=== PATIENT | female | born 1970 | race Caucasian/White ===

== ENCOUNTER 2017-04-23 11:00 | Outpatient (RCR) | payer MEDICARE, OTHER, SELFPAY ==
--- NOTE | 2017-01-06 16:19 | HP.PTEVAL_ITS ---
Patient's Visit Information BETO BERMUDEZ is a 46 year old F referred to Physical Therapy by Out of Town Doctor JOYA MEADE with a diagnosis of S/P L ankle fx. Date of Evaluation: 01/06/17 Physical Therapist: Girish Tao PT, - Visit Plan Frequency: 2x /Week Duration: 6 Weeks Plan: L ankle strengthening (NWBing), stretching, and HEP - Subjective Subjective: DOS: 10/18/16. Pt reports she tripped on a boot that was on the floor which resulted in a bimaleolar fx of the L ankle. Pt had an intermedulary ryann placed in her L tibia. Pt was NWB'ing for 12 weeks after the surgery until last week. Pt reports she still uses crutches to ambulate with, but is able to WB approximately 75% of her body wt. Pt did injure her R ankle when she was [age] which resulted in a hairline Fx. Pt reports her R foot is still numb, but notes she has peripheral neuropathy secondary to having kidney disease. Lives in a split level, has to negotiate steps one at a time. No sleep diff secondary to pain. 0/10 at rest, 3/10 at worst (prolonged ambulation) - Pain L ankle Pain Intensity (Out of 10): 0 Pain Intensity Range: 3 - Objective Palpation: Incisions all healed well at this time. Obvious swelling present at this time. No edema present in L LE. ROM: L ankle DF= -15, PF= 25; R ankle DF= 0, PF= 60. MMT: R ankle 5/5 throughout. L ankle 2/5 - Goals Goal 1:: Increase L ankle DF ROM x 10 degrees to aid with restoring a more normal gait pattern Goal Time Frame: 4-6 Weeks Goal 2:: Increase L ankle strength x 1 grade to aid with stair negotiation Goal Time Frame: 4-6 Weeks Goal 3:: Decrease L ankle pain x 50% to aid with IADL's Goal Time Frame: 4-6 Weeks Goal 4:: I with HEP Goal Time Frame: 4-6 Weeks - Rehabilitation Potential Rehabilitation Potential: Good - Anticipated Interventions Patient/Client Instruction: Educate patient on: Condition, Plan of Care For the Purpose of:: To improve self management Therapeutic Exercise to Include: Strength training, Flexibilty training, Gait and locomotor training, Passive ROM, Active ROM For the Purpose of:: To decrease pain, To increase ROM, To improve muscle performance and motor function Cryotherapy (ice pack, ice massage): Yes For the Purpose of:: To decrease pain, To increase ROM, To improve muscle performance and motor function Thank you for the opportunity to evaluate your patient. For Medicare and Medicare HMO plans, please review the plan of care and approve it. It will need to be FAXED BACK to us at [phone] for Medicare purposes. Please let me know if there are questions or concerns regarding this plan of care. Physician Signature: Date:
--- NOTE | 2017-02-02 16:09 | HP.PTREVAL_ITS ---
Out of Town DoctorHALINA ERICKA It has been my pleasure to treat BETO BERMUDEZ over the last 9 visits for S/ P L ankle fx. Please see the progress note below for an update on the physical therapy plan of care! Subjective: No pain this date. Objective/Function: L ankle ROM: DF= -13, PF= 30, INV= 12, Ever= 0. MMT: DF and PF= 4/5 in available range. Pain 0/10 Pt is I with HEP. Progressing well towards Rx goals Plan Plan: cont as vy Goals Goal 1:: Increase L ankle DF ROM x 10 degrees to aid with restoring a more normal gait pattern Goal Time Frame: 4-6 Weeks Goal Progress: Progressing Goal 2:: Increase L ankle strength x 1 grade to aid with stair negotiation Goal Time Frame: 4-6 Weeks Goal Progress: Progressing Goal 3:: Decrease L ankle pain x 50% to aid with IADL's Goal Time Frame: 4-6 Weeks Goal Progress: Goal Met Goal 4:: I with HEP Goal Time Frame: 4-6 Weeks Goal Progress: Goal Met Anticipated Interventions Patient/Client Instruction: Educate patient on: Condition, Plan of Care For the Purpose of:: To improve self management Therapeutic Exercise to Include: Strength training, Flexibilty training, Gait and locomotor training, Passive ROM, Active ROM For the Purpose of:: To decrease pain, To increase ROM, To improve muscle performance and motor function Cryotherapy (ice pack, ice massage): Yes For the Purpose of:: To decrease pain, To increase ROM, To improve muscle performance and motor function Please do not hesitate to contact me at [phone] by phone or Fax: if you have questions or concerns regarding this new plan of care! Sincerely, Girish Tao, PT,
--- NOTE | 2017-06-18 15:23 | HP.PT.NRP ---
HP - Discharge Summary (1) - Patient Information BETO BERMUDEZ was seen in my office for initial evaluation on 01/06/17. The following Plan of Care was established for this patient: Initial Frequency: 2x /Week Initial Duration: 6 Weeks - Anticipated Interventions Patient/Client Instruction: Educate patient on: Condition, Plan of Care For the Purpose of:: To improve self management Therapeutic Exercise to Include: Strength training, Flexibilty training, Gait and locomotor training, Passive ROM, Active ROM For the Purpose of:: To decrease pain, To increase ROM, To improve muscle performance and motor function Cryotherapy (ice pack, ice massage): Yes For the Purpose of:: To decrease pain, To increase ROM, To improve muscle performance and motor function This patient was last seen in our office . Pertinent comments regarding their Physical therapy will appear below: Pt phoned the clinic on 05/08/17 to report she wanted to cancel all remaining appt's as she had to have surgery again. At this point I will be discontinuing this patient from physical therapy. I would be happy to see this patient again in the future if found appropriate by the physician. Thank you! Girish Tao, PT,
== END 2017-04-23 19:00 | disposition home or self-care (01) ==
LOC: PT 11:00
PROVIDERS: Family Provider Nurse Practitioner; PCP Nurse Practitioner
DX: S82.392D Other fracture of lower end of left tibia, subsequent encounter for closed fracture with routine healing (principal); S82.842D Displaced bimalleolar fracture of left lower leg, subsequent encounter for closed fracture with routine healing; W17.89XD Other fall from one level to another, subsequent encounter; M25.572 Pain in left ankle and joints of left foot
CPT/HCPCS: 97110; 97162; 97530; G8978; G8979

== ENCOUNTER → 2017-10-12 12:13 | Outpatient (CLI) | payer MEDICARE, OTHER, SELFPAY ==
--- NOTE | 2017-10-12 12:18 | RAD_ITS ---
STUDY: X-RAY - LUMBAR SPINE REASON FOR EXAM: Female, 46 years old. Pain TECHNIQUE: Five view(s) of the lumbar spine were obtained. COMPARISON: None FINDINGS: Normal lumbar lordosis. There is no significant scoliosis. There is normal alignment of the vertebrae. There are small osteophytes scattered in the lumbar spine. Vertebral body heights are maintained. There is mild disc space narrowing at L5-S1. Cholecystectomy clips are present. There are surgical clips in the right pelvis. RAD/L/S Spine Min 4 Views IMPRESSION: There are mild degenerative disc changes at L5-S1. Electronically Signed: Shabnam Ospina MD at 2:05 EDT Tel Direct: [phone], Service support ,
--- NOTE | 2017-10-12 12:18 | RAD_ITS ---
STUDY: X-RAY - THORACIC SPINE REASON FOR EXAM: Female, 46 years old. Pain TECHNIQUE: Three view(s) of the thoracic spine were obtained. COMPARISON: None. FINDINGS: Normal kyphosis of the thoracic spine. There is no significant scoliosis. Vertebral body heights are maintained. Osteophytes are scattered in the thoracic spine. There is minimal disc space narrowing. Cholecystectomy clips are present. There are small surgical sutures in the left upper abdomen. RAD/Thoracic Spine 3 Views IMPRESSION: No acute abnormalities are seen in the thoracic spine. There are mild degenerative changes scattered in the thoracic spine. Electronically Signed: Shabnam Ospina MD at 2:03 EDT Tel Direct: [phone], Service support ,
== END ==
PROVIDERS: Family Provider Nurse Practitioner; PCP Nurse Practitioner; Visit Provider Nurse Practitioner Gerontology
DX: M54.9 Dorsalgia, unspecified (principal)
CPT/HCPCS: 72072; 72110

== ENCOUNTER 2017-11-18 10:00 | Outpatient (RCR) | payer MEDICARE, MEDICAID, SELFPAY ==
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
--- NOTE | 2017-10-23 11:50 | HP.PTREVAL_ITS ---
Mis Ventura, It has been my pleasure to treat BETO BERMUDEZ over the last 9 visits for SCIATICA. Please see the progress note below for an update on the physical therapy plan of care! Subjective: PATIENT REPORTS THE PAIN IN THE HIPS IS GETTING BETTER AND SHE CAN AT LEAST GO TO SLEEP AT NIGHT AND THAT IS DEFINATELY A PLUS. PATIENT REPORTS SHE CAN BE UP ON HER LEGS LONGER TOO. SHE REPORTS SHE FEELS REALLY GOOD IN THE POOL AND SHE WANTS TO CONTINUE WATER THERAPY. PATIENT ALSO REPORTS HER CALVES ARE NOT PAINFUL THEY WERE. PATIENT REPORTS SHE IS ALLOWED TO WALK AT HOME WITHOUT HER BOOT TOLERATED. SHE REPORTS THE EX'S IN THE POOL ALL FEEL GOOD AND ARE EVEN HELPING HER LEFT ANKLE. PATIENT REPORTS SHE HAS NOTICED THAT IT IS EASIRE TO GO UP THE STEPS INTO HER HOUSE NOW. Objective/Function: PATIENT IS MAKING PROGRESS TOWARD ALL GOALS. SHE IS REPORTING LESS PAIN, DEMO'S INCREASED PUMA LE STRENGTH AND IS TOLERATING PRE IN THE POOL ALONG WITH LEARNING A HEP. ABLE TO DEMONSTRATE AND COMMUNICATE A GOOD UNDERSTANDING OF ALL INSTRUCTIONS AFTER GIVEN TODAY. UPON EXAM: Motor deficit: RIGHT LE GROSSLY 5/5 WITH MMT'IING EXCEPT HIP GRADED 4/5. LEFT HIP 4-/5, KNEE EXT 4/5, KNEE FLEX 4/5 - ANKLE NT. Sensory deficit: NO CHANGE. ROM deficit: PUMA LE'S WFL - LEFT ANKLE NT. Dural Signs: NEGATIVE PUMA LE DURAL SIGNS. OTHER: UNABLE TO TRANSFER FROM SIT TO STAND WITHOUT UE ASSIST. Lumbar mvmt loss: flex - MOD - THIS IS MORE RESTRICTED THAN INITIAL EVAL BUT PATIENT DENIES FEELING TIGHTER IN LOW BACK SINCE STARTING POOL THERAPY. ext - MIN. R SG - MIN. L SG - MIN. LEFT SG TESTING PROVOKES LOW BACK PAIN TODAY. PATIENT REPORTED FEELING A LITTLE LOW BACK PAIN WITH LUMBAR EXTENSION TESTING TOO. Core strength: POOR. Palpation: THERE IS STILL NO ACUTE LUMBAR OR PELVIC OR HIP TENDERNESS WITH PALPATION. OTHER: TRANSFERRING SIT TO [place]PINE IS SLOW AND GUARDED AND IT TAKES HER A FEW MINUTES TO GET COMFORTABLE ON HER BACK TO CHECK HER HOME EX'S. LUMBAR OSWESTRY HAS IMPROVED FROM 28 TO 24. Plan Plan: CONT AQUATIC THERAPY 2-3 TIMES A WEEK X 10 MORE VISITS FOR PAIN RELIEF, POSTURE CORRECTION/STRENGTHENING, INSTRUCTION IN APPROPRIATE BODY MECHANICS AND ACTIVITY MODIFICATIONS. DLS STARTING WITH A NEUTRAL SPINE PROGRESSING ROM TOLERATED. PUMA LE ROM, STRETCHING AND STRENGTHENING. HEP INSTRUCTION. Goals Goal 1:: DECREASE C/O BACK AND LE SX'S Goal Time Frame: 4-6 Weeks Goal 2:: IMPROVE PERSONAL CARE, LIFTING, WALKING, SITTING, STANDING, SLEEP, SOCIAL LIFE, TRAVEL AND HOMEMAKING FUNCTION Goal Time Frame: 4-6 Weeks Goal 3:: INSTRUCT IN PROPHYLAXIS Goal Time Frame: 4-6 Weeks Anticipated Interventions Patient/Client Instruction: Educate patient on: Condition, Plan of Care, Risk Factors, Benefits of Fitness Program For the Purpose of:: To improve self management Therapeutic Exercise to Include: Strength training, Body mechanics, Postural training, Dynamic Lumbar Stabilization For the Purpose of:: To decrease pain, To improve ability of physical actions for home/community/work/leisure Please do not hesitate to contact me at [phone] by phone or Fax: if you have questions or concerns regarding this new plan of care! Sincerely, Lorenza Hernandez
--- NOTE | 2017-11-18 10:52 | HP.PTDCSUM_ITS ---
HP - PT D/C Summary It has been my pleasure to treat BETO BERMUDEZ under orders from Mis Ventura, for the diagnosis of SCIATICA for a total of 19 visit(s). Discharge Date: 11/18/17 Please see the following information for a summary of their discharge status. - Subjective Subjective: PATIENT REPORTS SHE THINKS SHE IS STARTING TO GET BETTER AGAIN. PATIENT REPORTS SHE IS GOING ON VACATION STARTING THURSDAY FOR ABOUT 10 DAYS. SHE PLANS TO START WATER EX AT THE WHEN SHE GETS BACK IN TOWN. ANOTHER SURGICAL CONSULT FOR LEFT ANKLE SURGERY November. SHE REPORTS HER RIGHT LE HAS CONTINUED TO IMPROVE SINCE LAST RE-CHECK WHICH HAS ALLOWED HER TO WALK AROUND MORE COMFORTABLY AND SLEEP BETTER. SHE ALSO REPORTS THE PAIN IN HER LEFT LOWER LEG IS BETTER AND IT WAS ALMOST GONE OUT OF HER LOWER LEG UNTIL ABOUT A WEEK AND A HALF AGO AFTER CHIRO MANIP. 10/12/17 LUMBAR X-RAY SHOWS There are mild degenerative disc changes at L5-S1. DR. JULIO HAS REFERRED HER TO PAIN MGMT AND BARRETT PENDING WITH DR. TORO END November. - Pain Lumbar Spine Pain Intensity (Out of 10): 2 RLE Pain Intensity (Out of 10): 2 LLE Pain Intensity (Out of 10): 4 - Overall Improvement % Improvement: 65 - Objective Objective/Function: UPON EXAM: Motor deficit: RIGHT LE GROSSLY 5/5 WITH MMT' IING EXCEPT left ANKLE NT. THIS HAS DEFINATELY IMPROVED. GAIT: INDEP GAIT INTO PT STILL WEARING BOOT ON LLE. Sensory deficit: NO CHANGE. ROM deficit: PUMA LE'S WFL - LEFT ANKLE NT. Dural Signs: NEGATIVE PUMA LE DURAL SIGNS. OTHER : ABLE TO TRANSFER FROM SIT TO STAND WITHOUT UE ASSIST NOW. Lumbar mvmt loss: flex - MIN. ext - MIN. R SG - MIN. L SG - MIN. PATIENT DENIES INCREASED PAIN WITH LUMBAR ROM TESTING TODAY. Core strength: POOR. Palpation: THERE IS STILL NO ACUTE LUMBAR OR PELVIC OR HIP TENDERNESS WITH PALPATION BUT PATIENT REPORTS PAIN IN LOWEST PART OF BACK IF SHE PUSHES HARD AND HER SIT BONES HURT. OTHER: LAST RE-CHECK, TRANSFERRING SIT TO SUPINE WAS SLOW AND GUARDED AND IT TOOK HER A FEW MINUTES TO GET COMFORTABLE ON HER BACK TO CHECK HER HOME EX'S BUT TODAY SHE TRANSFERS WITH MUCH LESS GUARDING AND IS ABLE TO GET COMFORTABLE ON HER BACK QUICKLY. LUMBAR OSWESTRY HAS IMPROVED FROM 24 TO 19. ALL GOALS MET BUT PATIENT STILL HAS SIGNIFICANT C/O'S OF PAIN. SHE IS INDEP WITH A POOL PROGRAM AND MY HOPE IS THAT SHE WILL CONTINUE TO IMPROVE WITH TIME AND EX. - Goals Goal 1:: DECREASE C/O BACK AND LE SX'S Goal 2:: IMPROVE PERSONAL CARE, LIFTING, WALKING, SITTING, STANDING, SLEEP, SOCIAL LIFE, TRAVEL AND HOMEMAKING FUNCTION Goal 3:: INSTRUCT IN PROPHYLAXIS - Plan Plan: D/C TO INDEP EX. PATIENT AGREEABLE. - D/C Information If there are questions or concerns regarding this patient's physical therapy, please feel free to call me at [phone]. Thank you for the referral of this patient. Sincerely, Lorenza Hernandez
== END 2017-11-18 18:29 | disposition home or self-care (01) ==
LOC: PT 10:00
PROVIDERS: Family Provider Nurse Practitioner; PCP Nurse Practitioner; Visit Provider Internal Medicine
DX: M54.32 Sciatica, left side (principal); M54.31 Sciatica, right side
CPT/HCPCS: 97113; 97163; 97164; 97530

== ENCOUNTER → 2017-12-30 15:31 | Outpatient (CLI) | payer MEDICARE, OTHER, MEDICAID, SELFPAY ==
--- NOTE | 2017-12-30 16:00 | MRI_ITS ---
STUDY: MRI LUMBAR SPINE WITHOUT CONTRAST REASON FOR EXAM: Female, 47 years old. Low back pain, kidney transplant TECHNIQUE: Standardized fat and water weighted pulse sequences were obtained in the sagittal and axial planes. COMPARISON: X-ray 10/12/2017 FINDINGS: T12-L1: There is mild endplate spondylosis (image 7/15 sagittal T2). Normal lumbar lordosis. There is no substantial scoliosis. Normal conus medullaris that terminates at the T12-L1 level. L1-2: Normal endplates. Normal disc height, hydration and morphology. Normal bilateral facet joints. Normal central canal and bilateral lateral recesses. Normal bilateral intervertebral neural foramina. L2-3: There is minimal endplate spondylosis, disc desiccation and disc bulge (image 7/15 sagittal T2). L3-4: There is mild endplate spondylosis, disc desiccation and mild disc bulge (image 7/15 sagittal T2). L4-5: Normal endplates. Normal disc height, hydration and morphology. Normal bilateral facet joints. Normal central canal and bilateral lateral recesses. Normal bilateral intervertebral neural foramina. L5-S1: There is disc desiccation and mild disc bulge (image 7/15 sagittal T2). Normal visualized sacral ala. There is polycystic kidney disease (image 16/25 axial T2). MRI/Spine Lumbar (Routine) IMPRESSION: No disc herniation or spinal stenosis Electronically Signed: Alvaro Sloan MD at 21:35 EDT Tel , Service support ,
== END ==
PROVIDERS: Family Provider Nurse Practitioner; PCP Nurse Practitioner; Visit Provider Nurse Practitioner Family
DX: M47.817 Spondylosis without myelopathy or radiculopathy, lumbosacral region (principal); M51.37 Other intervertebral disc degeneration, lumbosacral region; M48.07 Spinal stenosis, lumbosacral region; M54.17 Radiculopathy, lumbosacral region
CPT/HCPCS: 72148

== ENCOUNTER 2018-03-30 19:59 | Emergency (ER) | payer MEDICARE, OTHER, MEDICAID, SELFPAY ==
[2018-03-30 20:00] VITALS: BP 146/71; PULSE 68; RESP 16; TEMP 37.1; O2SAT 99; BMI 31.9
--- NOTE | 2018-03-30 21:16 | RAD_ITS ---
STUDY: X-RAY - LEFT KNEE REASON FOR EXAM: Female, 47 years old. Status post fall. TECHNIQUE: 4 view(s) of the knee. COMPARISON: None. FINDINGS: There is no acute fracture. There is an old healed fracture of the proximal fibular shaft. Joint spaces are well-maintained. There is no joint effusion. Soft tissues and bony structures are unremarkable. RAD/Knee 4 or More Views IMPRESSION: No acute abnormality. Healed fracture of the proximal fibular shaft. Electronically Signed: Lizeth Polo MD at 21:48 EST Tel , Service support ,
--- NOTE | 2018-03-30 21:18 | ED.VISSUMM ---
- ER Visit Summary Date of Service: 03/30/18 Chief Complaint: Fall History of Present Illness: The patient is a 47 F who sustained a mechanical fall earlier tonight. She is complaining of right ankle pain after twist and left knee pain after direct impact. She also hit her left forearm but has minimal pain. No head injury no loss consciousness no nausea vomiting no other injury. Physical Examination: Not appear in acute distress. Moist mucous membranes, no obvious facial deformity No C-spine tenderness supple neck. Regular rate and rhythm without any obvious murmurs Clear lungs bilaterally speaking in full sentences without any obvious respiratory distress Abdomen soft and nontender She has tenderness over the left knee but full range of motion without any laxity to anterior posterior medial lateral stressors. She has a normal extensor mechanism. She has ankle pain without any significant edema. She has no foot pain no proximal fifth metatarsal pain. Left upper extremity has a contusion over the forearm she also has a fistula with a palpable thrill. She has no bony tenderness. Skin does not show any obvious rashes or lesions, no trauma. Alert oriented ?3 with no gross focal deficit Emergency Department Course and Treatment: X- rays are negative. Patient appears comfortable does not need analgesia should be discharged with reassurance. Disposition: Discharge stable condition Impression: Left knee contusion Right foot strain This note was generated with [employer] dictation software. It may contain incorrect words, spelling, and punctuation that were not noted in review of the chart prior to signing ED Disposition - Plan for ED Patient: Disposition: Home or Assisted Living Chief Complaint: Lower Extremity Injury Instructions: ED Contusion Lower Ext Referrals: Hali Adamson, [facility] [Primary Care Provider] - 3-5 Days
--- NOTE | 2018-03-30 21:28 | RAD_ITS ---
STUDY: X-RAY - RIGHT FOOT CLINICAL: Female, 47 years old. Status post fall. TECHNIQUE: 3 view(s) of the foot. COMPARISON: None. FINDINGS: Normal talus, calcaneus, and tarsal bones. Normal visualized subtalar, talonavicular, calcaneocuboid, tarsal and tarsometatarsal articulations. Normal metatarsi. Normal metatarsophalangeal joint of the great toe. Normal tibial and fibular sesamoid bones. Normal interphalangeal joint of the great toe. Normal phalanges of the great toe. Normal second through fifth metatarsophalangeal joints. Normal interphalangeal joints and phalanges of the lesser toes. The soft tissue structures are unremarkable. RAD/Foot min 3 Views IMPRESSION: Normal x-ray examination of the foot. Electronically Signed: Lizeth Polo MD at 21:49 EST Tel , Service support ,
--- NOTE | 2018-03-30 21:32 | RAD_ITS ---
STUDY: X-RAY - RIGHT ANKLE REASON FOR EXAM: Female, 47 years old. Status post fall. TECHNIQUE: 3 view(s) of the ankle. COMPARISON: None. FINDINGS: Normal visualized distal tibia and fibula. Normal medial and lateral malleoli. Normal tibiotalar articulation and ankle mortise. Normal visualized talus and calcaneus. The visualized subtalar, talonavicular, calcaneocuboid and tarsal articulations are normal. The soft tissue structures are unremarkable. RAD/Ankle min 3 Views IMPRESSION: Normal x-ray examination of the ankle. Electronically Signed: Lizeth Polo MD at 21:48 EST Tel , Service support ,
[2018-03-30 22:29] VITALS: BP 125/98; PULSE 59; O2SAT 99
== END 2018-03-30 22:30 | disposition home or self-care (01) ==
PROVIDERS: Emergency Provider Emergency Medicine; Family Provider Nurse Practitioner; PCP Nurse Practitioner
DX: S96.911A Strain of unspecified muscle and tendon at ankle and foot level, right foot, initial encounter (principal); S80.02XA Contusion of left knee, initial encounter; S50.12XA Contusion of left forearm, initial encounter; W19.XXXA Unspecified fall, initial encounter; Y93.9 Activity, unspecified; Y92.9 Unspecified place or not applicable; Y99.9 Unspecified external cause status; Z72.0 Tobacco use; Z94.0 Kidney transplant status; Z79.82 Long term (current) use of aspirin; Z79.899 Other long term (current) drug therapy
CPT/HCPCS: 73564; 73610; 73630; 99282

== ENCOUNTER 2018-06-22 09:30 | Outpatient (RCR) | payer MEDICARE, OTHER, MEDICAID, SELFPAY ==
[2018-04-27 11:33] VITALS: BMI 31.9
--- NOTE | 2018-05-05 16:00 | HP.PTEVAL_ITS ---
Patient's Visit Information BETO BERMUDEZ is a 47 year old F referred to Physical Therapy by Hali Adamson NP with a diagnosis of PHYSICAL DISIBLITY. Date of Evaluation: 05/05/18 Physical Therapist: John Gipson, PT, - Visit Plan Frequency: 2x /Week Duration: 4 Weeks Plan: PATIENT HAS MULTIPLE COMORBITIES WITH LEFT ANKLE HEEL FX WHICH FAILED AND PATIENT HAD FAILED ANKLE ORIF WHICH FAILED KURT BROKE,PLANS TO HAVE REVISION IN MAY 2018ALSO FEB 2018 HAD KIDNEY TRANSPLANT. AQUATIC PT FOR GRADE DLS -CORE STRENGTHENING ,UE/LE STRENGTHENING ,CONDITIONING WITH NO WEIGHT BEARING PER ORDER - Subjective Findings: This 47 y/o female presents to physical therapy with physical disablity.Patient has multiple complexity issues. Patient fracture mutliple part heel and ankle September 2016 s/p kurt placememt. Patient had complication with kurt broke thus patient keept in cam boot. Patient plan to revise ankle surgery replace kurt Jun 23 2018. Also,had both kidney transplant due to polycystic kidney disease,transplant surgery Mar 03 2018. Patient was on dialysis for 4 1/2 years prior. Patient fell one time after kidney tranplant landed on left knee. Patient goals to get stronger and in arms /legs ,improve condition. Patient has neuropathy in feet with parathesia. Patient sleeping okay using sleep pap. Seen TRAFFIC REPORTER wanted core strength with NWB ex's. Patient has been taking vitamins to heel bone,seen ankle surgeon Dr [facility]. SOCAIL: . VOCATION: DISABITY - Pain Left Ankle Pain Intensity (Out of 10): 4 Pain Intensity Range: 10 - Objective POSTURE: mild foward poture. GAIT: ambulates with cam boot antalgic gait. ABDOMINAL INSCION: well approximate. BALANCE: good. MMT: quads/hams 4/5,hip flexion /abduction 4-/5,ankle left NT ,right 4/5. BUE grossly 4/5 ,shoulders 4- /5. FLEXABLITY: hams min tight - Goals Goal 1:: Patient to be Independant with Aquatic program Goal Time Frame: 4-6 Weeks Goal 2:: Patient to function endurance to good. Goal 3:: Patient to improve BUE/LE strength to good to improve function Goal Time Frame: 4-6 Weeks Goal 4:: Patient to improve LFES score by 5-10 points to improve function. Goal Time Frame: 4-6 Weeks - Rehabilitation Potential Physical Therapy Diagnosis: This patient has multiple comorbities with h/o of left ankle and heel fx with kurt placement that failed with kurt broke September 2016,ankle Feb 2018 patient had transplant kidneys surgery. Patient plans to undergo revision of left ankle surgery at [facility] in end of May Rehabilitation Potential: Good - Anticipated Interventions Patient/Client Instruction: Educate patient on: Condition, Plan of Care For the Purpose of:: To decrease pain, To decrease swelling/inflammation, To improve muscle performance and motor function, To improve ability to perform ADL's, To increase tolerance to activity/condition/position, To improve performance and independence with ADL's, To improve ability of physical actions for home/community/work/leisure, To improve endurance, To improve health and function, To improve ability to perform tasks related to life management Therapeutic Exercise to Include: Strength training, Endurance training, Balance training, In an aquatic setting, Active ROM, Scapular Strength/Stabilization Comment: BUE/LE EXCEPT LEFT ANKLE For the Purpose of:: To decrease pain, To improve muscle performance and motor function, To improve ability to perform ADL's, To increase tolerance to activity/condition/position, To improve performance and independence with ADL's, To improve ability of physical actions for home/community/work/leisure, To improve gait and locomotor functions, To improve ability to perform tasks related to life management Thank you for the opportunity to evaluate your patient. For Medicare and Medicare HMO plans, please review the plan of care and approve it. It will need to be FAXED BACK to us at [phone] for Medicare purposes. For Medicare only, by signing this I certify the plan of care. Please let me know if there are questions or concerns regarding this plan of care. Physician Signature:____ Date:
--- NOTE | 2018-06-01 10:00 | HP.PTREVAL ---
Hali Adamson NP, It has been my pleasure to treat BETO BERMUDEZ over the last 9 visits for PHYSICAL DISIBLITY. Please see the progress note below for an update on the physical therapy plan of care! Subjective: Plan to have surgery Jun 23. Cont on boot . PT helpng to improve strength Objective/Function: POSTURE: mild fowad posture. GAIT: with cam boot. NEURO: intact. MMT: quads/hams 4/5,hip 4-/5. LUMBAR ROM: flexion mod loss ,extension mod loss Plan Plan: MUST REMAIN NWBING FOR EXERCISE IN POOL - surgery 06/23/18* Can enter/exit from locker room WBing without AD and CAM boot. CONT WITH POC 2XWEEK 4WEEKS Goals Goal 1:: Patient to be Independant with Aquatic program Goal Time Frame: 4-6 Weeks Goal Progress: Goal Met Goal 2:: Patient to function endurance to good. Goal Progress: Progressing Goal 3:: Patient to improve BUE/LE strength to good to improve function Goal Time Frame: 4-6 Weeks Goal Progress: Progressing Goal 4:: Patient to improve LFES score by 5-10 points to improve function. Goal Time Frame: 4-6 Weeks Goal Progress: Progressing Anticipated Interventions Patient/Client Instruction: Educate patient on: Condition, Plan of Care For the Purpose of:: To decrease pain, To decrease swelling/inflammation, To improve muscle performance and motor function, To improve ability to perform ADL's, To increase tolerance to activity/condition/position, To improve performance and independence with ADL's, To improve ability of physical actions for home/community/work/leisure, To improve endurance, To improve health and function, To improve ability to perform tasks related to life management Therapeutic Exercise to Include: Strength training, Endurance training, Balance training, In an aquatic setting, Active ROM, Scapular Strength/Stabilization Comment: BUE/LE EXCEPT LEFT ANKLE For the Purpose of:: To decrease pain, To improve muscle performance and motor function, To improve ability to perform ADL's, To increase tolerance to activity/condition/position, To improve performance and independence with ADL's, To improve ability of physical actions for home/community/work/leisure, To improve gait and locomotor functions, To improve ability to perform tasks related to life management Please do not hesitate to contact me at [phone] by phone or if you have questions or concerns regarding this new plan of care! Sincerely, John Gipson, PT, Cert MDT, OCS
--- NOTE | 2018-06-22 09:56 | HP.PTDCSUM ---
HP - PT D/C Summary It has been my pleasure to treat BETO BERMUDEZ under orders from Hali Adamson NP, for the diagnosis of PHYSICAL DISIBLITY for a total of 16 visit(s). Discharge Date: 06/22/18 Please see the following information for a summary of their discharge status. - Subjective Subjective: Plan for surgery cindi nieves ,, following with NWB 6-8 weeks. - Pain Left Ankle Pain Intensity (Out of 10): 3 Lumbar Spine Pain Intensity (Out of 10): 4 BLEs Pain Intensity (Out of 10): 4 - Overall Improvement % Improvement: 50 - Objective Objective/Function: POSTURE: mild foward posture. GAIT: mild antalgic gait with boot cam. MMT: quads/hams 4/5,hip flexion 4-/5, left ankle NT - Goals Goal 1:: Patient to be Independant with Aquatic program Goal Progress: Goal Met Goal 2:: Patient to function endurance to good. Goal Progress: Goal Met Goal 3:: Patient to improve BUE/LE strength to good to improve function Goal Progress: Progressing Goal 4:: Patient to improve LFES score by 5-10 points to improve function. Goal Progress: Progressing - Plan Plan: D/C.. Surgery scheduled for 06/23/18. - D/C Information Discharge Comments: D/C TO HEP If there are questions or concerns regarding this patient's physical therapy, please feel free to call me at [phone]. Thank you for the referral of this patient. Sincerely, John Gipson, PT, Cert MDT, OCS
== END 2018-06-22 19:00 | disposition home or self-care (01) ==
LOC: PT 09:30
PROVIDERS: Family Provider Nurse Practitioner; PCP Nurse Practitioner; Referring Provider Nurse Practitioner; Visit Provider Nurse Practitioner
DX: R53.81 Other malaise (principal)
CPT/HCPCS: 97113; 97162; 97530

== ENCOUNTER → 2019-02-11 16:01 | Outpatient (CLI) | payer MEDICARE, OTHER, SELFPAY ==
[2018-04-27 11:33] VITALS: BMI 31.9
--- NOTE | 2019-02-11 16:12 | RAD_ITS ---
STUDY: X-RAY - PELVIS AND BILATERAL HIPS REASON FOR EXAM: Female, 48 years old. Pain TECHNIQUE: AP view of the pelvis.? 2 views of the right hip, and 2 views of the left hip were obtained. COMPARISON: None. FINDINGS: There is a non-specific bowel gas pattern. Normal visualized soft tissue structures. Normal bilateral iliac wings, sacroiliac joints and visualized sacrum. Normal bilateral superior and inferior pubic rami. Normal pubic symphysis. Normal bilateral ischial tuberosities. Normal visualized right femoral head. Normal right acetabulum. Normal right hip joint. Normal visualized left femoral head. Normal left acetabulum. Normal left hip joint. RAD/Hips B/L min 2 views w/ Pelvis IMPRESSION: Normal x-ray examination of the pelvis and bilateral hips. Electronically Signed: Bib Davey, at 22:17 EDT Tel , Service support ,
== END ==
PROVIDERS: Family Provider Nurse Practitioner; PCP Nurse Practitioner; Referring Provider Nurse Practitioner; Visit Provider Nurse Practitioner
DX: M25.551 Pain in right hip (principal); M25.552 Pain in left hip
CPT/HCPCS: 73521

== ENCOUNTER → 2019-04-07 10:50 | Outpatient (CLI) | payer MEDICARE, SELFPAY ==
[2018-04-27 11:33] VITALS: BMI 31.9
--- NOTE | 2019-04-07 10:57 | RAD_ITS ---
STUDY: X-RAY - CERVICAL SPINE REASON FOR EXAM: Female, 48 years old. Left arm pain. TECHNIQUE: 5 view(s) of the cervical spine were obtained. COMPARISON: None FINDINGS: There are degenerative changes of the anterior atlantoaxial articulation. Normal odontoid process. There is straightening of the normal cervical lordosis. There is multi-level endplate spondylosis. There is mild, multi-level degenerative disc disease with multilevel disc space narrowing. No significant neuroforaminal encroachment seen. The soft tissue structures are unremarkable. There is no demonstrated fracture of the cervical spine. RAD/Cerv Spine 4 or 5 Views IMPRESSION: Mild spondylosis/degenerative disease with no acute fracture or subluxation. Straightening of the physiological lordosis which may be due to muscular spasm or arthritis. Electronically Signed: Zee Camacho MD at 2:45 EST , Service support ,
== END ==
PROVIDERS: Family Provider Nurse Practitioner; PCP Nurse Practitioner; Referring Provider Anesthesiology Pain Medicine; Visit Provider Anesthesiology Pain Medicine
DX: M79.602 Pain in left arm (principal); M54.2 Cervicalgia
CPT/HCPCS: 72050

== ENCOUNTER 2019-08-30 10:00 | Outpatient (RCR) | payer MEDICARE, MEDICAID, SELFPAY ==
[2018-04-27 11:33] VITALS: BMI 31.9
--- NOTE | 2019-05-09 14:29 | HP.PTEVAL ---
Patient's Visit Information BETO BERMUDEZ is a 48 year old F referred to Physical Therapy by Bib Giron MD with a diagnosis of DEGENERATIVE CERVICAL DISC,CERVICAL /LUMBAR SPONYLOSIS. Date of Evaluation: 05/09/19 Physical Therapist: John Gipson, PT, Cert MDT, OCS - Visit Plan Frequency: 2x /Week Duration: 4 Weeks Plan: INTIALLY AQAUTIC PT FOR CERVICAL/LUMBAR ROM,DLS,POSTURAL EX'S,BUE/LE STRENGTHENING - Subjective Findings: This 48 y/o female presents to physical therapy with cervical and back pain. Patient has lumbar pain 2 years and cervical pain 6 months. Patient has comorbities kidney transplant, bariatric surgery ,ankle fusion left Jun 23 ,, knee surgery on left,left x1. Patient seen DR Keen did epidural injections L-S, and hip SI last in Jan.Patient had x-rays at [facility] .Loctaion of cervical UT/scapular. Aggravating factors lifting,sleeping,extesnion,flexion when reading, Alleviating factors pain MEDS. Denies nausea/tinnitus,occassioonally LAMBERT. Aggravting factors lumbar lifting, bending,walking/standing. MEDS help.Bowel/bladder -. Coughing/sneezing -. C/O parathesia right thigh and left arm. Pain affects sleeping. Patient pain affects ,housework tasks and ADL's. Patient pain affects QOL. SOCIAL: . VOCATION: disablity - Pain Bilateral Neck Pain Intensity (Out of 10): 4 Pain Intensity Range: 10 Bilateral Back Pain Intensity (Out of 10): 4 Pain Intensity Range: 10 Bilateral Hip Pain Intensity (Out of 10): 4 Pain Intensity Range: 10 - Objective POSTURE: mild foward posture. GAIT: mild foward posture hips knees flexed. PALAPTION: tenderness UT/levator. NEURO: c/o parathesia/tingling ,reflexes C5-6-7 2/3,L4-5,L4-L5,L5-S1 1/3. AROM: shoulder flexion/abduction 140 pain. MMT: grossly 4-/5,except shoulder 3+/5 pain. CERVICAL ROM: flexion min loss,extension mod loss pain ,rotation/lateral flexion mod loss pain. MMT: quads/hams 4-/5,hip flexion 3+/5,ankld 4-/5. LUMBAR ROM: flexion mod loss,extension mod loss,side glides min loss. FLEXABILITY: hams min/mod tight - Special Tests C/S Radiculapathy - Left Upper limb tension test: Negative C/S Radiculapathy - Right Upper limb tension test: Negative C/S Radiculapathy - Left Spurlings: Negative C/S Radiculapathy - Right Spurlings: Negative C/S Radiculapathy - Left Cervical distraction: Negative C/S Radiculapathy - Right Cervical distraction: Negative Sharp Em: Negative Vertebral Artery Test: Negative Alar Ligament Test: Negative L/S Slump test left side: Negative L/S Slump test right side: Negative L/S Left Straight Leg Raise: Negative L/S Right Straight Leg Raise: Negative - Goals Goal 1:: Patient be Independant with Aquatic Therapy Goal Time Frame: 4-6 Weeks Goal 2:: Patient to decrease neck/lumbar pain by 50% or> to improve function Goal Time Frame: 4-6 Weeks Goal 3:: Patient to improve lumbar/cervical ROM for function of recovery Goal Time Frame: 4-6 Weeks Goal 4:: Patient to improve strength of BUE/LE 4/5 function excepts hips /shoulder. Goal Time Frame: 4-6 Weeks Goal 5:: Patient to improve neck owestry score by 5 points or> to improve QOL. Goal Time Frame: 4-6 Weeks - Rehabilitation Potential Physical Therapy Diagnosis: This patient presents with cervical and lumbar pain with decrease ROM,strength ,pain ,decreease gait impairs ADL's and housework tasks thus benifit from skilled PT Rehabilitation Potential: Good - Anticipated Interventions Patient/Client Instruction: Educate patient on: Condition, Plan of Care For the Purpose of:: To decrease pain, To increase ROM, To improve muscle performance and motor function, To improve ability to perform ADL's, To increase tolerance to activity/condition/position, To improve performance and independence with ADL's, To improve ability of physical actions for home/community/work/leisure, To improve gait and locomotor functions, To improve health of tissue, To decrease soft tissue restriction, To increase flexibility/ROM, To reduce risk of recurrence Therapeutic Exercise to Include: Strength training, Body mechanics, Postural training, Flexibilty training, In an aquatic setting, Active ROM, Dynamic Lumbar Stabilization For the Purpose of:: To decrease pain, To improve nutrient delivery to tissue, To increase oxygenation perfusion, To improve muscle performance and motor function, To increase tolerance to activity/condition/position, To improve ability of physical actions for home/community/work/leisure, To improve health of tissue, To decrease soft tissue restriction, To increase flexibility/ROM, To reduce risk of recurrence, To improve ability to perform tasks related to life management Thank you for the opportunity to evaluate your patient. For Medicare and Medicare HMO plans, please review the plan of care and approve it. It will need to be FAXED BACK to us at [phone] for Medicare purposes. For Medicare only, by signing this I certify the plan of care. Please let me know if there are questions or concerns regarding this plan of care. Physician Signature: Date:
--- NOTE | 2019-06-09 09:46 | HP.PTREVAL ---
Bib Giron MD, It has been my pleasure to treat BETO BERMUDEZ over the last 10 visits for DEGENERATIVE CERVICAL DISC,CERVICAL /LUMBAR SPONYLOSIS. Please see the progress note below for an update on the physical therapy plan of care! Subjective: Patient has been in Aquatics would like to change to land ex's. Seen pain management be active and pain MEDS. Cont to have pain of hips. Worse with standing and walkng and laying on either side Objective/Function: POSTURE: mild foward posture. GAIT: reciprocal pattern antalgic gait waddle. PALPATION: tronchanter greater. MMT: hip flexion 3+/5,hams 4-/5,hip abd 3/5,dedrick 4/5. PROM: IR R 20 DEGREES PAIN,IR L 35 DEGREES PAIN. CERVICAL ROM: flexion ,extension ,lateral flexion ,rotaion min loss. MMT: BUE 4/5 Plan Plan: progress to DLS ,BLE HIP STRENGTHENING ,POSTURAL EX'S,MODALTIES LE FLEXABLITY FOR 5 MORE VISITS Goals Goal 1:: Patient be Independant with HEP Goal Time Frame: 4-6 Weeks Goal Progress: Progressing Goal 2:: Patient to decrease neck/lumbar pain by 50% or> to improve function Goal Time Frame: 4-6 Weeks Goal Progress: Progressing Goal 3:: Patient to improve lumbar/cervical ROM for function of recovery Goal Time Frame: 4-6 Weeks Goal Progress: Progressing Goal 4:: Patient to improve strength of BUE/LE 4/5 function excepts hips /shoulder. Goal Time Frame: 4-6 Weeks Goal Progress: Progressing Goal 5:: Patient to improve neck owestry score by 5 points or> to improve QOL. Goal Time Frame: 4-6 Weeks Goal Progress: Progressing Anticipated Interventions Patient/Client Instruction: Educate patient on: Condition, Plan of Care For the Purpose of:: To decrease pain, To increase ROM, To improve muscle performance and motor function, To improve ability to perform ADL's, To increase tolerance to activity/condition/position, To improve performance and independence with ADL's, To improve ability of physical actions for home/community/work/leisure, To improve gait and locomotor functions, To improve health of tissue, To decrease soft tissue restriction, To increase flexibility/ROM, To reduce risk of recurrence Therapeutic Exercise to Include: Strength training, Body mechanics, Postural training, Flexibilty training, In an aquatic setting, Active ROM, Dynamic Lumbar Stabilization For the Purpose of:: To decrease pain, To improve nutrient delivery to tissue, To increase oxygenation perfusion, To improve muscle performance and motor function, To increase tolerance to activity/condition/position, To improve ability of physical actions for home/community/work/leisure, To improve health of tissue, To decrease soft tissue restriction, To increase flexibility/ROM, To reduce risk of recurrence, To improve ability to perform tasks related to life management Please do not hesitate to contact me at [phone] by phone or if you have questions or concerns regarding this new plan of care! Sincerely, John Gipson, PT, Cert MDT, OCS
--- NOTE | 2019-06-27 13:00 | HP.PTREVAL_ITS ---
Bib Giron MD, It has been my pleasure to treat BETO BERMUDEZ over the last 15 visits for DEGENERATIVE CERVICAL DISC,CERVICAL /LUMBAR SPONYLOSIS. Please see the progress note below for an update on the physical therapy plan of care! Subjective: Doing better overall. Able to walk further distances and go up/down stairs. Objective/Function: POSTURE: rounde shoulder head foward. PALPATION: tender L- S. GAIT: reciprocal waddle gait pattern antalgicv. MMT: quads/hams 4/5 ,hip flexion R 3+/5,left 4-/5. abd 3+/5. LUMBAR ROM: flexion min loss,extesnison min/mod loss. BUE MMT: 4/5 EXCEPT SHOULDER 4-/5. CERVICAL ROM: MIN/MOD LOSS ALL PLANES,EXCEPT FLEXION IN LOSS Plan Plan: REQUESTING 8 MORE VISITS DUE TO BENIFIT FROM SKILLED PT DUR TO CONT WEAKNESS IN LEGS,AND BACK AND NECK PAIN. DLS ,BLE HIP STRENGTHENING ,POSTURAL EX'S,MODALTIES LE FLEXABLITY Goals Goal 1:: Patient be Independant with HEP Goal Time Frame: 4-6 Weeks Goal Progress: Progressing Goal 2:: Patient to decrease neck/lumbar pain by 50% or> to improve function Goal Time Frame: 4-6 Weeks Goal Progress: Progressing Goal 3:: Patient to improve lumbar/cervical ROM for function of recovery Goal Time Frame: 4-6 Weeks Goal Progress: Progressing Goal 4:: Patient to improve strength of BUE/LE 4/5 function excepts hips /shoulder. Goal Time Frame: 4-6 Weeks Goal Progress: Progressing Goal 5:: Patient to improve neck owestry score by 5 points or> to improve QOL. Goal Time Frame: 4-6 Weeks Goal Progress: Progressing Anticipated Interventions Patient/Client Instruction: Educate patient on: Condition, Plan of Care For the Purpose of:: To decrease pain, To increase ROM, To improve muscle performance and motor function, To improve ability to perform ADL's, To increase tolerance to activity/condition/position, To improve performance and independe nce with ADL's, To improve ability of physical actions for home/community/work/leisure, To improve gait and locomotor functions, To improve health of tissue, To decrease soft tissue restriction, To increase flexibility/ROM, To reduce risk of recurrence Therapeutic Exercise to Include: Strength training, Body mechanics, Postural training, Flexibilty training, In an aquatic setting, Active ROM, Dynamic Lumbar Stabilization For the Purpose of:: To decrease pain, To improve nutrient delivery to tissue, To increase oxygenation perfusion, To improve muscle performance and motor function, To increase tolerance to activity/condition/position, To improve ability of physical actions for home/community/work/leisure, To improve health of tissue, To decrease soft tissue restriction, To increase flexibility/ROM, To reduce risk of recurrence, To improve ability to perform tasks related to life management Please do not hesitate to contact me at [phone] by phone or if you have questions or concerns regarding this new plan of care! Sincerely, John Gipson, PT, Cert MDT, OCS
--- NOTE | 2019-08-30 11:41 | HP.PTDCSUM ---
It has been my pleasure to treat BETO BERMUDEZ referred by Bib Giron, with the diagnosis of DEGENERATIVE CERVICAL DISC,CERVICAL /LUMBAR SPONYLOSIS for a total of 28 visit(s). Discharge Date: 08/30/19 Please see the following information for a summary of their discharge status. Subjective: Doing okay pain is better able to do ADL'S and housework task with less pain. Walking on uneven surfaces causes hip pain Bilateral Neck Pain Intensity (Out of 10): 2 Bilateral Back Pain Intensity (Out of 10): 2 Bilateral Hip Pain Intensity (Out of 10): 2 LUE Pain Intensity (Out of 10): 2 % Improvement: 75 Objective/Function: POSTURE: mild foward posture. GAIT: reciprocal pattern. MMT: quads/hams 4/5,hip flexion 4-/5. LUMBAR ROM : flexion min loss,extesion min loss,side glides min loss. CERVICAL ROM: flexion min loss ,rotation/lateral flexion ,mod loss. MMT:BUE grossly 4/5 ,except shoulder 4-/5. -SLR. FLEXABLITRY: hams min loss,piriformis mod tight Goal 1:: Patient be Independant with HEP Goal Progress: Goal Met Goal 2:: Patient to decrease neck/lumbar pain by 50% or> to improve function Goal Progress: Goal Met Goal 3:: Patient to improve lumbar/cervical ROM for function of recovery Goal Progress: Goal Met Goal 4:: Patient to improve strength of BUE/LE 4/5 function excepts hips /shoulder. Goal Progress: Goal Met Goal 5:: Patient to improve neck owestry score by 5 points or> to improve QOL. Goal Progress: Goal Met Plan: D/C TO HEP Discharge Comments: HEP If there are questions or concerns regarding this patient's physical therapy, please feel free to call me at [phone]. Thank you for the referral of this patient. Sincerely, John Gipson, PT, Cert MDT, OCS
== END 2019-08-30 19:00 | disposition home or self-care (01) ==
LOC: PT 10:00
PROVIDERS: Family Provider Nurse Practitioner; PCP Nurse Practitioner; Referring Provider Anesthesiology Pain Medicine
DX: M50.30 Other cervical disc degeneration, unspecified cervical region (principal); M47.817 Spondylosis without myelopathy or radiculopathy, lumbosacral region; M47.812 Spondylosis without myelopathy or radiculopathy, cervical region; M51.37 Other intervertebral disc degeneration, lumbosacral region
CPT/HCPCS: 97110; 97113; 97162; 97164

== ENCOUNTER 2020-04-16 09:30 | Outpatient (RCR) | payer MEDICARE, MEDICAID, SELFPAY ==
[2018-04-27 11:33] VITALS: BMI 31.9
--- NOTE | 2020-02-23 11:17 | HP.PTEVAL ---
Patient's Visit Information BETO BERMUDEZ is a 49 year old F referred to Physical Therapy by Dr. Sivan Thibodeaux DC with a diagnosis of Left Shoulder Pain. Date of Evaluation: 02/23/20 Physical Therapist: Barbara Askew DPT - Visit Plan Frequency: 3x /Week Duration: 4 Weeks Plan: Focus on ROM and scapular s/s- postural education- Ultrasound modality of choice - Subjective Patient reports that she has left shoulder issues- beginning of August she slept on it funny and it continued to get worse due to COVID- did have an injection in the cervical spine by Dr. Menjivar in November- which helped a lot now she has pain in the bottom of the shoulder blade. Saw Dr. Thibodeaux who sent her to PT for her shoulder and then come back to see her. No symptoms on the left- right hand dominate. Pain is located in the scapula and will radiate to the deltoid and into the cervical spine. No pain past the elbow. Worst: 5/10 Agg: lifting, moving her arm, reaching above her shoulder Eases: heat Best: 2/10. Describes the pain as constant and worse with activities. No N/T in the fingers- no problems with knotter hand strength or finger dexterity. X-ray of the shoulder and spine about a year ago- no MRI. No LAMBERT, blurred vision or dizziness. Sleep: disturbed- hard to get comfortable- sleeps in a bed- can't sleep on her belly or her left side. Work: does not work. She reports that she is more sedentary and does not exercise. PMXh/Meds: no changes since she saw Dr. Thibodeaux (in chart). No injections in the shoulder- but will do trigger point injections if PT does not work. Ultrasound did help in that area. - Objective Posture: FH, RS, incresed kyphosis- does not maintain even given verbal and tactile cues. Palpation: tender along medial border of the scapula, upper trap to the top of the acromion and down the deltoid muscle. ROM: Cervical: WNL, Elbow/Wrist/Hand: WNL Shoulder: AROM: Abduction with bent elbow: 85 degrees Flexion: 80 degrees IR: equal to other side ER: 50 degrees, Most painful with abduction, flexion, ER. Prom: full ROM in all planes. Strength: Field Evidence Technician: equal, Elbow: 4-/5, Shoulder: isometric at 90/90: 3+/5 Cervical Isometrics: 4+/5. Sensation:WNL. Special test: Impingment positive, Empty can: positive, Spurlings: negative, Distraction: negative - Goals Goal 1:: Patient will be I with HEP and progression Goal Time Frame: 4-6 Weeks Goal 2:: Patient will maintain proper posture t/o tx session to demo increased scap s/s. Goal Time Frame: 4-6 Weeks Goal 3:: Patient will demo full ROM of the left shoulder Goal Time Frame: 4-6 Weeks Goal 4:: Patient will report no pain in the left shoulder Goal Time Frame: 4-6 Weeks - Rehabilitation Potential Physical Therapy Diagnosis: Patient presents with hypomobility- she has decreased rom, strength and muscular endurance leading to poor posture and increased pain and ability to perform ADL's. Rehabilitation Potential: Good - Anticipated Interventions Patient/Client Instruction: Educate patient on: Benefits of Fitness Program Therapeutic Exercise to Include: Strength training, Endurance training, Coordination, Agility training, Body mechanics, Postural training, Flexibilty training, Passive ROM, Active ROM, Dynamic Lumbar Stabilization, Scapular Strength/Stabilization For the Purpose of:: To improve muscle performance and motor function TENS: Yes Cryotherapy (ice pack, ice massage): Yes Thermo therapy (hot pack): Yes Ultrasound (thermal/non thermal): Yes For the Purpose of:: To decrease pain Thank you for the opportunity to evaluate your patient. For Medicare and Medicare HMO plans, please review the plan of care and approve it. It will need to be FAXED BACK to us at [phone] for Medicare purposes. For Medicare only, by signing this I certify the plan of care. Please let me know if there are questions or concerns regarding this plan of care. Physician Signature: Date:
--- NOTE | 2020-03-28 09:24 | HP.PTREVAL_ITS ---
Dr. Sivan Thibodeaux, SREE, It has been my pleasure to treat BETO BERMUDEZ over the last 9 visits for Left Shoulder Pain. Please see the progress note below for an update on the physical therapy plan of care! Subjective: Patient reports that she is sore from lifting the weights and it bothers her 1-2/10 depending on what she is doing. Not constant pain from bef ore. She feels that she is 70% better but is missing the extra 30% with inability to lift overhead (dishes). Objective/Function: Posture: FH,RS, incresed kyphosis- can maintain even given verbal and tactile cues. Palpation: tender along medial border of the scapula, upper trap to the top of the acromion and down the deltoid muscle. ROM: Cervical: WNL, Elbow/Wrist/Hand: WNL Shoulder: AROM: WNL in all planes Strength: Recruitment Intern: Left: 30 Right: 60, Elbow: 4+/5, Shoulder: isometric at 90/90: 4+/5 Cervical Isometrics: 4+/5. Sensation:WNL. Special test: Impingment positive, Empty can: positive, Spurlings: negative, Distraction: negative Plan Plan: Continue 1x a week for 3 weeks to progress HEP Goals Goal 1:: Patient will be I with HEP and progression Goal Time Frame: 4-6 Weeks Goal 2:: Patient will maintain proper posture t/o tx session to demo increased scap s/s. Goal Time Frame: 4-6 Weeks Goal 3:: Patient will demo full ROM of the left shoulder Goal Time Frame: 4-6 Weeks Goal 4:: Patient will report no pain in the left shoulder Goal Time Frame: 4-6 Weeks Anticipated Interventions Patient/Client Instruction: Educate patient on: Benefits of Fitness Program Therapeutic Exercise to Include: Strength training, Endurance training, Coordination, Agility training, Body mechanics, Postural training, Flexibilty training, Passive ROM, Active ROM, Dynamic Lumbar Stabilization, Scapular Strength/Stabilization For the Purpose of:: To improve muscle performance and motor function TENS: Yes Cryotherapy (ice pack, ice massage): Yes Thermo therapy (hot pack): Yes Ultrasound (thermal/non thermal): Yes For the Purpose of:: To decrease pain Please do not hesitate to contact me at [phone] by phone or if you have questions or concerns regarding this new plan of care! Sincerely, BELGICA MartinT
--- NOTE | 2020-04-16 09:55 | HP.PTDCSUM ---
It has been my pleasure to treat BETO BERMUDEZ referred by Dr. Sivan Thibodeaux, SREE, with the diagnosis of Left Shoulder Pain for a total of 12 visit(s). Discharge Date: Please see the following information for a summary of their discharge status. Subjective: She slept on that side over the weekend and now its tight again. She tries to avoid it but fell asleep petting the dog. The pain is along the upper trap- no radiating pains. The change in nursing resident strength comes and goes. Goes back to the MD after she is done with PT. Had trigger point injections but has not had a cortisone injection. Frustrated with the pain coming and going. Will go back to Dr. Thibodeaux- after PT. Left Shoulder Pain Intensity (Out of 10): 1 % Improvement: 50 Objective/Function: Posture: FH,RS, incresed kyphosis- can maintain even given verbal and tactile cues. Palpation: tender along medial border of the scapula, upper trap to the top of the acromion and down the deltoid muscle. ROM: Cervical: WNL, Elbow/Wrist/Hand: WNL Shoulder: AROM: WNL in all planes Strength: Elbow: 4+/5, Shoulder: isometric at 90/90: 4+/5, In mid range of motion: 4/5 Cervical Isometrics: 4+/5. Sensation:WNL. Special test: Impingment positive, Empty can: positive, Spurlings: negative, Distraction: negative Goal 1:: Patient will be I with HEP and progression Goal Progress: Goal Met Goal 2:: Patient will maintain proper posture t/o tx session to demo increased scap s/s. Goal Progress: Progressing Goal 3:: Patient will demo full ROM of the left shoulder Goal Progress: Goal Met Goal 4:: Patient will report no pain in the left shoulder Goal Progress: Progressing Plan: Discharge- return to MD for further evaluation If there are questions or concerns regarding this patient's physical therapy, please feel free to call me at [phone]. Thank you for the referral of this patient. Sincerely, Barbara Askew DPT
== END 2020-04-16 10:25 | disposition home or self-care (01) ==
LOC: PT 09:30
PROVIDERS: PCP Nurse Practitioner; Referring Provider Chiropractor; Visit Provider Chiropractor
DX: M75.42 Impingement syndrome of left shoulder (principal)
CPT/HCPCS: 97035; 97110; 97161; 97164

== ENCOUNTER → 2020-04-26 09:16 | Outpatient (CLI) | payer MEDICARE, MEDICAID, OTHER, SELFPAY ==
[2018-04-27 11:33] VITALS: BMI 31.9
[2020-04-25 08:10] VITALS: BMI 38.2
--- NOTE | 2020-04-26 09:28 | RAD_ITS ---
EXAMINATION: UPPER GI SERIES INDICATION: Female, 49 years dysphagia. FLUOROSCOPY TIME (if supplied): (0:36) minutes/seconds TECHNIQUE: Radiographic and fluoroscopic images of the distal esophagus, stomach, and proximal small intestine were obtained following the oral ingestion of barium. COMPARISON: None. FINDINGS: There is no evidence for organomegaly, abnormal calcifications, or abnormal bowel gas pattern. The psoas margins and flank stripes are normal. The visualized osseous structures are normal. The mucosa of the esophagus, stomach and duodenum is normal in appearance without evidence for stricture, ulceration, mass or diverticulum. There is evidence of gastroesophageal reflux. Small sliding hiatal hernia. RAD/Upper GI Dual Contrast IMPRESSION: 1. Gastroesophageal reflux. Small sliding hiatal hernia. Electronically Signed: Amarjit Dimas, at 12:30 EST , Service support ,
== END ==
PROVIDERS: PCP Nurse Practitioner; Referring Provider Nurse Practitioner; Visit Provider Nurse Practitioner
DX: K30 Functional dyspepsia (principal); K21.9 Gastro-esophageal reflux disease without esophagitis; K44.9 Diaphragmatic hernia without obstruction or gangrene
CPT/HCPCS: 74246

== ENCOUNTER → 2020-04-27 11:03 | Outpatient (CLI) | payer MEDICARE, OTHER, MEDICAID, SELFPAY ==
[2018-04-27 11:33] VITALS: BMI 31.9
[2020-04-25 08:10] VITALS: BMI 38.2
== END ==
PROVIDERS: PCP Nurse Practitioner; Referring Provider Nurse Practitioner; Visit Provider Nurse Practitioner
DX: R00.2 Palpitations (principal)
CPT/HCPCS: 93225; 93226

== ENCOUNTER 2020-05-16 11:14 | Day surgery (SDC) | payer MEDICARE, OTHER, MEDICAID, SELFPAY ==
[2020-04-25 08:10] VITALS: BMI 38.2
[2020-05-16] VITALS (7 sets, daily range): BP systolic 106–135; BP diastolic 57–89; PULSE 61–64; RESP 16–18; TEMP 36.3–36.7; O2SAT 100; BMI 38.7
--- NOTE | 2020-05-16 06:21 | HP_ITS ---
Intake Vital Signs 04/25/20 Height 5 ft 8 in 04/25/20 Weight: 251 lb 4 oz 04/25/20 BMI 38.2 Intake Visit Reasons: Discuss upper/lower scope Chief Complaint: screening c-scope/gerd Tablet Making Machine Operator Required: No Is patient in pain?: No Allergies ciprofloxacin [From Cipro] Allergy (Verified 04/25/20 08:13) Other ciprofloxacin HCl [From Cipro] Allergy (Verified 04/25/20 08:13) Other levofloxacin Allergy (Verified 04/25/20 08:13) Unknown ofloxacin [From Floxin] Allergy (Verified 04/25/20 08:13) Unknown zolpidem tartrate [From Ambien] Allergy (Verified 04/25/20 08:13) Unknown Medications Carvedilol [Coreg (Beta Yary)] 6.25 mg PO BID 07/12/13 [History Confirmed 04/25/20] Levothyroxine [Synthroid] 50 mcg PO DAILY 07/12/13 [History Confirmed 04/25/20] Multivitamins,Therapeutic [Multivitamin] 1 tab PO DAILY 07/12/13 [History Confirmed 04/25/20] Aspirin [Aspirin, Baby] 81 mg PO DAILY 10/25/13 [History Confirmed 04/25/20] Escitalopram Oxalate [Lexapro] 10 mg PO DAILY 09/30/16 [History Confirmed 04/25/20] atorvastatin 10 mg tablet 10 mg PO DAILY tab 04/25/20 [History Confirmed 04/25/20] azathioprine 75 mg tablet 75 mg PO DAILY 04/25/20 [History] cholecalciferol (vitamin D3) 125 mcg (5,000 unit) disintegrating tablet 125 mcg PO QDAY tab 04/25/20 [History Confirmed 04/25/20] cyanocobalamin (vitamin B-12) 2,500 mcg sublingual tablet 2,500 mcg PO DAILY tab 04/25/20 [History Confirmed 04/25/20] fexofenadine 180 mg tablet 180 mg PO DAILY PRN tab 04/25/20 [History Confirmed 04/25/20] gabapentin 100 mg capsule 100 mg PO DAILY PRN cap 04/25/20 [History Confirmed 04/25/20] pantoprazole 40 mg tablet,delayed release 40 mg PO DAILY tab 04/25/20 [History Confirmed 04/25/20] tacrolimus 1 mg capsule 1 mg PO Q12H 04/25/20 [History Confirmed 04/25/20] tramadol 50 mg tablet 50 mg PO DAILY PRN tab 04/25/20 [History Confirmed 04/25/20] Is last menstrual period known: No Post menopausal: Yes Patient : No PFSH Medical History (Updated 04/25/20 @ 08:26 by Jennifer Lopez) Anxiety and depression (Acute) Arthritis (Acute) Cystocele (Acute) Environmental allergies (Acute) High cholesterol (Acute) History of Clostridium difficile colitis (Acute) History of goiter (Acute) Hyperthyroidism (Acute) Kidney disease (Acute) Kidney failure (Acute) Osteoporosis (Acute) Paresthesia of both feet (Acute) Polycystic kidney disease (Acute) Rectocele (Acute) Rhinitis (Acute) Sciatica (Acute) Hypertension (Chronic) Surgical History (Updated 04/25/20 @ 08:26 by Jennifer Lopez) History of arteriovenostomy for renal dialysis (Acute) History of arthroscopy of left knee (Acute) History of arthroscopy of right knee (Acute) History of breast implant (Acute) History of cardiac cath (Acute) History of cholecystectomy (Acute) History of gastric bypass (Acute) History of kidney transplant (Acute) History of tonsillectomy and adenoidectomy (Acute) History of uvulopalatopharyngoplasty (Acute) Hx of LASIK (Acute) Status post right ankle joint replacement (Acute) Family History Other Arthritis Bleeding disorder COPD (chronic obstructive pulmonary disease) Cancer Depression Hypertension Kidney disease Thyroid disorder Social History (Updated 04/25/20 @ 08:[address] Jaime Reyes MD) alcohol intake: current alcohol intake frequency: holidays/special occasions only substance use type: does not use what type of physical activity do you participate in: none HPI HPI Chief Complaint: screening c-scope/gerd Details: Patient was informed that this visit will be billed to patient. This visit was conducted during COVID- pandemic. BETO BERMUDEZ, is a 49 F who presents to the office today for A telephone visit for endoscopy. Patient is a kidney transplant patient. She takes numerous medications for this. Over the last 3 to 4 months she has been noticing increasing reflux symptoms with burning and substernal chest pain. Usually lasts about 15 minutes and goes away almost always is associated with eating. She has noticed a Increased amount of belching. She has been on propranolol not had much success with this and they added Carafate and really has not noticed any benefits from this either. Patient has had a gastric sleeve resection this was done at [facility]. She also needs to have a screening colonoscopy she has never had a colonoscopy. She does have a rectocele and cystocele combination. She has not noticed any rectal bleeding and she has not had any family history of colon cancer. ROS Const Constitutional: Positive for fatigue; no anorexia, body ache, chills, excessive sweating, fever(s), frequent falls, headache(s), decreased energy, malaise, night sweats, snoring, weakness, weight change, sleep problems, abnormal sleep pattern, change in appetite or other Eyes Eyes: No visual disturbances ENT ENT: No abnormal hearing, ear pain, ear discharge, ear pressure, hearing loss, tinnitus, dizziness/vertigo, balance problems, nosebleed/epistaxis, nasal congestion, nasal obstruction, nose pain, sinus pressure, sinus pain, nasal discharge, post nasal drip, headache(s), facial pain, dental pain, dry mouth, difficulty swallowing, bad breath, hoarseness, lip swelling, mouth lesions, mouth pain, neck pain, sore throat, tongue swelling, throat swelling or other Resp Respiratory: No cough, change in phlegm color, chest congestion, excessive phlegm production, hemoptysis, pain on inspiration, shortness of breath, pain with cough, snoring, stridor, wheezing or other Cardio Cardiology: No chest pain at rest, chest pain with exertion, leg pain with exertion, excessive sweating, shortness of breath, dyspnea on exertion, generalized swelling, irregular heart rhythm, lightheadedness, orthopnea, radiating jaw, neck or arm pain, fast heart rate, slow heart rate, palpitations or other Gastro GI: Positive for heartburn; no abdominal pain, belching, bloating, change in bowel habits, change in stool character, coffee ground emesis, constipation, cramping, diarrhea, difficulty swallowing, feeling full early, excessive flatus, incontinent of stools, Vomiting blood/hematemesis, blood in stool, loose stools, Black,tarry stools, nausea/dyspepsia, pain with swallowing, vomiting or other Musc Musculoskeletal: Positive for numbness; no abnormal walking, joint pain, back pain, deformity, joint swelling, limited range of motion, loss of height, muscle cramps, muscle weakness, decreased muscle mass, body aches, neck pain, radiating pain into limb, stiffness, tingling or other Skin Skin: No itching Neuro Neurology: Positive for numbness; no abnormal walking, abnormal hearing, abnormal movements, abnormal speech, behavioral changes, confusion, unsteady gait/balance, dizziness, weakness, frequent falls, headache(s), lack of coordination, loss of vision, memory loss, tingling, visual disturbances, restless legs, fainting, tremor(s) or other Psych Psychiatric: No abnormal sleep pattern, No lack of enjoyment, Positive for anxiety, No behavioral changes, No change in appetite, No confusion, Positive for depression, No difficulty concentrating, No hopelessness, No irritability, No memory loss, No mood swings, No panic attacks, No paranoia, No Thoughts of harming yourself/Others, No hallucinations, No other Endo Endocrine: Positive for fatigue; no change in body appearance, cold intolerance, excessive sweating, flushing, heat intolerance, increased thirst/drinking, increased hunger, increased urination or other Aller/Imm Allergy/Immunologic: Positive for seasonal allergy symptoms; no food intolerance, itchy eyes, lip swelling, throat swelling, tongue swelling, hives, wheezing or other Jason/Lymp Hematologic/Lymphatic: No easy bleeding, easy bruising, enlarged lymph nodes or other Exam Musc Musculoskeletal: No muscle weakness Details: Details:: Exam was limited due to phone visit with no video. Assessment & Plan Problems 1. Gastroesophageal reflux disease, unspecified whether esophagitis present K21.9 2. Encounter for screening colonoscopy Z12.11 Plan I have discussed the above with the patient. I have offered the patient colonoscopy As well as an EGD for evaluation. I have explained the risks/benefits of the procedure and described the procedure. I have discussed the risks with the patient, including but not limited to: infection, bleeding, perforation of the GI tract requiring emergency surgery, inability to complete the procedure, injury to any internal organs, complications of anesthesia, etc. - the patient understands and agrees to proceed. I have answered all the patient's questions to the patient's satisfaction and the patient has no further questions. The patient has been given instructions for the colon cleansing preparation. Orders Orders: Colonoscopy Today EGD Today Plan Detail Goals Decrease spasm Decrease inflammation Improve ROM Coding Level of Care Code Diagnoses Gastroesophageal reflux disease, unspecified whether esophagitis present K21.9 ??Esophagitis presence: esophagitis presence not specified Encounter for screening colonoscopy Z12.11 Time Spent (min) 15 I have re-examined the patient. There are no clinical changes since date of exam.
[2020-05-16] MEDS: Lactated Ringers 1,000 ML 100 ML IV (12:02)
--- NOTE | 2020-05-16 12:30 | IMM_PTH ---
PATIENT: AIDANAugust LOC: EN U#:[id number] AGE/SX: 49/F ROOM: RE05/16/[address]: Dr. Jaime Reyes MD : 1970 BED: DIS: 05/16/2020 SPEC #: [id number] RECD: 05/16/20 13:55 STATUS: BINTA REJuan #: [id number] NIR: 05/16/20 12:[address]: Jaime Reyes DEPT: IMMUNOHISTOCHEMISTRY RECD BY: Tory Zuluaga ENTERED: 05/16/20 13:56 SP TYPE: IMMUNO OTHR DR: Hali Adamson, ASSOCIATE PROFESSOR PHYSICIAN-C Tissues: Stomach, NOS Procedures: H Pylori (initial) PHYSICIAN & INSTITUTION [place] [id number] SPECIMEN INFORMATION: Tissue Source: Antrum biopsy Clinical Info: GERD, esophagitis Specimen Number: [id number] CPT code: 29852 METHODOLOGY: Deparaffinized sections of prefer/formalin-fixed tissue or PAP/DQ stained slides are incubated with monoclonal/polyclonal antibodies/oligonucleotide probes. Localization is made via biotin free immunoperoxidase method. Appropriate controls are performed and reacted as expected. Results on target cell population are indicated in the following table: RESULTS: ANTIBODY / CLONE RESULT H Pylori (polyclonal) negative These tests were developed and their performance characteristics determined by [facility]. They may not have been cleared or approved by the U.S. Food and Drug Administration. The FDA has determined that such clearance or approval is not necessary. INTERPRETATION: Antrum, biopsy: Negative for Helicobacter pylori organisms. [facility] 05/17/20
--- NOTE | 2020-05-16 12:30 | EGD_PTH ---
PATIENT: AIDANAugust LOC: EN U#:[id number] AGE/SX: 49/F ROOM: RE05/16/[address]: Dr. Jaime Reyes MD : 1970 BED: DIS: 05/16/2020 SPEC #: [id number] RECD: 05/16/20 13:09 STATUS: BINTA MERARY #: [id number] NIR: 05/16/20 12:[address]: Jaime Reyes DEPT: SURGICAL PATHOLOGY RECD BY: Lori Kidd ENTERED: 05/16/20 13:41 SP TYPE: EGD BIOPSY OTHR DR: Hali Adamson, JACQUARD LACE WEAVER-C Tissues: Gastric mucous membrane Procedures: Surgery Specimen Level IV HEADER OPERATION: Colonoscopy, EGD [place] [place] PRE-OP DIAGNOSIS: GERD, esophagitis, screening TISSUE SUBMITTED: Antrum biopsy for histo and H. pylori MICROSCOPIC DIAGNOSIS Antrum, biopsy: Mild gastritis. See microscopic description and comment. [facility] 05/17/20 COMMENT The results of immunohistochemistry for Helicobacter pylori will be reported separately ([id number]). MICROSCOPIC DESCRIPTION Slides are reviewed. The specimen shows fragments of gastric mucosa with chronic inflammatory cell infiltrates in the lamina propria consisting of lymphocytes and plasma cells, consistent with mild chronic gastritis. GROSS DESCRIPTION Received in fixative is one container labeled with the patient's name and designated antrum biopsy. The specimen consists of one irregular fragment of light epstein soft tissue that measures 1 x 0.2 x 0.1 cm. The specimen is totally submitted in one cassette. / ALLEN:[facility] 05/16/20 TC:3 CPT: 87218
--- NOTE | 2020-05-16 12:57 | OP.CCLET_ITS ---
05/16/2020 Hali Adamson NP [address] [place] [address] Re : Upper GI endoscopy procedure for August Jhonny Dear Ms. Adamson This procedure was performed on Saturday, May 16, 2020. My impressions and recommendations are as follows: Impressions : - Normal esophagus. - Z-line regular, 38 cm from the incisors. No specimens collected. - Normal stomach. Biopsied. - Normal examined duodenum. No specimens collected. Recommendations : - Discharge patient to home. - Resume previous diet. - Continue present medications. - Await pathology results. - Repeat upper endoscopy at appointment to be scheduled for surveillance. - Telephone my office for pathology results in 1 week. My findings are described in the full procedure note, which is enclosed. If I can be of further assistance, please feel free to contact me at Doctor phone number(s): , Fax: [phone], Work: . Sincerely, MD Jaime Thacker MD 05/16/2020 12:57:14 PM This report has been signed electronically.
--- NOTE | 2020-05-16 12:57 | OP.EGD_ITS ---
Patient Name: Kathia Barry Procedure Date: 05/16/2020 12:08 PM Date of : 1970 Age: 49 Procedure: Upper GI endoscopy Indications: Gastro-esophageal reflux disease Providers: Jaime Reyes MD Referring MD: Hali Adamson NP Medicines: See the Anesthesia note for documentation of the administered medications Patient Profile: This is a 49 year old female. Refer to note in patient chart for documentation of history and physical. Complications: No immediate complications. Procedure: Pre-Anesthesia Assessment: - Prior to the procedure, a History and Physical was performed, and patient medications and allergies were reviewed. The patient's tolerance of previous anesthesia was also reviewed. The risks and benefits of the procedure and the sedation options and risks were discussed with the patient. All questions were answered, and informed consent was obtained. Prior Anticoagulants: The patient has taken no previous anticoagulant or antiplatelet agents. ASA Grade Assessment: II - A patient with mild systemic disease. After reviewing the risks and benefits, the patient was deemed in satisfactory condition to undergo the procedure. After obtaining informed consent, the endoscope was passed under direct vision. Throughout the procedure, the patient's blood pressure, pulse, and oxygen saturations were monitored continuously. The gastroscope was introduced through the mouth, and advanced to the second part of duodenum. The upper GI endoscopy was accomplished without difficulty. The patient tolerated the procedure well. Scope In: 12:39:16 PM Scope Out: 12:41:49 PM Total Procedure Duration Time 0 hours 2 minutes 33 seconds Findings: The examined esophagus was normal. The Z-line was regular and was found 38 cm from the incisors. No biopsies or other specimens were collected for this exam. The entire examined stomach was normal. Biopsies were taken with a cold forceps for Helicobacter pylori testing. The examined duodenum was normal. No biopsies or other specimens were collected for this exam. Impression: - Normal esophagus. - Z-line regular, 38 cm from the incisors. No specimens collected. - Normal stomach. Biopsied. - Normal examined duodenum. No specimens collected. Recommendation: - Discharge patient to home. - Resume previous diet. - Continue present medications. - Await pathology results. - Repeat upper endoscopy at appointment to be scheduled for surveillance. - Telephone my office for pathology results in 1 week. Procedure Code(s): --- Professional --- 93908, Esophagogastroduodenoscopy, flexible, transoral; with biopsy, single or multiple Diagnosis Code(s): --- Professional --- K21.9, Gastro-esophageal reflux disease without esophagitis CPT copyright 2017 [employer]. All rights reserved. The codes documented in this report are preliminary and upon industrial engineering manager review may be revised to meet current compliance requirements. MD Jaime Thacker MD 05/16/2020 12:57:14 PM This report has been signed electronically. Number of Addenda: 0 Note Initiated On: 05/16/2020 12:08 PM
--- NOTE | 2020-05-16 12:59 | OP.COLON_ITS ---
Patient Name: Kathia Barry Procedure Date: 05/16/2020 12:42 PM Date of : 1970 Age: 49 Procedure: Colonoscopy Indications: Screening for colorectal malignant neoplasm Providers: Jaime Reyes MD Referring MD: Hali Adamson NP Medicines: See the Anesthesia note for documentation of the administered medications Patient Profile: This is a 49 year old female. Refer to note in patient chart for documentation of history and physical. Last Colonoscopy: none. The patient's first colonoscopy is today. Complications: No immediate complications. Procedure: Pre-Anesthesia Assessment: - Prior to the procedure, a History and Physical was performed, and patient medications and allergies were reviewed. The patient's tolerance of previous anesthesia was also reviewed. The risks and benefits of the procedure and the sedation options and risks were discussed with the patient. All questions were answered, and informed consent was obtained. Prior Anticoagulants: The patient has taken no previous anticoagulant or antiplatelet agents. ASA Grade Assessment: II - A patient with mild systemic disease. After reviewing the risks and benefits, the patient was deemed in satisfactory condition to undergo the procedure. After I obtained informed consent, the scope was passed under direct vision. Throughout the procedure, the patient's blood pressure, pulse, and oxygen saturations were monitored continuously. The adult colonoscope was introduced through the anus and advanced to 5 cm into the ileum. The colonoscopy was performed without difficulty. The patient tolerated the procedure well. The quality of the bowel preparation was good. Scope In: 12:43:28 PM Scope Withdrawal Time 0 hours 6 minutes 38 seconds Scope Out: 12:54:09 PM Total Procedure Duration Time 0 hours 10 minutes 41 seconds Findings: Non-bleeding internal hemorrhoids were found during retroflexion. The hemorrhoids were mild and small. The terminal ileum appeared normal. The exam was otherwise without abnormality. Impression: - Non-bleeding internal hemorrhoids. - The examined portion of the ileum was normal. - The examination was otherwise normal. - No specimens collected. Recommendation: - Discharge patient to home. - Resume previous diet. - Continue present medications. - Repeat colonoscopy in 10 years for screening purposes. - Return to primary care physician at appointment to be scheduled. Procedure Code(s): --- Professional --- 07159, Colonoscopy, flexible; diagnostic, including collection of specimen(s) by brushing or washing, when performed (separate procedure) Diagnosis Code(s): --- Professional --- Z12.11, Encounter for screening for malignant neoplasm of colon K64.8, Other hemorrhoids CPT copyright 2017 [employer]. All rights reserved. The codes documented in this report are preliminary and upon propulsion motor and generator repairer review may be revised to meet current compliance requirements. MD Jaime Thacker MD 05/16/2020 12:59:15 PM This report has been signed electronically. Number of Addenda: 0 Note Initiated On: 05/16/2020 12:42 PM
--- NOTE | 2020-05-16 12:59 | OP.CCLET_ITS ---
05/16/2020 Hali Adamson, [facility] [address] [place] [address] Re : Colonoscopy procedure for August Jhonny Dear Ms. Adamson This procedure was performed on Saturday, May 16, 2020. My impressions and recommendations are as follows: Impressions : - Non-bleeding internal hemorrhoids. - The examined portion of the ileum was normal. - The examination was otherwise normal. - No specimens collected. Recommendations : - Discharge patient to home. - Resume previous diet. - Continue present medications. - Repeat colonoscopy in 10 years for screening purposes. - Return to primary care physician at appointment to be scheduled. My findings are described in the full procedure note, which is enclosed. If I can be of further assistance, please feel free to contact me at Doctor phone number(s): , Fax: [phone], Work: . Sincerely, MD Jaime Thacker MD 05/16/2020 12:59:15 PM This report has been signed electronically.
== END 2020-05-16 14:04 | disposition home or self-care (01) ==
LOC: EN 11:15 → AC 11:16
PROVIDERS: PCP Nurse Practitioner; Referring Provider Nurse Practitioner; Visit Provider Surgery
PROC: 0DJD8ZZ Inspection of Lower Intestinal Tract, Via Natural or Artificial Opening Endoscopic (ICD-10-PCS; CPT 45378; principal; 2020-05-16 12:25)
DX: Z12.11 Encounter for screening for malignant neoplasm of colon (principal); K29.70 Gastritis, unspecified, without bleeding; K44.9 Diaphragmatic hernia without obstruction or gangrene; K64.8 Other hemorrhoids; K21.9 Gastro-esophageal reflux disease without esophagitis; I10 Essential (primary) hypertension; G47.30 Sleep apnea, unspecified; F32.9 Major depressive disorder, single episode, unspecified; F41.9 Anxiety disorder, unspecified; M19.90 Unspecified osteoarthritis, unspecified site; E78.00 Pure hypercholesterolemia, unspecified; E05.90 Thyrotoxicosis, unspecified without thyrotoxic crisis or storm; Z94.0 Kidney transplant status; Z79.82 Long term (current) use of aspirin; Z79.899 Other long term (current) drug therapy; Z20.828 Contact with and (suspected) exposure to other viral communicable diseases
CPT/HCPCS: 43239; G0121; 87426; 88305; 88342; C9803; J7120; J1610; J2405

== ENCOUNTER → 2020-05-30 11:56 | Outpatient (CLI) | payer MEDICARE, OTHER, MEDICAID, SELFPAY ==
[2020-05-30 11:15] VITALS: BMI 38.9
[2020-05-30 13:24] LABS: Anion Gap 4 (5-15); BUN 24 mg/dL (7-18); BUN/Creat Ratio 19.2 RATIO (10-20); Calcium,Total 10.3 mg/dL (8.5-10.1); Chloride 106 mmol/L (98-107); Creatinine, Serum 1.25 mg/dL (0.55-1.02); EST Glomerular Filtration Rate 48 mL/min (>60); Est Glom Filt Rate - Afr Amer 58 mL/min (>60); Glucose 106 mg/dL (74-106); Potassium 4.6 mmol/L (3.5-5.1); Sodium Level 141 mmol/L (136-145); Thyroid Stim Hormone (TSH) 0.78 uIU/mL (0.358-3.74)
== END ==
PROVIDERS: PCP Nurse Practitioner; Referring Provider Internal Medicine Cardiovascular Disease; Visit Provider Internal Medicine Cardiovascular Disease
DX: R06.00 Dyspnea, unspecified (principal); R00.2 Palpitations; I10 Essential (primary) hypertension
CPT/HCPCS: 36415; 80048; 84443

== ENCOUNTER → 2020-06-08 10:50 | Outpatient (CLI) | payer MEDICARE, MEDICAID, OTHER, SELFPAY ==
[2020-05-30 11:15] VITALS: BMI 38.9
--- NOTE | 2020-06-08 10:53 | ECHOCS_ITS ---
Reason For Study: ARRHYTHMIA Procedure This was a 2D Doppler, Color Flow transthoracic echocardiogram. The study was technically difficult. Contrast injection was performed. Exam performed in department. Left Ventricle Normal LV size. Left ventricular systolic function is normal. The estimated ejection fraction is 55 %. No regional wall motion abnormalities noted. Right Ventricle Normal RV size. Normal systolic function. Atria Normal left atrium. Normal right atrium. Mitral Valve Normal mitral valve. Tricuspid Valve The tricuspid valve is not well visualized. Mild (1+) tricuspid valve insufficiency. Pulmonary artery systolic pressure is 38 mmHg. Aortic Valve The aortic valve is not well visualized. Pulmonic Valve The pulmonic valve is not well visualized. Great Vessels Normal aortic root. The pulmonary artery is normal size. Normal inferior vena cava. Pericardium/Pleural No pericardial effusion. Medication 22 gauge I.V. with prn adaptor inserted into right arm. Diluted definity 4.5ml given slow IV push to enhance endocardial definition. MMode/2D Measurements & Calculations LVIDd: 5.3 cm IVSd: 0.87 cm Ao root diam: 3.3 cm LVIDs: 3.5 cm LVPWd: 0.82 cm RVDd: 3.9 cm FS: 34.4 % LAV(MOD-bp): 48.4 ml LA A4 area: 19.5 cm2 LA dimension(2D): 4.2 cm LAV(MOD-bp) Indexed: 21.3 ml/m2 LAV(MOD-sp2): 48.7 ml LAV(MOD-sp4): 48.7 ml RA A4 area: 16.3 cm2 Time Measurements MV dec time: 0.22 sec Doppler Measurements & Calculations MV E max eduardo: 140.1 cm/sec Lat Peak E' Eduardo: 9.4 cm/sec Med Peak E' Eduardo: 7.6 cm/sec MV A max eduardo: 108.1 cm/sec E/E' lat: 14.9 E/E' med: 18.6 MV E/A: 1.3 Ao V2 max: 178.0 cm/sec LV V1 max: 159.6 cm/sec TR max eduardo: 291.6 cm/sec Ao max P.7 mmHg LV V1 max P.2 mmHg TR max P.0 mmHg Interpretation Summary Normal LV size. Left ventricular systolic function is normal. The estimated ejection fraction is 55 %. Pulmonary artery systolic pressure is 38 mmHg. Contrast injection was performed. Ordering Physician: Franklin Billy Referring Physician: DOLORES GALLAGHER Performed By: Shannan Degroot, RDCS, RVT
== END ==
PROVIDERS: PCP Nurse Practitioner; Referring Provider Internal Medicine Cardiovascular Disease; Visit Provider Internal Medicine Cardiovascular Disease
DX: I49.8 Other specified cardiac arrhythmias (principal); R06.00 Dyspnea, unspecified
CPT/HCPCS: 93306; Q9957; A4216; C8929

== ENCOUNTER 2020-07-26 09:00 | Outpatient (RCR) | payer MEDICARE, OTHER, MEDICAID, SELFPAY ==
[2020-05-30 11:15] VITALS: BMI 38.9
--- NOTE | 2020-07-26 09:05 | BH.SGPN.GN ---
Behaviors/Verbalizations/Mental Status: []Client alert and oriented, casually dressed. Eye contact fair. Motor activity appropriate. Speech within normal limits. Affect constricted, mood depressed. Thoughts linear, logical, no signs of hallucinations or delusions. Reviewed client?s symptom tracker, no risk or plan for suicide ideation. Client Response/Progress/Benefit: []Pt responded well to session AEB pt listening attentively to others and sharing thoughts and feelings. Pt stated she has sought IOP help because I can't get anything done. Pt reported she struggles with completing thigns throughout her day and stated she feels really depressed. Pt stated that that none of her family knows she is getting treatment. Pt reported her doesn't believe in mental health and her 19 year old daughter is the trigger to a lot of pt stress. Pt stated she doesn't have any support outside of treatment. Pt's first day in IOP. Seemed to benefit from support from peers. Pt to continue IOP to increase healthy coping, improve daily functioning, and prevent decompensation. Narrative Note: []
--- NOTE | 2020-07-26 10:07 | BH.SGPN.GN ---
Behaviors/Verbalizations/Mental Status: []Client alert and oriented, neatly dressed and groomed. Eye contact good. Motor activity appropriate. Speech within normal limits. Affect constricted, mood anxious. Thoughts linear, logical, no signs of hallucinations or delusions. Client Response/Progress/Benefit: []Client was mostly a passive participant; client did take notes and was frequently nodding. Client listened to the discussion of self-care. Client agreed with peers that it is important to practice self-care, but they all struggle with follow through. Client nodded that she struggles with self-care because it feels selfish. Client helped the group discuss consequences of not practicing self-care. Client participated in the discussion of the common myths about self-care. Client participated in the discussion on debunking of these myths. The group shared how these myths have turned into personal barriers for them. Client seemed to benefit from increased awareness of the importance of self-care and challenging common myths that prevent practicing self-care. First day of IOP tx. Will continue IOP tx to prevent decompensation and learn healthy coping skills. Narrative Note: []
--- NOTE | 2020-07-26 11:07 | BH.SGPN.GN ---
Behaviors/Verbalizations/Mental Status: []Client alert and oriented, casually dressed and groomed. Eye contact fair to good. Motor activity appropriate. Speech within normal limits. Affect congruent, mood anxious and depressed. Thoughts linear, logical, no signs of hallucinations or delusions. Client Response/Progress/Benefit: []Client first day in IOP program. She did well to remain an active participant AEB participating in challenge activity, providing some input and asking questions during discussion, as well as listening attentively to peers. Participated in group discussion on the various areas of self-care and types of self-care activities for each area. Noted connecting with the personal examples provided by fellow participants. Client completed worksheet in which she reflected on current self-care practices and identified what self-care activities she wants to start using. Client shared that she would like to improve physical and emotional self-care. Indicated plans to work on this by working on increasing her daily water intake as well as making efforts to more intentionally give herself credit for her accomplishments. Client progress limited as it was first day in IOP program. Will continue IOP tx to further promote the use of healthy coping skills, reduce mental health sx, and improve daily functioning. Narrative Note: []
--- NOTE | 2020-07-26 15:17 | BH.COMM_ITS ---
Communication Note - Communication with Client Communication Note: Met with pt to complete initial paperwork. No changes since pre-admission screening. Completed [place] Suicide Screening with low risk. Endorses depression within the last month, but denies any passive thoughts of , any Suicidal Ideation, plan, or intent in the last month. Does not have a history of SI in her lifetime. Denies any history of intent, plans, or attempts in her lifetime. Does not have access to weapons. Denies hx of self-harming. D oes not present as imminent danger to herself due to no active SI, plan, intent, or hx of attempts. Future-oriented.
--- NOTE | 2020-07-26 15:17 | BH.COMM ---
Communication Note - Communication with Client Communication Note: Therapist met briefly with pt to check-in following first day in IOP tx as well as begin discussing tx plan goals. Pt indicated enjoying the group environment and shared plans to attend again tomorrow. Discussed desire to begin addressing depression and anxiety. Specifically wants to improve self-care, increase self-worth, improve motivation, and identify strategies for promoting self-advocacy.
--- NOTE | 2020-07-26 15:20 | BH.MTP ---
[facility] Treatment Plan - Patient Information Program Physician:: Dr. Lainey Pizarro Primary Therapist:: JOSE MARIA Kessler - Estimated LOS Estimated LOS (in weeks):: 6 Problem/Goal #1 - Problem/Goal #1 Stated Goal:: Client will reduce depressive symptoms, feelings of hopelessness/worthlessness, and guilt due to Major Depressive Disorder through Intensive Outpatient Program. Description of Barriers: Negative and distorted thoughts, inappropriate guilt, intrusive thoughts, low motivation, limited supports, apathy, and medical restrictions limiting mobility and ability to engage in activities previously enjoyed could all be barriers to treatment. Functional Impact: Pt referred to [facility] by her primary care doctor due to worsening depression and anxiety. Reports sx have increased in past 2 years due to worsening physical health and COVID-19 pandemic contributing to increased isolation. Reports she does not have any supports as her familial relationships are strained and she often views herself as ?a burden? due to difficulties completing daily tasks as a result of ongoing medical issues. Denies active SI, plan or intent. At time of admission, client endorses feeling depressed, worthless, hopeless, no motivation, apathy, anhedonia, increased guilt, rumination, self-deprecation, and increased anxiety. Reports her energy level during the day is low and her concentration is decreased. Goal Relevant Strengths/Supports: reports motivation to improve mental health management, positive attitude, willing to engage in group setting, hx of medication compliance and tx follow-through - Objectives Objective #1 Stated Objective: Identify at least 2-3 distorted thoughts that reinforce depressive symptoms and replace with rational thought patterns. Interventions: Therapist will help client identify distorted, negative beliefs about self and replace with more realistic, affirmative messages. Discharge Criteria: Client will have achieved this goal when can identify at least 2 distorted thought patterns and effectively replace those thoughts with rational messages. Target Date: 09/06/20 Review Date: 08/23/20 Objective #2 Stated Objective: Pt will decrease depressive symptoms AEB pt?s score on the DSM 5 cross-cutting measure and improve pt?s daily functioning. Interventions: Through groups and individual therapy, pt will be provided with education on healthy coping skills, cognitive distortions, mistaken beliefs, and identifying and combating negative self-talk. Therapist will assist pt with getting back into the activities she once enjoyed as well as increasing healthy coping strategies. Discharge Criteria: Pt will have met this goal when pt?s score on the DSM 5 cross cutting measure for depression has been decreased and per pt?s report daily functioning has improved Target Date: 09/06/20 Review Date: 08/23/20 Problem/Goal #2 - Problem/Goal #2 Stated Goal:: Stabilize anxiety level while increasing ability to function on daily basis. Description of Barriers: Negative and distorted thoughts, inappropriate guilt, intrusive thoughts, low motivation, limited supports, apathy, and medical restrictions limiting mobility and ability to engage in activities previously enjoyed could all be barriers to treatment. Functional Impact: Pt referred to [facility] by her primary care doctor due to worsening depression and anxiety. Reports sx have increased in past 2 years due to worsening physical health and COVID-19 pandemic contributing to increased isolation. Reports she does not have any supports as her familial relationships are strained and she often views herself as ?a burden? due to difficulties completing daily tasks as a result of ongoing medical issues. Denies active SI, plan or intent. At time of admission, client endorses feeling depressed, worthless, hopeless, no motivation, apathy, anhedonia, increased guilt, rumination, self-deprecation, and increased anxiety. Reports her energy level during the day is low and her concentration is decreased. Goal Relevant Strengths/Supports: reports motivation to improve mental health management, positive attitude, willing to engage in group setting, hx of medication compliance and tx follow-through - Objectives Objective #1 Stated Objective: Client will learn and implement 2-3 calming skills to reduce overall anxiety and manage anxiety symptoms. Interventions: Therapist will teach client calming/relaxation skills and assign client homework which practices relaxation skills daily. Discharge Criteria: Client will have achieved this goal when can verbalize at least 2 calming skills and implement those skills successfully. Target Date: 09/06/20 Review Date: 08/23/20 Objective #2 Stated Objective: Pt will decrease anxious symptoms AEB pt?s score on the DSM 5 cross-cutting measure improve pt?s daily functioning. Interventions: Through groups and individual therapy, pt will be provided education about anxiety?s impact on body and common physiological reaction to anxiety. Therapist will teach pt appropriate breathing techniques and build healthy coping skills to manage daily anxieties. Aid client in identifying and challenging distorted thoughts that cause rumination and increased anxiety. Discharge Criteria: Pt will have met this goal when pt?s score on the DSM 5 cross cutting measure for anxiety has been decreased and per pt?s report daily functioning has improved. Target Date: 09/06/20 Review Date: 08/23/20
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
--- NOTE | 2020-07-27 09:03 | BH.SGPN.GN ---
Behaviors/Verbalizations/Mental Status: []Client alert and oriented, neatly dressed and groomed. Eye contact good. Motor activity appropriate. Speech within normal limits. Affect constricted, mood anxious. Thoughts linear, logical, no signs of hallucinations or delusions. Reviewed client?s symptom tracker, no risk for suicidal ideation, plan, or intent as of 07/27/20 Client Response/Progress/Benefit: []Client responded well to session, attentive and receptive to feedback. Client reports feeling anxious this morning as it is her second day in IOP. Client reports her IOP peers have made her feel welcome. Client reflected on positives since yesterday and shared that she asked her son to make dinner so client could rest. Additionally, client came back to IOP today despite anxiety which is a win. Appeared to benefit from positive feedback and encouragement. Progress limited due to recently starting IOP. Will continue IOP tx to prevent decompensation, learn healthy coping skills, and reduce negative thinking. Narrative Note: []
--- NOTE | 2020-07-27 11:10 | BH.SGPN.GN ---
Behaviors/Verbalizations/Mental Status: []Client alert and oriented, neatly dressed and groomed. Eye contact good. Motor activity appropriate. Speech within normal limits. Affect congruent, mood euthymic and anxious. Thoughts linear, logical, no signs of hallucinations or delusions. Client Response/Progress/Benefit: []Client responded well to session, engaged and participated throughout discussion. Client participated in the discussion of how each resiliency component can help increase personal resiliency. Client identified current resiliency traits client currently possesses and how these can continue to help client in treatment. Client identified personal resilience traits as maintaining hopeful outlooks and taking care of self. Client took a leadership role within the activity and brainstorms ideas for group to reach goal. Appeared to benefit from group as client discussed how resiliency impacts her daily functioning. Progress noted as client shared personal experiences to increase resiliency. Will continue IOP to improve the use of healthy coping skills, challenge negative thoughts, and increase positive self-talk. Narrative Note: []
--- NOTE | 2020-07-30 09:00 | BH.SGPN.GN ---
Behaviors/Verbalizations/Mental Status: []Client alert and oriented, casually dressed. Eye contact good. Motor activity appropriate. Speech within normal limits. Affect constricted, mood anxious. Thoughts linear, logical, no signs of hallucinations or delusions. Reviewed client?s symptom tracker, no risk or plan for suicide ideation, plan, or intent as of 07/30/20. Client Response/Progress/Benefit: []Client responded well to session, engaged throughout and participated in group discussion. Client reported feeling ?hopeful? this morning. Client reported working towards goal set last week by cleaning craft room to prepare a visit from her son. Shared stressors as daughter being ?obnoxious and irritating? as she does not listen to instructions from client. Another stressor was a frustrating experience with an employee at the [employer]. Client felt it was a ?waste of time.? Identified healthy coping skills as sitting with uncomfortable feelings and focusing on what is in client?s control. Client wants to continue learning healthy coping skills and set healthy boundaries with her daughter. Benefited from group as client connected with peers by gaining positive support. Progress noted as client reports accomplishing goals. Will continue IOP to increase the use of healthy coping skills, set healthy boundaries, and challenge negative thoughts. Narrative Note: []
--- NOTE | 2020-07-30 10:05 | BH.SGPN.GN ---
Behaviors/Verbalizations/Mental Status: []Client alert and oriented, neatly dressed and groomed. Eye contact good. Motor activity appropriate. Speech within normal limits. Affect constricted, mood anxious. Thoughts linear, logical, no signs of hallucinations or delusions. Client Response/Progress/Benefit: []Client engaged participant AEB client taking notes and listening attentively to peers. Group discussed the quote as well as unhealthy coping skills. Group gave examples of unhealthy coping skills such as: personalizing, avoiding, substance use, isolation, and lashing out. The group stated unhealthy coping skills tend to be easy, habitual, and temporary relief. Client was quiet during discussion, but frequently nodded at peers? comments. Client participated in the group activity and connected that a healthy foundation of coping skills is composed of healthy internal and external coping skills. Client seemed to benefit from increased awareness of the importance of increasing healthy coping skills and consequences of utilizing unhealthy coping skills. Client appears to be making progress AEB her consistent attendance. Will continue IOP tx to prevent decompensation, learn healthy coping skills, and improve mood stability. Narrative Note: []
--- NOTE | 2020-07-30 11:07 | BH.SGPN.GN ---
Behaviors/Verbalizations/Mental Status: [] Client alert and oriented, casual dress, hygiene tended to. Eye contact fair to good. Motor activity appropriate. Speech within normal limits. Affect congruent, mood anxious. Thoughts linear, logical, no signs of hallucinations or delusions. Client Response/Progress/Benefit: [] Client responded well to session, actively listening and taking notes throughout. Still new to IOP environment which has impacted ability to fully engage. Noted connecting to personal examples provided by group. Group discussed the different categories of coping skills which included distraction, emotional release, grounding, self-love, and thought challenging. Client participated in creating a coping skills ?menu? from the five categories of coping skills. Client's coping skill menu included: walking/exercise, cooking, music, setting boundaries, and pro/con list. Shared she would like to focus more on more intentionally doing activities she enjoys.Appeared to benefit from increasing repertoire of healthy coping skills. Will continue tx to continue challenging distorted thoughts, setting healthy boundaries, increase mental health sx management, and prevent decompensation. Narrative Note: []
--- NOTE | 2020-08-01 10:20 | BH.NA_ITS ---
Physical Data - Vital Signs Pulse Rate: 64 Blood Pressure: 154/70 - Height/Weight Height: 1.74 m Weight:: 117.027 kg Weight in Pounds: 258.0 lbs Current Medication Compliance - Medication Compliance Do you take your medication as prescribed?: Yes Nutritional History - Appetite Nutritional Instructions:: If client shows signs of a swallowing problem, weight change of 10 pounds or more in the last month, or is on a diabetic diet, the physician will review and request a dietitian consult, as appropriate. All unintentional weight loss will be referred to the physician for decision on need for dietitian consult. Describe your appetite:: Good Additional nutritional information:: Client reports 20+ lb weight gain since November 2019. Client states she will soon be starting diabetic medication to help her lose weight per her PCP. Functional Assessment - Sleep Pattern Describe any problems with sleeping: Client states she sleeps about 6-8 hours per night and does use a CPAP for MAXIMINO. - Activities Motor Activity:: Functional Sensory/Communication Assess - Communication Problems Do you have difficulty understanding what people are saying?: No Medical Problems/History - Cardiac Conditions Cardiovascular: Hypertension, Hyperlipidemia, Other (See comments) Comments:: ongoing issues with heart palpitations- recent cardiology work-up negative - Respiratory Conditions Respiratory: Other (See comments) Comments:: MAXIMINO - Genitourinary Conditions Genitourinary: Other (See comments) Comments:: polycystic kidney disease- has had bilat nephrectomy, was on dialysis for 4.5 years, kidney transplant in May 2017 - Metabolic Conditions Metabolic: Hypothyroidism, Other (See comments) Comments:: states she was on diabetic medication in the past to help with kidney function, states she will soon be on diabetic medication again to help with weight loss - Gastrointestinal Conditions Gastrointestinal: Other (See comments) Comments:: GERD, states recent endoscopy showed esophagitis. Client states she has ongoing indigestion issues and palpitations with eating. 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 - Pain Assessment Do you have acute or chronic pain?: Yes - back/left shoulder/hip- pain injections by Dr. Menjivar - Family History Family History: Family History (Last Reviewed 05/30/20 @ 11:[address] Franklin Billy MD) Other Arthritis Bleeding disorder COPD (chronic obstructive pulmonary disease) Cancer Depression Hypertension Kidney disease Thyroid disorder Surgical History - Surgical History Have you had any surgeries? If so, list type and date:: Yes - ankle, kidney transplant, fistula, gastric sleeve, breast implant, tubal Substance Abuse - Substance Abuse Please describe substance abuse in the last 30 days:: Client states she drinks alcohol 3-4 times per year. Client denies tobacco use or substance use. Client states she drinks caffiene all day, recognizing she should be drinking less caffiene and more water but states I don't like water. Mental Status Summary - Mental Status Significant Findings/Observations on Appearance and Mood:: Client is alert and oriented x 4. Client is wearing a mask due to pandemic. Client is cooperative with assessment. Client is casually groomed. Client's voice has normal rate and volume. Client makes good eye contact. Client appears mildly anxious. Client makes logical associations. Client denies delusions/hallucinations and denies SI. Suicide Assessment - Suicidal Ideation Are you currently or have you been suicidal in the past?: No Physician Notification: If Active suicidal thoughts/Will not contract for safety is checked, contact physician and document in the Physician Notification section below. Past Psychiatric History - MH Treatment Hx Past Psychiatric Medications:: Wellbutrin, Zoloft Age of first mental health symptoms: Client states she had depression after having her daughter 19 years ago and has had depression since. Current providers for mental health treatment (counselor, psychiatrist, human services case manager, etc.): None. Fall Risk Assessment - Age Age: Less than 60 - Mental Status Mental Status: Willing & able to ask for assistance when needed - Physical Status Physical Status: No problems - Impairments Impairments: None - Elimination Elimination: Continent AND independent - Gait or Balance Gait or Balance: Walks independently - Hx of Falls History of falls in the past 6 months: No known history - Medications/Substances Psychotropics:: Antidepressants Others:: Antihypertensives Medications/substances used within the past 24 hours or ordered to administer: 1-2 of the medications/substances listed above - Total Score Total Points:: 1 RN Summary of Impressions - Impressions Recommendations: Include psychiatric and medical issues, treatment planning recommendations, and discharge planning needs. Impressions: Psychiatric Issues: Major depressive disorder, recurrent, moderate; generalized anxiety disorder - Level of Care How do the client's current symptoms and functional deficits support need for this level of care?: Client was referred to IOP by PCP for increased depression symptoms and decreased daily function due to mental symptoms. Client reports her mental health has been declining since COVID. Client states having her daughter home all the time due to COVID has been a stressor stating she is always yelling and has to be heard. Client reports her is supportive, but she does not feel their relationship is loving. Client becomes tearful when speaking about her son who currently lives with her but is in the process of buying a house, stating he is her main support system and she is stressed that he will be moving out. Client endorses feelings of worthlessness, being overwhelmed, and decreased motivation. Client also talks about frustration about feeling heart palpitations with eating that she has seen her PCP and cardiology about, but no medication changes were made and symptoms have not improved. Client states she has been on a beta zahira long-term for palpitations that had helped until recently. Client denies SI. IOP will promote gains and prevent further decompensation while providing social support and skills training.
--- NOTE | 2020-08-01 11:20 | BH.SGPN.GN ---
Behaviors/Verbalizations/Mental Status: []Client alert and oriented, casually dressed and appropriately groomed. Eye contact fair. Motor activity appropriate. Speech within normal limits. Affect constricted, mood dysthymic. Thoughts linear, logical, no signs of hallucinations or delusions. Client Response/Progress/Benefit: []Pt engaged participant AEB pt providing input during session, listened attentively to others and completed worksheet. Pt helped group identify the mental health benefits of taking small actionable steps towards addressing barriers and promoting healthy change in daily life. Pt stated she will take action by either making or having someone make dinner at least once per week. Pt reported she needs the support of her , son and daughter to help her accomplish this gaol. Pt reported it would also help if she would work with her family to establish a cooking schedule. Seemed to benefit from creating action plan. Recommend continued IOP tx to increase healthy skills, improve boundary setting and prevent decompensation. Narrative Note: []
--- NOTE | 2020-08-01 11:45 | BH.MDN_ITS ---
Multi-Disciplinary Note - Note 45-min Individual Time Started:: 09:31 Date: 08/01/20 Purpose of session/treatment goals addressed:: The purpose of this session was to gather information on client's adjustment to the group environment, as well as current stressors, symptoms, and treatment goals. Another goal was to build rapport and provide psychoeducation. Eye Contact:: Good - tearful in discussing stressors Motor Activity:: Appropriate Appearance:: Casual Speech:: Appropriate Mood:: Anxious, Depressed Affect:: Constricted Thoughts:: Linear, Logical, No evidence of hallucinations/delusions noted Staff Interventions:: Therapist used active listening and open-ended questions to explore client's thoughts on first week in IOP program, as well as current stressors, symptoms, and mental health treatment history. Discussed areas client would most like to focus on in order to begin establishing treatment goals. Therapist used strengths-based approaches to build rapport, empower client on coping skills already developed, and provide emotional support. Therapist provided psychoeducation on self-care and impact on mental health sx. Therapist gave client self-care related homework. Client Response:: Client responded well to session, open to meeting with therapist. Client stated she has enjoyed the group environment and is glad to spend some time outside of the home as she does not see many people other than her family. Reported that at this time her home relationships are strained. Client currently lives with her and two of her children. Reports the marriage is struggling and feels as though she is ?living with a roommate? rather than a spouse. Expressed ?we haven?t been intimate in 10 years? and identified this as significantly impacting her self-esteem and reinforces feelings of loneliness. Additionally shared that her son whom she is close with is moving out soon as he is in the process of purchasing a home and that she is close with her daughter but the relationship is often stressful. Noted ?we butt heads a lot? and described her daughter as being ?co-dependent? which often takes a lot of her time and energy. 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 Reports her biggest stress right now is not functioning well enough at home to complete daily cleaning and household maintenance tasks. Expressed she then feels guilty that she is not getting enough done and has negative ruminations and increased self-deprecating thoughts as a result. Shared she feels she does not have any real supports and relies on crafting as a primary form of self- care. Noted this is beneficial as times but she longs to feel more connected with others. Receptive of psychoeducation on different types of self-care. Open to begin looking for local crafting groups as a means of increased community engagement. Client identified her treatment goals to be: improving her ability to deal with symptoms, improve daily functioning, improve independence and self- advocacy, as well as increase social supports and use of healthy self-care practices. Risks/Concerns:: No risks or concerns noted. Denies SI, plan, or intent as of this date 08/01/20 Progress Toward Goals/Plan:: Client's first full week of IOP, reports she is more comfortable in the treatment environment than expected but still working on becoming more vocal. She reports enjoying group topics and interactions with fellow participants thus far. Shared group has helped provide her with socialization she has been missing. She is hopeful that she will be able to make progress in improving mental health sx while in tx. Client endorses a depressed mood, apathy, anhedonia, hopelessness/worthlessness, low self-esteem, ruminations, and constantly feeling anxious. Client's symptoms have been impacting her relationships at home, ability to socialize with others, and daily functioning. Will continue IOP tx to prevent decompensation, reduce intensity of symptoms, and improve daily functioning. Time Stopped:: 10:13
[2020-08-01 11:56] VITALS: BP 154/70; PULSE 64
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
--- NOTE | 2020-08-01 12:34 | BH.PSY.EVA_ITS ---
Initial Treatment Plan - Patient Information Visit Information: ADMISSION DATE: EXPECTED LOS: 4-6 weeks - Problems/Symptoms Problem #1:: Depression Symptom:: Sadness, hopelessness, worthlessness, lack of motivation, decreased c oncentration, fatigue, guilt, low energy Problem #2:: Anxiety Symptom:: Rumination, worry, panic attacks
--- NOTE | 2020-08-03 09:10 | BH.SGPN.GN ---
Behaviors/Verbalizations/Mental Status: [] Eye contact is good. Motor activity is appropriate. Appearance is casual. Speech is Appropriate. Mood is depressed. Affect is flat. Thoughts are linear and logical. No evidence of psychosis. Reviewed daily check in sheet and no reports of suicidal ideations or intent. Client Response/Progress/Benefit: [] Pt participated at times during the group discussion. Attentive. Tearful. Pt reports that she was zoned out all day yesterday. Increased depression. Ruminating and sad. Stressors include her son (who is supportive) moving out of the house soon and her other son returning from the next week. Reports being emotionally drained and had no energy to complete any tasks. Group provided empathy and support. Provided some feedback to encourage her to use skills today to decrease depressive thoughts. Appears receptive to feedback. Regress noted per pt. Benefited from group support, encouragement, and feedback. Will continue in IOP to improve functioning, prevent decompensation, and to stabilize mood. Narrative Note: []
--- NOTE | 2020-08-03 11:05 | BH.SGPN.GN ---
Behaviors/Verbalizations/Mental Status: []Client alert and oriented, casually dressed and groomed. Eye contact good. Motor activity appropriate. Speech within normal limits. Affect congruent, mood euthymic and anxious. Thoughts linear, logical, no signs of hallucinations or delusions. Client Response/Progress/Benefit: []Client engaged AEB providing input during discussion, completing worksheet, and actively listening to peers. Client appeared to benefit from group as client appeared to understand the difference between good and bad anxiety. Client understood how anxiety is a disorder when daily functioning is impacted. Client provided to discussion about physical symptoms, cognitive symptoms, and safety behaviors. Identified her safety behaviors as distractions, sleep, and overeating. Client shared her physical symptoms when feeling anxious as restless legs, increased sleep, IBS, nausea, heartburn, stiff neck, lack of concentration, racing thoughts, and crying. Progress noted as client understands how safety behaviors impact anxiety symptoms. Client will continue IOP to challenge negative thoughts, increase healthy coping skills, and reduce anxiety. Narrative Note: []
--- NOTE | 2020-08-03 11:13 | BH.SGPN.GN ---
Behaviors/Verbalizations/Mental Status: []Client alert and oriented, casually dressed and groomed. Eye contact fair to good. Motor activity appropriate. Speech within normal limits. Affect congruent, mood anxious. Thoughts linear, logical, no signs of hallucinations or delusions. Client Response/Progress/Benefit: []Client was an active participant in group discussion AEB taking notes and providing input when prompted. Attentive during psychoeducation on mindfulness coping skills and their impact on mental health wellness. The group practiced deep breathing and the ?5-senses? skill while taking a mindfulness walk. Client was able to identify self-soothing and mind-based coping skills she would like to begin practicing which included: crafting, journaling daily accomplishments, and positive affirmations. Appeared to benefit from practicing in the moment coping skills and identifying personal mindfulness activities to manage anxiety independently. Progress noted in client?s receptiveness to coping skill suggestions and thought challenging. Client will continue IOP tx to improve daily functioning, combat distortions, and reduce avoidance behaviors. Narrative Note: []
--- NOTE | 2020-08-06 08:40 | BH.MDN ---
Multi-Disciplinary Note - Note 45-min Individual Time Started:: 11:55 Date: 08/07/20 Purpose of session/treatment goals addressed:: The purpose of this session was to work on goal #1 of client's tx plan. Another goal was to begin discussion on assertive communication and review Personal Bill of Rights. Eye Contact:: Good - tearful throughout Motor Activity:: Appropriate Appearance:: Casual Speech:: Appropriate Mood:: Anxious, Depressed Affect:: Congruent Thoughts:: Linear, No evidence of hallucinations/delusions noted Staff Interventions:: Therapist asked open ended and furthering questions to assess client current symptoms, stressors, and application of coping skills learned. Reviewed homework form prior session and discussed strategies to continue to promote self-care practices. Therapist assisted client in identifying, challenging, and replacing dysfunctional thoughts about self with positive, more realistic thoughts. Therapist used the Personal Bill of Rights to aid client in identifying areas in which she would like to better assert her needs. Therapist provided psychoeducation on healthy communication skills and aided client in identifying a small goal for beginning to improve ability to communicate personal needs. Client Response:: Client was open to meeting with therapist, engaged throughout. Client stated she had been able to successfully complete part of her self-care homework. Indicated spending time cleaning out her craft room to make space for her son who is in the army and visiting from [place] this week before being stationed somewhere else. Shared she also was able to make time for herself in which she worked on some crafts. Expressed feeling accomplished and relieved by completing these activities. Went on to indicate struggling with frustrations at home as she feels her mood continues to be impacted by her relationships with her daughter and . Shared feeling alone in her own home despite living with other people and became tearful in discussing how her relationship with her has become more distant over the years. Noted they used to have better communication but currently struggle to talk at all throughout the day. Expressed uncertainty of the last time they spent quality time together and shared a desire to improve this. Client reports feeling the relationship began to significantly struggle after she was diagnosed with chronic kidney disease and expressed guilt over her limited ability to be physically active. Client connected with discussion on how self-esteem can impact relationships and identified struggling not to define herself by the limitations of her physical health. Connected with psychoeducation on affirmations and challenging her negative self-talk. Connected with discussion on healthy communication characteristics and expressed wanting to begin exploring healthy means of communicating her needs and expectations to her . Reports wanting to start with exploring what her expectations may be for the relationship and writing these down in order to identify skills for improving assertive communication in these areas. Risks/Concerns:: Client denies any suicidal ideations, plan, or intent as of 08/06/20. Future oriented. Progress Toward Goals/Plan:: Progress noted. Client reports improved use of self-care skills and increased insight regarding strategies for breaking cycle of depression. Reports improved mood since being in the group setting. Continues to struggle with depression and distorted thoughts. Continues to report difficulties setting boundaries and feeling like a burden. Recommended continued IOP tx to improve thought challenge skills, continue to promote healthy coping, improve communication, and prevent decompensation. Time Stopped:: 12:35
--- NOTE | 2020-08-06 09:00 | BH.SGPN.GN ---
Behaviors/Verbalizations/Mental Status: []Client alert and oriented, casually dressed. Eye contact fair. Motor activity appropriate. Speech within normal limits. Affect congruent, mood anxious. Thoughts linear, logical, no signs of hallucinations or delusions. Reviewed client?s symptom tracker, no risk or thoughts of suicide ideation, plan, or intent as of 08/06/20. Client Response/Progress/Benefit: []Client responded well to session, engaged throughout and participated in group discussion. Client reported feeling ?tired? this morning. Client reported accomplishing her goal of cleaning her craft room to help prepare for her son to visit. Client also shared scheduling her time for self-care and crafting. Client shared a positive and stressor as spending time with her when cleaning dishes. Client shared her daughter does not respect boundaries and does not listen to house rules which increases stress. Client benefited from group as peers provided positive feedback and suggestions like sitting with uncomfortable feelings and communicating needs and boundaries with daughter. Progress noted as client is future-oriented and reports working towards goals. Will continue IOP to increase healthy boundaries, promote the use of healthy coping skills, and challenge negative thoughts. Narrative Note: []
--- NOTE | 2020-08-06 10:07 | BH.SGPN.GN ---
Behaviors/Verbalizations/Mental Status: [] Eye contact is good. Alert and oriented. Motor activity is appropriate. Appearance is casual. grooming is appropriate. Speech is Appropriate. Mood is dysthymic and anxious. Affect is congruent. Thoughts are linear and logical. No evidence of psychosis or hallucinations. Client Response/Progress/Benefit: [] Pt engaged participant AEB contributing input during session and engaging in activity. Pt assisted group with identifying consequences of not expressing emotions in a healthy way which included: increased isolation, getting hurt or hurting someone else, damaged reputation, reinforce distortions, and mental health negatively impacted. Shared ?if you don?t express it then it builds up? Pt noted connecting with fear of other?s reactions as a barrier to expressing one?s emotions in healthy ways. Pt did well to work with group to complete challenge activity and shared that she was proud of herself for stepping outside her comfort zone during activity. Noted that positive self-talk and group support helped to ease some anxiety. Pt seemed to benefit from increased awareness of the impact unmanaged emotions can have on mental health. Pt is to continue IOP to increase healthy coping, improve self-esteem, and prevent decompensation. Narrative Note: []
--- NOTE | 2020-08-08 08:58 | BH.SGPN.GN ---
Behaviors/Verbalizations/Mental Status: []Eye contact is fair to good. Alert and oriented. Motor activity is appropriate. Appearance is casual. grooming is appropriate. Speech is Appropriate. Mood is anxious and depressed. Affect is congruent. Thoughts are linear and logical. No evidence of psychosis or hallucinations. Client Response/Progress/Benefit: []Pt engaged in session AEB listening to others and willingness to share thoughts and feelings with group. Pt did well to identify small personal wins despite having several stressors. Noted she was feeling ?all over? on this date as she has several tasks to complete prior to her son returning home from [place]. Shared this has been an ongoing stressor as she worries she will not get everything completed. Receptive of supportive feedback and suggestions provided, though continues to express apprehension in setting boundaries with her family. Shared current wins which included: clearing room in the family area to make space for everyone to get together when her son is home, as well as reminding herself that this stress is only temporary. Noted positive self talk continues to aid in improving her overall mood. Identified current skills used as: deep breathing, practicing grounding, and positive self-talk. Recommended continued IOP tx to continue focus on improving coping skill application, promote healthy boundaries, and prevent decompensation. Narrative Note: []
--- NOTE | 2020-08-08 10:03 | BH.SGPN.GN ---
Behaviors/Verbalizations/Mental Status: []Client alert and oriented, casually dressed and groomed. Eye contact good. Motor activity appropriate. Speech within normal limits. Affect constricted, mood anxious. Thoughts linear, logical, no signs of hallucinations or delusions. Client Response/Progress/Benefit: []Client engaged during session AEB client providing input at times during discussion and completing worksheet. Connected with discussion on crisis and how coping with external crises by using unhealthy coping skills could result in a personal crisis. Group reflected on the importance of having awareness of personal warning signs in order to prevent reaching crisis point. Group identified potential warning signs for crisis and client completed the personal warning signs worksheet. Client identified personal crisis warning signs to include: increased crying, no motivation, and not taking care of personal hygiene. Client benefited by increasing awareness of what leads to crisis and personal warning signs. Pt will continue IOP to improve setting healthy boundaries, challenge distorted thoughts and prevent decompensation.
--- NOTE | 2020-08-08 11:03 | BH.SGPN.GN ---
Behaviors/Verbalizations/Mental Status: []Client alert and oriented, casually dressed and groomed. Eye contact fair. Motor activity appropriate. Speech within normal limits. Affect constricted. Mood anxious. Thoughts linear, logical, no signs of hallucinations or delusions. Client Response/Progress/Benefit: []Client responded well to session as evidenced by client listening attentively to others and providing input throughout session. Client identified her warning signs for crisis and gained further awareness of earliest warning signs. Client used the warning signs: loss of motivation, crying, and not taking care of herself to create her crisis plan. Client?s action plan included: opposite action, exercise, creating a check-list, crafting, healthy distractions, positive self-talk, making self-care fun, and setting alarms. Client also recognizes that she can ask outside support for help. Client appeared to benefit from creating a crisis action plan and increasing self-awareness. Client to continue IOP tx to reduce depressive symptoms, increase healthy boundary setting skills, and promote self-care. Narrative Note: []
--- NOTE | 2020-08-13 09:00 | BH.SGPN.GN ---
Behaviors/Verbalizations/Mental Status: []Client alert and oriented, casually dressed. Eye contact fair. Motor activity appropriate. Speech within normal limits. Affect flat, mood dysthymic. Thoughts linear, logical, no signs of hallucinations or delusions. Reviewed client?s symptom tracker, no risk or thoughts of suicide ideation, plan, or intent as of 08/13/20. Client Response/Progress/Benefit: []Client responded well to session, engaged throughout and participated in group discussion. Client reported feeling ?relieved? this morning. Client shared many positives from her weekend but identified them as negatives. Therapist and peers helped client reframe her negative thinking by discussing eustress and positive anxiety. Client identified healthy coping skills as breathing, counting, being open-minded, and setting realistic expectations. Benefited from group as peers and client explored possibilities and ideas related to setting realistic goals and expectations. Client reported her goal for this week is to continue to have an open-mind while spending quality time with family. Will continue IOP to continue the use of healthy coping skills, increase setting healthy boundaries with daughter, and challenge negative thoughts. Narrative Note: []
--- NOTE | 2020-08-13 10:07 | BH.SGPN.GN ---
Behaviors/Verbalizations/Mental Status: [] Client alert and oriented, casually dressed and groomed. Eye contact good. Motor activity appropriate. Speech within normal limits. Affect congruent, mood anxious and euthymic. Thoughts linear, logical, no signs of hallucinations or delusions. Client Response/Progress/Benefit: [] Client responded well to session, attentive and contributing to discussion. Providing specific examples which is improved engagement compared to prior groups. Client worked with the group to identify factors that contributed to how we define ourselves which included: society, what we?ve learned or been taught is expected, illness, family, and comparisons to others. Client reported that she has struggled with guilt associated with her mental health. Client reported she has experienced the impacts of mental health stigma and that client has struggled with not reaching out for help and feeling like a burden as a result. Client worked with group to identify and discuss social and perceived stigma. Client?s perceived stigma included defining herself by her illness and telling herself she does not deserve to ask for help. Client seemed to benefit from increased awareness of how mental health stigma can impact progress and self-worth. Client to continue IOP tx to promote gains in using healthy coping skills, further improve confidence and self-advocacy, and to improve daily functioning. Narrative Note: []
--- NOTE | 2020-08-13 11:10 | BH.SGPN.GN ---
Behaviors/Verbalizations/Mental Status: []Client alert and oriented, casually dressed, hygiene appeared to be tended to. Eye contact fair. Motor activity appropriate. Speech within normal limits. Affect constricted, mood anxious. Thoughts linear, logical, no signs of hallucinations or delusions. Client Response/Progress/Benefit: []Client engaged participant AEB pt providing input during discussion, taking notes and listened attentively to peers. Client worked with group to identify what mental stigma has prevented them from doing. Group brainstormed strategies to combat social and perceived stigma which included: educating others, no longer using negative language about mental illness, being open about mental health, self-compassion and not reinforcing stigma with behaviors or labels. Client stated she will attempt to decrease perceived stigma by quit using negative mental health labels towards herself. Appeared to benefit from increasing awareness of strategies to combat stigma. Will continue IOP tx to continue use of healthy coping, continue working on setting healthy boundaries and prevent decompensation.
--- NOTE | 2020-08-14 09:00 | BH.SGPN.GN ---
Behaviors/Verbalizations/Mental Status: []Eye contact is fair to good. Alert and oriented. Motor activity is appropriate. Appearance is casual. grooming is appropriate. Speech is Appropriate. Mood is anxious and euthymic. Affect is congruent. Thoughts are linear and logical. No evidence of psychosis or hallucinations. Client Response/Progress/Benefit: []Pt engaged in session AEB listening to others and willingness to share thoughts and feelings with group. Pt did well to identify personal wins. Pt noted she was feeling ?relieved? on this date as she has been able to successfully manage some of her previously identified stressors. Shared current wins which included: completing her to-do list from last week and challenging herself not to take on too many things this week but rather enjoy spending some unstructured time with her son instead. Expressed this has been difficult for her to do as she has often takes on other?s responsibilities or becomes upset when the family doesn?t have set plans for how they will spend time together while family is visiting. Identified current skills used as: thought challenging, taking a break when needed, breathing, and grounding. Current stressor includes not taking on any additional tasks/responsibilities while her son is visiting this week. Identified positive self-talk as a strategy for managing this stressor. Recommended continued IOP tx to further improve mental health sx management, continue to reduce depressive sx, improve self-advocacy, and prevent decompensation. Narrative Note: []
--- NOTE | 2020-08-14 10:05 | BH.SGPN.GN ---
Behaviors/Verbalizations/Mental Status: [] Eye contact is good. Motor activity is appropriate. Appearance is casual. Speech is Appropriate. Mood is depressed. Affect is flat. Thoughts are linear and logical. No evidence of psychosis. Client Response/Progress/Benefit: [] Pt participated when prompted during group discussions, however was an active participant during group activity. Attentive during discussion on identifying healthily support ( co-workers, pets, teachers, family, friends, medications, providers, carlo, and Us as individuals). Attentive during discussion on benefits of support (outside perspective, helps break negative cycles, educational, helps us connect with others, decreases loneliness, and gives us permission to not be OK). Attentive during discussion on barriers to support (difficult to trust others, fear of being vulnerable, past negative experiences, feelings that we don't deserve support, and feelings that we are burden to support). Able to see the impact of support and its benefits during activity and challenges of accomplishing tasks w/o proper support. Benefited from awareness of barriers to support as well as importance of support in mental health wellness. Narrative Note: []
--- NOTE | 2020-08-14 11:05 | BH.SGPN.GN ---
Behaviors/Verbalizations/Mental Status: []Client alert and oriented, neatly dressed and groomed. Eye contact good. Motor activity appropriate. Speech within normal limits. Affect constricted, mood dysthymic. Thoughts linear, logical, no signs of hallucinations or delusions. Client Response/Progress/Benefit: []Client an active participant throughout AEB contributing to discussion, taking notes, and providing supportive feedback. Client participated in the group activity highlighting the various barriers to effectively utilizing supports and strategies the group used. Client participated in discussion of the four types of support (emotion, tangible, informational, and social) and gave examples for all types. Client reports wanting to work on increasing emotional support with herself and building new connections. Client stated this will help client feel less alone. Client plans to do this by practicing positive self-talk and journaling. Client seemed to benefit from identifying the type of support she wants to improve. Client to continue in IOP tx to reduce depressive symptoms, increase confidence, and improve daily functioning. Narrative Note: []
--- NOTE | 2020-08-17 08:24 | BH.COMM ---
Communication Note - Communication with Client Communication Note: Pt scheduled for group and individual sessions on this date; however did not show. Pt called to indicate she had been in the ED for a fall the previous night and would not be in today as a result. Reportsplans to attend [facility] tx Thursday.
--- NOTE | 2020-08-20 08:55 | BH.TPR ---
Treatment Plan Review Date of Admission:: 07/26/20 Date of Treatment Plan Review:: 08/20/20 Admitting Diagnoses:: Major depressive disorder, recurrent, moderate; generalized anxiety disorder Current Diagnoses:: Major depressive disorder, recurrent, moderate; generalized anxiety disorder Patient's Response to Treatment:: Pt has responded well to treatment AEB consistent attendance, providing increased input during group sessions, actively working to improve on applying skills outside treatment environment, remaining medication compliant, and making efforts to complete homework from individual sessions. Client does struggle at times with self-care and at times has been inconsistent in homework completion. Status of Current Problems and Symptoms: Pt made some progress in treatment per self-report of improved mood, increased use of self-care skills, and reduced isolation. However, pt experiencing a recent regression due to recent fall impacting physical abilities. This has increased distorted thoughts patterns about self-worth and feelings of being a burden, as well as anxiety associated with long-term prognosis of physical capabilities. Due to this recent stressor and pt self-report minimizing sx severity at time of admission, pt overall DSM-5 score reflects an overall regression in progress. Overall score have increased by 62%, specifically in area for anxiety and pain management. Symptoms of depression have seen a 38% reduction and irritability is reduced by 25%. Continues to struggle with setting boundaries, distorted thoughts reinforcing negative core beliefs, and inappropriate guilt. Problem #1 Problem Name:: Depression Status of Goals:: Obj 1 ? completed. Ongoing work encouraged to maintain. Pt able to identify distortions with assistance, but continues to struggle to do so independently. Additionally, pt appears to struggle in effectively reframing on her own. Obj 2 - completed. 38% reduction in depressive symptoms per self-report on DSM 5 symptom tracker. ongoing work encouraged to maintain and further improve gains. Team Recommendations:: Recommended continued work on these goals with more specific focus on improving social supports and engagement in mental health supportive resources in the community to further promote gains made. Problem #2 Problem Name:: Anxiety Status of Goals:: Obj 1 ? Partially complete. Client has learned a variety of calming skills for reducing anxious sx; however, self-reports inconsistent use of these skills. Continues to struggle with isolation and avoidance in times of increased anxiety. Obj 2- Not completed. Pt reports an influx in anxiety sx which is further evidenced by DSM-5 score increase in this area. Reports recent physical stressor as primary contributor in increased anxiety. Pt able to identify ruminating thoughts and safety behaviors reinforcing anxiety maintenance behaviors, though continues to struggle in implementing healthy coping and thought challenge skills to improve overall anxiety management. Team Recommendations:: Continue working on current goals with increased focus on increased engagement in IOP group. Additionally, would benefit from improved self-advocacy and boundary setting skills which will be a focus of tx moving forward.
--- NOTE | 2020-08-20 10:00 | BH.SGPN.GN ---
Behaviors/Verbalizations/Mental Status: []Client alert and oriented, casually dressed and groomed. Eye contact good. Motor activity appropriate. Speech within normal limits. Affect congruent, mood depressed and anxious. Thoughts linear, logical, no signs of hallucinations or delusions. Client Response/Progress/Benefit: [] Client was an active participant AEB contributing to discussion, taking notes, and engaging in group activity. Connected with the topic of pitfalls and indicated that pitfalls can prevent success but ?you can change the way you?re going and take a different path?. Client contributed to the group discussion on barriers that prevent from choosing a healthier path to mental wellness such as pitfalls. Group worked together to identify examples of personal pitfalls which included; resentment, anger, isolating, distortions, and unhealthy coping. Client identified anger and focusing too much on physical limitations personal pitfalls that have inhibited progress in the past. Engaged during the activity by taking direction, offering encouragement, and providing feedback throughout. Client benefited from group as she learned to better identify potential barriers to improving mental health symptoms. Client will continue IOP tx to increase the consistent use of healthy coping skills, reduce mental health sx, and prevent decompensation. Narrative Note: []
--- NOTE | 2020-08-20 11:10 | BH.SGPN.GN ---
Behaviors/Verbalizations/Mental Status: []Client alert and oriented, neatly dressed, hygiene tended to. Eye contact good. Motor activity appropriate. speech and tone WNL. Affect congruent-tearful, mood depressed. Thoughts linear, logical, no signs of hallucinations or delusions. Client Response/Progress/Benefit: []Client receptive of session, engaged throughout AEB client listening to discussion and taking notes. Client completed a worksheet where client identified personal pitfalls impacting mental health progress. Client?s pitfalls included: telling herself ?I?m never going to get better,? not setting realistic expectations, lack of boundaries, and jumping to conclusions. Client shared she is currently struggling with negative thoughts because she had a setback last week. Attentive and contributing during group brainstorm of strategies to overcome pitfalls. Client will work on overcoming her pitfall of jumping to conclusions by listing positives and setting small goals. Benefited from identifying personal pitfalls and strategies to overcome these pitfalls. Client has been demonstrating progress with accomplishing SMART goals, but she is currently struggling with distorted thoughts. Will continue IOP tx to decrease depressive symptoms, improve mood stability, and increase self-care. Narrative Note: []
--- NOTE | 2020-08-20 12:33 | BH.MDN_ITS ---
Multi-Disciplinary Note - Note 45-min Individual Time Started:: 09:12 Date: 08/20/20 Purpose of session/treatment goals addressed:: The purpose of this session was to address treatment goal #1, obj#1 and #2. Another goal was to begin reviewing treatment progress and discuss aftercare planning. Eye Contact:: Good - tearful throughout Motor Activity:: Appropriate Appearance:: Casual Speech:: Appropriate Mood:: Depressed Affect:: Congruent Thoughts:: Linear, Logical, No evidence of hallucinations/delusions noted Staff Interventions:: Therapist asked open ended and furthering questions to elicit information regarding client symptoms, stressors, and perspective regarding treatment goal progress. Therapist worked with client to identify current barriers to tx progress. Used active listening and provided emotional support. Therapist provided psychoeducation on depression, self-esteem, and cognitive distortions. Therapist aided client in challenging client?s distorted thoughts and used strengths perspective to promote self-compassion and identify personal positives. Client Response:: Client receptive to meeting with therapist, engaged throughout. Client stated she is currently struggling with negative thinking, disappointment, and guilt today. Client reported this was due to a fall she had last week which had increased client chronic leg pain and limited her mobility. Client shared feeling angry and sad that she ?has to start back at square one? regarding her physical recovery. Explained feeling as though the work she has done over the past two years since having ankle surgery is now disqualified by the recent fall. Expressed guilt over having to ask for help completing tasks and fear that she will ?become demanding and hard to be around like my mother was at the end of her illness?. Client continues to struggle with defining herself by her medical limitations and focusing on what restrictions she faces rather than where she is making progress/accomplishments. Receptive of psychoeducation on distorted thinking patterns and practicing cognitive restructuring. Client was able to reframe her distorted thoughts with assistance and did well to identify ways in which distortions negatively impact her self- image and reinforce depressive cycle. Client identified several areas in which she is making progress and ways she contributes to her family outside her physical capabilities. Client identified positives of reaching out to friends and attending a baby shower over the weekend despite urges to cancel and isolate instead. Client and therapist discussed how mental health progress and thought reframing takes time and effort. Client discussed beliefs she has made progress with increased self-care, reduced isolation, and more engagement in activities she enjoys. Discussed that she is working on improved self-talk but continues to struggle in this area. More focus to be placed on self-worth moving forward. Risks/Concerns:: Client denies any SI, plan, or intent on this date, 08/20/20. Future oriented. Progress Toward Goals/Plan:: Client has been consistent with attending IOP which is beneficial to progress, but limited progress noted today as a result of recent physical injury resulting in an influx of depressive sx. Client able to identify and challenge distortions reinforcing these thoughts and reports improved mood following discussion on self-compassion and giving herself credit for areas of accomplishment thus far. Client receptive to identifying self-talk statements and beginning journaling dialing accomplishments. Continues to en dorse depression, negative self-talk, low energy, and urges to self-isolate. Client to continue IOP tx to prevent decompensation, reduce depressive sx, and increase healthy coping skills. Time Stopped:: 09:53
--- NOTE | 2020-08-22 10:08 | BH.SGPN.GN ---
Behaviors/Verbalizations/Mental Status: [] Eye contact is good. Motor activity is appropriate. Appearance is casual. Speech is Appropriate. Mood is anxious. Affect is congruent. Thoughts are linear and logical. No evidence of psychosis. Client Response/Progress/Benefit: []Pt was an engaged participant in group discussions and activity. Shared her thoughts in the quote of the day. Worked with group members to identify the benefits of setting goals which include: sense of accomplishment, builds self-esteem, increases motivation, gives purpose, keeps us on track, and provides accountability. Worked with peers to identify the barriers to setting goals or things that keep us from accomplishing goals which include: low self-esteem, often set unrealistic goals/expectations, toxic people, lack of resources, and negative thoughts patterns. Pt identified too high expectations as personal barrier to achieving goals. Shared she tries to do much when cleaning house which results in not much getting done because overwhelmed. Attentive during psycho-education on developing SMART (Specific, Measurable, Achievable, Realistic, Timely) goals. Benefited from education on the benefits of goal-setting and increased insight into skills to set realistic and attainable goals.
--- NOTE | 2020-08-22 11:08 | BH.SGPN.GN ---
Behaviors/Verbalizations/Mental Status: [] Eye contact is good. Alert and oriented. Motor activity is appropriate. Appearance is casual. grooming is appropriate. Speech is Appropriate. Mood is anxious and depressed. Affect congruent. Thoughts are linear and logical. No evidence of psychosis or hallucinations. Client Response/Progress/Benefit: [] Client was engaged during discussion, did well to complete activity and process with the group. Client was willing to complete the worksheet in which she was challenged to develop a personal SMART goal. Client chose the goal to start a daily accomplishments journal. Client stated this will benefit her by reducing depression, improving mood and self-esteem, as well as improve ability to identify positive self-talk message. Client identified her barriers which included: not having a journal, forgetting, and not making time to do it. Client receptive to identifying solutions for these barriers and willing to begin working on this goal. Benefited from this group by developing a short-term SMART goal related to mental health. Will continue IOP tx to increase healthy coping skills, challenge distorted thoughts and prevent decompensation. Narrative Note: []
--- NOTE | 2020-08-22 12:41 | PCM.BH.PN_ITS ---
Progress Note Progress Note: History of Present Illness/Interim History: [] The patient is a 49-year-old female who is seen in follow-up at the [facility] behavioral health IOP program. I last saw the patient 3 weeks ago and at that time we began weaning her off her Lexapro which she had been taking for over 10 years and changed her over to Cymbalta 30 mg p.o. daily which she has been taking for the past almost 3 weeks. The patient discontinued Lexapro on her own 2 days ago as she failed to show for her appointment with me last week. The patient around August 15 the patient had orthostasis and became dizzy and fell and injured her knees bilaterally and her right ankle and foot according to the patient. She was seen in the emergency room at [facility] and they felt that she had been dehydrated based on her creatinine and they also felt that with her history of orthostasis that this was what caused her fall. The patient states that since she fell and has pain this has brought up her past issues with pain and the numerous surgeries she has had and injuries secondary to gymnastics in the past. She has had numerous knee injuries and surgeries and and this has triggered her to feel like she may need another surgery on her knee. She is frustrated that she still has pain in her lower extremities. She denies any dizziness since she fell 1 week ago. She has been taking the Cymbalta 30 mg and tolerating it well. She has not noticed any real improvement in her symptoms because of the ongoing stressors of the knee injury and increased pain. In addition her son that she gets along really well with moved out of the house. She misses his presence in the house. She has a son that used to live in [place] that came home and is staying with her but is moving to [place] soon. She has also had increased anxiety since she hurt her leg when she fell last week. She still feels depressed, worthless, hopeless. Symptoms are essentially unchanged. She continues to deny any passive thoughts of , suicidal or homicidal ideation, hallucinations, delusions or symptoms of mani. Current Psychiatric Medications: [] Lexapro (discontinued 2 days ago); Cymbalta 30 mg p.o. daily (for about 3 weeks) gabapentin 200 mg p.o. twice a day (for pain and neuropathy). Mental Status Examination: [] Patient is a 49-year-old female who is seen wearing a mask due to the pandemic and is casually dressed and groomed with good hygiene. She is limping and walking slowly due to her recent injury of her right leg. She has no psychomotor agitation or retardation. Eye contact is good and speech is normal rate and rhythm and fluent with no pressure. Mood is depressed. Affect is mildly constricted. Thought process is goal-directed and organized. Thought content: There is no evidence of passive thoughts of , suicidal or homicidal ideation, hallucinations or delusions. Judgment is intact. Insight: Some present. Impulsivity: Low to moderate. Diagnoses: [] [place] I: [] Major depressive disorder, recurrent, moderate; generalized anxiety disorder [place] II: [] Deferred [place] III: [] Status post kidney transplant, obesity, MAXIMINO using CPAP, hypertension, orthostasis with recent fall [place] IV:[]] Primary support, health issues Plan: [] Patient will continue the IOP program in behavioral health at [facility] as the structure, support, education, individual and group therapy will hopefully prevent worsening of the patient's symptoms. The patient felt safe during the interview and if it anytime she does not feel safe she will let us know or go to the emergency room. The risks, options, possible complications and side effects of the medications were discussed with the patient and she understands and accepts these. She will continue to stay off the Lexapro. She will continue the Cymbalta 30 mg p.o. daily. As she as she has only been on this for almost 3 weeks we will continue the same dose to see if she gets more improvement in her mood and/or neuropathic pain. The new stressor of injuring her leg I feel has caused her to remain relatively the same psychologically. I will see the patient in follow-up in 1 to 2 weeks. A refill was given on her Cymbalta prescription #30 with 1 refill.
== END 2020-08-22 23:59 ==
LOC: BHIOP 09:00
PROVIDERS: PCP Nurse Practitioner; Referring Provider Psychiatry & Neurology Psychiatry; Visit Provider Psychiatry & Neurology Psychiatry
DX: F33.1 Major depressive disorder, recurrent, moderate (principal); F41.8 Other specified anxiety disorders; E66.9 Obesity, unspecified; G47.33 Obstructive sleep apnea (adult) (pediatric); I10 Essential (primary) hypertension; Z79.899 Other long term (current) drug therapy; Z94.0 Kidney transplant status
CPT/HCPCS: H0035; 90834; 90853

== ENCOUNTER 2020-08-15 20:45 | Emergency (ER) | payer MEDICARE, OTHER, MEDICAID, SELFPAY ==
[2020-05-30 11:15] VITALS: BMI 38.9
[2020-08-15 20:46] VITALS: BP 175/71; PULSE 58; RESP 16; TEMP 36.4; O2SAT 100; BMI 39.0
--- NOTE | 2020-08-15 21:01 | EKG12_ITS ---
Test Reason : DYSRHYTHMIA Blood Pressure : / mmHG Vent. Rate : 057 BPM Atrial Rate : 057 BPM P-R Int : 184 ms QRS Dur : 086 ms QT Int : 400 ms P-R-T Axes : 014 005 028 degrees QTc Int : 389 ms Sinus bradycardia Otherwise normal ECG Confirmed by FANTA FLORES, TONYA ([id number]), editor magazine TIMBO TIRADO ([id number]) on 08/17/2020 9:31:29 AM Referred By: JOHN Confirmed By:IKE JEWELL MD
--- NOTE | 2020-08-15 21:02 | ED.DCSUM_ITS ---
History of Present Illness Chief Complaint: Fall Detail of Chief Complaint: Right and left knee, right foot and dizziness Informant: Patient, Significant Other Onset: Hours Context: Sudden Onset Timing: Continuous - The bilateral knee pain and foot pain has been constant since fall, Intermittent - With regards to the dizziness Quality: Pain Location: Right and left knee and right foot Current Severity: Mild Maximum Severity: Moderate Worsened by: Weight bearing Relieved by: Nothing Associated Symptoms: Dizziness which has occurred in the past and is described as orthostatic Narrative: Patient 49-year-old woman with history of hypertension, hypercholesterolemia, status post renal transplant 2018 who presents with dizziness which she describes as orthostatic-like symptoms resulted in fall. She states her right and left knee went outward. Her toes went back. She complains of pain in her right and left knee and right foot. She is status post repair of ACL on the right. She denies headache. Denies visual, ocular auditory symptoms. Denies cardiac respiratory symptoms. She denies nausea, vomiting or diarrhea. Denies black or maroon-colored stool. The bruises on her legs are new. Prior similar symptoms: Yes Recent Illness/Hospitalization: No - Past Medical History (1) Kidney transplant recipient Status: Acute (2) Intermittent palpitations Status: Acute (3) Essential (primary) hypertension Status: Chronic (4) Hyperlipidemia Status: Chronic Past Medical History - Allergies and Home Meds Allergies/Adverse Reactions: Allergies ciprofloxacin [From Cipro] Allergy (Verified 08/15/20 20:48) Other ciprofloxacin HCl [From Cipro] Allergy (Verified 08/15/20 20:48) Other levofloxacin Allergy (Verified 08/15/20 20:48) Unknown ofloxacin [From Floxin] Allergy (Verified 08/15/20 20:48) Unknown zolpidem tartrate [From Ambien] Allergy (Verified 08/15/20 20:48) Unknown Primary Care Physician: Hali Adamson DUMB WAITER OPERATOR, DUMB WAITER OPERATOR-C [Primary Care Provider] - Prior records reviewed: Yes Surgical History: - - Kidney transplant recipient and ACL repair right knee Lives: Spouse/ Significant Other Smoking Status: Unknown if ever smoked Alcohol: None Drugs: None Review of Systems General: Denies: Chills, Fever, Malaise, Subjective Eyes: Denies: Visual changes - bilaterally, Blurred Vision - bilaterally ENT: Denies: Rhinorrhea, Sore throat Cardiovascular: Denies: Chest pain, Palpitations, Heart racing Respiratory: Denies: Dyspnea, Cough, Dyspnea on exertion Gastrointestinal: Denies: Abdominal pain, Nausea, Vomiting, Diarrhea, Melena, Hematochezia Genitourinary: Denies: Dysuria, Hematuria, Frequency Musculoskeletal: Reports: Swelling, Extremity Pain. Denies: Myalgias, Arthralgias, Neck pain, Back pain Skin: Reports: Wounds - This is anterior right and left leg. Denies: Rash Neurological: Reports: Weakness. Denies: Headache, Parasthesia Psych: Denies: Depression, Anxiety Endocrine: Denies: Polyuria, Polydipsia Hematologic: Denies: Easy bruising Physical Exam Vital Signs/Narrative: Vital Signs Temp Pulse Resp BP Pulse Ox 08/15/20 20:46 97.6 F L 58 L 16 175/71 H 100 Inital Vital Signs reviewed: Yes General: Well nourished, Well developed, Obese, No Acute Distress Head: Normocephalic, Atraumatic. Negative for: Trauma Eyes: Perrl, EOMI, - - There is no subconjunctival hemorrhage noted.. Negative for: Pale conjunctiva, Scleral icterus ENT: Moist mucous membranes, No rhinorrhea, - - Clinical findings of basilar skull fracture. Neck: Supple, Nontender, No lymphadenopathy, No JVD, - - To palpation. Cardiovascular: Regular rate, Regular rhythm, No murmurs, Normal S1, Normal S2 Respiratory: No distress, CTA bilaterally, Chest nontender Abdomen: Soft, Nontender, Nondistended, Normal bowel sounds, - - No pain to palpation pelvis Rectal: Deferred Back: Nontender, Normal Inspection Extremities: Tenderness - Pain to palpation right and left knee. There is no laxity with modified Carine, Blessing's test and varus and valgus testing. Full extension and flexion bilaterally. There is swelling and pain to palpation with discoloration dorsum right foot. There is no subungual hematoma noted.. Negative for: Nontender, No edema Skin: No rash, Pallor, Trauma. Negative for: Cyanosis, Diaphoresis, Jaundice Neurological: Alert, Oriented x3, Cranial nerves II-XII grossly intact, Normal Strength, Normal Sensation, - - GCS is 15. Psychological: Normal affect Diagnostic/Tx/Re-eval Chest X-Ray - ED: Read by ED Physician - 4 view x-ray of the right knee reveals screws from prior ACL repair with mild degenerative changes otherwise negative for fracture, or effusion., - - 4 view x-ray of the left knee was obtained and reveals no abnormality i.e. fracture, subluxation or effusion. 3 view x-ray of the left foot was obtained and reveals minimal degenerative changes no evidence of fracture, subluxation. There is no widening of the mortise. 08/15/20 21:02 Foot min 3 Views [RAD] Stat Knee 4 or More Views [RAD] Stat Knee 4 or More Views [RAD] Stat Laboratory Results 08/15/20 08/15/20 21:25 21:25 WBC 6.3 RBC 4.41 Hgb 13.1 Hct 41.8 MCV 94.8 MCH 29.7 MCHC 31.3 L RDW Std Deviation 44.7 H RDW Coeff of Aditya 12.9 Plt Count 133 L MPV 11.0 Immature Gran % (Auto) 0.500 Neut % (Auto) 73.6 H Lymph % (Auto) 14.0 L [place] % (Auto) 10.5 H Eos % (Auto) 1.1 Baso % (Auto) 0.3 Absolute Neuts (auto) 4.6 Absolute Lymphs (auto) 0.88 Nucleated RBC % 0 Sodium 139 Potassium 4.7 Chloride 106 Carbon Dioxide 29.0 Anion Gap 4 L BUN 29 H Creatinine 1.32 H Estim Creat Clear Calc 51.43 Est GFR (MDRD) Af Amer 55 L Est GFR (MDRD) Non-Af 45 L BUN/Creatinine Ratio 22.0 H Glucose 111 H Calcium 9.9 CBC is baseline. Basic metabolic panel is baseline. - EKG Initial EKG Interpretation: Sinus Bradycardia - Bradycardia with a ventricular rate of 57. MA interval 184 ms. Cures duration 86 ms. QT duration 400 ms. [place] is normal. Other than the bradycardia the EKG is normal. - Medical Decision Making 3 of the right and left knee were obtained to rule out strain versus fracture. X-ray of the foot was obtained to rule out contusion versus fracture. Blood work was obtained since she is a kidney transplant recipient to rule out anemia, renal injury etc. ED Disposition - Plan for ED Patient: Disposition: Home or Assisted Living Diagnosis: Orthostatic dizziness, Contusion of right knee, initial encounter, Contusion of left knee, initial encounter, Strain of right ankle and foot Instructions: ED Dizziness, Uncertain Cause, ED Contusion, Lower Extremity, ED Muscle Strain, Extremity Prescriptions: Hydrocodone Bitart/Apap 5-325 [[place] 5MG-325MG] 1 tablet PO Q6H PRN PRN 3 Days #10 tab PRN Reason: Pain Prescription Printed Referrals: Hali Adamson DUMB WAITER OPERATOR, DUMB WAITER OPERATOR-C [Primary Care Provider] - 1 Week if not improving
[2020-08-15 21:32] VITALS: BP 177/95; PULSE 60; RESP 13; O2SAT 100
[2020-08-15 21:37] LABS: Absolute Lymphocyte Count 0.88 X10^3/uL (0.83-4.51); Absolute Neutrophil Count 4.6 X10^3/uL (2.0-7.7); Basophil# 0.02 X10^3/uL; Basophil% 0.3 % (0-1); Eosinophil# 0.07 X10^3/uL; Eosinophils% 1.1 % (0-5); Hematocrit 41.8 % (37-47); Hemoglobin 13.1 g/dL (12.0-15.0); Lymphocyte # 0.88 X10^3/ul (4.0); Mean Corp Hgb Conc 31.3 g/dL (32-36); Mean Corpuscular Hgb 29.7 pg (27.0-32.0); Mean Corpuscular Volume 94.8 fL (81-99); Monocyte# 0.66 X10^3/uL; Monocyte% 10.5 % (0-10); NRBC Flagged by Analyzer 0 % (0-5); Neutrophil # 4.63 X10^3/uL (2.7-7.7); Neutrophil % 73.6 % (47-70); Platelet Count 133 K/mm3 (150-450); RBC Distribution Width CV 12.9 % (11.6-14.6); RBC Distribution Width SD 44.7 fl (35.1-43.9); Red Blood Count 4.41 M/mm3 (4.2-5.4); White Blood Count 6.3 K/mm3 (4.4-11.0)
[2020-08-15] MEDS: 0.9% Normal Saline 1,000 ML 1000 ML IV (21:40)
[2020-08-15 22:12] LABS: Anion Gap 4 (5-15); BUN 29 mg/dL (7-18); Calcium,Total 9.9 mg/dL (8.5-10.1); Chloride 106 mmol/L (98-107); Creatinine, Serum 1.32 mg/dL (0.55-1.02); EST Glomerular Filtration Rate 45 mL/min (>60); Est Glom Filt Rate - Afr Amer 55 mL/min (>60); Estimated Creatinine Clearance 51.43 ml/min; Glucose 111 mg/dL (74-106); Potassium 4.7 mmol/L (3.5-5.1); Sodium Level 139 mmol/L (136-145)
--- NOTE | 2020-08-15 22:26 | RAD_ITS ---
STUDY: X-RAY - RIGHT FOOT CLINICAL: Female, 49 years old. Injury/Pain TECHNIQUE: 3 view(s) of the foot. COMPARISON: None. FINDINGS: Diffuse demineralization. Moderate swelling on the dorsum of the foot. Mild calcification of the plantar fascia. Mild narrowing of the IP joint of the great toe. No visualized fracture. Normal talus, calcaneus, and tarsal bones. Normal visualized subtalar, talonavicular, calcaneocuboid, tarsal and tarsometatarsal articulations. Normal metatarsi. Normal metatarsophalangeal joint of the great toe. Normal tibial and fibular sesamoid bones. Normal interphalangeal joint of the great toe. Normal phalanges of the great toe. Normal second through fifth metatarsophalangeal joints. Normal interphalangeal joints and phalanges of the lesser toes. RAD/Foot min 3 Views IMPRESSION: Moderate swelling on the dorsum of the foot. Mild calcification of the plantar fascia. Mild narrowing of the IP joint of the great toe. No visualized fracture Electronically Signed: Abrahan Blackman MD at 23:18 EDT , Service support ,
--- NOTE | 2020-08-15 22:26 | RAD_ITS ---
STUDY: X-RAY - RIGHT KNEE REASON FOR EXAM: Female, 49 years old. Injury/Pain TECHNIQUE: For view(s) of the knee. COMPARISON: None. FINDINGS: ACL graft and anchoring screws and osteotomy defects. Diffuse chondrocalcinosis of the menisci. Normal proximal tibiofibular articulation. There is no demonstrated fracture. There is moderate degenerative arthrosis of the medial femorotibial compartment with moderate joint space narrowing. There is mild degenerative arthrosis of the lateral femorotibial compartment. There is mild degenerative arthrosis of the patellofemoral articulation. There is a soft tissue prominence in the suprapatellar region suggesting a small volume joint effusion. The soft tissue structures are unremarkable. RAD/Knee 4 or More Views IMPRESSION: Degenerative arthrosis. Electronically Signed: Abrahan Blackman MD at 23:34 EDT , Service support ,
--- NOTE | 2020-08-15 22:37 | RAD_ITS ---
STUDY: X-RAY - LEFT KNEE REASON FOR EXAM: Female, 49 years old. Injury/Pain TECHNIQUE: For view(s) of the knee. COMPARISON: None. FINDINGS: Normal visualized distal femur. Normal visualized proximal tibia and fibula. Normal proximal tibiofibular articulation. There is no demonstrated fracture. Normal medial femorotibial compartment. Normal lateral femorotibial compartment. Normal patellofemoral articulation. There is no demonstrated joint effusion. The soft tissue structures are unremarkable. RAD/Knee 4 or More Views IMPRESSION: Normal x-ray examination of the knee. Electronically Signed: Abrahan Blackman MD at 23:33 EDT , Service support ,
[2020-08-15] MEDS: HYDROcodone Bitartrate/Apap 5/325 Tablet PO (23:16)
[2020-08-15 23:41] VITALS: BP 134/71; PULSE 81; RESP 16; O2SAT 98
== END 2020-08-15 23:41 | disposition home or self-care (01) ==
PROVIDERS: Emergency Provider Emergency Medicine; PCP Nurse Practitioner
DX: S96.911A Strain of unspecified muscle and tendon at ankle and foot level, right foot, initial encounter (principal); S80.01XA Contusion of right knee, initial encounter; S80.02XA Contusion of left knee, initial encounter; W19.XXXA Unspecified fall, initial encounter; Y93.9 Activity, unspecified; Y92.9 Unspecified place or not applicable; Y99.9 Unspecified external cause status; R42 Dizziness and giddiness; M17.11 Unilateral primary osteoarthritis, right knee; E78.00 Pure hypercholesterolemia, unspecified; I10 Essential (primary) hypertension; E66.9 Obesity, unspecified; Z68.39 Body mass index [BMI] 39.0-39.9, adult; Z94.0 Kidney transplant status; Z79.82 Long term (current) use of aspirin; Z79.899 Other long term (current) drug therapy
CPT/HCPCS: 73564; 73630; 80048; 85025; 93005; 96360; 96361; 99285; J7030; J7040

== ENCOUNTER 2020-08-28 09:00 | Outpatient (RCR) | payer MEDICARE, OTHER, MEDICAID, SELFPAY ==
[2020-08-23 00:48] VITALS: BP 154/70; PULSE 64
--- NOTE | 2020-08-28 08:56 | BH.SGPN.GN ---
Behaviors/Verbalizations/Mental Status: []Eye contact is good. Alert and oriented. Motor activity is appropriate. Appearance is casual. grooming is appropriate. Speech is Appropriate. Mood is anxious and euthymic. Affect is congruent. Thoughts are linear and logical. No evidence of psychosis or hallucinations. Denies any SI, plan, or intent as of this date. Client Response/Progress/Benefit: []Pt engaged in session AEB listening to others, providing supportive feedback, and willingness to share thoughts and feelings with group. Pt noted feeling ?relieved? on this date as the result of accomplishing several goals and successfully managing stressors over weekend. Reports this is progress as client reports usually struggling with stress management. Attributes progress to putting more effort into actively using calming skills and setting healthier boundaries with her children. Shared taking on less work and having more time to engage in self-care as a result. Stated current stressor in ongoing pain and negative thoughts associated with physical health and a recent fall. Client identified improved ability to challenge these thoughts and focus on what she is capable of rather than restrictions. Recommended ongoing IOP tx to improve thought challenge skills, continue to promote healthy change behaviors, and prevent decompensation. Narrative Note: []
--- NOTE | 2020-08-28 11:20 | BH.SGPN.GN ---
Behaviors/Verbalizations/Mental Status: []Client alert and oriented, casually dressed and groomed. Eye contact good. Motor activity appropriate. Speech WNL. Affect constricted, mood anxious. Thoughts linear, logical, no signs of hallucinations or delusions. Client Response/Progress/Benefit: []Pt engaged during session AEB pt providing input at times during session, completed worksheet and listened attentively to peers. Group processed the activity and identified positive and negative forces impacting ability to complete the challenge. Pt was attentive during psychoeducation and appeared to benefit from increased insight on the impact of negative and positive forces on mental wellness. Identified positive forces as: patience, breathing, asking for help, self-care, problem solving and acceptance. Identified negative forces: lack of communication with family, negative self-talk, poor boundaries, and difficulty setting boundaries. Identified wanting to focus on improving communication with family by scheduling family session with IOP therapist. Progress noted with pt being willing to open up to family about her treatment. Pt recommended continued IOP tx to continue use of healthy coping skills, continue to challenge negative thoughts, and prevent decompensation. Narrative Note: []
--- NOTE | 2020-08-28 14:24 | BH.MDN_ITS ---
Multi-Disciplinary Note - Note 30-min Individual Time Started:: 10:42 Date: 08/28/20 Purpose of session/treatment goals addressed:: The purpose of this session was to work on goal #1 and #2 of client's tx plan. Another goal was to discuss scheduling a family session with client and daughter. Eye Contact:: Good - tearful in discussing current stressors Motor Activity:: Appropriate Appearance:: Casual Speech:: Appropriate Mood:: Euthymic, Anxious Affect:: Congruent Thoughts:: Linear, Logical, No evidence of hallucinations/delusions noted Staff Interventions:: Therapist asked open ended and furthering questions to assess client current symptoms, stressors, and application of coping skills learned. Commended client on areas of personal progress and reviewed skills to continue to maintain gains made. Therapist worked with client on continued focus in identifying, challenging, and replacing dysfunctional thoughts about self with positive, more realistic thoughts. Discussed with client potential long- term benefits of involving her supports in treatment process and addressed anxieties related to doing so. Provided client with several resources for establishing individual outpatient counseling and psychiatry services. Client Response:: Client was receptive of meeting with therapist, engaged throughout. Client expressed feeling much more positive and less anxious this week compared with last session. Attributes this to improved use of calming and thought challenge skills when becoming anxious or experiencing negative thoughts. Client went on to provide examples of challenging distortions of catastrophizing and overgeneralizing and when experiencing increased pain on Thursday. Discussed benefits she found in reminding herself that she is not her mother, that her experience with kidney disease is different from her mother?s, and that she is making progress with improving her physical and emotional self- care. Shared additional progress in managing her stress levels while taking a weekend trip out of town with her daughter and . Did well to identify what skills aided her in doing so and identified that improving her use of healthy boundaries with her supports has been a major contributing factor. Continues to report difficulties in discussing her mental health with her supports and expressed anxieties about doing so. Client connected with the importance of being able to effectively communicate mental health needs and concerns with supports in order to attain long-term progress. Worked with therapist to challenge distortions preventing her from doing so. Client open to scheduling a family session with daughter and to open mental health dialogue and begin discussion on client mental health needs from her supports. Client shared plans to continue with outpatient counseling post IOP discharge and indicates plans to schedule intake appointment with [facility] this week. Risks/Concerns:: Client denies any suicidal ideations, plan, or intent as of 0 08/28/20. Future oriented. Progress Toward Goals/Plan:: Progress noted. Client reports improved use of calming and thought challenge skills throughout the past week. Identified progress in setting boundaries with supports, making time for self-care, and giving herself credit for daily accomplishments. Discussed improved mood as a result. Continues to struggle with depression and distorted thoughts, specifically related to client physical health and related limitations. Continues to struggle with communicating openly with supports though receptive of scheduling family session. Recommended continued IOP tx to continue to promote use of thought challenge skills, maintain gains and further improve consistency of skill application, as well as prevent decompensation. Time Stopped:: 11:17
--- NOTE | 2020-08-30 09:00 | BH.SGPN.GN ---
Behaviors/Verbalizations/Mental Status: []Client alert and oriented, casually dressed and groomed. Eye contact good. Motor activity restless. Speech within normal limits. Affect constricted, mood anxious. Thoughts linear, logical, no signs of hallucinations or delusions. Reviewed client?s symptom tracker, no risk for suicidal ideation, plan, or intent as of 08/30/20 Client Response/Progress/Benefit: []Client responded well to session, attentive and engaged. Client reports feeling tired and anxious this morning. Client shared her son is moving and he was her biggest support, so client is adjusting to this change. Client also is worried because she has been having issues with her foot/ankle and client assumes she will have to have surgery. Client reported she is trying to remain hopeful and challenge negative thoughts. Client reports using opposite action and creating more realistic goals. Appeared to benefit from gentle thought challenging and support from group. Progress noted in application of coping skills, however, currently struggling with negative thinking about her health. Will continue IOP tx to combat distortions and improve mood stability. Narrative Note: []
--- NOTE | 2020-08-30 10:10 | BH.SGPN.GN ---
Behaviors/Verbalizations/Mental Status: []Client alert and oriented, casually dressed and groomed. Eye contact good. Motor activity WNL. Speech within normal limits. Affect constricted, mood euthymic. Thoughts linear, logical, no signs of hallucinations or delusions. Client Response/Progress/Benefit: []Pt mostly passive participant AEB pt providing limited input during session but did appear to listen attentively to peers. Appeared to connect with peers comments about conflict AEB pt nodding head. Pt attentive during psychoeducation about different conflict styles (avoidant, accommodating, cooperative, and competing). Pt identified she often uses avoiding with most people however is competing when in conflict with daughter. Pt reported she uses avoidant conflict style with internal conflict. Pt to continue IOP to continue use of healthy coping, build self-confidence and prevent decompensation. Narrative Note: []
--- NOTE | 2020-08-30 11:20 | BH.SGPN.GN ---
Behaviors/Verbalizations/Mental Status: [] Client alert and oriented, casually dressed and groomed. Eye contact good. Motor activity appropriate. Speech within normal limits. Affect congruent, mood euthymic and anxious. Thoughts linear, logical, no signs of hallucinations or delusions. Client Response/Progress/Benefit: [] Client engaged in session AEB contributing some input to discussion and taking notes throughout. Client did well to review current conflict style and it?s impact on her mental health. Contributed to discussion on strategies for more effectively managing conflict in own life. Client identified wanting to use more collaborating approaches to conflict. Shared she could begin working on doing so by improving upon her self-confidence so she is more likely to provide opinions rather than just agree with others. Appeared to benefit from learning strategies to better manage conflict and psychoeducation on CLUES approach to conflict. Will continue IOP tx to continue to improve self-confidence, reduce depressive symptoms, and improve daily functioning. Narrative Note: []
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
--- NOTE | 2020-09-03 10:10 | BH.SGPN.GN ---
Behaviors/Verbalizations/Mental Status: [] Eye contact is good. Motor activity is appropriate. Appearance is disheveled. Speech is Appropriate. Mood is depressed. Affect is flat. Thoughts are linear and logical. Client Response/Progress/Benefit: [] Pt was an active participant in group discussions and activity. Attentive during psychoeducation and provided insight into obstacles in the way of mental wellness. Pt shared her picture depicting her current reality with the group. She described her current reality as traveling on a roads with many bumps and obstacles in her way. Identified these obstacles as negative thoughts, placing too many responsibilities on herself, and other mental health struggles. Pt's desired reality includes being more optimistic, less responsibilities, healthy relationships, and more coping skills. Progress noted per pt report. Benefited from taking look at current mental health state and obstacles for progress. Will continue in IOP to increase healthy coping, prevent decompensation, and to improve functioning. Narrative Note: []
--- NOTE | 2020-09-03 11:10 | BH.SGPN.GN ---
Behaviors/Verbalizations/Mental Status: []Client alert and oriented, casually dressed and groomed. Eye contact good. Motor activity appropriate. Speech within normal limits. Affect congruent-laughing at times, mood euthymic and anxious. Thoughts linear, logical, no signs of hallucinations or delusions. Client Response/Progress/Benefit: []Client was an active participant in group discussion and activity. Engaged during activity and provided ideas on how to cope with internal barriers that keep clients stuck from moving towards goals. Barriers identified by client included: lack of self-care, fear of medical issues, and unrealistic expectations. Strategies identified for overcoming these barriers included: opposite action, thought challenging, being in the present, and affirmations. Client would like to work on overcoming the barrier of fear of medical issues by practicing self-care this week. Benefited from group by identifying obstacles and solutions to desired reality. Will continue tx to promote gains, further improve boundaries and self-care, and combat distortions. Narrative Note: []
--- NOTE | 2020-09-05 09:02 | BH.SGPN.GN ---
Behaviors/Verbalizations/Mental Status: []Client alert and oriented, casually dressed and groomed. Eye contact good. Motor activity restless. Speech within normal limits. Affect constricted, mood angry and hurt. Thoughts linear, logical, no signs of hallucinations or delusions. Reviewed client?s symptom tracker, no risk for suicidal ideation, plan, or intent as of 09/05/20 Client Response/Progress/Benefit: []Client responded well to session, receptive to feedback from peers. Client reports feeling irritated this morning due to a recent conflict with her . Client shared she has resentment because her doesn't put his family first. Client shared a recent example of this and reported that she feels angry and burnout by this behavior. Client made progress during this situation as client stood up for herself and expressed her feelings and frustrations. This is something client would not have done in the past. Client also reports she plans to continue setting boundaries with him and was encouraged to practice self-care and positive self-talk today. Client reports using opposite action today as well as giving herself credit for communicating. Appeared to benefit from gaining peer support. Progress noted in client's increased communication, however, continues to struggle with boundaries and interpersonal relationship issues at home. Will continue IOP tx to promote mood stability, increase self-care, and further reduce depression. Narrative Note: []
--- NOTE | 2020-09-05 10:11 | BH.SGPN.GN ---
Behaviors/Verbalizations/Mental Status: []Client alert and oriented, casually dressed and groomed. Eye contact good. Motor activity appropriate. Speech within normal limits. Affect congruent, mood dysthymic and anxious. Thoughts linear, logical, no signs of hallucinations or delusions Client Response/Progress/Benefit: [] Client engaged in session AEB client providing input at times, taking notes, and listening attentively to peers. Client shared connecting with the importance of setting boundaries, noting that this is important for improving personal relationships and own self-worth. Client assisted group with identifying barriers to setting healthy boundaries. These included: fear of abandonment, unhealthy habits, difficulties setting boundaries with self, ?what if? thoughts, and not knowing how. Shared a personal barrier she has experienced in the past is difficulties with doing things for others out of frustration or feeling it is easier to just do it herself. Listened as participants provided examples and noted struggling with boundaries when it comes to saying no or making time for her own needs. Client seemed to benefit from increased awareness of how boundaries impact mental health. Will continue IOP tx to improve use of healthy coping, improve consistent thought challenge skills and self-esteem, and reduce mental health sx. Narrative Note: []
--- NOTE | 2020-09-05 12:00 | PCM.BH.PN_ITS ---
Progress Note Progress Note: History of Present Illness/Interim History: [] The patient is a 49-year-old female who is seen in follow-up at the [facility] behavioral health IOP program. I last saw the patient 2 weeks ago when she was started on Cymbalta. She is tolerating the Cymbalta well and feels that she is much better. Her mood is more hopeful and less depressed but she still says she does have some depression. She still has some anxiety about her health also. She denies any feelings of worthlessness or hopelessness now. Her sleep is good at about 7 to 8 hours a night. She has not fallen anymore but does still has some knee pain from her prior fall before last visit. She is tolerating the Cymbalta well. She denies any passive thoughts of , suicidal or homicidal ideation, hallucinations, delusions or symptoms of mani. She feels the IOP program is greatly benefiting her and she is learning good skills to deal with her mental health issues. She is currently somewhat upset at her because her went to a motorcycle conference instead of helping her son move out last weekend. She feels this hurt her son's feelings and the patient was frustrated with her for this reason. recently broke his ankle and now the patient is helping to care for him. Current Psychiatric Medications: [] Lexapro discontinued 2-1/2 weeks ago.; Cymbalta 30 mg p.o. daily (x5 weeks now); gabapentin 200 mg p.o. twice a day (for neuropathy); Medrol Dosepak which she is almost finished with for her knee pain. Mental Status Examination: [] Patient is a 49-year-old female who is seen wearing a mask due to the pandemic and is casually dressed and groomed with good hygiene. Her gait is still slow with somewhat of a limp due to the recent injury of her right knee. She has no psychomotor agitation or retardation. Eye contact is good and speech is normal rate and rhythm and fluent with no pressure. Mood is mildly depressed. Affect is approaching normal. Thought process is goal-directed and organized. Thought content: There is no evidence of passive thoughts of , suicidal or homicidal ideation, hallucinations or delusions. Judgment is intact. Insight: Good. Impulsivity: Low. Diagnoses: [] Winkelman I: [] Major depressive disorder, recurrent, moderate; generalized anxiety disorder Winkelman II: [] Deferred Winkelman III: [] Status post kidney transplant, obesity, MAXIMINO using CPAP, hypertension, orthostasis with recent fall Winkelman IV:[]] Primary support, health issues Plan: [] Patient will continue the IOP program at [facility] as the structure, support, education, individual and group therapy will hopefully prevent worsening of the patient's symptoms. The patient felt safe during the interview and if it anytime she does not feel safe she will let us know or go to the emergency room. The risks, options, possible complications and side effects of the medications were discussed with the patient and she understands and accepts these. She agrees to increase the Cymbalta to 60 mg p.o. daily and a prescription was sent in for this. She will continue to follow-up with her outpatient medical and psychiatric providers. I will see the patient in follow- up in 2 to 3 weeks.
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
--- NOTE | 2020-09-07 09:05 | BH.SGPN.GN ---
Behaviors/Verbalizations/Mental Status: [] Eye contact is good. Motor activity is appropriate. Appearance is disheveled. Speech is Appropriate. Mood is depressed. Affect is flat. Thoughts are linear and logical. No evidence of psychosis. Reviewed daily check in sheet and no reports of suicidal ideations or intent. Client Response/Progress/Benefit: [] Pt participated at times during group discussions. Attentive. Provided appropriate feedback. Daily symptom tracker notes 3/5 for depressed, anxiety, and anger. Reports that this past week has been a struggle due in large part to having to care for her who had a leg injury. Increased demands and tasks in the house. Exhausted. Her routine is changed. Less alone time. Mental health win was completing her taxes which she has been avoiding. Limited progress due to external stressors. Benefited from group support and encouragment. Will continue in IOP to maintain gains, increase healthy coping, and improve functioning. Narrative Note: []
--- NOTE | 2020-09-07 10:05 | BH.SGPN.GN ---
Behaviors/Verbalizations/Mental Status: []Client alert and oriented, casually dressed and groomed. Eye contact good. Motor activity appropriate. Speech within normal limits. Affect constricted, mood anxious and dysthymic. Thoughts linear, logical, no signs of hallucinations or delusions. Client Response/Progress/Benefit: []Pt was an active participant in group discussion and completed group worksheet. Attentive. Provided appropriate feedback. Group worked together to define anger and discussed the ways anger can impact one internally and externally. Pt identified feeling burnt out, overwhelmed, and stressed as being internal events or feelings that can lead to anger. Pt also identified external ways that pt commonly expresses anger which included: shutting down, passive aggressive behavior, crying, and isolation. Benefited from group by increasing understanding of the impact of anger on mental health. Will continue in IOP to combat distortions, reinforce healthy boundaries, and improve mood stability. Narrative Note: []
--- NOTE | 2020-09-07 10:10 | BH.SGPN.GN ---
Behaviors/Verbalizations/Mental Status: []Client alert and oriented, casually dressed and groomed. Eye contact good. Motor activity appropriate. Speech within normal limits. Affect congruent, mood anxious and dysthymic. Thoughts linear, logical, no signs of hallucinations or delusions. Client Response/Progress/Benefit: []Pt was engaged throughout AEB contributing to group discussion and self-reflection. Reported connecting with fellow participants reflections on potential benefits of well managed anger. Pt contributed as group brainstormed healthy coping skills for better managing anger which included: music, walking/exercise, changing the environment, communicating with supports, and journaling. Pt appeared to benefit from identifying different techniques to manage anger as well as gaining awareness of potential consequences of unmanaged anger. Pt selected taking a more proactive role in communicating calmly and not yelling as the coping skill pt would like to try to regulate anger. Progress noted in self-report of improved self-care, though pt continues to struggle with negative self-talk. Will continue IOP tx to promote the use of healthy coping skills and further decrease negative thinking. Narrative Note: []
--- NOTE | 2020-09-10 10:10 | BH.SGPN.GN ---
Behaviors/Verbalizations/Mental Status: []Client alert and oriented, casual dress, hair unkempt. Eye contact good. Motor activity appropriate. Speech within normal limits. Affect constricted, mood dysthymic. Thoughts linear, logical, no signs of hallucinations or delusions. Client Response/Progress/Benefit: []Engaged participant AEB pt providing input throughout session and listening attentively to others. Engaged during psychoeducation portion reviewing fixed mindset. Pt worked with group to identify how a fixed mindset can impact our mental health which included: harming relationships, giving up, expecting self to be perfect, and labeling self as a burden. Able to identify personal examples of fixed thoughts which included ?I?m not good enough? and ?they didn?t sign up for this.? Client shared it is hard for her to challenge fixed thoughts, because they can be so believable. Seemed to benefit from group by increasing awareness of how one's mindset impacts mental health. Pt will continue IOP tx to promote the use of healthy coping skills, reduce negative thinking patterns, and set healthy boundaries. Narrative Note: []
--- NOTE | 2020-09-10 11:16 | BH.SGPN.GN ---
Behaviors/Verbalizations/Mental Status: []Client alert and oriented, casually dressed and groomed. Eye contact good. Motor activity appropriate. Speech within normal limits. Affect congruent. mood anxious and dysthymic. Thoughts linear, logical, no signs of hallucinations or delusions. Client Response/Progress/Benefit: []Client actively listening during discussion AEB providing some input and taking notes throughout. Client did well to work with group on identifying characteristics and benefits of adopting a growth mindset. Attentive and contributing as participants helped reframe example fixed thoughts into growth mindset thoughts. Discussed struggling with fixed thoughts often in the past. With assistance, Client worked to apply skills learned to reframe own personal fixed thoughts. Reframed thought of ?I didn?t sign up for this? with growth mindset thought of ?this doesn?t have to affect you in the same way as it has others. You can still challenge yourself to see the positives?. Noted that this would aid in improving self-esteem, reduce negative thoughts, and increase willingness to ask for help. Benefitted from discussing benefits of growth mindset and brainstorming strategies for prompting growth-mindset. Will continue IOP tx to continue to promote active thought challenging and skill application, reduce depression, as well as improve healthy coping repertoire. Narrative Note: []
--- NOTE | 2020-09-10 12:42 | BH.MDN ---
Multi-Disciplinary Note - Note 30-min Individual Time Started:: 09:22 Date: 09/10/20 Purpose of session/treatment goals addressed:: Purpose of this session was to process mistaken belief homework and explore ways to challenge mistaken beliefs through replacement affirmational phrases. Discussed return aftercare. Eye Contact:: Good - tearful in processing mistaken beliefs Motor Activity:: Appropriate Appearance:: Casual Speech:: Appropriate Mood:: Anxious, Dysthymic Affect:: Congruent Thoughts:: Linear, Logical, No evidence of hallucinations/delusions noted Staff Interventions:: Therapist asked open-ended questions to elicit information on client progress and application of skills learned. Reviewed client's mistaken belief assessment and processed the findings with client. Therapist used empathic responses and CBT interventions to highlight how challenging mistaken beliefs would improve self-esteem and willingness to ask for help. Aided client in identifying alternative more compassionate affirmational statements she can use to combat mistaken beliefs. Therapist and client discussed expectations and plan for aftercare. Client Response:: Client receptive to session, open to meeting with therapist. Client shared she had a somewhat frustrating weekend as she reports her has been struggling with negative thoughts since breaking his foot. Expressed that he often complains and asks client to do things for him without first challenging himself to try and complete the task. Client noted this is frustrating as she has her own physical limitations and feels that she is often expected to ?just do things?. Client did well to challenge her frustrations over the weekend and noted serving as a support for her by encouraging him not to let his physical condition prevent him from practicing self-care or reaching out to supports. Client recognized she often struggles with reminding herself of the same things and noted wanting to work on this more. Client completed the mistaken belief assessment for homework, shared she had gained the following insight about herself: she must be perfect in several areas of her life including being the perfect mother, spouse, and daughter, as well as beliefs that she has little control over circumstances and is unable to do much about her situation. Processed these and discussed how identified mistaken beliefs impact her relationships, self-care, and beliefs about self. Share feeling these beliefs have most impacted her ability to separate herself from her illness as well as ability to establish and maintain healthy boundaries with others. Client receptive to discussion on using affirmational statements to begin challenging and establishing new internal beliefs. Receptive of discussion on self-esteem building activities. Identified often struggling to do everything for her supports and putting her own self-care on the backburner. Identified small goal to challenge her need to do this by asking her daughter to call and make her own medical appointments this week. Risks/Concerns:: Client denies any suicidal ideations, plan, or intent as of 09/10/20. Progress Toward Goals/Plan:: Continues to report progress in regulating her emotions and setting boundaries with her daughter. Reports she was able to ask for a break when needing it to prevent escalating when in conflict with her daughter over weekend as well as take a step away when frustrated with her . Client continues to struggle with negative self-talk which imapcts her confidence and reinforces depression. COntinues to report difficulties in effectively communicating her needs with her . Client to continue IOP tx to further improve skill application, promote gains made, and prevent decompensation. Time Stopped:: 09:57
--- NOTE | 2020-09-13 12:28 | BH.MDN_ITS ---
Multi-Disciplinary Note - Note Family Time Started:: 10:25 Date: 09/13/20 Purpose of session/treatment goals addressed:: The purpose of this session was to engage client's daughter in treatment by reviewing treatment goals, areas of progress, and discussing strategies to continue to maintain gains and provide support. Another purpose was to improve communication and provide information regarding the rules of ?fair fighting?. Eye Contact:: Good Motor Activity:: Appropriate Appearance:: Casual Speech:: Appropriate Mood:: Euthymic, Anxious Affect:: Full, Congruent Thoughts:: Linear, Logical, No evidence of hallucinations/delusions noted Staff Interventions:: Therapist used open-ended questions and active listening to gather information on expectations for the session. Therapist provided encouragement as client discussed areas of progress and ongoing barriers impacting treatment progress. Therapist aided client in advocating for her treatment needs and empowered client to communicate with daughter the ongoing support she needs. Therapist provided psychoeducation on healthy communication and conflict resolution. Discussed with client and her daughter common barriers to effective communication and reviewed the ?Rules of Fair Fighting? handout discussing strategies for improving conflict resolution. Client Response:: Client and her daughter responded well to session, open to meeting with therapist. Client discussed expectations for the session as improving conflict resolution and healthy communication with her daughter. Client discussed areas in which she feels she is making progress as improved emotion regulation and stress management, but noted that difficulties communicating frustrations with her daughter remain her biggest ongoing barrier. Client?s daughter expressed agreement that communication and conflict resolution is often an area they struggle with. Noted that she and client both become defensive or use blaming language when addressing conflict which inhibits ability to make progress. Client and daughter receptive of psychoeducation on strategies for improving communication during times of conflict and indicated connecting with the ?Rules of Fair Fighting? handout. Client demonstrated em powerment as she discussed her triggers and warning signs that increase emotion dysregulation during times of conflict. Client advocated her needs to her daughter regarding strategies to reduce stress and anxiety. Client?s daughter was receptive and expressed willingness to work on improving pro-active communication and taking breaks to prevent unhealthy conflict escalation. Discussed the importance of self-care for both client and daughter to better manage their emotions. Agreeable to begin checking-in with one another by communicating regularly using the different strategies reviewed. Risks/Concerns:: Client denied any suicidal ideation, intent, or plan as of 09/13/20. Progress Toward Goals/Plan:: Client has been responding well to treatment and continues to demonstrate progress towards her treatment goals. Client?s continuing to make gains in improving healthy boundaries setting, communicating her needs with supports, and practicing regular self-care. Client reports using healthy coping skills on a more consistent basis and client?s daughter reported a positive change within client?s mental health and emotion regulation. Client continues to struggle with communication and stress management on a consistent basis. Client will continue IOP to continue the use of healthy coping skills, improve mood stability, and challenge negative thoughts. Time Stopped:: 11:27
--- NOTE | 2020-09-14 09:00 | BH.SGPN.GN ---
Behaviors/Verbalizations/Mental Status: []Client alert and oriented, casually dressed. Eye contact fair. Motor activity appropriate. Speech within normal limits. Affect congruent, mood euthymic. Thoughts linear, logical, no signs of hallucinations or delusions. Reviewed client?s symptom tracker, no risk or thoughts of suicide ideation, plan, or intent as of 09/14/20. Client Response/Progress/Benefit: []Client responded well to session, engaged throughout and participated in group discussion. Client reported feeling ?content? this morning. Client reflected on her family session that took place yesterday and felt positive. Client looks forward to this weekend trip to [place] with her daughter to practice healthy coping skills and improve their relationship. Client identified opposite action, emotional regulation, and healthy distraction as healthy coping skills to use over the weekend trip. Client?s goal is to ?get through this weekend with her daughter.? Appeared to benefit from group as client connected and offered positive support to peers. Will continue IOP to continue the use of healthy coping skills, challenge negative thoughts, and improve boundaries with daughter. Narrative Note: []
--- NOTE | 2020-09-14 10:05 | BH.SGPN.GN ---
Behaviors/Verbalizations/Mental Status: []Client alert and oriented, casually dressed and appropriately groomed. Eye contact good. Motor activity appropriate. Speech within normal limits. Affect congruent, mood euthymic and anxious, Thoughts linear, logical, no signs of hallucinations or delusions. Client Response/Progress/Benefit: []Client receptive of session, providing input and taking notes throughout. Client agreed with the quote and shared how communicating can be an illusion when we assume the other person knows or understands what we are trying to get across. Group identified potential barriers to healthy communication as: anxiety, fear of other?s reactions, making assumptions, shutting down, and fear of being vulnerable. Noted a personal communication barrier as escalating when the other person is escalated. Stated this often results in increased conflict. Client remained attentive and contributed during psychoeducation on the four communication styles, providing examples throughout. Benefited from increased insight regarding own communication style and impacts this has on overall mental health. Progress noted as client has continued to display insight into barriers impacting mental health progress. Client will continue IOP to promote the use of healthy coping skills, improve communication with supports, and challenge negative thoughts. Narrative Note: []
--- NOTE | 2020-09-14 11:10 | BH.SGPN.GN ---
Behaviors/Verbalizations/Mental Status: []Client alert and oriented, casually dressed. Eye contact fair. Motor activity appropriate. Speech within normal limits. Affect constricted, mood anxious. Thoughts linear, logical, no signs of hallucinations or delusions. Client Response/Progress/Benefit: []Client engaged participant AEB her attentiveness during discussion and listened to peers. Client reported she is mostly a passive communicator. Client reported this communication style causes negative consequences on her relationships and mental health. Client stated she holds her thoughts and feelings in which results in her withdrawing from others. Attentive during psychoeducation about DEAR [employer] (Describe, Express, Assert, Reinforce, Mindfulness, Appear confident, Negotiate) interpersonal communication skill. Client identified her communication goal is to focus on the skill of reinforce by thanking daughter for accomplishments. Client seemed to benefit from increased insight into how her communication style impacts her mental health and relationships. Client progressing as shown by her report of reduced depression. Will continue IOP tx to maintain gains, continue setting healthy boundaries and prevent decompensation.
--- NOTE | 2020-09-18 09:05 | BH.SGPN.GN ---
Behaviors/Verbalizations/Mental Status: []Client alert and oriented, neatly dressed and groomed. Eye contact good. Motor activity appropriate. Speech within normal limits. Affect constricted, mood euthymic. Thoughts linear, logical, no signs of hallucinations or delusions. Reviewed client?s symptom tracker, no risk for suicidal ideation, plan, or intent as of 09/18/20 client Response/Progress/Benefit: /[] Client responded well to session, attentive and engaged. Client reports feeling proud this morning. Client shared weekends are typically hard for her, but client had a good time with her daughter driving to [place]. Client reported she set some boundaries and was able to control her emotions throughout the weekend. Client reflected on the self-care she was able to do while in [place] as well. Client did not identify any stressors today. Appeared to benefit from reflecting on personal application of coping skills. Progress noted as client has been using more self-care, however, she continues to struggle with maintaining boundaries. Will continue IOP tx to promote mood stability and reinforce healthy coping skills. Narrative Note: []
--- NOTE | 2020-09-18 10:10 | BH.SGPN.GN ---
Behaviors/Verbalizations/Mental Status: [] Eye contact is good. Motor activity is appropriate. Appearance is disheveled. Speech is Appropriate. Mood is depressed. Affect is flat. Thoughts are linear and logical. No evidence of psychosis. Client Response/Progress/Benefit: [] Pt was an active participant in group discussion and activity. Attentive during psychoeducation. Along with peers he provided insight and feedback on the definition of stress which included; negative reaction to changes, chaos, racing thoughts, physical pains, dissociation, and exhaustion. Also provided feedback on the benefits of stress which included; motivation, improved mood, helps us complete goals, and can lead to accomplishments. Completed stress jar with primary stressors being finances, family, mental health, and physical health. Benefited from group by identifying distress vs eustress as well as current stressors and their impact. Will continue in IOP to prevent decompensation and increase healthy coping. Narrative Note: []
--- NOTE | 2020-09-18 11:18 | BH.SGPN.GN ---
Behaviors/Verbalizations/Mental Status: []Client alert and oriented, casually dressed and groomed. Eye contact good. Motor activity WNL. Speech within normal limits. Affect congruent, mood anxious and euthymic. Thoughts linear, logical, no signs of hallucinations or delusions. Client Response/Progress/Benefit: []Client engaged in session AEB listening attentively to others, providing increased input during session, and taking notes throughout. Client remained attentive during discussion about the 4 A's of managing stress and discussed connecting with the various benefits of each. Expressed specifically working on practicing more acceptance of her physical health limitations and adapting a more resilient mindset. Client stated she wants to work on stressor of keeping up with household responsibilities she often ends up putting off. Client reported she is going to practice accepting that there are some tasks that are necessary responsibilities and alter her approach to them by proactively doing the dishes rather than waiting until they build to point of being out of control. Client seemed to benefit from increased awareness of the impact of stress on mental health and relationships, as well as increasing repertoire of stress management strategies. Progress in improved use of healthy boundary setting with supports. Client is to continue treatment to continue focusing on improving self-care and continue challenging distorted thoughts, as well as prevent decompensation. Narrative Note: []
--- NOTE | 2020-09-19 09:05 | BH.SGPN.GN ---
Behaviors/Verbalizations/Mental Status: [] Eye contact is good. Motor activity is appropriate. Appearance is disheveled. Speech is Appropriate. Mood is depressed/irritable. Affect is flat. Thoughts are linear and logical. No evidence of psychosis. Reviewed daily check in sheet and no reports of suicidal ideations or intent. Client Response/Progress/Benefit: [] Pt spoke when prompted. Attentive. Emotion for today is irritated. Unable to identify any mental health wins. Primary stressor related to relationship conflicts. Poor communication and boundaries which are impacting her mental health. Pt noted several times that she is just going to put up with it. Group encouraged assertive communication rather that passive-aggressive. Talked at length regarding feeling overwhelmed with responsibilities and expectations from family. No progress noted since last session. Benefited from feedback and support from peers. Will continue in IOP to prevent decompensation, stabilize mood, and improve functioning. Narrative Note: []
--- NOTE | 2020-09-19 10:00 | BH.SGPN.GN ---
Behaviors/Verbalizations/Mental Status: [] Eye contact is good. Motor activity is appropriate. Appearance is casual. Speech is Appropriate. Mood is depressed. Affect is flat. Thoughts are linear and logical. No evidence of psychosis Client Response/Progress/Benefit: [] Pt was an active participant in group discussion and activity. Attentive during psychoeducation. Along with peers was able to identify barriers to taking action on her mental health which included; fear of failure, the unknown, change, one's environment, past negative experiences, being passive, and fear of vulnerability. Identified several symptoms and stressors that she feels are holding her back from progress such as family, negative self-talk, comparing self to others, trauma, and fearf of failure. Benefited from increased self-awareness of obstacles. Will continue in IOP to maintain gains and improve functioning. Narrative Note: []
--- NOTE | 2020-09-19 10:27 | BH.TPR ---
Treatment Plan Review Date of Admission:: 07/26/20 Date of Treatment Plan Review:: 09/19/20 Admitting Diagnoses:: Major depressive disorder, recurrent, moderate; generalized anxiety disorder Current Diagnoses:: Major depressive disorder, recurrent, moderate; generalized anxiety disorder Patient's Response to Treatment:: Client's response to treatment has continued to be positive AED maintaining consistent attendance and active engagement in group and individual setting. Client takes notes, listens to peers, and is improving in overall willingness to contribute to discussion. Client is receptive in individual sessions and is working to apply the boundary setting and healthy communication skills she is learning, as well as improving ability to practice self-care. However, client continues to struggle with struggles with conflict resolution and interpersonal effectiveness skills, and advocating for her needs with her supports. Status of Current Problems and Symptoms: Problems are ongoing. Client has recently had a family session to address communication barriers with her daughter and reports improvements in this area since. She additionally reports improved boundary setting and taking on less of other?s responsibilities when it comes to her children. However, continues to struggle to apply effective communication and conflict resolution skills with her . Client has made progress in replacing mistaken beliefs and practicing self-compassions. As a result, reports increased ability to accept and cope with physical related limitations. Overall reduction in DSM-5 score of 65% since last review and 48% since admission. Problem #1 Problem Name:: Depression Status of Goals:: Obj 1 ? completed. Ongoing work encouraged to maintain. Pt displaying improvement in ability to more independently identify and replace distortions. Progress in ability to practice improved use of acceptance and thought reframing as well. Has been focusing on addressing mistaken beliefs. Obj 2 - completed. 60% reduction in depressive symptoms since last review per self-report and DSM 5 symptom tracker. ongoing work encouraged to maintain and further improve gains while completing discharge plans. Client currently being connected with [facility] for outpatient services. Team Recommendations:: Team recommends ongoing work of tx goals, development of more consistent communication with supports, and increased social support. Problem #2 Problem Name:: Anxiety Status of Goals:: Obj 1 ? Partially complete. Client has shown improvements in ability to apply calming skills during times of increased anxiety and reports she is now teaching her daughter to utilize some of these skills as well. Reports taking deep breathes to calm self rather than avoid. Client has continued to struggle with avoidance of conflict with however. Obj 2- Completed. Pt displaying a 90% reduction in anxiety symptoms since last review per self-report and DSM 5 symptom tracker. ongoing work encouraged to maintain and further improve gains while completing discharge plans. Client currently being connected with [facility] for [facility] services. Team Recommendations:: Team recommends ongoing work of tx goals, development of more consistent communication with supports and coping plan for supports to help when client more anxious, and increased social support.
--- NOTE | 2020-09-19 11:07 | BH.SGPN.GN ---
Behaviors/Verbalizations/Mental Status: []Client alert and oriented, casually dressed and groomed. Eye contact fair. Motor activity appropriate. Speech within normal limits. Affect constricted, mood euthymic. Thoughts linear, logical, no signs of hallucinations or delusions. Client Response/Progress/Benefit: C[] Client responded well to session, taking notes and participating in worksheet discussion. Client connected with the zones of action/change and reported that comfort zone is familiar, but recognizes that it can get boring and complacent. Client set a goal to gain control over unhealthy comparisons. Client wants to stop comparing herself to her mother and plans to do this by writing out and challenging one comparison thought a day. Client believes she will need support from her therapist as well as the use of opposite action to accomplish this goal. Appeared to benefit from identifying a small goal to benefit her mental health. Will continue IOP tx to promote gains, further reduce negative self-talk, and increase assertive communication. Narrative Note: []
--- NOTE | 2020-09-20 09:01 | BH.SGPN.GN ---
Behaviors/Verbalizations/Mental Status: []Client alert and oriented, casually dressed. Eye contact good, tearful when sharing with group. Motor activity appropriate. Speech within normal limits. Affect congruent, mood dysthymic. Thoughts linear, logical, no signs of hallucinations or delusions. Reviewed client?s symptom tracker, no risk or thoughts of suicide ideation, plan, or intent as of 09/20/20. Client Response/Progress/Benefit: []Client responded well to session, engaged throughout and participated in group discussion. Client reported feeling ?frustrated? this morning as she is continuing to struggle with her family not respecting her boundaries. Discussed multiple instances over the weekend where she attempted to set boundaries with her daughter and experienced conflict as a result. Expressed feeling as though this is a setback and that her mental health and physical needs were being ignored. Client reported crying when her daughter left as she felt overwhelmed. Did well to identify progress in that she maintained the boundaries and did not give in despite others not responding well to them. Benefited from identifying healthy coping skills she used throughout rather than shutting down or lashing out, as well as support provided by group members. Will continue IOP to promote the continued use of healthy coping skills, improve daily functioning, and improve communication with supports. Narrative Note: []
--- NOTE | 2020-09-20 10:05 | BH.SGPN.GN ---
Behaviors/Verbalizations/Mental Status: []Client alert and oriented, casually dressed and groomed. Eye contact good. Motor activity appropriate. Speech within normal limits. Affect constricted, mood anxious. Thoughts linear, logical, no signs of hallucinations or delusions. Client Response/Progress/Benefit: []Pt was an active participant in group discussion and was attentive during psychoeducation. Provided input on the quote of the day and shared how she has been trying to view life as ?the glass half full.? Group was primarily educational and introduced and gave examples of the 10 cognitive distortions. Pt provided some examples of personal experiences for certain cognitive distortions. Pt connected with labeling, all or nothing thinking, and shoulds. Benefited from education and increased awareness of cognitive distortions and role that they play in negative thoughts and emotions. Pt reports that labeling leads to worsening depression. Will continue IOP tx to promote mood stability and further increase self-confidence. Narrative Note: []
--- NOTE | 2020-09-20 11:05 | BH.SGPN.GN ---
Behaviors/Verbalizations/Mental Status: []Client alert and oriented, casually dressed and groomed. Eye contact good. Motor activity appropriate. Speech within normal limits. Affect constricted, mood dysthymic. Thoughts linear, logical, no signs of hallucinations or delusions. Client Response/Progress/Benefit: []Client was an active participant AEB client providing input throughout session and completing worksheet. Client attentive during psychoeducation and additional discussion on cognitive distortions. Client engaged while group practiced reframing example thoughts on the board. Client then worked to identify, label, and reframe a distorted thought of their own. Client used the thought ?I?m not doing enough.? Client labeled this as the disqualifying the positives distortion and stated it makes client feel depressed. Client reframed this thought to ?I?m doing something everyday and I don?t need to compare myself to others.? Client seemed to benefit from practicing identifying and reframing distorted thoughts. Will continue IOP tx to promote gains and further improve daily functioning. Narrative Note: []
--- NOTE | 2020-09-20 15:35 | BH.MDN ---
Multi-Disciplinary Note - Note 30-min Individual Date: 09/20/20 Purpose of session/treatment goals addressed:: Purpose of this session was to address tx goal #1 of client tx plan. Another purpose was to review importance of boundaries on mental health and identify strategies for reinforcing healthy boundaries and advocating for mental health needs. Discussed upcoming discharge plans. Eye Contact:: Good Motor Activity:: Appropriate Appearance:: Casual Speech:: Appropriate Mood:: Anxious, Dysthymic Affect:: Congruent Thoughts:: Linear, Logical, No evidence of hallucinations/delusions noted Staff Interventions:: Therapist asked open-ended questions to elicit information on client perception of progress since family session with daughter, as well as client own progress in continued application of skills learned. Therapist used empathic responses and provided supportive feedback as client processed current stressors. Gently challenged client used of distortions and applied strength?s based approaches to aid client in identifying areas of continued progress. Reviewed relationship between self-advocacy, healthy boundaries, and maintaining mental health stability. Completed aftercare planning. Client Response:: Client receptive to session, open to meeting with therapist. Client reflected that the session with her daughter had been helpful and that she felt more capable of communicating her needs and expectations since. Indicated they had spent time reviewing the communication strategies discussed in session and practiced utilizing these skills while in [place] over the past weekend which had gone well. Client shared however that upon returning home, her daughter has been struggling to adhere to what they had agreed upon. Client noted setting several boundaries with her daughter such as not picking up her daughter?s dirty clothes or making her lunch when client was doing other things. Shared that despite reminding her daughter of the conversation regarding expectations and client need for increased self-care/fewer stressors, her daughter was resistant. Noted that she pushed back and became upset with client, however client expressed maintaining the boundary. Shared this had gone on much of the week and client felt more stressed and agitated as a result. Noted initially struggling with distorted thoughts of ?I can?t do this? and becoming very tearful but did well to challenge these thoughts and not becoming emotionally reactive with her daughter despite wanting to. Receptive of discussion on strategies for effectively communicating and reinforcing boundaries. Continues to report difficulties in applying positive affirmations and reframing negative thoughts when faced with external stressors. Noted improved use of taking breaks and practicing regular self-care. Expressed plans to get a season pass for unlimited crafting courses this summer. Identified that this will give her regular time to herself and she will be able to engage consistently in an activity she enjoys. Reviewed with therapist 8-week DSM-5 scores and client reflected on significant reduction in depressive scores as evidence she has made more progress than she regularly gives herself credit for. Reports readiness to transition to individual outpatient level of care at the end of next week given progress made, sx reduction, and continued improvements in daily functioning. Risks/Concerns:: Client denies any suicidal ideations, plan, or intent as of 09/20/20. Progress Toward Goals/Plan:: Continues to report progress in setting boundaries with her daughter, though expressed increased agitation and difficulties in managing emotions when boundaries are not respected. Able to identify several strategies for effectively communicating and addressing conflict without escalating to point of verbal outburst. Reports she was able to ask for a break when needing it to prevent escalating and continued to advocate for her needs rather than giving in. Reports feeling more confident and less depressed as result. This is further evidenced by decrease in DSM scores for depression. Continues to report difficulties in effectively communicating her needs with her but plans to continue working on this areas as well as addressing negative self-talk and distortions in outpatient counseling. Client to continue IOP tx to further improve skill application, promote gains made, and prevent decompensation. Will discharge from tx on 09/27/20 and begin outpatient counseling at [facility].
== END 2020-09-21 23:59 ==
LOC: BHIOP 09:00
PROVIDERS: PCP Nurse Practitioner; Referring Provider Psychiatry & Neurology Psychiatry; Visit Provider Psychiatry & Neurology Psychiatry
DX: F33.1 Major depressive disorder, recurrent, moderate (principal); F41.1 Generalized anxiety disorder; E66.9 Obesity, unspecified; G47.33 Obstructive sleep apnea (adult) (pediatric); Z94.0 Kidney transplant status; I10 Essential (primary) hypertension; Z79.899 Other long term (current) drug therapy
CPT/HCPCS: H0035; 90832; 90834; 90853

== ENCOUNTER 2020-09-24 09:00 | Outpatient (RCR) | payer MEDICARE, OTHER, MEDICAID, SELFPAY ==
[2020-08-29 09:06] VITALS: BMI 39.6
[2020-09-22 00:46] VITALS: BP 154/70; PULSE 64
--- NOTE | 2020-09-24 09:03 | BH.SGPN.GN ---
Behaviors/Verbalizations/Mental Status: []Eye contact is good. Motor activity is appropriate. Appearance is casual, appearing unbathed. Speech is Appropriate. Mood is euthymic. Affect is congruent. Thoughts are linear and logical. No evidence of psychosis. Reviewed daily check in sheet and pt denies any active SI, plan, or intent as of this date, 09/24/20 Client Response/Progress/Benefit: []Pt was an active participant in group discussion, willing to share with group and provided supportive feedback to fellow participants. Reports emotion for today is ?content?. Client did well to identify several mental health wins for the weekend which included: communicating with her and asking for help with making several necessary phone calls, as well as continuing to follow through with boundaries she has set with her daughter. Discussed that doing so has been difficult as this often leads to conflict but she has been reminding herself of benefits of healthy boundaries. Noted current stressor is the rain as she loses motivation on bad weather days. Able to identify several self-care activities she could complete. Progress noted per pt report. Benefited from group support, feedback, and encouragement. Will continue in IOP to maintain gains, further improve boundaries and challenge distorted thoughts, and prevent decompensation. Narrative Note: []
--- NOTE | 2020-09-24 10:08 | BH.SGPN.GN ---
Behaviors/Verbalizations/Mental Status: []Client alert and oriented, casually dressed and groomed. Eye contact good. Motor activity appropriate. Speech within normal limits. Affect constricted, mood dysthymic. Thoughts linear, logical, no signs of hallucinations or delusions. Client Response/Progress/Benefit: []Pt responded well to session AEB actively contributing to discussion. Pt connected with quote about how being flexible can improve resilience. Pt stated it is hard to be resilient in life when one is ?juggling? multiple stressors as once. Pt worked with the group during discussion of the costs of resisting change and the benefits of adapting to adversity. Group identified costs of resisting change included: staying stuck, poor functioning, increased depression, increased anxiety, and increased negative self-talk. Attentive during psychoeducation on various ibanez factors in developing personal resilience. Pt contributed during group discussion identifying benefits of each factor in fostering resilience. Pt seemed to benefit from increasing awareness of strategies to increase personal resilience and the impacts of resilience on managing mental health sx. Will continue IOP tx to reinforce healthy coping skills and establish aftercare. Will discharge on Thursday. Narrative Note: []
--- NOTE | 2020-09-24 11:08 | BH.SGPN.GN ---
Behaviors/Verbalizations/Mental Status: []Client alert and oriented, neatly dressed and groomed. Eye contact good. Motor activity appropriate. Speech within normal limits. Affect constricted, mood anxious. Thoughts linear, logical, no signs of hallucinations or delusions. Client Response/Progress/Benefit: []Client responded well to session, engaged and participated throughout discussion. Client participated in the discussion of how each resiliency component can help increase personal resiliency. Client worked with group to identify ways to practice each of the resiliency traits reviewed. Provided personal examples. Client shared belief she has resilience traits such as accepting that change is a part of life, hopeful outlook, self-care, and self-awareness. Client would like to work the resiliency trait of making connections and she plans to do this by looking up [employer] information. Will continue IOP tx to improve the use of healthy coping skills and establish aftercare. Narrative Note: []
--- NOTE | 2020-09-25 09:05 | BH.SGPN.GN ---
Behaviors/Verbalizations/Mental Status: []Client alert and oriented, casually dressed and groomed. Eye contact good. Motor activity appropriate. Speech within normal limits. Affect constricted, mood anxious. Thoughts linear, logical, no signs of hallucinations or delusions. Reviewed client?s symptom tracker, no risk for suicidal ideation, plan, or intent as of 09/25/20 Client Response/Progress/Benefit: []Client responded well to session, attentive and providing supportive statements. Client reports feeling anxious this morning as her discharge date from [facility] is getting closer. Client stated she has an appointment with her new outpatient therapist theron which is a positive. Client also has been working on sitting with the uncomfortable and practicing opposite action. Client continues to struggle with challenging distortions and setting boundaries, but she has improved since admission. Client's last day in [facility] tx will be 09/27/20. Client can benefit from one more session to establish aftercare plan and reinforce healthy coping skills. Narrative Note: []
--- NOTE | 2020-09-25 10:09 | BH.SGPN.GN ---
Behaviors/Verbalizations/Mental Status: []Client alert and oriented, casually dressed and fair grooming. Eye contact fair to good. Motor activity appropriate. Speech within normal limits. Affect congruent, mood anxious and dysthymic. Thoughts linear, logical, no signs of hallucinations or delusions. Client Response/Progress/Benefit: []Client was a semi-active participant AEB contributing some to discussion, taking notes, and engaging in group activity. Connected with the topic of pitfalls and indicated that pitfalls can prevent us from getting help when we need it out of fear or shutting down. Client contributed to group discussion on barriers that prevent from choosing a healthier path to mental wellness. Group worked together to identify examples of personal pitfalls which included; resentment/anger, stigma, shutting down, low motivation, making excuses, denial, distortions, and unhealthy coping. Client identified self-comparison and negative self-talk as personal pitfalls that have inhibited progress in the past. Engaged during the activity by advocating for her needs, brainstorming with group, and providing supportive feedback throughout. Client benefited from group as she learned to better identify potential barriers to improving mental health symptoms. Client will continue IOP tx to promote application of healthy coping skills and communication, prevent decompensation, and maintain stability. Narrative Note: []
--- NOTE | 2020-09-25 11:10 | BH.SGPN.GN ---
Behaviors/Verbalizations/Mental Status: []Client alert and oriented, casually dressed and fair grooming. Eye contact fair to good. Motor activity appropriate. Speech within normal limits. Affect congruent, mood anxious and dysthymic. Thoughts linear, logical, no signs of hallucinations or delusions. Client Response/Progress/Benefit: []Client receptive of session, engaged throughout AEB client listening to discussion and taking notes. Client completed a worksheet where client identified personal pitfalls impacting mental health progress. Client shared she is currently struggling with negative thoughts about her ability to maintain progress after completing the IOP program this week. Attentive and contributing during group brainstorm of strategies to overcome pitfalls. Client will work on overcoming her pitfall of negative self-talk/distorted thinking by using positive affirmations and setting small goals. Benefited from identifying personal pitfalls and strategies to overcome these pitfalls. Will discharge from IOP tx and continue on an outpatient basis to continue to maintain gains, promote healthy change behaviors, and prevent decompensation. Narrative Note: []
--- NOTE | 2020-09-26 12:12 | PCM.BH.PN_ITS ---
Progress Note Progress Note: History of Present Illness/Interim History: [] Patient is a 49-year-old female who is seen in follow-up at the [facility] behavioral health IOP program. I last saw the patient about 3 weeks ago and at that time we increased her Cymbalta dose to 60 mg p.o. daily. Patient feels she is doing well now. Her mood is much less depressed to euthymic and she also feels much less anxiety than before. She feels she is greatly benefit from the IOP program and plans to discharge later this week. Her sleep is good at about 8 hours a night. She denies any passive thoughts of , suicidal or homicidal ideation, hallucinations or delusions. Current Psychiatric Medications: [] Cymbalta 60 mg p.o. daily (dose increased 2 to 3 weeks ago); gabapentin 200 mg p.o. twice a day (for neuropathy. Mental Status Examination: [] Patient is a 49-year-old female who is seen wearing a mask due to the pandemic and is casually dressed and groomed with good hygiene. Gait is normal now. She has no psychomotor agitation or retardation. Eye contact is good and speech is normal rate and rhythm and fluent with no pressure. Mood is mildly depressed to euthymic. Affect is full and normal. Thought process is goal-directed and organized. Thought content: There is no evidence of passive thoughts of , suicidal or homicidal ideation, hallucinations or delusions. Judgment is intact. Insight is good. Impulsivity is low. Diagnoses: [] Chadwick I: [] Major depressive disorder, recurrent, moderate (resolving; generalized anxiety disorder Chadwick II: [] Negative Chadwick III: [] Status post kidney transplant, obesity, MAXIMINO using CPAP, hypertension Chadwick IV:[]] Primary support and health issues Plan: [] The patient will be discharged soon from the IOP program as she is doing well. She feels she has benefited from the structure, support, education and group therapy of the IOP program. She felt safe during the interview and if it anytime she does not feel safe she will let us know or go to the emergency room. The risks, options, possible complications and side effects of the medications were discussed with the patient again and she understands and accepts these. She will continue her current medications at the current doses and no medication changes were made today. She will follow up with her outpatient psychiatric and medical providers.
--- NOTE | 2020-09-27 08:38 | BH.DS_ITS ---
Discharge Summary - Demographics Date of Admission:: 07/26/20 Discharge Date: 09/27/20 Presenting Problems at Admission:: Pt referred to IOP by her primary care doctor due to worsening depression and anxiety. Reports sx have increased in past 2 years due to worsening physical health and COVID-19 pandemic contributing to increased isolation. Reports she does not have any supports as her familial relationships are strained and she often views herself as ?a burden? due to difficulties completing daily tasks as a result of ongoing medical issues. Denies active SI, plan or intent. At time of admission, client endorses feeling depressed, worthless, hopeless, no motivation, apathy, anhedonia, increased guilt, rumination, self-deprecation, and increased anxiety. Reports her energy level during the day is low and her concentration is decreased. Discharge Diagnoses:: Major depressive disorder, recurrent, moderate; generalized anxiety disorder Reason for Discharge:: Client has made significant progress AEB reduced DSM-5 scores and accomplishment of tx goals and no longer meets criteria for [facility] level of care. - Treatment Progress During Treatment & Response: Client responded mostly well to treatment and accomplished her treatment goals AEB reduction in DSM-5 scores and self- report of improved functioning. When client was at group, she was an active member and receptive to learning new skills. Client did well to increase active engagement and provide more input in group setting throughout the past few weeks of tx. She was able to begin providing supportive feedback and use her own personal growth as examples to encourage fellow participants. Client reported using healthy coping skills including thought challenging, opposite action, affirmations, healthy boundary setting, small goal setting, and more effectively communicating needs/concerns to support. Client reported generalization of coping skills and often reported using positive self-talk and thought challen ging to combat self-comparison, negative core beliefs, and reduce sx of depression, and fear of future. Client reports improved follow-through with maintaining healthy boundaries with supports, though continues to indicate this is a major area of tension/conflict within her interpersonal relationships. Client would benefit from continuing to improve external supports outside of the family unit. Client was engaged in her individual sessions and was mostly able to follow-through homework and skill utilization outside of group, though at times struggled with consistency. Client also self-reported progress in being more capable of using assertive communication, setting boundaries with supports, and increased self-awareness. Client?s DSM-5 scores decreased by an overall 52%. Depression decreased by 62.5% and irritability decreased by 75%. Issues Still to be Addressed:: Client can benefit from ongoing counseling to reinforce healthy coping skills, continue to improve self-esteem, address ongoing negative core beliefs, improve healthy self-care/balance, maintain healthy boundary setting, and promote effective communication with supports. Client will also benefit from continuing to practice self-reflection, reaching out to alternative supports outside her family, and look into marriage counseling. Discharge Recommendations/Instructions:: Client is encouraged to continue outpatient counseling at [facility] on a weekly basis. Client continues to decline wanting any outpatient psychiatry and will follow-up with her PCP for ongoing medication management. Client will begin the [facility] Aftercare program next week. Discharge Handout: Complete Discharge Handout with client on aftercare options and continuity of care.
--- NOTE | 2020-09-27 10:00 | BH.SGPN.GN ---
Behaviors/Verbalizations/Mental Status: [] Eye contact is good. Motor activity is appropriate. Appearance is disheveled. Speech is Appropriate. Mood is euthymic. Affect is full. Thoughts are linear and logical. No evidence of psychosis. Client Response/Progress/Benefit: [] Pt was an active participant in group discussion. Attentive during psychoeducation on different types of anxiety disorders. Along with peers provided insight on the definition of anxiety as well as the impact of anxiety which included; poor sleep, not completing tasks, poor concentration, impacts relationships, impacts work, and decreases appetite. Pt identified her physical symptoms of anxiety which are IBS, tense muscles, headaches, and poor concentration. Worked with peers to identify safety behaviors or unhealthy ways to manage anxiety which included avoidance, self-harm, distraction, lashing out, and substance use. Benefited from increased insight and awareness from group discussions. Today is pt's last day in [facility]. Narrative Note: []
--- NOTE | 2020-09-27 10:04 | BH.MDN ---
Multi-Disciplinary Note - Note 30-min Individual Time Started:: 09:14 Date: 09/27/20 Purpose of session/treatment goals addressed:: The purpose of this session was to review client's progress and strategies that will continue to promote mood stability and maintain gains made in IOP. Another goal was to discuss discharge recommendations and process any current stressors. Eye Contact:: Good - tearful throughout Motor Activity:: Appropriate Appearance:: Casual Speech:: Appropriate Mood:: Euthymic, Anxious Affect:: Full Thoughts:: Linear, Logical, No evidence of hallucinations/delusions noted Staff Interventions:: Therapist used open-ended questions to explore client's thoughts on personal progress. Therapist also provided emotional support and helped client problem-solve current stressors. Therapist reviewed supports and coping skills with client to promote gains and prevent setbacks. Therapist discussed aftercare plan with client and used strengths-perspective to empower client on the goals client has accomplished. Therapist discussed the benefits of ongoing maintenance and use of daily coping skills. Therapist provided an aftercare plan for closure. Client Response:: Client responded well to session, open to meeting with therapist. Client shared she felt positive but a little anxious about completing the IOP program. Shared anxiety about being able to sustain gains made while in the program, however did well to identify that with ongoing outpatient therapy and skill utilization she will be able to do so. Receptive discussion reviewing potential warning signs/triggers for increased depression and irritability, as well as able to identify strategies to maintain gains and prevent reverting to old unhealthy communication skills and coping mechanisms. Client identified these skills to be continuing to make self-care a priority, communicating her needs and boundaries with supports, opposite action, positive self-talk, maintaining healthy boundaries, and reminding herself ?just because this is hard right now doesn?t mean I can?t work through it? and ?My experience is different. I don?t have to make the same choices or have the same outcome with my health as my mother did. Additionally, noted that communication with her has been an ongoing source of stress and reinforced feeling of inadequacy/not being a priority. Receptive of discussion on challenging use of emotional reasoning in these moments. Encouraged to continue working on communicating her needs and concerns as well as encouraged to pursue marriage counseling to further address. Client went on to indicate that despite some anxiety and sadness about leaving IOP tx, she has been able to see significant progress and improvement in her mood since beginning IOP tx. Reflected upon specific areas of progress which included improved boundary setting and self-advocacy, improved use of thought challenging and affirmational statements to begin altering negative core beliefs. Client reflected increased sense of confidence in her ability to cope with her physical health limitations as well and plans to continue focusing on what she can do rather than what she feels she is unable to do. Client will begin the aftercare program and continue receiving outpatient counseling on a weekly basis and discharge from [facility] today. Risks/Concerns:: Client denies any suicidal ideations, plan, or intent as of 09/27/20. Future oriented and motivated. Progress Toward Goals/Plan:: Client has made significant progress since starting IOP and will discharge today. Client reports progress in reduced depression and irritability, improved boundary setting and better communication with supports, improved ability to identify and challenge negative self-talk statements, and increased motivation. Client has seen an overall 52% reduction in symptoms since admission. She reports some anxiety about maintaining gains post IOP discharge, but feels confident that with continued support and therapy she will be able to sustain progress. will follow up with her outpatient provider at [facility] [place] for ongoing counseling services, first appointment was 09/26/20, and begin the [facility] AfterCare program next week.
--- NOTE | 2020-09-27 11:15 | BH.SGPN.GN ---
Behaviors/Verbalizations/Mental Status: []Client alert and oriented, casually dressed and groomed. Eye contact fair. Motor activity appropriate. Speech within normal limits. Affect congruent, mood euthymic, slightly anxious. Thoughts linear, logical, no signs of hallucinations or delusions. Client Response/Progress/Benefit: []Client was an active participant AEB pt providing input and listening attentively to peers. Reviewed anxious thoughts and safety behaviors client engages in that reinforce anxiety. Identified personal safety behaviors to include: naps and avoid doing the anxious thing. Attentive during psychoeducation on mindfulness coping skills and their impact on mental health wellness. Group was able to identify self-soothing and mind-based coping skills which included: 5-senses, meditation, deep breathing, journaling, and body scan. Client would like to work on calming skills of walking and exercise. Appeared to benefit from increasing repertoire of anxiety reduction skills. Client has made significant treatment progress and will discharge from [facility] today. Narrative Note: []
== END 2020-09-27 02:00 | disposition home or self-care (01) ==
LOC: BHIOP 09:00
PROVIDERS: PCP Nurse Practitioner; Referring Provider Psychiatry & Neurology Psychiatry; Visit Provider Psychiatry & Neurology Psychiatry
DX: F33.1 Major depressive disorder, recurrent, moderate (principal); F41.1 Generalized anxiety disorder; Z79.899 Other long term (current) drug therapy
CPT/HCPCS: H0035; 90832; 90853

== ENCOUNTER 2020-10-04 14:00 | Outpatient (RCR) | payer MEDICARE, OTHER, MEDICAID, SELFPAY ==
[2020-08-29 09:06] VITALS: BMI 39.6
--- NOTE | 2020-10-04 14:00 | BH.SGPN.GN ---
Behaviors/Verbalizations/Mental Status: []Client alert and oriented, casually dressed and groomed. Eye contact flat. Motor activity appropriate. Speech within normal limits. Affect constricted, mood dysthymic. Thoughts linear and logical. No signs of hallucinations or delusions. Client Response/Progress/Benefit: []Client responded well to session, checked reporting ?I?m glad I?m here today.? Client shared ?self-care hasn?t been the best? but client is practicing self-care in other ways like setting boundaries and going to counseling. Client engaged well during discussion of social support and noted benefits of different types of social support. Client appeared to benefit from psychoeducation on the four types of social support. Client was engaged as client contributed to how one may build social support. Identified a goal for the week which was to increase social support by researching different hobby groups in the area to try. Group discussed the library and [facility]. Will continue aftercare IOP to promote gains and continue the use of healthy coping skills. Narrative Note: []
--- NOTE | 2020-10-04 15:50 | BH.MTP ---
Master Treatment Plan - Patient Information Program Physician:: Dr. Lainey Horne Primary Therapist:: JOSE MARIA Kessler - Psychiatric Diagnoses Psychiatric Diagnoses:: Major depressive disorder, recurrent, moderate; generalized anxiety disorder Diagnosis Code(s):: F 33.1 - Estimated LOS Estimated LOS (in weeks):: 10 Problem/Goal #1 - Problem/Goal #1 Stated Goal:: Client will maintain or see a reduction in symptoms AEB client score on the DSM 5 cross-cutting measure and improve client's daily functioning. - Objectives Objective #1 Stated Objective: Client will continue to consistently apply healthy coping skills to maintain progress made in IOP tx. Interventions: Through group therapy, client will review warning signs and triggers as well as healthy coping skills learned in IOP tx to successfully maintain gains while transitioning into outpatient therapy. Discharge Criteria: Client will have accomplished this goal when client's score on the DSM-5 cross-cutting measure has either maintained or reduced over a 12 week period. Target Date: 12/27/20 Review Date: 11/01/20 Objective #2 Stated Objective: Client will learn and utilize 2-3 maintenance strategies to prevent decompensation. Interventions: Through group therapy, client will be provided with education on healthy maintenance behaviors, relapse prevention techniques, and healthy coping strategies. Discharge Criteria: Client will have accomplished this goal when can report using at least 2 maintenance skills to prevent decompensation. Target Date: 12/27/20 Review Date: 11/01/20
--- NOTE | 2020-10-11 14:00 | BH.SGPN.GN ---
Behaviors/Verbalizations/Mental Status: []Client alert and oriented, casual dress, hygiene tended to. Eye contact fair. Motor activity appropriate. Speech within normal limits. Affect congruent, mood euthymic. Thoughts linear, logical, no signs of hallucinations or delusions. Client Response/Progress/Benefit: []Pt stated she is getting agitated with her 's broken foot recovery. Pt reported he is allowed to apply pressure to his foot but only does it when it's something he wants to do; like go to motorcycle meetings. Pt stated she took initiative today to call people to scrap picker the cars at their house that have been sitting there for 4 years. Pt reported she had her go with her to get the titles of the cars. Pt stated she is proud of herself for setting boundaries and taking initiative to get things done. Pt engaged in brainstorming of various daily routine ideas. Pt completed task of identifying important task to complete on a daily or weekly basis for her routine. Patient identified routine items to include: dishes, laundry, mail, journaling, to do list, physical activity, and giving credit to those that have helped her. Pt seemed to benefit from support from peers and learning about benefits of routine. Pt to continue aftercare group to continue use of healthy coping, challenge distorted thoughts and prevent decompensation. Narrative Note: []
--- NOTE | 2020-10-18 14:00 | BH.SGPN.GN ---
Behaviors/Verbalizations/Mental Status: []Client alert and oriented, casually dressed and groomed. Eye contact good. Motor activity appropriate. Speech within normal limits. Affect congruent, mood euthymic. Thoughts linear, logical, no signs of hallucinations or delusions. Client Response/Progress/Benefit: []Pt receptive of session, engaged throughout. Pt noted she was feeling accomplished this afternoon and attributes this to taking steps towards improved self-advocacy with her supports. Shared having several difficult conversations with her regarding client support needs, expectations, and boundaries. Discussed that this had been uncomfortable but that her responded positively and has taken a more active role around the house as a result. Receptive of discussion on personal accountability and its importance in maintaining mental health stability. Pt worked cooperatively with group to identify benefits of maintaining personal accountability. Engaged in discussion on different accountability styles and brainstorming strategies for improving ability to hold themselves accountable. Pt identified that for homework she will practice using auditory accountability resources via setting reminders on her phone to practice self-care. Pt seemed to benefit from support from peers and increasing understanding of personal accountability benefits and strategies. Progress noted in client?s application of communication skills and report of improved ability to reinforce boundaries with supports. Will continue IOP aftercare group. Narrative Note: []
== END 2020-10-22 23:59 ==
LOC: BHOG 14:00
PROVIDERS: PCP Nurse Practitioner; Referring Provider Psychiatry & Neurology Psychiatry; Visit Provider Psychiatry & Neurology Psychiatry
DX: F33.1 Major depressive disorder, recurrent, moderate (principal)
CPT/HCPCS: 90853

== ENCOUNTER 2020-10-25 09:00 | Outpatient (RCR) | payer MEDICARE, OTHER, SELFPAY ==
[2020-08-29 09:06] VITALS: BMI 39.6
--- NOTE | 2020-10-25 14:00 | BH.SGPN.GN ---
Behaviors/Verbalizations/Mental Status: []Client alert and oriented, casually dressed, hygiene tended to. Eye contact fair to good. Motor activity appropriate. Speech within normal limits. Affect congruent, mood euthymic. Thoughts linear, logical, no signs of hallucinations or delusions. Client Response/Progress/Benefit: []Client responded well to session, attentive and mostly engaged throughout, though remaining mostly passive. Reported feeling ?determined? today as she was able to successfully overcome a setback and is feeling motivated as a result. Shared using assertive communication to ensure she was able to sign-up for the crafting classes she wanted to do rather than remain passive as she has in the past. Reflected on areas in which she continues to make gains in self-advocacy including boundaries with her spouse. Client attentive throughout discussion on healthy decision making. She nodded as group identified personal barriers and strategies to improve healthy decisions, giving input when prompted. Client reported she would like to work on improving her ability to make consistent progress in self-advocacy by using thought challenging when tempted to try and ?fix other?s problems?. Appeared to benefit from reflecting on application of coping skills, identifying barriers, and creating a game plan to improve healthy decision-making skills. Will continue IOP aftercare to continue the use of healthy coping skills and maintain stability. Narrative Note: []
--- NOTE | 2020-11-08 14:00 | BH.SGPN.GN ---
Behaviors/Verbalizations/Mental Status: []Client alert and oriented, casually dressed. Eye contact good. Motor activity appropriate. Speech within normal limits. Affect constricted, mood euthymic. Thoughts linear, logical, no signs of hallucinations or delusions. Client Response/Progress/Benefit: []Pt responded well to session AEB pt providing input during discussion and listening attentively to peers. Pt reported mental health positives as engaging in self-care by going to sewing classes and setting boundaries with others. Pt engaged in discussion about self-love. Pt worked with group to identify strategies to increase self-love. Pt reported she wants to work on self-love by working with therapist to work through past trauma and wounds. Pt seemed to benefit from reviewing treatment progress and stressors as well as learning about how to increase self-love. Pt to continue aftercare program to maintain treatment progress, continue use of healthy coping, and prevent decompensation.
--- NOTE | 2020-11-08 14:24 | BH.TPR ---
Treatment Plan Review Date of Admission:: 10/04/20 Date of Treatment Plan Review:: 11/08/20 Admitting Diagnoses:: Major depressive disorder, recurrent, moderate; generalized anxiety disorder Current Diagnoses:: Major depressive disorder, recurrent, moderate; generalized anxiety disorder Patient's Response to Treatment:: Pt's attendance has been consistent in the past month, missing only one group due to illness. Pt is engaged AEB providing input throughout, reflecting on how topics personally relate to her, and completing worksheets. At times struggles to actively apply skills outside tx environment. Status of Current Problems and Symptoms: Problems ongoing. Moving towards altering her expectations of self and continue to practice assertive communication in asking for help and maintaining her boundaries with supports to more easily manage related stressors and cope with interpersonal conflict. Client additionally working on self-care and making time to engage in activities she enjoys, being more self-compassionate, and practice challenging and replacing negative core beliefs. Problem #1 Problem Name:: Pt will maintain or see a reduction in sx AEB client score on the DSM-5 Status of Goals:: Objective 1- Not complete. DSM 5 scores indicate increase in anxiety by 50% which is largely due to anxiety associated with establishing and maintaining boundaries with her family as well as several external stressors such as client?s car breaking down. Client reports plans to continue working on being more of an advocate for herself and utilizing more assertive communication with her family when feeling her boundaries are not being respected. Client has however seen a reduction of scores regarding depression have maintained which was clients goal, as well as unexplained aches and pains reduce by 50%. Objective 2- pt able to identify healthy coping skills like opposite action, thought reframing, and assertive communication. Team Recommendations:: Recommended client continue IOP aftercare group in addition to attending separate regular outpatient counseling for maintenance in order to reinforce healthy coping skills and prevent further regression.
--- NOTE | 2020-11-15 14:00 | BH.SGPN.GN ---
Behaviors/Verbalizations/Mental Status: []Client alert and oriented, neatly dressed and groomed. Eye contact good. Motor activity appropriate. Speech within normal limits. Affect constricted, mood euthymic. Thoughts linear, logical, no signs of hallucinations or delusions. Client Response/Progress/Benefit: []Client responded well to session, client?s emotion today is ?accomplished? as client has been engaging in self-care on a consistent basis. Client reports she is enjoying her sewing classes and is spending time with friends. Client also has been writing out her daily accomplishments which has kept client motivated. Receptive of discussion on self-talk and its influence in maintaining long-term mental health stability. Contributed to strategies for improving effective creation and application of believable personal affirmations. Client created several affirmations and shared one with the group. Client plans to put ?I did it before and I can do it again? near her bed. Client stated this will remind her that she is resilient. Client to continue aftercare group to promote gains and further increase application of healthy coping skills. Narrative Note: []
--- NOTE | 2020-11-29 14:37 | BH.TPR ---
Treatment Plan Review Date of Admission:: 10/04/20 Date of Treatment Plan Review:: 11/29/20 Admitting Diagnoses:: Major depressive disorder, recurrent, moderate; generalized anxiety disorder Current Diagnoses:: Major depressive disorder, recurrent, moderate; generalized anxiety disorder Patient's Response to Treatment:: Pt's attendance has been consistent in the past month. Pt continues to be engaged AEB providing input and supportive feedback throughout, reflecting on how topics personally relate to her, and completing worksheets. At times continues to struggle with consistently applying skills outside tx environment, though has seen improvements since last review. Status of Current Problems and Symptoms: Problems ongoing. Making consistent strides in maintaining healthy boundaries with supports and using more honest communication. Improvements in self-care and engaging in activities she enjoys. Continuing to work on improving self-esteem and challenge negative self-talk. Problem #1 Problem Name:: Pt will maintain or see a reduction in sx AEB client score on the DSM-5 Status of Goals:: Objective 1- Complete with continues focus encouraged. DSM 5 scores indicate decrease in anxiety by 50% since last review, which is largely due to maintaining boundaries with her family as well as improved use of coping skills and thought challenging on a regular basis. Client regarding depression have maintained which was clients goal. However, sx of irritability have seen a 50% influx. Objective 2- pt able to identify healthy coping skills like opposite action, thought reframing, and assertive communication and is encouraged to continue to work on consistent application. Team Recommendations:: Recommended client continue IOP aftercare group in addition to attending separate regular outpatient counseling for maintenance in order to reinforce healthy coping skills, improve mood stability, and prevent further regression.
== END 2020-11-21 23:59 ==
LOC: BHOG 09:00
PROVIDERS: PCP Nurse Practitioner; Referring Provider Psychiatry & Neurology Psychiatry; Visit Provider Psychiatry & Neurology Psychiatry
DX: F33.1 Major depressive disorder, recurrent, moderate (principal); F41.1 Generalized anxiety disorder
CPT/HCPCS: 90853

== ENCOUNTER 2020-11-22 09:00 | Outpatient (RCR) | payer MEDICARE, OTHER, SELFPAY ==
[2020-08-29 09:06] VITALS: BMI 39.6
--- NOTE | 2020-11-22 14:00 | BH.SGPN.GN ---
Behaviors/Verbalizations/Mental Status: [] Client alert and oriented, casually dressed and groomed. Eye contact good. Motor activity appropriate. Speech within normal limits. Affect congruent, mood anxious and dysthymic. Thoughts linear, logical, no signs of hallucinations or delusions. Client Response/Progress/Benefit: [] Client receptive of session as evidenced by remaining attentive, taking notes and providing input throughout discussion. Client reflected on progress and stated he is feeling ?overwhelmed, frightened, and anxious? as he is discharging from the aftercare program today and is worried about his ability to maintain gains. Reflected on progress made in tx since beginning the original IOP program and expressed having more trust in the therapeutic process as a result. Spent some time discussing recent difficulties in managing his emotions and did well to provide some insight regarding potential triggers. Receptive of supportive feedback and suggestions which encouraged client to get back into his healthy coping routine. Client appeared to connect well with group discussion on the importance of self-reflection and the associated mental health benefits. Worked with group to review barriers to consistent personal reflection and strategies for better incorporating self-reflection into daily life. Client plans to incorporate more intentional time for completing a body scan in order to increase awareness of physical warning signs. Expressed this will help to improve use of early intervention coping rather thn waiting until feeling completely overwhelmed. Client has made consistent progress in Aftercare program and is to discharge on this date. Recommended continued tx on an outpatient level. Narrative Note: []
--- NOTE | 2020-11-29 14:00 | BH.SGPN.GN ---
Behaviors/Verbalizations/Mental Status: []Client alert and oriented, casual dress, hygiene tended to. Eye contact good. Motor activity appropriate. Speech within normal limits. Affect constricted, mood dysthymic. Thoughts linear, logical, no signs of hallucinations or delusions. Client Response/Progress/Benefit: []Client responded well to session, receptive to feedback and sharing supportive statements to peers. Client reported it has been a rough week. Client stated her daughter lost her job so has been home and refusing to help around the house and not paying her car bill. Client stated mental health positive as taking time each day to write down her daily positives. Client participated in the group discussion of maintenance and the benefits of creating a maintenance plan. Client contributed as the group discussed what components make up a maintenance plan. Client created own mental health maintenance plan. Client identified warning signs which included: social isolation, withdrawn and increased ruminations. Client's coping skills included: breathing skills, identifying positives in a journal, and self-care. Appeared to benefit from creating a maintenance plan to promote gains and prevent setbacks. Will continue aftercare next week. Narrative Note: []
--- NOTE | 2020-12-13 14:00 | BH.SGPN.GN ---
Behaviors/Verbalizations/Mental Status: []Client alert and oriented, casually dressed and groomed. Eye contact good. Motor activity appropriate. Speech within normal limits. Affect congruent, mood anxious and dysthymic. Thoughts linear, logical, no signs of hallucinations or delusions. Client Response/Progress/Benefit: []Client responded well to session, provided input, and listened attentively to peers. Reported feeling ?down? today as client has been working on healthy boundaries with her supports but continues to struggle with managing her emotions and personalizing when her supports become upset by the boundaries client has set. Able to challenge associated distortions and identify continued use of boundary setting despite negative feedback. Additionally, identified use of self-care taking breaks from her supports, deep breathing, and setting small daily goals. Client engaged in discussion on self-advocacy. Worked with group to identify the benefits of self-advocacy, as well as common barriers. Reviewed the personal bill of rights and shared belief that she has the right to ?be angry at someone I love?. Worked with group to identify strategies to increase ability to advocate for oneself. Reported she wants to work on advocating for herself by reminding herself that she has the right to ?not be responsible for others? behaviors, actions, feelings, or problems?. Noted plans to take steps in practicing this be reaffirming a boundary set with her daughter. Client seemed to benefit from reviewing treatment progress and skill application, as well as learning about how to increase self-advocacy. Client to continue aftercare to promote gains, prevent regression, and further improve functioning. Narrative Note: []
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
== END 2020-12-22 23:59 ==
LOC: BHOG 09:00
PROVIDERS: PCP Nurse Practitioner; Referring Provider Psychiatry & Neurology Psychiatry; Visit Provider Psychiatry & Neurology Psychiatry
DX: F33.1 Major depressive disorder, recurrent, moderate (principal)
CPT/HCPCS: 90853

== ENCOUNTER → 2020-12-20 12:45 | Outpatient (CLI) | payer MEDICARE, OTHER, SELFPAY ==
[2020-08-29 09:06] VITALS: BMI 39.6
== END ==
PROVIDERS: PCP Nurse Practitioner
DX: Z94.0 Kidney transplant status (principal)
CPT/HCPCS: 36415

== ENCOUNTER 2020-12-27 10:21 | Outpatient (RCR) | payer MEDICARE, OTHER, SELFPAY ==
[2020-08-29 09:06] VITALS: BMI 39.6
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
--- NOTE | 2020-12-27 14:34 | BH.DS ---
Discharge Summary - Demographics Date of Admission:: 10/04/20 Discharge Date: 12/27/20 Presenting Problems at Admission:: Client discharged from IOP tx and transitioned to IOP aftercare to maintain gains client made in IOP and to reinforce healthy coping skills. At admission to IOP aftercare, client reported experiencing slight symptoms of anxiety and depression. Client was also experiencing life stressors such as family stressors, medical and mobility issues, and ongoing boundary setting that caused frustration and anxiety at times. Despite these stressors, client reported ability to cope with her mental health and was activity using healthy skills. Client also had not yet established outpatient counseling. Discharge Diagnoses:: Major depressive disorder, recurrent, moderate F33.1; generalized anxiety disorder Reason for Discharge:: Client has accomplished her tx goals AEB her ability to maintain mood stability and gains made in IOP. Client's DSM-5 scores have decreased by an additional 40% from end of IOP to end of aftercare. Client will transition to traditional outpatient counseling. - Treatment Progress During Treatment & Response: Client was engaged in IOP aftercare as evidenced by client's participation in group discussions and self-report of consistently applying coping skills. Client's DSM-5 scores decreased by 40% overall from admission to aftercare to discharge. Additionally, client's anxiety decreased by 100% and depression decreased by 33%. At discharge, client reported more positive thinking patterns, consistent use of healthy coping skills, consistent use of self-care, and better self-boundary setting skills. Issues Still to be Addressed:: Client can benefit from ongoing outpatient counseling and medication management to promote gains and reinforce healthy coping skills. Client can continue to work on assertive communication, thought challenging, boundary setting, self-compassion, and self-advocacy. Discharge Recommendations/Instructions:: Client is encouraged to follow up with the outpatient counseling options provided by IOP staff. Client will continue to see her PCP for medication management. Discharge Handout: Complete Discharge Handout with client on aftercare options and continuity of care.
== END 2020-12-27 16:00 | disposition home or self-care (01) ==
LOC: BHOG 10:21
PROVIDERS: PCP Nurse Practitioner; Referring Provider Psychiatry & Neurology Psychiatry; Visit Provider Psychiatry & Neurology Psychiatry
DX: F33.1 Major depressive disorder, recurrent, moderate (principal); F41.1 Generalized anxiety disorder
CPT/HCPCS: 90853

== ENCOUNTER → 2021-04-01 09:59 | Outpatient (CLI) | payer MEDICARE, OTHER, SELFPAY | LOC: LABSPEC 10:03 → LAB 10:11 | PROVIDERS: PCP Nurse Practitioner | DX: Z94.0 Kidney transplant status (principal) ==

== ENCOUNTER 2021-08-07 13:10 | Outpatient (CLI) | payer MEDICARE, OTHER, SELFPAY ==
--- NOTE | 2021-08-07 13:16 | MRI_ITS ---
History: RADICULOPATHY Technique: T1 and T2 MR imaging of the lumbar spine performed without contrast enhancement in axial and sagittal planes. Comparison: December 30, 2017 Findings: Decreased T2 signal intensity within the L2-3 and L3-4 disks related to desiccation mildly progressed from prior exam. Minimal narrowing of the L2-3 and L3-4 disc spaces. No bone marrow edema. No compression deformity of the lumbar vertebral bodies. Conus medullaris and cauda equina are normal. Paraspinal soft tissues are normal. L1-2: No disc protrusion. Normal caliber spinal canal and neural foramina. L2-3: Mild disc bulging without significant impression on the thecal sac. Normal caliber neural foramina. L3-4: Mild disc bulging minor impression on the thecal sac. Intact neural foramina. L4-5: No disc protrusion. Normal caliber spinal canal and neural foramina. L5-S1: No disc protrusion. Normal caliber spinal canal and neural foramina. IMPRESSION: Minor disc degeneration at L2-3 and L3-4. No impingement on the spinal canal or neural foramina. at 1451 Reported and signed by: Enoc Ortez MD Electronically Signed: Enoc Ortez MD at 14:49 EDT , MRI/Spine Lumbar (Routine)
== END 2021-08-07 23:59 | disposition home or self-care (01) ==
LOC: MRI 13:11
PROVIDERS: PCP Nurse Practitioner; Referring Provider Anesthesiology Pain Medicine; Visit Provider Anesthesiology Pain Medicine
DX: M54.17 Radiculopathy, lumbosacral region (principal); M51.36 Other intervertebral disc degeneration, lumbar region
CPT/HCPCS: 72148

== ENCOUNTER 2021-08-19 10:00 | Outpatient (RCR) | payer MEDICARE, OTHER, SELFPAY ==
[2020-08-29 09:06] VITALS: BMI 39.6
--- NOTE | 2021-01-15 10:55 | HP.PTEVAL_ITS ---
Patient's Visit Information BETO BERMUDEZ is a 50 year old F referred to Physical Therapy by WAYNE Hurd with a diagnosis of General debility. Date of Evaluation: 01/15/21 Physical Therapist: Omar Gaxiola DPT - Visit Plan Frequency: 3x /Week Duration: 6 Weeks Plan: Start with BLE strengthening/ROM, general mobility, HS stretching in aquatic setting. - Subjective Pt. is here today for her initial evaluation with diagnosis of general disability. Pt. has a fairly extensive medical back ground resulting in general disability, and chronic pain. PHM: L ankle fusion, kidney transplant, R knee ligament reconstruction. She is disabled. She is no longer working. Pt. has joined [employer]. Pt. reports by the end of the day she is having to rest frequently. Sleeping okay, but has to frequently move due to B hip pain. Pt. reports having general fatigue with all functional mobility. She walks without AD, but has labored walking. Pt. also has N/T in BLEs and hands, but mostly her LEs. She also has chronic edema in BLEs. Pt. tried to stay busy with daily activities, but can only go to store for about 30 minutes before having to leave due to R hip pain and BLE pain/fatigue. Pt. is hopeful to get back to all household and recreational activities with increased tolerance and decreased pain. - Pain B knees Pain Intensity (Out of 10): 2 Pain Intensity Range: 0, 4 L ankle Pain Intensity (Out of 10): 3 Pain Intensity Range: 0, 6 Comment: it gets really tired Lumbar spine Pain Intensity (Out of 10): 0 Pain Intensity Range: 0, 4 Comment: depending how I sleep Cervical Pain Intensity (Out of 10): 2 Pain Intensity Range: 0, 5 Comment: L side, it comes and goes. - Objective POSTURE: Pt. has generalized flexed posture. Pt. increased L knee valgus with increased L ankle EVR positioning. Pt. has equal iliac crest heights, but is in anterior pelvic tilted positioning. PALPATION: Pt. has marked edema in BLEs from knees down, non pitting. She has increased distal RLE redness (pt. reports she is getting over cellulitis). Pt. has no open wounds. NEURO: Normal Achilles DTR, decreased sensation to light touch of distal LEs. ROM: R knee: 0-10-121. L knee 0-8-122deg. Pt. has fused L ankle at neutral positioning. Pt. has normal hip ROM bilat. Tightness in B HS and hip flexors. MMT: RLE: ankle 5/5 throughout; knee- ext 4/5, flexion 4/5; hip- flexon 4/5, abd 4-/5, ext 4-5/. LLE- ankle fused not tested; knee: ext 4/5, flexion 4/5; hip- flexion 4/5, abd 4/5, ext 4/5. Core strength- poor. GAIT: pt. ambulates without AD. She has fused L ankle therefor has decreased R step length, increased L hip flexion and increased L hip lateral translation during stance phase. Pt. tends to flex forward in stance, worse during L stance phase. STAIRS: laterally descends with 1 HR, reciprocal ascending with 2 HR. 6MWT: 1005 no AD. Pt. completed the whole 6 min. - Goals Goal 1:: LTG: Pt. to be I with HEP for BLE and core strength in aquatic setting. Goal Time Frame: 4-6 Weeks Goal 2:: STG: pt. to sleep throughout the night with 0-2/10 pain in BLEs and lumbar spine. Goal Time Frame: 2-4 Weeks Goal 3:: LTG: Pt. to have increased BLE and core strength to atleast 4+/5 throughout. Goal Time Frame: 4-6 Weeks Goal 4:: LTG: Pt. to be able to walk 1300'+ during 6 MWT. Goal Time Frame: 4-6 Weeks Goal 5:: LTG: Pt. to have increased B knee ROM to full extension allowing for increased tolerance with gait and stair negotiation. Goal Time Frame: 4-6 Weeks Goal 6:: LTG: Pt. to be able to complete her ADLs and IADLs with 0-2/10 pain in BLEs and lumbar spine. Goal Time Frame: 4-6 Weeks - Rehabilitation Potential Physical Therapy Diagnosis: Pt. has signs and symptoms consistent with generalized debility, but also has BLE weakness, core weakness, difficulty with gait, gait abnormalities and increase BLE pain. Pt. would benefit from PT to work on BLE strength, general mobility, core strength and endurance. Rehabilitation Potential: Good - Anticipated Interventions Patient/Client Instruction: Educate patient on: Condition, Plan of Care, Risk Factors, Benefits of Fitness Program For the Purpose of:: To improve decision making, To facilitate caregiver knowledge, To improve self management, To prevent re-injury, To improve ability to perform tasks related to life management Therapeutic Exercise to Include: Strength training, Power training, Endurance training, Body mechanics, Flexibilty training, Gait and locomotor training, In an aquatic setting, Active ROM, Dynamic Lumbar Stabilization For the Purpose of:: To decrease pain, To decrease swelling/inflammation, To increase ROM, To improve nutrient delivery to tissue, To increase oxygenation perfusion, To improve muscle performance and motor function, To improve ability to perform ADL's, To improve ability of physical actions for home/community/work/leisure, To improve gait and locomotor functions, To improve health of tissue, To decrease soft tissue restriction, To increase flexibility/ROM Thank you for the opportunity to evaluate your patient. For Medicare and Medicare HMO plans, please review the plan of care and approve it. It will need to be FAXED BACK to us at [phone] for Medicare purposes. For Medicare only, by signing this I certify the plan of care. Please let me know if there are questions or concerns regarding this plan of care. Physician Signature: Date:
--- NOTE | 2021-03-27 15:12 | HP.PTREVAL_ITS ---
Hali Adamson, ASSET PROTECTION GREETER-C, It has been my pleasure to treat BETO BERMUDEZ over the last 5 visits for General debility. Please see the progress note below for an update on the physical therapy plan of care! Subjective: Pt reports her knees have been feeling good, but her shoulder is still bothering today. She has been trying to get back into moving after family and her getting COVID. Objective/Function: STRENGTH: Right: Hip :flexors 4- , knee: extensors 4+, flexors 4+; Left: hip: flexors 4-, knee: extensors 4+, flexors 4+. ROM: left knee 0-4-131 , right knee 0-14-125; PROM knee Left 0- 136, Right 0-10- 127. Pt still limited in knee extension, and hip flexion strength. 6MWT is still below population norms Plan Plan: 2x/ week pool therapy, to improve ROM and endurance Balance/Gait/Functional tests - Balance/Special Test Scores Lower Extremity Functional Score: 39 6 Minute Walk Test: 1023 ft (311m) Goals Goal 1:: LTG: Pt. to be I with HEP for BLE and core strength in aquatic setting. Goal Time Frame: 4-6 Weeks Goal Progress: Progressing Goal 2:: STG: pt. to sleep throughout the night with 0-2/10 pain in BLEs and lumbar spine. Goal Time Frame: 2-4 Weeks Goal Progress: Progressing Goal 3:: LTG: Pt. to have increased BLE and core strength to atleast 4+/5 throughout. Goal Time Frame: 4-6 Weeks Goal Progress: Progressing Goal 4:: LTG: Pt. to be able to walk 1300'+ during 6 MWT. Goal Time Frame: 4-6 Weeks Goal Progress: Progressing Goal 5:: LTG: Pt. to have increased B knee ROM to full extension allowing for increased tolerance with gait and stair negotiation. Goal Time Frame: 4-6 Weeks Goal Progress: Progressing Goal 6:: LTG: Pt. to be able to complete her ADLs and IADLs with 0-2/10 pain in BLEs and lumbar spine. Goal Time Frame: 4-6 Weeks Goal Progress: Progressing Anticipated Interventions Patient/Client Instruction: Educate patient on: Condition, Plan of Care, Risk Factors, Benefits of Fitness Program For the Purpose of:: To improve decision making, To facilitate caregiver knowledge, To improve self management, To prevent re-injury, To improve ability to perform tasks related to life management Therapeutic Exercise to Include: Strength training, Power training, Endurance training, Body mechanics, Flexibilty training, Gait and locomotor training, In an aquatic setting, Active ROM, Dynamic Lumbar Stabilization For the Purpose of:: To decrease pain, To decrease swelling/inflammation, To i ncrease ROM, To improve nutrient delivery to tissue, To increase oxygenation perfusion, To improve muscle performance and motor function, To improve ability to perform ADL's, To improve ability of physical actions for home/community/work/leisure, To improve gait and locomotor functions, To improve health of tissue, To decrease soft tissue restriction, To increase flexibility/ROM Please do not hesitate to contact me at [phone] by phone or if you have questions or concerns regarding this new plan of care! Sincerely, Omar Gaxiola DPT
--- NOTE | 2021-05-02 12:46 | HP.PTREVAL_ITS ---
Hali Adamson, SUPER[employer]OR [employer]-C, It has been my pleasure to treat BETO BERMUDEZ over the last 15 visits for General debility. Please see the progress note below for an update on the physical therapy plan of care! Subjective: Pt. reports overall doing better. She is still having issues with BLE pain, weakness, fatigue. Pt. is reports walking more at home and in communit y. She also reports increased wt.'s the pool have helped her leg strengthening. pt. reports being 60% better overall. Objective/Function: ROM: LLE: ankle: 2deg DF, PF 4deg, INV/EVR- 0 deg. Knee: 0-5-132deg. RLE: ankle DF 9deg, PF 38deg, INV 8deg, EVR 4deg. Knee: 0-8-118deg. Pt. has normal hip ROM bilaterally. HS tightness bilaterally 60deg 90/90 on R, 65deg on L. + obers test bilaterally for tight IT band bilat. LUMBAR SPINE: flexion min loss increase NW, ext mod loss NE, SB mod loss bilat NE, rotation min loss bilat mild increase NW. MMT: LLE: ankle: fused DNT; knee: ext 4+/5, flexion 4/5; hip: flexion 4+/5, abd 4/5, ext 4+/5. RLE: ankle 5/5 throughout; knee: ext 5-/5, flexion 5-/5; hip: flexion 4+/5, abd 4/5, ext 4+/5. Core strength- poor. 6MWT: 1128ft. without AD, fatigue noted. POSTURE: Pt. has general flexed posture in stance, able to improve with VCing, but difficult to maintain. GAIT: pt. ambulates wtih LLE turned out, most likely due to lacking of L ankle mobility. pt. has increased lateral hip translation bilaterally, glute med weakness. STAIRS: Pt. is able to ascend fwrd with 2 HR, descends laterally with step to pattern due to lack of L ankle mobility. Plan Plan: i would like to extend PT POC for another 4 weeks working on functional mobility, strength in aquatic setting to increase tolerance. I want to progress complexity of exercises with wt's and progressing some cardiovascular fitness as tolerated. I again talked to her about progressing a walking program at home as well. Pt. consents. Balance/Gait/Functional tests - Balance/Special Test Scores Lower Extremity Functional Score: 44 6 Minute Walk Test: 1023 ft (311m) Goals Goal 1:: LTG: Pt. to be I with HEP for BLE and core strength in aquatic setting. Goal Time Frame: 4-6 Weeks Goal Progress: Progressing Goal 2:: STG: pt. to sleep throughout the night with 0-2/10 pain in BLEs and lumbar spine. Goal Time Frame: 2-4 Weeks Goal Progress: Progressing Goal 3:: LTG: Pt. to have increased BLE and core strength to atleast 4+/5 throughout. Goal Time Frame: 4-6 Weeks Goal Progress: Progressing Goal 4:: LTG: Pt. to be able to walk 1300'+ during 6 MWT. Goal Time Frame: 4-6 Weeks Goal Progress: Progressing Goal 5:: LTG: Pt. to have increased B knee ROM to full extension allowing for increased tolerance with gait and stair negotiation. Goal Time Frame: 4-6 Weeks Goal Progress: Progressing Goal 6:: LTG: Pt. to be able to complete her ADLs and IADLs with 0-2/10 pain in BLEs and lumbar spine. Goal Time Frame: 4-6 Weeks Goal Progress: Progressing Anticipated Interventions Patient/Client Instruction: Educate patient on: Condition, Plan of Care, Risk Factors, Benefits of Fitness Program For the Purpose of:: To improve decision making, To facilitate caregiver knowledge, To improve self management, To prevent re-injury, To improve ability to perform tasks related to life management Therapeutic Exercise to Include: Strength training, Power training, Endurance training, Body mechanics, Flexibilty training, Gait and locomotor training, In an aquatic setting, Active ROM, Dynamic Lumbar Stabilization For the Purpose of:: To decrease pain, To decrease swelling/inflammation, To increase ROM, To improve nutrient delivery to tissue, To increase oxygenation perfusion, To improve muscle performance and motor function, To improve ability to perform ADL's, To improve ability of physical actions for home/community/work/leisure, To improve gait and locomotor functions, To improve health of tissue, To decrease soft tissue restriction, To increase flexibility/ROM Please do not hesitate to contact me at [phone] by phone or if you have questions or concerns regarding this new plan of care! Sincerely, Omar Gaxiola, DPT
--- NOTE | 2021-06-19 14:35 | HP.PTREVAL_ITS ---
Hali Adamson, HOSPITALITY HOUSEKEEPER-C, It has been my pleasure to treat BETO BERMUDEZ over the last 21 visits for General debility. Please see the progress note below for an update on the physical therapy plan of care! Subjective: Pt. did reports having a fall ~2-3 weeks ago. She slipped on ice and has had some soreness ever since. Pt. Objective/Function: Pt. reports having increased pain to 4/10 at night in BLEs. R worse than L. Pt. continues to have some pain in B knees, but the spasming is going down in her neck. She reports stretching in the pool has helped her hips and legs. She is still having no issues with getting dressed, but standing with dish and standing activities at home are still sore requiring increased rest periods. She is able to lift, but repetitive movements are still painful in back/legs. ROM: Pt. is still lacking about 5 deg of knee ext actively, passive able to achieve 0deg on R knee. She still has some tightness in her HS. 6 MWT: 1193ft. Mild increase in L hip pain. MMT: Pt. has good strength of distal LEs, except L ankle minimal ROM and strength in her ankle. Core strength: fair-. Overall she is progressing with strengthening, endurance and decreasing her pain. Plan Plan: I would like her to continue with PT in aquatic setting with progression of aerobic capacity, strengtheing of BLEs and core. Add in UB strengthening/stability exercises as well. Balance/Gait/Functional tests - Balance/Special Test Scores Lower Extremity Functional Score: 48 6 Minute Walk Test: 1023 ft (311m) Goals Goal 1:: LTG: Pt. to be I with HEP for BLE and core strength in aquatic setting. Goal Time Frame: 4-6 Weeks Goal Progress: Progressing Goal 2:: STG: pt. to sleep throughout the night with 0-2/10 pain in BLEs and lumbar spine. Goal Time Frame: 2-4 Weeks Goal Progress: Progressing Goal 3:: LTG: Pt. to have increased BLE and core strength to atleast 4+/5 throughout. Goal Time Frame: 4-6 Weeks Goal Progress: Progressing Goal 4:: LTG: Pt. to be able to walk 1300'+ during 6 MWT. Goal Time Frame: 4-6 Weeks Goal Progress: Progressing Goal 5:: LTG: Pt. to have increased B knee ROM to full extension allowing for increased tolerance with gait and stair negotiation. Goal Time Frame: 4-6 Weeks Goal Progress: Progressing Goal 6:: LTG: Pt. to be able to complete her ADLs and IADLs with 0-2/10 pain in BLEs and lumbar spine. Goal Time Frame: 4-6 Weeks Goal Progress: Progressing Anticipated Interventions Patient/Client Instruction: Educate patient on: Condition, Plan of Care, Risk F actors, Benefits of Fitness Program For the Purpose of:: To improve decision making, To facilitate caregiver knowledge, To improve self management, To prevent re-injury, To improve ability to perform tasks related to life management Therapeutic Exercise to Include: Strength training, Power training, Endurance training, Body mechanics, Flexibilty training, Gait and locomotor training, In an aquatic setting, Active ROM, Dynamic Lumbar Stabilization For the Purpose of:: To decrease pain, To decrease swelling/inflammation, To increase ROM, To improve nutrient delivery to tissue, To increase oxygenation perfusion, To improve muscle performance and motor function, To improve ability to perform ADL's, To improve ability of physical actions for home/community/work/leisure, To improve gait and locomotor functions, To improve health of tissue, To decrease soft tissue restriction, To increase flexibility/ROM Please do not hesitate to contact me at [phone] by phone or if you have questions or concerns regarding this new plan of care! Sincerely, BELGICA CrumT
--- NOTE | 2021-07-26 08:44 | HP.PTREVAL ---
Hali Adamson, VP COMMUNICATIONS-C, It has been my pleasure to treat BETO BERMUDEZ over the last 32 visits for General debility. Please see the progress note below for an update on the physical therapy plan of care! Subjective: I am sore today, but definitely getting better Objective/Function: Pt is able to ambulate approximately 1000' on 6 minute walk test. B LE's are grossly rated at 4/5 throughout. Pt is I with aquatic HEP. B knee ext AROM= -10 degrees Plan Plan: Consider transition to land ex's at this time. Attempt to get 12 more Rx sessions approved for land ex's to target B LE and core strengthening. of aerobic capacity, strengtheing of BLEs and core. Add in UB strengthening/stability exercises as well. Balance/Gait/Functional tests - Balance/Special Test Scores Lower Extremity Functional Score: 37 6 Minute Walk Test: 1023 ft (311m) Goals Goal 1:: LTG: Pt. to be I with HEP for BLE and core strength in aquatic setting. Goal Time Frame: 4-6 Weeks Goal Progress: Goal Met Goal 2:: STG: pt. to sleep throughout the night with 0-2/10 pain in BLEs and lumbar spine. Goal Time Frame: 2-4 Weeks Goal Progress: Progressing Goal 3:: LTG: Pt. to have increased BLE and core strength to atleast 4+/5 throughout. Goal Time Frame: 4-6 Weeks Goal Progress: Progressing Goal 4:: LTG: Pt. to be able to walk 1300'+ during 6 MWT. Goal Time Frame: 4-6 Weeks Goal Progress: Progressing Goal 5:: LTG: Pt. to have increased B knee ROM to full extension allowing for increased tolerance with gait and stair negotiation. Goal Time Frame: 4-6 Weeks Goal Progress: Progressing Goal 6:: LTG: Pt. to be able to complete her ADLs and IADLs with 0-2/10 pain in BLEs and lumbar spine. Goal Time Frame: 4-6 Weeks Goal Progress: Progressing Anticipated Interventions Patient/Client Instruction: Educate patient on: Condition, Plan of Care, Risk Factors, Benefits of Fitness Program For the Purpose of:: To improve decision making, To facilitate caregiver knowledge, To improve self management, To prevent re-injury, To improve ability to perform tasks related to life management Therapeutic Exercise to Include: Strength training, Power training, Endurance training, Body mechanics, Flexibilty training, Gait and locomotor training, In an aquatic setting, Active ROM, Dynamic Lumbar Stabilization For the Purpose of:: To decrease pain, To decrease swelling/inflammation, To increase ROM, To improve nutrient delivery to tissue, To increase oxygenation perfusion, To improve muscle performance and motor function, To improve ability to perform ADL's, To improve ability of physical actions for home/community/work/leisure, To improve gait and locomotor functions, To improve health of tissue, To decrease soft tissue restriction, To increase flexibility/ROM Please do not hesitate to contact me at [phone] by phone or if you have questions or concerns regarding this new plan of care! Sincerely, Girish Tao, PT, ATC
== END 2021-08-19 13:47 | disposition home or self-care (01) ==
LOC: PT 10:00
PROVIDERS: PCP Nurse Practitioner; Referring Provider Nurse Practitioner; Visit Provider Nurse Practitioner
DX: R26.2 Difficulty in walking, not elsewhere classified (principal)
CPT/HCPCS: 97110; 97113; 97161; 97164

== ENCOUNTER 2021-10-15 10:36 | Outpatient (CLI) | payer MEDICARE, MEDICAID, OTHER, SELFPAY ==
[2021-10-15 11:12] LABS: Erythrocyte Sedimentation Rate 18 mm/hr (0-30)
[2021-10-15 11:17] LABS: Absolute Lymphocyte Count 0.72 X10^3/uL (0.83-4.51); Absolute Neutrophil Count 3.3 X10^3/uL (2.0-7.7); Basophil# 0.02 X10^3/uL; Basophil% 0.4 % (0-1); Eosinophils% 2.2 % (0-5); Hematocrit 39.5 % (37-47); Hemoglobin 12.3 g/dL (12.0-15.0); Lymphocyte # 0.72 X10^3/ul (0.83-4.51); Lymphocyte % 15.7 % (19-41); Mean Corp Hgb Conc 31.1 g/dL (32-36); Mean Corpuscular Hgb 29.6 pg (27.0-32.0); Mean Platelet Vol. 11.1 fl (6.2-12.0); Monocyte# 0.43 X10^3/uL; Monocyte% 9.3 % (0-10); NRBC Flagged by Analyzer 0 % (0-5); Neutrophil # 3.32 X10^3/uL (2.7-7.7); Neutrophil % 72.2 % (47-70); Platelet Count 114 K/mm3 (150-450); RBC Distribution Width CV 13.5 % (11.6-14.6); RBC Distribution Width SD 46.6 fl (35.1-43.9); Red Blood Count 4.16 M/mm3 (4.2-5.4); White Blood Count 4.6 K/mm3 (4.4-11.0)
[2021-10-15 11:18] LABS: Prothrombin Time (Protime)PT. 12.7 SECONDS (11.7-14.9)
[2021-10-15 11:32] LABS: Hemoglobin A1c 6.2 % (3.8-5.6)
[2021-10-15 11:39] LABS: ALB/GLOB Ratio 0.9 RATIO (0.9-2.4); AST(SGOT) 15 U/L (15-37); Alanine Aminotransfer ALT/SGPT 22 U/L (13-56); Albumin, Serum 3.2 g/dL (3.2-5.0); Alkaline Phosphatase 62 U/L (45-117); Anion Gap 4 (5-15); BUN 27 mg/dL (7-18); BUN/Creat Ratio 20.8 RATIO (10-20); CRP 4.04 mg/L (0.0-3.0); Calcium,Total 9.8 mg/dL (8.5-10.1); Chloride 111 mmol/L (98-107); EST Glomerular Filtration Rate 46 mL/min (>60); Est Glom Filt Rate - Afr Amer 55 mL/min (>60); Ferritin 199 ng/mL (8-252); Globulin 3.4 g/dL (2.2-4.2); Glucose 137 mg/dL (74-106); LDH 229 U/L (84-246); Potassium 4.1 mmol/L (3.5-5.1); Protein, Total 6.6 g/dL (6.4-8.2); Sodium Level 143 mmol/L (136-145)
[2021-10-15 12:02] LABS: HIV - WCH Non-Reactive (Nonreactive)
[2021-10-16 14:10] LABS: Anti-Centromere B Ab <0.2 AI (0.0-0.9); Anti-Chromatin <0.2 AI (0.0-0.9); Anti-Jo <0.2 AI (0.0-0.9); Anti-Scleroderma-70 AB <0.2 AI (0.0-0.9); RNP Ab 0.4 AI (0.0-0.9); SJOGREN'S Anti-SS-A test < 0.2 AI (0.0-0.9); SJOGREN'S Anti-SS-B test < 0.2 AI (0.0-0.9); Smith Ab <0.2 AI (0.0-0.9)
[2021-10-16 15:53] LABS: Anti-Mitochondrial AB <20.0 Units (0.0-20.0); Anti-dsDNA Ab <1 IU/mL (0-9)
[2021-10-17 06:09] LABS: Angiotensin Convert Enzyme 16 U/L (14-82); Ceruloplasmin 22.7 mg/dL (19.0-39.0); Cytoplasmic Ab (C-ANCA) <1:20 titer (Neg:<1:20); HEPATITIS B SURFACE AG Negative (Negative); Hep C Antibodies <0.1 s/co ratio (0.0-0.9); Hepatitis A IgM Antibody Negative (Negative); Hepatitis B Core AB IgM Negative (Negative)
[2021-10-17 08:14] LABS: AFP, Tumor Marker 2.5 ng/mL (0.0-9.2); Anti-Smooth Muscle ABS 4 Units (0-19); Copper, Serum or Plasma 107 ug/dL (80-158); Haptoglobin 159 mg/dL (33-346); Perinuclear Ab (P-ANCA) <1:20 titer (Neg:<1:20)
== END 2021-10-15 23:59 | disposition home or self-care (01) ==
LOC: LAB 10:40
PROVIDERS: PCP Nurse Practitioner; Referring Provider Internal Medicine Gastroenterology; Visit Provider Internal Medicine Gastroenterology
DX: K76.0 Fatty (change of) liver, not elsewhere classified (principal); E11.9 Type 2 diabetes mellitus without complications; K21.9 Gastro-esophageal reflux disease without esophagitis; Z94.0 Kidney transplant status; R53.83 Other fatigue
CPT/HCPCS: 36415; 80053; 80074; 82105; 82140; 82164; 82390; 82525; 82728; 83010; 83036; 83516; 83615; 85025; 85610; 85652; 86140; 86225; 86235; 86256; 86703

== ENCOUNTER → 2021-11-06 | Outpatient (CLI) | payer MEDICARE, OTHER, MEDICAID, SELFPAY ==
--- NOTE | 2021-11-06 07:08 | US_ITS ---
STUDY: ABDOMINAL ULTRASOUND - RIGHT UPPER QUADRANT REASON FOR VISIT: Female, 50 years old FATTY LIVER TECHNIQUE: Ultrasound evaluation of the right upper quadrant was performed with real-time and static christensen-scale imaging. TECHNICAL QUALITY: Adequate. COMPARISON: None. FINDINGS: Liver: The liver measures 13.2 cm. There is increased echogenicity consistent with fatty infiltration. The bile ducts are within normal limits. There is hepatic color flow. The direction of portal flow is hepatopetal. There is no demonstrated mass lesion. Gallbladder: The patient is status post cholecystectomy. Common Bile Duct (C.B.D.): The common bile duct measures 4 mm. Pancreas: Normal size of the head, body and tail of the pancreas. There is normal echogenicity of the pancreas. There is no demonstrated pancreatic mass or cyst. Right Kidney: Transplanted right kidney within the right pelvis. Normal size of the right kidney. The right kidney measures 11.8 cm x 4.7 cm x 4.2 cm. Normal renal cortex. The right cortex measures 2.2 cm. There is no demonstrated renal mass or cyst. There is no right hydronephrosis. US/Abdomen Limited IMPRESSION: Fatty infiltration of the liver. Transplanted kidney in the right pelvis. Electronically Signed: Amarjit Dimas MD at 8:58 EDT ,
--- NOTE | 2021-11-06 07:08 | CT_ITS ---
STUDY: CT ABDOMEN AND PELVIS WITHOUT CONTRAST REASON FOR EXAM: Female, 50 years old. Polycystic kidney disease with liver disease. BILATERAL NEPHRECTOMIES AND KIDNEY TRANSPLANT RADIATION DOSAGE (If Supplied By Facility): CTDIvol = ( 17.82 ) mGy, DLP = ( 907.96 ) mGycm TECHNIQUE: Transaxial images were obtained from the dome of the diaphragm to the symphysis pubis without oral contrast, and without intravenous contrast. Sagittal and coronal images were reconstructed. Individualized dose optimization techniques were used for this CT. COMPARISON: None. FINDINGS: Bilateral breast implants are seen. Rim-like calcification seen along the medial aspect of the right breast implant. The visualized lung bases are unremarkable. The visualized portions of the heart are within normal limits. There is 9.3 mm cyst in the superior lateral aspect of the right lobe of the liver. There are surgical clips in the gallbladder fossa consistent with a prior cholecystectomy. Normal spleen. Normal pancreas. Normal bilateral adrenal glands. The patient is status post nephrectomy of the [place] kidneys. A transplanted kidney is seen in the right hemipelvis. There is evidence of a partial gastrectomy. Normal small intestine. There are multiple colonic diverticula consistent with diverticulosis. Moderate amount of fecal material is seen in the colon. The appendix is visualized and appears normal. Normal abdominal aorta. Normal inferior vena cava. Normal retroperitoneum. Normal urinary bladder. Normal abdominal wall. Normal osseous structures. CT/Abdomen/Pelvis without Cont IMPRESSION: The patient is status post bilateral nephrectomy. Transplanted kidney is seen in the right hemipelvis. Status post cholecystectomy. Small right hepatic cyst. Electronically Signed: Amarjit Dimas MD at 8:35 EDT ,
--- NOTE | 2021-11-06 07:08 | US_ITS ---
STUDY: ABDOMINAL ULTRASOUND - ELASTOGRAPHY REASON FOR VISIT: Female, 50 years old. Fatty infiltration of the liver. TECHNIQUE: Liver stiffness measurements were obtained on a Bridj RS 85 ultrasound machine using a CA 1-7 probe following the SRU guidelines. 3 measurements were obtained using a 2-D-SWE method. The IQR/M was 17% suggesting a quality data set. TECHNICAL QUALITY: Adequate. COMPARISON: Comparison is made with prior sonogram done earlier today. FINDINGS: Liver: Fatty infiltration of the liver. Median liver stiffness measured 10.5 kPa. US/Elastography Parenchyma/Organ IMPRESSION: Liver stiffness measures 10.5 kPa compatible with F2-F3 (Mild to moderate liver fibrosis) Metavir score. Electronically Signed: Amarjit Dimas MD at 8:59 EDT ,
== END | disposition home or self-care (01) ==
PROVIDERS: PCP Nurse Practitioner; Referring Provider Internal Medicine Gastroenterology; Visit Provider Internal Medicine Gastroenterology
DX: Q61.3 Polycystic kidney, unspecified (principal); K76.0 Fatty (change of) liver, not elsewhere classified; K21.9 Gastro-esophageal reflux disease without esophagitis; K76.89 Other specified diseases of liver; Z90.49 Acquired absence of other specified parts of digestive tract; Z90.5 Acquired absence of kidney; Z94.0 Kidney transplant status
CPT/HCPCS: 74176; 76705; 76981

== ENCOUNTER 2021-11-28 11:09 | Day surgery (SDC) | payer MEDICARE, OTHER, MEDICAID, SELFPAY ==
--- NOTE | 2021-11-28 11:22 | HP.PCM_ITS ---
History and Physical Date of Admission: 11/28/21 INDU BERMUDEZ, is a 50 F who presents to the office today for Initial consultation. August established with this clinic 10.15.21 with referral from PCP for further management of GERD. History of gastric bypass (sleeve) with [facility] with loss of 70lbs overall with an end regain of 15-20lbs. Has been utilizing Protonix 40mg QD since bypass surgery and feels this is overall helpful; breakthrough reflux r/t diet. Has to sit upright an hour after taking her medications at night to prevent regurgitation of medications. Also eats a late dinner.? Previous diagnosis of fatty liver without previous treatment and is agreeable to workup of this. Reports her DMII was borderline around her kidney transplant, and she is currently taking Onglyza. Most recent A1c 6.2. Not currently seeing endocrinology, managed by PCP. PMH polycystic kidney disease (each kidney weighed 17lbs) s/p bilateral kidney transplant 06.15.17 (azathioprine utilized for antirejection), DMII, PVC, neuropathy, anxiety, depression. Established with [facility]. FH mother with liver disease and renal failure; father dementia. Upper GI series 04.26.20 finding GERD and small sliding hiatal hernia. EGD and Colonoscopy 05.16.[address] Reyes. EGD without abnormal visual findings. Biopsy revealed gastritis. H.pylori negative. Colonoscopy finding non-bleeding internal hemorrhoids. Remaining exam WNL. ROS Const Constitutional: No fatigue, malaise, night sweats, weight change, sleep pr oblems, abnormal sleep pattern or change in appetite ENT ENT: No difficulty swallowing, hoarseness or sore throat Cardio Cardiology: No chest pain at rest Gastro GI: No abdominal pain, belching, bloating, change in bowel habits, change in stool character, coffee ground emesis, constipation, cramping, diarrhea, difficulty swallowing, feeling full early, excessive flatus, incontinent of stools, Vomiting blood/hematemesis, Blood in stool, loose stools, Black,tarry stools, nausea/dyspepsia, pain with swallowing, vomiting or other Musc Musculoskeletal: No joint pain Skin Skin: No yellowing of the eye or itchy eyes Neuro Neurology: No behavioral changes Psych Psychiatric: No abnormal sleep pattern, No anxiety, No behavioral changes, No change in appetite and No depression Endo Endocrine: No fatigue or weight change Aller/Imm Allergy/Immunologic: No itchy eyes Jason/Lymp Hematologic/Lymphatic: No easy bleeding or easy bruising Exam Const General: cooperative and comfortable Nutritional Appearance: average body habitus and well nourished [facility] Head: normal to inspection Ears: hearing grossly normal bilaterally Nose: external nose normal Face and sinus: normal facial exam Mouth: oral mucosae normal Throat: posterior oropharynx normal Eyes General: appearance normal, both eyes and all related structures Neck Neck: normal visual inspection Chest Chest palpation & inspection: normal inspection of the chest and normal palpation of entire chest wall Resp Effort & Inspection: normal respiratory effort Auscultation: Bilateral: Clear to Auscultation Cardio Palpation: normal PMI Rate: regular rate Rhythm: regular rhythm GI Inspection: normal to inspection Auscultation: normal bowel sounds Percussion: normal to percussion Palpation: no hepatosplenomegaly Skin General: no rashes or lesions noted Neuro General: patient alert Extrem General: normal to inspection Psych Affect: normal affect Quality Reporting Tobacco Screening ([facility] 138) Smoking Status: Never smoker Assessment and Plan Assessment and Plan (1) GERD (gastroesophageal reflux disease): ?Status:?Chronic ? ? ? Orders:?Orders: ?F HIV - [facility] Today ? ? ? Comprehensive Metabolic Profil Today ? ? ? CRP Today ? ? ? Ferritin Today ? ? ? LDH Today ? ? ? Hemoglobin A1c Today ? ? ? Prothrombin Time w/INR Today ? ? ? CBC W/Diff, Automated Today ? ? ? Erythrocyte Sed Rate Today ? ? ? Anti-Mitochondrial AB Today ? ? ? SOLA Comprehensive Panel Today ? ? ? Hepatitis Panel Acute Today ? ? ? Angiotensin Convert Enzyme Today ? ? ? AFP, Tumor Marker Today ? ? ? ANCA Today ? ? ? Anti-Smooth Muscle ABS Today ? ? ? Ceruloplasmin Today ? ? ? Copper, Serum or Plasma Today ? ? ? Haptoglobin Today ? ? ? Ammonia Today ? ? ? Abdomen Limited Today ? ? ? Elastography Parenchyma/Organ Today ?Plan - Dr. Martinez Friend, DO: She does hiatal hernia.? Loera from her upper GI series if it is a sliding hiatal hernia or it is a paraesophageal hernia.? She is not having any chest pain or shortness of breath.? She does have intermittent nausea.? She knows that she probably eats too late in the day.? But it was interesting that he could see food in her stomach during her upper GI series that could indicate gastroparesis.? In the setting of likely bile acid reflux coming into the stomach and subsequently going up into the esophagus.? I suspected her bile acid to bicarbonate ratio is off gastric bypass surgery and poor eating habits.? We will evaluate her with an upper endoscopy and look for signs and symptoms of along with structural changes upper GI tract. (2) Fatty liver: ?Status:?Chronic ? ? ? Orders:?Orders: ? HIV - [facility] Today ? ? ? Comprehensive Metabolic Profil Today ? ? ? CRP Today ? ? ? Ferritin Today ? ? ? LDH Today ? ? ? Hemoglobin A1c Today ? ? ? Prothrombin Time w/INR Today ? ? ? CBC W/Diff, Automated Today ? ? ? Erythrocyte Sed Rate Today ? ? ? Anti-Mitochondrial AB Today ? ? ? SOLA Comprehensive Panel Today ? ? ? Hepatitis Panel Acute Today ? ? ? Angiotensin Convert Enzyme Today ? ? ? AFP, Tumor Marker Today ? ? ? ANCA Today ? ? ? Anti-Smooth Muscle ABS Today ? ? ? Ceruloplasmin Today ? ? ? Copper, Serum or Plasma Today ? ? ? Haptoglobin Today ? ? ? Ammonia Today ? ? ? Abdomen Limited Today ? ? ? Elastography Parenchyma/Organ Today ?Plan - Dr. Martinez Friend, DO: We will evaluate to the liver with an elastography.? That does bother me that she has had persistent thrombocytopenia since 2017.? Initially I thought this is possibly secondary to azathioprine administration.? However she got her? kidney transplant in 2018.? She has polycystic kidney disease #2 at risk for polycystic liver disease.? She is a? higher? risk for steatohepatitis and subsequent Cirrhosis. (3) Obesity: ?Status:?Acute ?Plan - Dr. Martinez Friend, DO: She is wanting to discuss recommendations refer to marina porter.? We will likely have to put her sometime her evaluation of her liver turns out to be F2 or stage 2 liver disease. Plan Details Other Medications: ?New: ? furosemide (Lasix) 20 mg? PO DAILY PRN ? ? I have re-examined the patient. There are no clinical changes since date of exam.
[2021-11-28] MEDS: Lactated Ringers 1,000 ML 15 ML IV (11:30)
[2021-11-28 11:55] VITALS: BP 131/65; PULSE 60; RESP 18; TEMP 36.3; O2SAT 97; BMI 38.2
[2021-11-28 11:55] LABS: Bedside Glucose 117 mg/dL (74-106)
--- NOTE | 2021-11-28 12:15 | IMM_PTH ---
PATIENT: AIDANAugust LOC: EN U#:[id number] AGE/SX: 51/F ROOM: RE11/28/[address]: Dr. Juan Jane DO : 1970 BED: DIS: 11/28/2021 SPEC #: [id number] RECD: 11/29/21 13:05 STATUS: BINTA REJuan #: [id number] NIR: 11/28/21 12:[address]: Juan Jane DEPT: IMMUNOHISTOCHEMISTRY RECD BY: Tory Zuluaga ENTERED: 11/29/21 13:05 SP TYPE: IMMUNO OTHR DR: Hali Adamson, CLEANING CUSTODIAN-C Tissues: B - Stomach, NOS Procedures: H Pylori (initial) PHYSICIAN & INSTITUTION [place] [id number] SPECIMEN INFORMATION: Tissue Source: B ? Gastric ulcer biopsy Clinical Info: GERD, fatty liver Specimen Number: [id number] CPT code: 39793 METHODOLOGY: Deparaffinized sections of prefer/formalin-fixed tissue or PAP/DQ stained slides are incubated with monoclonal/polyclonal antibodies/oligonucleotide probes. Localization is made via biotin free immunoperoxidase method. Appropriate controls are performed and reacted as expected. Results on target cell population are indicated in the following table: RESULTS: ANTIBODY / CLONE RESULT Block B H Pylori (polyclonal) negative These tests were developed and their performance characteristics determined by [facility]. They may not have been cleared or approved by the U.S. Food and Drug Administration. The FDA has determined that such clearance or approval is not necessary. The above immunohistochemical/dualISH markers are ordered and reviewed by the Pathologist. INTERPRETATION: Gastric ulcer, biopsy: Negative for Helicobacter pylori organisms. AM:[place] 12/02/2021
--- NOTE | 2021-11-28 12:15 | EGD_PTH ---
PATIENT: AIDANAugust LOC: EN U#:[id number] AGE/SX: 51/F ROOM: RE11/28/[address]: Dr. Juan Jane DO : 1970 BED: DIS: 11/28/2021 SPEC #: [id number] RECD: 11/28/21 14:57 STATUS: BINTA MERARY #: [id number] NIR: 11/28/21 12:[address]: Juan Jane DEPT: SURGICAL PATHOLOGY RECD BY: Lori Kidd ENTERED: 11/29/21 08:40 SP TYPE: EGD BIOPSY OTHR DR: Hali Adamson, SPRAYING MACHINE OPERATOR-C Tissues: A - Duodenum, NOS B - Gastric mucous membrane C - Esophagus, NOS Procedures: Special Stain Group II Surgery Specimen Level IV Alcian Blue/PAS (control) HEADER OPERATION: EGD ([facility] [place]) PRE-OP DIAGNOSIS: GERD, fatty liver TISSUE SUBMITTED: A ? Duodenum biopsy, B ? Gastric ulcer biopsy, C ? Distal esophagus biopsy MICROSCOPIC DIAGNOSIS A. Duodenum, biopsy: No pathologic change. B. Gastric ulcer, biopsy: Chronic gastritis. See comment. C. Distal esophagus, biopsy: Gastroesophageal junctional mucosa with chronic inflammation. Focal changes of reflux. No evidence of goblet cell metaplasia. See comment. AM:[place] 12/02/2021 COMMENT B. The results of immunohistochemistry for Helicobacter pylori will be reported separately ([id number]). C. Alcian blue/PAS stain with matched control supports the above diagnosis. MICROSCOPIC DESCRIPTION Slides are reviewed. GROSS DESCRIPTION A - Received in fixative is one container labeled with the patient's name and designated duodenum biopsy. The specimen consists of two irregular fragments of light epstein soft tissue that in aggregate measure 0.6 x 0.3 x 0.1 cm. The specimen is totally submitted in one cassette. B - Received in fixative is one container labeled with the patient's name and designated gastric ulcer biopsy. The specimen consists of two irregular fragments of light epstein soft tissue that in aggregate measure 0.8 x 0.4 x 0.1 cm. The specimen is totally submitted in one cassette. C - Received in fixative is one container labeled with the patient's name and designated distal esophagus biopsy. The specimen consists of two irregular fragments of light epstein soft tissue that in aggregate measure 0.6 x 0.4 x 0.1 cm. The specimen is totally submitted in one cassette. / SJ:[place] 11/29/2021 TC:3 CPT: 81776 x3, 19840
--- NOTE | 2021-11-28 12:34 | OP.EGD_ITS ---
Patient Name: Kathia Barry Procedure Date: 11/28/2021 12:05 PM Date of : 1970 Age: 51 Procedure: Upper GI endoscopy Indications: Functional Dyspepsia Providers: Juan Jane DO Referring MD: Juan Jane DO Medicines: Monitored Anesthesia Care Patient Profile: This is a 51 year old female. Refer to note in patient chart for documentation of history and physical. Patient has symptoms of chronic epigastric abdominal pain. Complications: No immediate complications. Procedure: Pre-Anesthesia Assessment: - Prior to the procedure, a History and Physical was performed, and patient medications and allergies were reviewed. The patient is competent. The risks and benefits of the procedure and the sedation options and risks were discussed with the patient. All questions were answered and informed consent was obtained. Patient identification and proposed procedure were verified by the physician in the pre-procedure area. Mental Status Examination: alert and oriented. Airway Examination: normal oropharyngeal airway and neck mobility. Respiratory Examination: clear to auscultation. CV Examination: normal. Prophylactic Antibiotics: The patient does not require prophylactic antibiotics. Prior Anticoagulants: The patient has taken no previous anticoagulant or antiplatelet agents. ASA Grade Assessment: II - A patient with mild systemic disease. After reviewing the risks and benefits, the patient was deemed in satisfactory condition to undergo the procedure. The anesthesia plan was to use moderate sedation / analgesia (conscious sedation). Immediately prior to administration of medications, the patient was re-assessed for adequacy to receive sedatives. The heart rate, respiratory rate, oxygen saturations, blood pressure, adequacy of pulmonary ventilation, and response to care were monitored throughout the procedure. The physical status of the patient was re-assessed after the procedure. After obtaining informed consent, the endoscope was passed under direct vision. Throughout the procedure, the patient's blood pressure, pulse, and oxygen saturations were monitored continuously. The gastroscope was introduced through the mouth, and advanced to the second part of duodenum. The upper GI endoscopy was accomplished without difficulty. The patient tolerated the procedure well. Scope In: 12:22:52 PM Scope Out: 12:28:33 PM Total Procedure Duration Time 0 hours 5 minutes 41 seconds Findings: A non-obstructing and mild Schatzki ring was found in the lower third of the esophagus. The Z-line was irregular and was found 38 cm from the incisors. Biopsies were taken with a cold forceps for histology. Verification of patient identification for the specimen was done. Estimated blood loss was minimal. A medium-sized hiatal hernia was present. One non-bleeding cratered gastric ulcer with no stigmata of bleeding was found in the gastric body. The lesion was 6 mm in largest dimension. Biopsies were taken with a cold forceps for histology. Verification of patient identification for the specimen was done. Estimated blood loss was minimal. Patchy mildly erythematous mucosa without active bleeding and with no stigmata of bleeding was found in the first portion of the duodenum. Biopsies were taken with a cold forceps for histology. Verification of patient identification for the specimen was done. Estimated blood loss was minimal. Impression: - Non-obstructing and mild Schatzki ring. - Z-line irregular, 38 cm from the incisors. Biopsied. - Medium-sized hiatal hernia. - Non-bleeding gastric ulcer with no stigmata of bleeding. Biopsied. - Erythematous duodenopathy. Biopsied. Recommendation: - Discharge patient to home. - Resume previous diet. - Continue present medications. - Await pathology results. - Repeat upper endoscopy to check healing. - Return to GI office. Procedure Code(s): --- Professional --- 91280, Esophagogastroduodenoscopy, flexible, transoral; with biopsy, single or multiple CPT copyright 2017 [employer]. All rights reserved. The codes documented in this report are preliminary and upon historic sites registrar review may be revised to meet current compliance requirements. Juan Jane DO 11/28/2021 12:33:34 PM This report has been signed electronically. Number of Addenda: 1 Note Initiated On: 11/28/2021 12:05 PM Addendum Number: 1 Addendum Date: 02/26/2022 6:26:50 AM MAC was used as sedation for this procedure. Juan Jane DO 02/26/2022 6:26:57 AM This report has been signed electronically.
--- NOTE | 2021-11-28 12:34 | OP.CCLET_ITS ---
02/26/2022 Hali Adamson, [facility] [address] [place] [address] Re : Upper GI endoscopy procedure for August Barry Dear Ms. Adamson This procedure was performed on November. My impressions and recommendations are as follows: Impressions : - Non-obstructing and mild Schatzki ring. - Z-line irregular, 38 cm from the incisors. Biopsied. - Medium-sized hiatal hernia. - Non-bleeding gastric ulcer with no stigmata of bleeding. Biopsied. - Erythematous duodenopathy. Biopsied. Recommendations : - Discharge patient to home. - Resume previous diet. - Continue present medications. - Await pathology results. - Repeat upper endoscopy to check healing. - Return to GI office. My findings are described in the full procedure note, which is enclosed. If I can be of further assistance, please feel free to contact me at . Sincerely, Juan Jane, 11/28/2021 12:33:34 PM This report has been signed electronically.
[2021-11-28 12:35] VITALS: BP 106/57; BP 131/65; PULSE 60; RESP 16; TEMP 36.1; O2SAT 97
[2021-11-28 12:38] VITALS: BP 105/48; BP 131/65; PULSE 61; RESP 16; O2SAT 97
[2021-11-28 12:45] VITALS: BP 102/56; BP 131/65; PULSE 75; RESP 16; O2SAT 100
[2021-11-28 12:50] VITALS: BP 119/59; BP 131/65; PULSE 58; RESP 16; TEMP 36.2; O2SAT 100
[2021-11-28 13:14] VITALS: BP 131/65
== END 2021-11-28 13:27 | disposition home or self-care (01) ==
LOC: EN 11:11 → AC 11:12
PROVIDERS: PCP Nurse Practitioner; Referring Provider Internal Medicine Gastroenterology; Visit Provider Internal Medicine Gastroenterology
PROC: 0DJ08ZZ Inspection of Upper Intestinal Tract, Via Natural or Artificial Opening Endoscopic (ICD-10-PCS; CPT 43235; principal; 2021-11-28 12:10)
DX: K22.2 Esophageal obstruction (principal); E11.9 Type 2 diabetes mellitus without complications; K44.9 Diaphragmatic hernia without obstruction or gangrene; K29.50 Unspecified chronic gastritis without bleeding; K25.9 Gastric ulcer, unspecified as acute or chronic, without hemorrhage or perforation; K31.89 Other diseases of stomach and duodenum; K21.00 Gastro-esophageal reflux disease with esophagitis, without bleeding; K30 Functional dyspepsia; I10 Essential (primary) hypertension; E78.00 Pure hypercholesterolemia, unspecified; E03.9 Hypothyroidism, unspecified; M81.0 Age-related osteoporosis without current pathological fracture; G47.33 Obstructive sleep apnea (adult) (pediatric); M19.90 Unspecified osteoarthritis, unspecified site; E66.9 Obesity, unspecified; Z68.38 Body mass index [BMI] 38.0-38.9, adult; Z98.84 Bariatric surgery status; Z94.0 Kidney transplant status; Z90.5 Acquired absence of kidney; Z79.82 Long term (current) use of aspirin; Z79.84 Long term (current) use of oral hypoglycemic drugs; Z79.899 Other long term (current) drug therapy
CPT/HCPCS: 43239; 82962; 88305; 88313; 88342; J7120; J2405

== ENCOUNTER 2021-12-10 08:30 | Outpatient (RCR) | payer MEDICARE, MEDICAID, SELFPAY ==
--- NOTE | 2021-09-09 11:02 | HP.PTREVAL_ITS ---
Hali Adamson, EFREM-C, It has been my pleasure to treat BETO BERMUDEZ over the last 39 visits for debility. Please see the progress note below for an update on the physical therapy plan of care! Subjective: Pt. reports doing well, she is having some trouble with her L knee, mostly on the L side. It feels like it wants to lock and hyper extend. She reports having more issues with this. She did start wearing a brace, which has helped. She reports having a good response with transition from aquatics to land. Objective/Function: ROM: R knee full ROM without increase in symptoms. L knee: lacks 10deg of TKE secondary to pain, normal flexion noted. MMT: LLE: ankle 5/5; knee: ext 4/5, flexion 4/5; hip: abd 4/5, ext 4/5, flexion 4/5. GAIT: Pt. has a marked antalgic pattern during L stance phase. Increased L knee flexion during stance phase. She reports being afraid to straighten her knee out due to fear of hyper extension. 6 MWT: 1127feet. fatigue and increased pain in L knee and R hip noted. STAIRS: Pt. is able to ascend with reciprocal pattern with 2 HR. Pt. has to descend laterally due to L ankle stiffness. Plan Plan: Cont. with PT with adding in L knee ROM to full knee extension without pain, TKE and quad strength. Progress gait with focus on L TKE during stance phase. Goals Goal 1:: LTG: Pt. to be I with HEP for BLE strengthening. Goal Time Frame: 4-6 Weeks Goal Progress: Progressing Goal 2:: STG: pt. to have full L knee extension allowing for improved gait pattern. Goal Time Frame: 2 Weeks Goal Progress: Progressing Goal 3:: LTG: pt. to ambulate 1400' during 6 MWT indicating increased gait tolerance. Goal Time Frame: 4-6 Weeks Goal Progress: Progressing Goal 4:: LTG: pt. to have increased strength of LLE to 5/5 throughout. Goal Progress: Progressing Anticipated Interventions Patient/Client Instruction: Educate patient on: Condition, Plan of Care, Risk Factors, Benefits of Fitness Program For the Purpose of:: To foster healthy habits, To improve decision making, To facilitate caregiver knowledge, To improve self management, To prevent re- injury, To improve ability to perform tasks related to life management Therapeutic Exercise to Include: Strength training, Power training, Balance training, Coordination, Postural training, Flexibilty training, Gait and locomotor training, Passive ROM, Active ROM For the Purpose of:: To decrease pain, To improve nutrient delivery to tissue, To increase oxygenation perfusion, To improve muscle performance and motor function, To improve ability to perform ADL's, To increase tolerance to activity/condition/position, To increase flexibility/ROM, To improve endurance Please do not hesitate to contact me at [phone] by phone or if you have questions or concerns regarding this new plan of care! Sincerely, BELGICA rCumT
--- NOTE | 2021-12-10 09:12 | HP.PTREVAL ---
Hali Adamson, [employer], It has been my pleasure to treat BETO BERMUDEZ over the last 59 visits for debility. Please see the progress note below for an update on the physical therapy plan of care! Subjective: Pt. reprots that her leg is about 2/10 pain pre treatment today. She still noticed increased swelling as the day progresses as well as swelling. She reports being 80% better and is ready to attempt her exercises on her own at this point in time. Pt. pleased. Objective/Function: GAIT: Pt. is doing well with her gait, she still has L ankle EVR most likely to make up for her lack of DF due to ankle fusion. She has slight lateral hip sway but minimal. 6 MWT: 1251feet with good tolerance. Mild increase in L ankle pain at end of walking test. MMT: PT. is with in 90% strength from L to R at this point in time. She reports no pain with testing. L ankle difficult to test secondary to limited motion. STAIRS: good tolerance with1 HR, step to pattern with descending secondary to limited L ankle DF. overall she is doing well. I am recommending that she continue with strengthening and walking program on her own at this point in time. Pt. given print out of her current routine. Plan Plan: Pt. to trial exercises on her own. I will keep chart open for a few weeks to make sure she does not have any set backs. Pending this I will DC back to physician. Balance/Gait/Functional tests - Balance/Special Test Scores Lower Extremity Functional Score: 59 Goals Goal 1:: LTG: Pt. to be I with HEP for BLE strengthening. Goal Time Frame: 4-6 Weeks Goal Progress: Goal Met Goal 2:: STG: pt. to have full L knee extension allowing for improved gait pattern. Goal Time Frame: 2 Weeks Goal Progress: Progressing Goal 3:: LTG: pt. to ambulate 1400' during 6 MWT indicating increased gait tolerance. Goal Time Frame: 4-6 Weeks Goal Progress: Progressing Goal 4:: LTG: pt. to have increased strength of LLE to 5/5 throughout. Goal Progress: Goal Met Anticipated Interventions Patient/Client Instruction: Educate patient on: Condition, Plan of Care, Risk Factors, Benefits of Fitness Program For the Purpose of:: To foster healthy habits, To improve decision making, To facilitate caregiver knowledge, To improve self management, To prevent re-injury, To improve ability to perform tasks related to life management Therapeutic Exercise to Include: Strength training, Power training, Balance training, Coordination, Postural training, Flexibilty training, Gait and locomotor training, Passive ROM, Active ROM For the Purpose of:: To decrease pain, To improve nutrient delivery to tissue, To increase oxygenation perfusion, To improve muscle performance and motor function, To improve ability to perform ADL's, To increase tolerance to activity/condition/position, To increase flexibility/ROM, To improve endurance Please do not hesitate to contact me at [phone] by phone or if you have questions or concerns regarding this new plan of care! Sincerely, Omar Gaxiola DPT
== END 2021-12-10 19:00 | disposition home or self-care (01) ==
LOC: PT 08:30
PROVIDERS: PCP Nurse Practitioner; Referring Provider Nurse Practitioner; Visit Provider Nurse Practitioner
DX: R26.2 Difficulty in walking, not elsewhere classified (principal); R53.81 Other malaise
CPT/HCPCS: 97110; 97164

== ENCOUNTER 2022-01-22 17:35 | Emergency (ER) | payer MEDICARE, OTHER, MEDICAID, SELFPAY ==
[2022-01-22 17:36] VITALS: BP 171/83; PULSE 66; RESP 16; TEMP 37; O2SAT 94; BMI 36.5
--- NOTE | 2022-01-22 17:55 | EDS_ITS ---
HPI History of Present Illness Chief Complaint: Nausea/Vomiting Informant: patient Narrative Narrative: Patient presents with nausea and vomiting. This is been going on since yesterday. No blood. No diarrhea. She is still moving her bowels. She has urinated less today but no dysuria or odor. She states she has a history of getting dehydrated easily. She does have a renal transplant that was done secondary to polycystic kidney disease. She states if she gets very dry her kidney will hurt but it is not doing that now. She states she is having nausea and vomiting due to multiple stressors in her life. This would commonly cause this reaction for her. She lost her father recently. Her brother is having some serious issues. Her daughter also just recently broke up with a 3 her boyfriend and now has a new boyfriend 2 weeks later. She states that the stresses are just adding up. Patient also had a change from tramadol to [place] for chronic pain in the last week. But she was on this for about 6 days before her symptoms started. She also increased her dose of Ozempic this past week. But she had been on it for a month already. She had not had any symptoms when she started this. Patient states that her baseline creatinine is about 1.2. She is taking all of her antirejection meds. [facility] Medical History Anxiety Arthritis Back pain Cardiology follow-up encounter CPAP (continuous positive airway pressure) dependence Cystocele Depression Diabetes Dyspnea Environmental allergies Essential (primary) hypertension Fatty liver Gastric reflux Generalized anxiety disorder GERD (gastroesophageal reflux disease) High cholesterol History of Clostridium difficile colitis History of Clostridium difficile infection History of diabetes mellitus History of echocardiogram History of edema History of goiter History of hiatal hernia History of Holter monitoring History of irregular heartbeat History of pain when walking History of renal disease History of steroid therapy History of stress test Hypercalcemia Hypercholesteremia Hyperlipidemia Hypertension Hyperthyroidism Hypothyroidism Impingement syndrome, shoulder, left Injury of head and neck Lumbar radiculopathy, right Major depressive disorder, recurrent, moderate MCL sprain of left knee Non-smoker Obstructive sleep apnea Osteoporosis Paresthesia of both feet Polycystic kidney disease Problem with dialysis access (2017) Rectocele Reflux esophagitis Rhinitis Sciatica Segmental and somatic dysfunction of cervical region Segmental and somatic dysfunction of lumbar region Segmental and somatic dysfunction of pelvic region Segmental and somatic dysfunction of thoracic region Sleep apnea Thyroid disease Ventricular premature depolarization Home Medications levothyroxine 50 mcg tablet 50 mcg PO MOTUWETHFRSA 07/12/13 [History Last Taken 11/28/21 07:00] aspirin 81 mg chewable tablet 81 mg PO DAILY 10/25/13 [History Last Taken 11/21/21] atorvastatin 10 mg tablet 10 mg PO DAILY 04/25/20 [History Last Taken Unknown] azathioprine 75 mg tablet 75 mg PO DAILY 04/25/20 [History Last Taken Unknown] tacrolimus 1 mg capsule, immediate-release 1 mg PO Q12H 04/25/20 [History Last Taken Unknown] ascorbic acid (vitamin C) 500 mg tablet 500 mg PO DAILY 05/21/20 [History Last Taken Unknown] biotin 1 mg capsule 1 mg PO DAILY 05/21/20 [History Last Taken Unknown] carvedilol 12.5 mg tablet (Coreg) 12.5 mg PO BID 05/21/20 [History Last Taken 11/28/21 07:00] cyclobenzaprine 10 mg tablet 10 mg PO TID PRN Muscle Spasm 05/21/20 [History Last Taken Unknown] cyanocobalamin (vitamin B-12) 2,500 mcg sublingual tablet 2,500 mcg PO .2xweek 05/30/20 [History Last Taken Unknown] duloxetine 60 mg capsule,delayed release 60 mg PO DAILY 30 days ##30 09/05/20 [Rx Last Taken Unknown] fexofenadine 180 mg tablet (Laurie Allergy) 180 mg PO DAILY 10/10/20 [History Last Taken Unknown] cholecalciferol (vitamin D3) 125 mcg (5,000 unit) capsule 125 mcg PO DAILY 08/20/21 [History Last Taken Unknown] furosemide 20 mg tablet (Lasix) 20 mg PO DAILY PRN Pain 09/03/21 [History Last Taken Unknown] gabapentin 100 mg capsule 300 mg PO TID 09/03/21 [History Last Taken 11/28/21 07:00] pantoprazole 40 mg tablet,delayed release 40 mg PO BID #120 tabs 12/10/21 [Rx Last Taken Unknown] ursodiol 250 mg tablet 250 mg PO BID NAFLD #180 tabs 12/10/21 [Rx Last Taken Unknown] hydrocodone 10 mg-acetaminophen 325 mg tablet 1 tab PO Q12H PRN PRN Pain 01/22/22 [History Last Taken Unknown] lorazepam 1 mg tablet (Ativan) 1 mg PO BID PRN anxiety #10 tabs 01/22/22 [Rx Last Taken Unknown] ondansetron 4 mg disintegrating tablet 4 mg PO Q8H PRN nausea and vomiting #10 tabs 01/22/22 [Rx Last Taken Unknown] semaglutide 0.25 mg or 0.5 mg (2 mg/1.5 mL) subcutaneous pen injector (Ozempic) 0.5 mg subcut QWEEK 01/22/22 [History Last Taken Unknown] Allergy/AdvReac Type Severity Reaction Status Date / Time ciprofloxacin [From Cipro] Allergy Other Verified 01/22/22 17:38 ciprofloxacin HCl Allergy Other Verified 01/22/22 17:38 [From Cipro] levofloxacin Allergy Unknown Verified 01/22/22 17:38 ofloxacin [From Floxin] Allergy Unknown Verified 01/22/22 17:38 zolpidem tartrate Allergy Unknown Verified 01/22/22 17:38 [From Ambien] Family History Mother Kidney disease Liver failure Father Dementia Other Arthritis Bleeding disorder COPD (chronic obstructive pulmonary disease) Cancer Depression Hypertension Thyroid disorder Surgical History History of arteriovenostomy for renal dialysis (2012) History of arthroscopy of left knee History of arthroscopy of right knee History of breast implant History of cholecystectomy History of esophagogastroduodenoscopy (EGD) History of gastric bypass (2012) History of kidney transplant (05/2017) History of left ankle joint replacement History of left heart catheterization (04/07/17) History of nephrectomy History of tonsillectomy and adenoidectomy History of uvulopalatopharyngoplasty Hx of colonoscopy Hx of LASIK Hx of right knee surgery Hx of tubal ligation Social History Smoking Status: Never smoker alcohol intake: current alcohol intake frequency: holidays/special occasions only substance use type: does not use caffeine: Yes what type of physical activity do you participate in: none ROS ROS ED Constitutional Constitutional ED: Denies chills, fever(s) or sweats Eyes Eyes: Denies change in vision ENT ENT ED: Denies rhinorrhea or sore throat Cardiovascular Cardiovascular: Denies chest pain, palpitations or racing heartbeat Respiratory/Chest Respiratory/Chest: Denies cough or dyspnea Gastrointestinal Gastrointestinal: Reports nausea, vomiting and other Details: Nausea vomiting. But no pain or diarrhea. ; Denies abdominal pain, constipation, diarrhea or melena Genitourinary Genitourinary ED: Reports other Details: Decreased amount of urine. See history of present illness. ; Denies dysuria, hematuria or urinary frequency Musculoskeletal Musculoskeletal: Denies arthralgias or myalgias Integumentary Denies rash Neurologic Neurologic: Denies paresthesias Endocrine Endocrinology: Denies polydipsia or polyuria Allergic/Immunologic Allergic/Immunologic ED: Denies urticaria EXAM Physical Exam Const Vital Signs: 01/22/22 17:36 Temperature 98.6 F Temperature Source Temporal Pulse Rate 66 Respiratory Rate 16 Blood Pressure 171/83 H Blood Pressure Mean 112 Pulse Ox 94 Oxygen Delivery Method Room Air Positive well nourished and well developed General Appearance ED: well developed and NAD; Negative for cyanotic or diaphoretic HEENT HEENT Narrative: Mildly dry mucous membranes. Eyes General Eye ED: Negative for scleral icterus Chest Wall inspection of chest normal Resp normal respiratory effort and clear to auscultation bilaterally Cardio regular rate and regular rhythm Rate: Negative for bradycardia or tachycardic GI normal to inspection, nondistended, normoactive bowel sounds, non-tender and non-distended GI Narrative: Abdomen is soft. Bowel sounds are normal. No tenderness. No tenderness over her transplanted kidney in the right lower quadrant. Back/Spine no CVA tenderness Neuro Sensorium / Orientation: alert Psych Psych Narrative: Patient awake alert and appropriate. She is stressed by these events but is not suicidal. Skin no rashes or lesions noted MDM MDM MDM Narrative Medical decision making narrative: Patient's CBC shows mild anemia. Urine is clean. Electrolytes actually look quite good. Her creatinine is better than her baseline. Although she might of had some mild acute dehydration with vomiting I do not think she is significantly dehydrated. Nausea was helped with Zofran. She has not vomited. But she still feels very anxious and nervous. She requested something for anxiety. We gave her a dose of Ativan. This has helped. She seems more rested and comfortable. With normal renal function, vomiting controlled, no UTI feeling better we will get her home. She is comfortable with this plan and would like to go. We did discuss reasons to return and close follow-up. She will also probably need to see her primary physician. She is on Cymbalta for anxiety but just feels like she has been having more problems due to issues in [place]. We will get her some meds for this. Lab Data Attestation: I reviewed the patient's lab results. Labs: Laboratory Results - last 24 hr 01/22/22 01/22/22 01/22/22 18:10 18:25 18:25 WBC Cancelled Corrected WBC Cancelled RBC Cancelled Hgb Cancelled Hct Cancelled MCV Cancelled MCH Cancelled MCHC Cancelled RDW Std Deviation Cancelled RDW Coeff of Aditya Cancelled Plt Count Cancelled MPV Cancelled Immature Gran % (Auto) Cancelled Neut % (Auto) Cancelled Lymph % (Auto) Cancelled [place] % (Auto) Cancelled Eos % (Auto) Cancelled Baso % (Auto) Cancelled Absolute Neuts (auto) Cancelled Absolute Lymphs (auto) Cancelled Total Counted Cancelled Neutrophils % (Manual) Cancelled Band Neutrophils % Cancelled Lymphocytes % (Manual) Cancelled Monocytes % (Manual) Cancelled Eosinophils % (Manual) Cancelled Basophils % (Manual) Cancelled Metamyelocytes % Cancelled Myelocytes % Cancelled Promyelocytes % Cancelled Blast Cells % Cancelled Plasma Cell % (Manual) Cancelled Other Cells % Cancelled Nucleated RBC % Cancelled Nucleated RBCs/100 WBC Cancelled Differential Comment Cancelled Diff Path Review Cancelled Hypersegmented Neuts Cancelled Atypical Lymphocytes Cancelled Reactive Lymphocytes Cancelled Smudge Cells Cancelled Toxic Granulation Cancelled Toxic Vacuolation Cancelled Dohle Bodies Cancelled Javier Rods Cancelled Platelet Estimate Cancelled Plt Morphology Comment Cancelled RBC Morphology Cancelled Polychromasia Cancelled Hypochromasia Cancelled Poikilocytosis Cancelled Basophilic Stippling Cancelled Anisocytosis Cancelled Microcytosis Cancelled Macrocytosis Cancelled Spherocytes Cancelled Sickle Cells Cancelled Target Cells Cancelled Tear Drop Cells Cancelled Ovalocytes Cancelled Stomatocytes Cancelled [place]ma[place] Bodies Cancelled [place] Cells Cancelled Bite Cells Cancelled Crenated Cell Cancelled Acanthocytes (Spur) Cancelled Rouleaux Cancelled Schistocytes Cancelled Sodium 143 Potassium 4.5 Chloride 112 H Carbon Dioxide 26.0 Anion Gap 5 BUN 16 Creatinine 1.02 Estim Creat Clear Calc 65.08 Est GFR (MDRD) Af Amer 73 Est GFR (MDRD) Non-Af 60 BUN/Creatinine Ratio 15.7 Glucose 106 Calcium 10.1 Urine Color Yellow Urine Clarity Clear Urine pH 7.0 Ur Specific [place] 1.010 Urine Protein Negative Urine Glucose (UA) Normal Urine Ketones Negative Urine Occult Blood Negative Urine Nitrite Negative Urine Bilirubin Negative Urine Urobilinogen 1 H Ur Leukocyte Esterase Negative Urine RBC 0 SEEN Urine WBC 0 SEEN Ur Squamous Epith Cells 0-5 SEEN Urine Bacteria 1+ Urine Mucus 0 SEEN 01/22/22 19:20 WBC 5.2 Corrected WBC RBC 3.72 L Hgb 10.9 L Hct 35.3 L MCV 94.9 MCH 29.3 MCHC 30.9 L RDW Std Deviation 43.6 RDW Coeff of Aditya 12.7 Plt Count 102 L MPV 11.3 Immature Gran % (Auto) 0.200 Neut % (Auto) 75.4 H Lymph % (Auto) 13.6 L [place] % (Auto) 9.4 Eos % (Auto) 1.0 Baso % (Auto) 0.4 Absolute Neuts (auto) 3.9 Absolute Lymphs (auto) 0.71 L Total Counted Neutrophils % (Manual) Band Neutrophils % Lymphocytes % (Manual) Monocytes % (Manual) Eosinophils % (Manual) Basophils % (Manual) Metamyelocytes % Myelocytes % Promyelocytes % Blast Cells % Plasma Cell % (Manual) Other Cells % Nucleated RBC % 0 Nucleated RBCs/100 WBC Differential Comment Diff Path Review Hypersegmented Neuts Atypical Lymphocytes Reactive Lymphocytes Smudge Cells Toxic Granulation Toxic Vacuolation Dohle Bodies Javier Rods Platelet Estimate Plt Morphology Comment RBC Morphology Polychromasia Hypochromasia Poikilocytosis Basophilic Stippling Anisocytosis Microcytosis Macrocytosis Spherocytes Sickle Cells Target Cells Tear Drop Cells Ovalocytes Stomatocytes [place]mahon[place] Bodies [place] Cells Bite Cells Crenated Cell Acanthocytes (Spur) Rouleaux Schistocytes Sodium Potassium Chloride Carbon Dioxide Anion Gap BUN Creatinine Estim Creat Clear Calc Est GFR (MDRD) Af Amer Est GFR (MDRD) Non-Af BUN/Creatinine Ratio Glucose Calcium Urine Color Urine Clarity Urine pH Ur Specific [place] Urine Protein Urine Glucose (UA) Urine Ketones Urine Occult Blood Urine Nitrite Urine Bilirubin Urine Urobilinogen Ur Leukocyte Esterase Urine RBC Urine WBC Ur Squamous Epith Cells Urine Bacteria Urine Mucus Discharge Plan Triage Chief Complaint: Nausea/Vomiting ED Provider: Anthony Carrasco Dx/Rx/DC Orders Clinical Impression: Nausea & vomiting, Dehydration, Anxiety Instructions: ED Dehydration (Adult), ED Vomiting (Adult) Prescriptions: New ondansetron 4 mg tablet,disintegrating 4 mg PO Q8H PRN (Reason: nausea and vomiting) Qty: 10 0RF lorazepam [Ativan] 1 mg tablet 1 mg PO BID PRN (Reason: anxiety) Qty: 10 0RF No Action atorvastatin 10 mg tablet 10 mg PO DAILY Label Comments: TAKE 1 TABLET BY MOUTH EVERY DAY azathioprine 75 mg tablet 75 mg tablet 75 mg PO DAILY tacrolimus 1 mg capsule 1 mg PO Q12H cyanocobalamin (vitamin B-12) 2,500 mcg tablet, sublingual 2,500 mcg PO .2xweek Label Comments: TAKE 1 TABLET BY MOUTH TWICE A WEEK gabapentin 100 mg capsule 300 mg PO TID Label Comments: TAKE 2 CAPSULES BY MOUTH TWICE A DAY carvedilol [Coreg] 12.5 mg tablet 12.5 mg PO BID Rx Instructions: must administer with a meal/food biotin 1 mg capsule 1 mg PO DAILY cyclobenzaprine 10 mg tablet 10 mg PO TID PRN (Reason: Muscle Spasm) Label Comments: 1/2 TO 1 TABLET BY MOUTH THREE TIMES DAILY NEEDED FOR SPASMS. ascorbic acid (vitamin C) 500 mg tablet 500 mg PO DAILY fexofenadine [Laurie Allergy] 180 mg tablet 180 mg PO DAILY cholecalciferol (vitamin D3) 125 mcg (5,000 unit) capsule 125 mcg PO DAILY furosemide [Lasix] 20 mg tablet 20 mg PO DAILY PRN (Reason: Pain) pantoprazole 40 mg tablet,delayed release (DR/EC) 40 mg PO BID Qty: 120 0RF Rx Instructions: take twice a day for 2 months then resume once a day every morning ursodiol 250 mg tablet 250 mg PO BID Qty: 180 3RF levothyroxine 50 MCG tablet 50 mcg PO MOTUWETHFRSA aspirin 81 MG tablet,chewable 81 mg PO DAILY Label Comments: LAST DOSE 11/21/21 FOR PROCEDURE duloxetine 60 MG capsule 60 mg PO DAILY 30 Days Qty: 30 1RF hydrocodone-acetaminophen [[place]] 10-325 mg Tablet 1 tab PO Q12H PRN PRN (Reason: Pain) Ozempic 0.25 mg or 0.5 mg(2 mg/1.5 mL) Pen Injector 0.5 mg SUBCUT QWEEK Rx Instructions: for 4 doses Primary Care Provider: Sharon Willis Referrals: Hali Adamson COURT ATTENDANT, COURT ATTENDANT-C [Non-Staff] - 1-2 Days if not improving Disposition Disposition: Home, Self Care
[2022-01-22] MEDS: 0.9% Normal Saline 1,000 ML 1000 ML IV (18:29)
[2022-01-22] MEDS: Ondansetron 4 MG/2 ML Vial IV (18:30)
[2022-01-22 18:49] LABS: Mucous, Urine 0 SEEN /hpf (<or=2+); Red Blood Cells-Urine 0 SEEN /hpf (0-5); White Blood Cells 0 SEEN /hpf (0-5)
[2022-01-22 18:52] LABS: Color, Urine Yellow (Yellow); Glucose, Dipstick Normal (Normal); Ketone-Dipstick Negative (Negative); Leukocyte Esterase-Dipstick Negative /ul (Negative); Nitrite-Dipstick Negative (Negative); Occult Blood-Urine Negative /ul (Negative); Protein-Dipstick Negative (Negative); Urine Bilirubin Dipstick Negative (Negative); Urine Clarity Clear (Clear); Urine Urobilinogen 1 mg/dl (Normal)
[2022-01-22 19:06] LABS: Squamous Epithelial Cells - UA 0-5 SEEN /hpf (5-10)
[2022-01-22 19:07] LABS: Bacteria 1+ /hpf (None Seen)
[2022-01-22 19:14] LABS: Anion Gap 5 (5-15); BUN 16 mg/dL (7-18); BUN/Creat Ratio 15.7 RATIO (10-20); Calcium,Total 10.1 mg/dL (8.5-10.1); Chloride 112 mmol/L (98-107); Creatinine, Serum 1.02 mg/dL (0.55-1.02); EST Glomerular Filtration Rate 60 mL/min (>60); Est Glom Filt Rate - Afr Amer 73 mL/min (>60); Estimated Creatinine Clearance 65.08 ml/min; Glucose 106 mg/dL (74-106); Potassium 4.5 mmol/L (3.5-5.1); Sodium Level 143 mmol/L (136-145)
[2022-01-22 19:39] LABS: Absolute Lymphocyte Count 0.71 X10^3/uL (0.83-4.51); Absolute Neutrophil Count 3.9 X10^3/uL (2.0-7.7); Basophil# 0.02 X10^3/uL; Basophil% 0.4 % (0-1); Eosinophil# 0.05 X10^3/uL; Hematocrit 35.3 % (37-47); Hemoglobin 10.9 g/dL (12.0-15.0); Lymphocyte # 0.71 X10^3/ul (0.83-4.51); Lymphocyte % 13.6 % (19-41); Mean Corp Hgb Conc 30.9 g/dL (32-36); Mean Corpuscular Hgb 29.3 pg (27.0-32.0); Mean Corpuscular Volume 94.9 fL (81-99); Mean Platelet Vol. 11.3 fl (6.2-12.0); Monocyte# 0.49 X10^3/uL; Monocyte% 9.4 % (0-10); NRBC Flagged by Analyzer 0 % (0-5); Neutrophil # 3.93 X10^3/uL (2.7-7.7); Neutrophil % 75.4 % (47-70); Platelet Count 102 K/mm3 (150-450); RBC Distribution Width CV 12.7 % (11.6-14.6); RBC Distribution Width SD 43.6 fl (35.1-43.9); Red Blood Count 3.72 M/mm3 (4.2-5.4); White Blood Count 5.2 K/mm3 (4.4-11.0)
[2022-01-22] MEDS: LORazepam 2 MG/ML Syringe 1 MG IV (19:39)
[2022-01-22 20:50] VITALS: BP 134/78; PULSE 74; RESP 15; O2SAT 97
== END 2022-01-22 20:51 | disposition home or self-care (01) ==
PROVIDERS: Emergency Provider Emergency Medicine; PCP Nurse Practitioner Family; Visit Provider Emergency Medicine
DX: R11.2 Nausea with vomiting, unspecified (principal); E11.9 Type 2 diabetes mellitus without complications; G89.29 Other chronic pain; E86.0 Dehydration; F41.1 Generalized anxiety disorder; D64.9 Anemia, unspecified; I10 Essential (primary) hypertension; K21.9 Gastro-esophageal reflux disease without esophagitis; E78.00 Pure hypercholesterolemia, unspecified; Q61.3 Polycystic kidney, unspecified; Z94.0 Kidney transplant status; Z79.899 Other long term (current) drug therapy; Z79.82 Long term (current) use of aspirin; M99.02 Segmental and somatic dysfunction of thoracic region; M99.01 Segmental and somatic dysfunction of cervical region; M99.03 Segmental and somatic dysfunction of lumbar region; M99.05 Segmental and somatic dysfunction of pelvic region; G47.33 Obstructive sleep apnea (adult) (pediatric); Z79.890 Hormone replacement therapy; Z98.84 Bariatric surgery status
CPT/HCPCS: 80048; 81001; 85025; 96361; 96374; 96375; 99283; J7030; A4216; J2405

== ENCOUNTER 2022-02-11 08:10 | Outpatient (RCR) | payer MEDICARE, OTHER, MEDICAID, SELFPAY | END 2022-02-21 23:59 | LOC: NS 08:10 | PROVIDERS: PCP Nurse Practitioner Family; Referring Provider Internal Medicine Gastroenterology; Visit Provider Internal Medicine Gastroenterology | DX: Z71.3 Dietary counseling and surveillance (principal); E66.9 Obesity, unspecified; E11.9 Type 2 diabetes mellitus without complications; Z94.0 Kidney transplant status; Z68.35 Body mass index [BMI] 35.0-35.9, adult | CPT/HCPCS: 97802 ==

== ENCOUNTER 2022-02-25 08:28 | Outpatient (RCR) | payer MEDICARE, OTHER, MEDICAID, SELFPAY | END 2022-03-24 23:59 | LOC: NS 08:28 | PROVIDERS: PCP Nurse Practitioner Family; Referring Provider Internal Medicine Gastroenterology; Visit Provider Internal Medicine Gastroenterology | DX: Z71.3 Dietary counseling and surveillance (principal); E66.9 Obesity, unspecified; Z68.35 Body mass index [BMI] 35.0-35.9, adult; E11.9 Type 2 diabetes mellitus without complications; Z94.0 Kidney transplant status | CPT/HCPCS: 97803 ==

== ENCOUNTER 2022-04-24 08:40 | Day surgery (SDC) | payer MEDICARE, MEDICAID, OTHER, SELFPAY ==
[2022-04-24] VITALS (7 sets, daily range): BP systolic 90–122; BP diastolic 48–71; PULSE 64–73; RESP 16–18; TEMP 36.1–36.3; O2SAT 94–100; BMI 35.9
--- NOTE | 2022-04-24 | GASB_PTH ---
PATIENT: AIDANAugust LOC: EN U#:[id number] AGE/SX: 51/F ROOM: RE04/24/[address]: Dr. Juan Jane DO : 1970 BED: DIS: 04/24/2022 SPEC #: [id number] RECD: 04/24/22 13:31 STATUS: BINTA MERARY #: [id number] NIR: 04/24/22 00:[address]: Juan Jane DEPT: SURGICAL PATHOLOGY RECD BY: Cyrus Pritchard ENTERED: 04/25/22 08:54 SP TYPE: Gastric Bx OTHR DR: Sharon Willis, FILLER SHAKER-C Tissues: A - Gastric mucous membrane B - Gastric mucous membrane C - Esophageal mucous membrane Procedures: Special Stain Group II Surgery Specimen Level IV Alcian Blue/PAS (control) HEADER OPERATION: EGD ([facility] [place]) with biopsies PRE-OP DIAGNOSIS: Gastric ulcer, GERD, NAFLD TISSUE SUBMITTED: A ? Gastric antrum biopsy for H. pylori and path, B ? Gastric body ulcer biopsy, C ? Distal esophagus biopsy MICROSCOPIC DIAGNOSIS A. Gastric antrum, biopsy: Chronic gastritis. See comment. B. Gastric body ulcer, biopsy: Chronic gastritis. C. Distal esophagus, biopsy: Gastroesophageal junctional mucosa with chronic inflammation. No evidence of goblet cell metaplasia. See comment. AM:[place] 04/28/2022 COMMENT A. The results of immunohistochemistry for Helicobacter pylori will be reported separately ([id number]). C. Alcian blue/PAS stain with matched control supports the above diagnosis. MICROSCOPIC DESCRIPTION Slides are reviewed. GROSS DESCRIPTION A - Received in fixative is one container labeled with the patient's name and designated gastric antrum. The specimen consists of multiple irregular fragments of light epstein soft tissue that in aggregate measure 0.7 x 0.3 x 0.1 cm. The specimen is totally submitted in one cassette. B - Received in fixative is one container labeled with the patient's name and designated gastric body ulcer. The specimen consists of one irregular fragment of light epstein soft tissue that measures 0.7 x 0.2 x 0.1 cm. The specimen is totally submitted in one cassette. C - Received in fixative is one container labeled with the patient's name and designated distal esophagus. The specimen consists of two irregular fragments of light epstein soft tissue that in aggregate measure 0.5 x 0.5 x 0.1 cm. The specimen is totally submitted in one cassette. / AM:[place] 04/25/2022 TC:3 CPT: 74036 x3, 87187
[2022-04-24] MEDS: Lactated Ringers 1,000 ML 15 ML IV (08:55)
--- NOTE | 2022-04-24 09:02 | PCM.HP.BLA ---
History and Physical Date of Admission: 04/24/22 BETO BERMUDEZ, is a 51 F who presents to the office today for f/u gastric ulcer, GERD, NAFLD. Her last office visit with us was 12/10/21; plan was to treat gastric ulcer with sucralfate and increase PPI to BID dosing for 2 mos then resume daily PPI, and to treat NAFLD with vitamin E and ursodiol. She went to the ED for nausea and vomiting on 01/22/22, diagnosis anxiety. She reports her stress level is going to remain high for the foreseeable future. I feel sick to my stomach all the time, doesn't feel like she is going to vomit. Stopped ursodiol due to stomach upset. Also stopped sucralfate since it caused her to have stomach upset even when not stressed. Didn't tolerate liquid sucralfate in the past either. No relief with ondansetron. Some relief with phenergan but doesn't like to take it. Has been on scopolamine patch perioperatively but it caused her mouth to be too dry. Still taking pantoprazole BID. Can have indigestion from water. Not usually getting acid reflux unless she eats certain foods that don't agree with her. NAFLD -- didn't tolerate ursodiol. She is taking vitamin E 800 IU daily. On EGD Dr. Jane found a nonobstructing mild Schatzki ring, medium sized hiatal hernia, nonbleeding gastric ulcer, erythematous duodenopathy.? Biopsies revealed no pathology in duodenum, positive chronic gastritis but negative for H. pylori, positive focal changes of reflux but negative for Calle's. She has persistent thrombocytopenia since 2017, possibly due to antirejection meds.? She is at risk for polycystic liver disease considering her history of polycystic kidney disease.? She is at high risk for steatohepatitis and subsequent cirrhosis.? CT revealed 1 small liver cyst.? Liver elastography revealed moderate liver fibrosis. August established with this clinic 10.15.21 with referral from PCP for further management of GERD. History of gastric bypass (sleeve) with [facility] with loss of 70lbs overall with an end regain of 15-20lbs. Has been utilizing Protonix 40mg QD since bypass surgery and feels this is overall helpful; breakthrough reflux r/t diet. Has to sit upright an hour after taking her medications at night to prevent regurgitation of medications. PMH polycystic kidney disease (each kidney weighed 17lbs) s/p bilateral kidney transplant ..18 (azathioprine utilized for antirejection), DMII, PVC, neuropathy, anxiety, depression. 11/06/21 CT/Abdomen/Pelvis without Cont IMPRESSION: The patient is status post bilateral nephrectomy.? Transplanted kidney is seen in the right hemipelvis. Status post cholecystectomy. Small right hepatic cyst. 11/06/21 US/Elastography Parenchyma/Organ IMPRESSION: Liver stiffness measures 10.5 kPa compatible with F2-F3 (Mild to moderate liver fibrosis) Metavir score. 11/06/2021 US/Abdomen Limited IMPRESSION: Fatty infiltration of the liver. Transplanted kidney in the right pelvis. ROS Const Constitutional: Positive for fatigue ENT ENT: No difficulty swallowing Gastro GI: Positive for heartburn and nausea/dyspepsia; No abdominal pain, belching, bloating, change in bowel habits, change in stool character, coffee ground emesis, constipation, cramping, diarrhea, difficulty swallowing, feeling full early, excessive flatus, incontinent of stools, Vomiting blood/hematemesis, Blood in stool, loose stools, Black,tarry stools, pain with swallowing, vomiting or other Musc Musculoskeletal: Positive for joint pain, back pain, muscle cramps, muscle weakness, Arthritis and leg pain at night Skin Skin: No yellowing of the eye or itchy eyes Psych Psychiatric: Positive for anxiety and Positive for depression Endo Endocrine: Positive for fatigue Aller/Imm Allergy/Immunologic: No itchy eyes Jason/Lymp Hematologic/Lymphatic: No easy bleeding or easy bruising Exam Const General: cooperative and in distress (tearful when discussion her stressors) mild Nutritional Appearance: obese Orientation: alert, awake and oriented x3 Quality Reporting Tobacco Screening ([facility]) Smoking Status: Never smoker Assessment and Plan Assessment and Plan (1) Gastric ulcer: ?Status:?Acute ?Plan: Will schedule f/u EGD to reevaluate She doesn't tolerate sucralfate pills or liquid She will continue PPI (2) GERD (gastroesophageal reflux disease): ?Status:?Chronic ?Plan: as above (3) NAFLD (nonalcoholic fatty liver disease): ?Status:?Acute ?Plan: she didn't tolerate ursodiol she will continue vitamin E ? ? ? Orders: Orders CBC W/Diff, Automated Today K25.9 - Gastric ulcer, unspecified as acute or chronic, without hemorrhage or perforation ? Medications: Discontinued ursodiol ?? Discontinued Reason:? Pt no longer taking 250 mg? PO BID 180 tabs 3RF NAFLD ? ? I have examined the patient and the H&P has been reviewed. There are no clinical changes since date of exam.
[2022-04-24 09:50] LABS: Bedside Glucose 107 mg/dL (74-106)
--- NOTE | 2022-04-24 10:09 | OP.EGD_ITS ---
Patient Name: Kathia Barry Procedure Date: 04/24/2022 9:39 AM Date of : 1970 Age: 51 Procedure: Upper GI endoscopy Indications: Epigastric abdominal pain, Esophageal reflux, Peptic ulcer Providers: Juan Jane DO Referring MD: Erna Flower Medicines: Monitored Anesthesia Care Patient Profile: This is a 51 year old female. Refer to note in patient chart for documentation of history and physical. Patient has symptoms of acute epigastric abdominal pain, chronic heartburn and chronic nausea. Complications: No immediate complications. Procedure: Pre-Anesthesia Assessment: - Prior to the procedure, a History and Physical was performed, and patient medications and allergies were reviewed. The patient is competent. The risks and benefits of the procedure and the sedation options and risks were discussed with the patient. All questions were answered and informed consent was obtained. Patient identification and proposed procedure were verified by the physician in the pre-procedure area. Mental Status Examination: alert and oriented. Airway Examination: normal oropharyngeal airway and neck mobility. Respiratory Examination: clear to auscultation. CV Examination: normal. Prophylactic Antibiotics: The patient does not require prophylactic antibiotics. Prior Anticoagulants: The patient has taken no previous anticoagulant or antiplatelet agents. ASA Grade Assessment: II - A patient with mild systemic disease. After reviewing the risks and benefits, the patient was deemed in satisfactory condition to undergo the procedure. The anesthesia plan was to use monitored anesthesia care (MAC). Immediately prior to administration of medications, the patient was re-assessed for adequacy to receive sedatives. The heart rate, respiratory rate, oxygen saturations, blood pressure, adequacy of pulmonary ventilation, and response to care were monitored throughout the procedure. The physical status of the patient was re-assessed after the procedure. After obtaining informed consent, the endoscope was passed under direct vision. Throughout the procedure, the patient's blood pressure, pulse, and oxygen saturations were monitored continuously. The pediatric colonoscope was introduced through the mouth, and advanced to the second part of duodenum. The upper GI endoscopy was accomplished without difficulty. The patient tolerated the procedure well. Scope In: 9:54:40 AM Scope Out: 10:00:38 AM Total Procedure Duration Time 0 hours 5 minutes 58 seconds Findings: The Z-line was irregular and was found 37 cm from the incisors. A hiatal hernia was present. Localized moderate inflammation characterized by erythema and friability was found in the gastric body. Biopsies were taken with a cold forceps for histology. Verification of patient identification for the specimen was done. Estimated blood loss was minimal. No gross lesions were noted in the duodenal bulb and in the first portion of the duodenum. Biopsies were taken with a cold forceps for histology. Verification of patient identification for the specimen was done. Estimated blood loss was minimal. One non-bleeding cratered gastric ulcer with no stigmata of bleeding was found in the gastric body. The lesion was 5 mm in largest dimension. Biopsies were taken with a cold forceps for histology. Verification of patient identification for the specimen was done. This was biopsied with a cold forceps for histology. Impression: - Z-line irregular, 37 cm from the incisors. - Hiatal hernia. - Gastritis. Biopsied. - No gross lesions in the duodenal bulb and in the first portion of the duodenum. Biopsied. Recommendation: - Discharge patient to home. - Resume previous diet. - Continue present medications. - Await pathology results. Procedure Code(s): --- Professional --- 87647, Esophagogastroduodenoscopy, flexible, transoral; with biopsy, single or multiple CPT copyright 2017 [employer]. All rights reserved. The codes documented in this report are preliminary and upon computer language coder review may be revised to meet current compliance requirements. Juan Jane DO 04/24/2022 10:09:12 AM This report has been signed electronically. Number of Addenda: 0 Note Initiated On: 04/24/2022 9:39 AM
--- NOTE | 2022-04-24 10:09 | OP.CCLET_ITS ---
04/24/2022 Erna Flower Re : Upper GI endoscopy procedure for Kathia Jhonny Velarde Lazaro This procedure was performed on April. My impressions and recommendations are as follows: Impressions : - Z-line irregular, 37 cm from the incisors. - Hiatal hernia. - Gastritis. Biopsied. - No gross lesions in the duodenal bulb and in the first portion of the duodenum. Biopsied. Recommendations : - Discharge patient to home. - Resume previous diet. - Continue present medications. - Await pathology results. My findings are described in the full procedure note, which is enclosed. If I can be of further assistance, please feel free to contact me at . Sincerely, Juan Jane, 04/24/2022 10:09:12 AM This report has been signed electronically.
--- NOTE | 2022-04-24 12:15 | IMM_PTH ---
PATIENT: AIDANAugust LOC: EN U#:[id number] AGE/SX: 51/F ROOM: RE04/24/[address]: Dr. Juan Jane DO : 1970 BED: DIS: 04/24/2022 SPEC #: [id number] RECD: 04/25/22 12:17 STATUS: BINTA REJuan #: [id number] NIR: 04/24/22 12:[address]: Juan Jane DEPT: IMMUNOHISTOCHEMISTRY RECD BY: Tory Zuluaga ENTERED: 04/25/22 12:18 SP TYPE: IMMUNO OTHR DR: Sharon Willis, COAL CUTTER-C Tissues: A - Stomach, NOS Procedures: H Pylori (initial) PHYSICIAN & INSTITUTION [place] [id number] SPECIMEN INFORMATION: Tissue Source: A ? Gastric antrum Clinical Info: Gastric ulcer, GERD, NAFLD Specimen Number: [id number] CPT code: 92336 METHODOLOGY: Deparaffinized sections of prefer/formalin-fixed tissue or PAP/DQ stained slides are incubated with monoclonal/polyclonal antibodies/oligonucleotide probes. Localization is made via biotin free immunoperoxidase method. Appropriate controls are performed and reacted as expected. Results on target cell population are indicated in the following table: RESULTS: ANTIBODY / CLONE RESULT Block B H Pylori (polyclonal) negative These tests were developed and their performance characteristics determined by [facility]. They may not have been cleared or approved by the U.S. Food and Drug Administration. The FDA has determined that such clearance or approval is not necessary. The above immunohistochemical/dualISH markers are ordered and reviewed by the Pathologist. INTERPRETATION: B. Gastric antrum, biopsy: Negative for Helicobacter pylori organisms. AM:[place] 04/28/2022
== END 2022-04-24 11:06 | disposition home or self-care (01) ==
LOC: EN 08:50 → AC 08:51
PROVIDERS: PCP Nurse Practitioner Family; Referring Provider Nurse Practitioner Family; Visit Provider Internal Medicine Gastroenterology
PROC: 0DJ08ZZ Inspection of Upper Intestinal Tract, Via Natural or Artificial Opening Endoscopic (ICD-10-PCS; CPT 43235; principal; 2022-04-24 12:10)
DX: K29.70 Gastritis, unspecified, without bleeding (principal); K44.9 Diaphragmatic hernia without obstruction or gangrene; K21.9 Gastro-esophageal reflux disease without esophagitis; K25.9 Gastric ulcer, unspecified as acute or chronic, without hemorrhage or perforation
CPT/HCPCS: 43239; 82962; 88305; 88313; 88342; J7120; J2405

== ENCOUNTER → 2022-11-03 | Outpatient (CLI) | payer MEDICARE, OTHER, MEDICAID, SELFPAY ==
--- NOTE | 2022-11-03 09:18 | US_ITS ---
STUDY: ABDOMINAL ULTRASOUND - RIGHT UPPER QUADRANT REASON FOR VISIT: Female, 51 years old NAFLD, repeat elastography -- ltd TECHNIQUE: Ultrasound evaluation of the right upper quadrant was performed with real-time and static christensen-scale imaging. TECHNICAL QUALITY: Adequate. COMPARISON: None. FINDINGS: Liver: The liver measures 14 cm. There is increased echogenicity consistent with fatty infiltration. The bile ducts are within normal limits. There is hepatic color flow. The direction of portal flow is hepatopetal. There is no demonstrated mass lesion. Gallbladder: The patient is status post cholecystectomy. Common Bile Duct (C.B.D.): The common bile duct measures 4 mm. Pancreas: Normal size of the head, body and tail of the pancreas. There is normal echogenicity of the pancreas. There is no demonstrated pancreatic mass or cyst. Right Kidney: Normal size of the right kidney. The right kidney measures 12 cm x 5.4 cm x 5.2 cm. Normal renal cortex. The right cortex measures 1.8 cm. There is no demonstrated renal mass or cyst. There is no right hydronephrosis. Transplanted kidney is seen within the pelvis. US/Abdomen Limited IMPRESSION: Fatty infiltration of the liver. The patient is status post cholecystectomy. Electronically Signed: Amarjit Dimas MD at 15:30 EDT ,
--- NOTE | 2022-11-03 09:18 | US_ITS ---
STUDY: ABDOMINAL ULTRASOUND - ELASTOGRAPHY REASON FOR VISIT: Female, 51 years old. NAFLD TECHNIQUE: Liver stiffness measurements were obtained on a [employer] RS 85 ultrasound machine using a CA 1-7 probe following the SRU guidelines. 3 measurements were obtained using a 2-D-SWE method. TheIQR/M was 21% suggesting a quality data set. TECHNICAL QUALITY: Adequate. COMPARISON: Comparison is made with prior study dated 07/09/2021. FINDINGS: Liver: There is no demonstrated mass lesion. Median liver stiffness measured 8.3 kPa. Abdomen: There is no demonstrated mass lesion. US/Elastography Parenchyma/Organ IMPRESSION: Liver stiffness measures 8.3 kPa compatible with F2-F3 (Mild to moderate liver fibrosis) Metavir score. Electronically Signed: Amarjit Dimas MD at 15:31 EDT ,
== END | disposition home or self-care (01) ==
LOC: US 09:08
PROVIDERS: PCP Nurse Practitioner Family; Referring Provider Nurse Practitioner Adult Health; Visit Provider Nurse Practitioner Adult Health
DX: K76.0 Fatty (change of) liver, not elsewhere classified (principal)
CPT/HCPCS: 76705; 76981

== ENCOUNTER → 2022-12-03 | Outpatient (CLI) | payer MEDICARE, OTHER, MEDICAID, SELFPAY ==
[2022-12-03 08:29] LABS: Erythrocyte Sedimentation Rate 7 mm/hr (0-30)
[2022-12-03 08:34] LABS: Absolute Lymphocyte Count 0.71 X10^3/uL (0.83-4.51); Basophil# 0.02 X10^3/uL; Basophil% 0.6 % (0-1); Hematocrit 37.8 % (37-47); Lymphocyte # 0.71 X10^3/ul (0.83-4.51); Lymphocyte % 21.1 % (19-41); Mean Corp Hgb Conc 31.7 g/dL (32-36); Mean Corpuscular Hgb 30.1 pg (27.0-32.0); Mean Corpuscular Volume 94.7 fL (81-99); Monocyte# 0.55 X10^3/uL; Monocyte% 16.4 % (0-10); NRBC Flagged by Analyzer 0 % (0-5); Neutrophil # 1.98 X10^3/uL (2.7-7.7); Neutrophil % 58.9 % (47-70); Platelet Count 121 K/mm3 (150-450); RBC Distribution Width CV 13.5 % (11.6-14.6); RBC Distribution Width SD 47.4 fl (35.1-43.9); Red Blood Count 3.99 M/mm3 (4.2-5.4); White Blood Count 3.4 K/mm3 (4.4-11.0)
[2022-12-03 08:55] LABS: International Normalized Ratio 1.1; Prothrombin Time (Protime)PT. 13.8 SECONDS (11.7-14.9)
[2022-12-03 09:13] LABS: ALB/GLOB Ratio 0.9 RATIO (0.9-2.4); AST(SGOT) 17 U/L (15-37); Alanine Aminotransfer ALT/SGPT 20 U/L (13-56); Albumin, Serum 3.3 g/dL (3.2-5.0); Alkaline Phosphatase 50 U/L (45-117); Anion Gap 1 (5-15); BUN 26 mg/dL (7-18); BUN/Creat Ratio 19.8 RATIO (10-20); CRP 6.93 mg/L (0.0-3.0); Calcium,Total 10.1 mg/dL (8.5-10.1); Chloride 109 mmol/L (98-107); Creatinine, Serum 1.31 mg/dL (0.55-1.02); EST Glomerular Filtration Rate 45 mL/min (>60); Est Glom Filt Rate - Afr Amer 55 mL/min (>60); Globulin 3.5 g/dL (2.2-4.2); Glucose 95 mg/dL (74-106); Potassium 4.2 mmol/L (3.5-5.1); Protein, Total 6.8 g/dL (6.4-8.2); Sodium Level 142 mmol/L (136-145)
== END | disposition home or self-care (01) ==
PROVIDERS: PCP Nurse Practitioner Family; Referring Provider Internal Medicine Gastroenterology; Visit Provider Internal Medicine Gastroenterology
DX: K25.9 Gastric ulcer, unspecified as acute or chronic, without hemorrhage or perforation (principal); K76.0 Fatty (change of) liver, not elsewhere classified
CPT/HCPCS: 36415; 80053; 85025; 85610; 85652; 86140

== ENCOUNTER → 2023-10-30 | Outpatient (CLI) | payer MEDICARE, OTHER, MEDICAID, SELFPAY ==
--- NOTE | 2023-10-30 09:02 | US_ITS ---
STUDY: ABDOMINAL ULTRASOUND - RIGHT UPPER QUADRANT; ELASTOGRAPHY REASON FOR VISIT: Female, 52 years old. NAFLD. TECHNIQUE: Ultrasound evaluation of the right upper quadrant was performed with real-time and static christensen-scale imaging. Point quantification shear wave elastography was performed ([employer]). TECHNICAL QUALITY: Adequate. COMPARISON: Comparison is made with prior study dated November 03, 2022. FINDINGS: Liver: The liver measures 13.2 cm. There is increased echogenicity consistent with fatty infiltration. The bile ducts are within normal limits. There is hepatic color flow. The direction of portal flow is hepatopetal. There is no demonstrated mass lesion. Median liver stiffness measured 8.2 kPa. Gallbladder: The patient is status post cholecystectomy. Common Bile Duct (C.B.D.): The common bile duct measures 6.6 mm. Pancreas: There is normal echogenicity of the visualized pancreas. There is no demonstrated pancreatic mass or cyst. Right Kidney: Normal size of the transplanted pelvic right kidney. The right kidney measures 12.3 cm x 6.4 cm x 4.2 cm. Normal renal cortex. The right cortex measures 1.3 cm. There is no demonstrated renal mass or cyst. There is no right hydronephrosis. US/ABD Limited w/ Elastography IMPRESSION: 1. Liver stiffness measures 8.2 kPa compatible with F2-F3 (Mild to moderate liver fibrosis) Metavir score. Electronically Signed: Amarjit Dimas MD at 11:22 EDT ,
== END | disposition home or self-care (01) ==
LOC: US 08:58
PROVIDERS: PCP Nurse Practitioner Family; Referring Provider Internal Medicine; Visit Provider Internal Medicine
DX: K76.0 Fatty (change of) liver, not elsewhere classified (principal); E66.9 Obesity, unspecified
CPT/HCPCS: 76705; 76981

== ENCOUNTER 2024-01-11 16:08 | Emergency (ER) | payer MEDICARE, OTHER, MEDICAID, SELFPAY ==
[2024-01-11 16:09] VITALS: BP 144/78; PULSE 63; RESP 16; TEMP 37; O2SAT 100; BMI 35.7
--- NOTE | 2024-01-11 16:22 | RAD_ITS ---
INDICATION: Trauma, foot injury EXAMINATION/TECHNIQUE: X-RAY - LEFT XR Foot Min 3 Views 3 VIEWS COMPARISON: None. FINDINGS: SOFT TISSUES: No soft tissue swelling or gas. Distal portion of ankle arthrodesis hardware without abnormal lucency. BONES/JOINTS: No acute fracture. Mid and forefoot joint spaces anatomically maintained. No sclerotic or destructive changes observed. RAD/Foot min 3 Views IMPRESSION: No acute bony injury. Electronically Signed: Miles Mtz MD at 17:54 EDT ,
[2024-01-11 17:20] LABS: Absolute Lymphocyte Count 0.78 X10^3/uL (0.83-4.51); Absolute Neutrophil Count 3.9 X10^3/uL (2.0-7.7); Basophil# 0.02 X10^3/uL; Basophil% 0.4 % (0-1); Eosinophil# 0.02 X10^3/uL; Eosinophils% 0.4 % (0-5); Hematocrit 40.7 % (37-47); Lymphocyte # 0.78 X10^3/ul (0.83-4.51); Lymphocyte % 15.2 % (19-41); Mean Corp Hgb Conc 31.9 g/dL (32-36); Mean Platelet Vol. 11.5 fl (6.2-12.0); Monocyte# 0.44 X10^3/uL; Monocyte% 8.6 % (0-10); NRBC Flagged by Analyzer 0 % (0-5); Neutrophil # 3.86 X10^3/uL (2.7-7.7); Neutrophil % 75.2 % (47-70); Platelet Count 127 K/mm3 (150-450); RBC Distribution Width CV 12.8 % (11.6-14.6); Red Blood Count 4.33 M/mm3 (4.2-5.4); White Blood Count 5.1 K/mm3 (4.4-11.0)
--- NOTE | 2024-01-11 17:20 | EKG12_ITS ---
Test Reason : ABD PAIN Blood Pressure : / mmHG Vent. Rate : 062 BPM Atrial Rate : 062 BPM P-R Int : 188 ms QRS Dur : 088 ms QT Int : 380 ms P-R-T Axes : 029 -02 028 degrees QTc Int : 385 ms Normal sinus rhythm Cannot rule out Anterior infarct , age undetermined Abnormal ECG Confirmed by FANTA FLORES, TONYA ([id number]), business editor MIRNA EPPERSON ([id number]) on 01/15/2024 6:30:29 AM Referred By: Confirmed By:IKE JEWELL MD
--- NOTE | 2024-01-11 17:21 | EX.ED.DYSGE1 ---
HPI History of Present Illness Chief Complaint: Nausea/Vomiting Detail of Chief Complaint: Nausea and vomiting Informant: patient Narrative Narrative: Patient presents to the emergency department with complaint of nausea and vomiting that she has had for couple weeks. Patient states that she had her Mounjaro dose increased to 10 mg recently and that is when she noticed some increased nausea. Every time she tries to eat she feels nauseated and vomits. She is thrown up 4 times today. She denies any diarrhea. She denies abdominal pain. She does have history of kidney transplant 2018. She denies dysuria urgency or frequency. She denies fever but she has had some chills. She is also currently in pain management. Patient also states that she hurt her left foot a week ago when she thinks she sat on it while trying to sit on a stool. [facility] Medical History Osteoarthritis of right knee Right knee pain Gastritis, bile acid reflux History of ulceration History of Clostridium difficile infection History of steroid therapy Thyroid disease History of renal disease High cholesterol Injury of head and neck History of hiatal hernia Gastric reflux Non-smoker CPAP (continuous positive airway pressure) dependence Sleep apnea History of pain when walking History of edema History of Holter monitoring History of stress test History of echocardiogram Cardiology follow-up encounter Hypertension History of irregular heartbeat Hypercholesteremia Hypercalcemia Depression Anxiety Ventricular premature depolarization Reflux esophagitis History of diabetes mellitus MCL sprain of left knee Generalized anxiety disorder Major depressive disorder, recurrent, moderate Dyspnea Diabetes Hypothyroidism Fatty liver Obstructive sleep apnea GERD (gastroesophageal reflux disease) Essential (primary) hypertension Hyperlipidemia Cystocele Rectocele Rhinitis Sciatica Paresthesia of both feet Osteoporosis Polycystic kidney disease Impingement syndrome, shoulder, left Back pain Segmental and somatic dysfunction of cervical region Segmental and somatic dysfunction of pelvic region Lumbar radiculopathy, right Segmental and somatic dysfunction of lumbar region Segmental and somatic dysfunction of thoracic region History of Clostridium difficile colitis Hyperthyroidism History of goiter Arthritis Environmental allergies Problem with dialysis access (2017) Home Medications ?Medication ?Instructions ?Recorded ?Last Taken ?Type levothyroxine 50 mcg tablet 50 mcg PO MOTUWETHFRSA 07/12/13 04/24/22 08:00 History aspirin 81 mg chewable tablet 81 mg PO DAILY 10/25/13 11/21/21 History atorvastatin 10 mg tablet 10 mg PO DAILY 04/25/20 Unknown History azathioprine 75 mg tablet 75 mg PO DAILY 04/25/20 04/24/22 08:00 History ascorbic acid (vitamin C) 500 mg 500 mg PO DAILY 05/21/20 Unknown History tablet biotin 1 mg capsule 1 mg PO DAILY 05/21/20 Unknown History carvedilol 12.5 mg tablet (Coreg) 12.5 mg PO BID 05/21/20 04/24/22 08:00 History cyclobenzaprine 10 mg tablet 10 mg PO TID PRN Muscle Spasm 05/21/20 Unknown History cyanocobalamin (vitamin B-12) 2,500 mcg PO .2xweek 05/30/20 Unknown History 2,500 mcg sublingual tablet duloxetine 60 mg capsule,delayed 60 mg PO DAILY 30 days ##30 09/05/20 Unknown Rx release fexofenadine 180 mg tablet 180 mg PO DAILY 10/10/20 Unknown History ([place] Allergy) cholecalciferol (vitamin D3) 125 125 mcg PO DAILY 08/20/21 Unknown History mcg (5,000 unit) capsule hydrocodone 10 mg-acetaminophen 1 tab PO Q12H PRN PRN Pain 01/22/22 04/24/22 08:00 History 325 mg tablet lorazepam 1 mg tablet (Ativan) 1 mg PO BID PRN anxiety #10 tabs 01/22/22 Unknown Rx ondansetron 4 mg disintegrating 4 mg PO Q8H PRN nausea and 01/22/22 Unknown Rx tablet vomiting #10 tabs buspirone 5 mg tablet 5 mg PO BID 04/23/22 04/24/22 08:00 History pantoprazole 40 mg tablet,delayed 40 mg PO QAM 05/07/22 Unknown History release tacrolimus 1 mg capsule, 2 mg PO Q12H 05/13/23 Unknown History immediate-release ursodiol 250 mg tablet 250 mg PO BID NAFLD 3 months #180 07/20/23 Unknown Rx tabs gabapentin 100 mg capsule 300 mg PO .QID 09/08/23 Unknown History tirzepatide 5 mg/0.5 mL 5 mg (0.5 mL) subcut QWEEK #2 mL 11/03/23 Unknown Rx subcutaneous pen injector (Frankunasim) metoclopramide HCl 5 mg tablet 5 mg PO DAILY PRN nausea and 01/11/24 Unknown Rx (Reglan) vomiting #10 tabs Allergy/AdvReac Type Severity Reaction Status Date / Time ciprofloxacin (From Cipro) Allergy Other Verified 01/11/24 16:09 ciprofloxacin HCl (From Allergy Other Verified 01/11/24 16:09 Cipro) levofloxacin Allergy Unknown Verified 01/11/24 16:09 ofloxacin (From Floxin) Allergy Unknown Verified 01/11/24 16:09 zolpidem tartrate (From Allergy Unknown Verified 01/11/24 16:09 Ambien) Family History Mother Kidney disease Liver failure Father Dementia Other Arthritis Bleeding disorder COPD (chronic obstructive pulmonary disease) Cancer Depression Hypertension Thyroid disorder Surgical History Hx of colonoscopy History of esophagogastroduodenoscopy (EGD) Hx of tubal ligation Hx of right knee surgery History of left ankle joint replacement History of left heart catheterization (04/07/17) History of nephrectomy Hx of LASIK History of arteriovenostomy for renal dialysis (2012) History of arthroscopy of left knee History of arthroscopy of right knee History of tonsillectomy and adenoidectomy History of gastric bypass (2012) History of uvulopalatopharyngoplasty History of cholecystectomy History of breast implant History of kidney transplant (05/2017) Social History Smoking Status: Never smoker alcohol intake: current alcohol intake frequency: holidays/special occasions only substance use type: does not use caffeine: Yes what type of physical activity do you participate in: none ROS ROS ED Review of Systems ROS Unobtainable: other Constitutional Constitutional ED: Reports lethargy; Denies chills, fever(s), sweats or weight loss Eyes Eyes: Denies blurry vision, change in vision or diplopia ENT ENT ED: Denies rhinorrhea or sore throat Cardiovascular Cardiovascular: Denies chest pain, orthopnea or racing heartbeat Respiratory/Chest Respiratory/Chest: Denies cough, dyspnea, dyspnea on exertion, orthopnea or sputum Gastrointestinal Gastrointestinal: Reports nausea and vomiting; Denies abdominal pain or diarrhea Genitourinary Genitourinary ED: Denies dysuria, hematuria or urinary frequency Musculoskeletal Musculoskeletal: Reports other Details: Left foot pain ; Denies arthralgias, back pain, myalgias or neck pain Integumentary Denies abscess, Abrasions or rash Neurologic Neurologic: Denies headache(s) or weakness Psychiatric Psychiatric: Denies anxiety, depression or suicidal thoughts Endocrine Endocrinology: Denies polydipsia, polyphagia or polyuria Hematologic/Lymphatic Hematologic/Lymphatic: Denies easy bleeding, easy bruising or lymphadenopathy Allergic/Immunologic Allergic/Immunologic ED: Denies mouth swelling, tongue swelling or urticaria EXAM Physical Exam Const Vital Signs: 01/11/24 16:09 01/11/24 18:09 01/11/24 19:53 Temperature 98.6 F 98.4 F Temperature Source Oral Pulse Rate 63 81 89 Respiratory Rate 16 18 16 Blood Pressure 144/78 H 133/74 H 137/53 H Blood Pressure Mean 100 93 81 Pulse Ox 100 98 99 Oxygen Delivery Method Room Air Room Air Positive well nourished and well developed General Appearance ED: well developed and NAD HEENT Reports TM's clear and moist mucous membranes normocephalic and atraumatic; Negative for trauma or tenderness Tympanic Membrane ED: Yes TM's clear Eyes PERRL and EOMs intact bilaterally General Eye ED: Negative for pale conjunctiva or scleral icterus Neck no lymphadenopathy, supple and no JVD General: Negative for tenderness Chest Wall inspection of chest normal and palpation of chest normal Chest: Negative for tenderness Resp normal respiratory effort and clear to auscultation bilaterally Effort and Inspection: Negative for respiratory distress or pain with movement Auscultation: Negative for rhonchi, wheezes or diminished lung sounds Cardio regular rate, regular rhythm, S1 normal heart sound, S2 normal heart sound and no murmurs Peripheral Pulses: pulses 2+ throughout GI normal to inspection, nondistended, normoactive bowel sounds, soft to palpation, non-tender, non-distended and no masses Back/Spine no CVA tenderness and no thoracic nor lumbar tenderness Extremity Extremity Narrative: Left foot-patient has ecchymosis and bruising to the distal portion of the foot over the second third and fourth MTP joints and the second third and fourth toes. No obvious deformity. Neurovascular intact General Extremety ED: Negative for edema General Extremity: Negative for edema Neuro oriented x3, CN's II-XII intact bilaterally, no sensory deficits noted and gait normal Sensorium / Orientation: awake, alert, oriented to person, oriented to place and oriented to time Motor Exam: strength 5/5 throughout and strength abnormal Psych mental status grossly normal Skin no rashes or lesions noted and no wounds MDM MDM MDM Narrative Medical decision making narrative: Patient presents with nausea and vomiting which she thinks may be attributed to increase in her medication Mounjaro. Also she had some right lower abdomen pain last evening and that is where her kidney is from her transplant. In the differential could be UTI versus other acute intra-abdominal process versus medication side effect. Cardiac etiology less likely. On arrival EKG obtained showed sinus rhythm with ventricular rate of 62 bpm with no acute ST segment changes. CBC with differential showed white count of 5.1 with hemoglobin 13 and platelet count of 127. Chemistries unremarkable. BUN was 19 and creatinine 1.05. LFTs unremarkable. hCG was negative. Urinalysis was normal. CT scan of the abdomen pelvis was unremarkable. While in department she did receive Zofran initially and was given a liter mostly fluid bolus. Patient did try did take a p.o. challenge and vomited. I will write her for Reglan 5 mg IV. At this point clinically she looks well. I feel she can be discharged to home. Suspect her nausea may be more related to the Mounjaro. She will discuss this with her prescribing physician. 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 She is to return if severe abdominal pain, persistent vomiting, hematemesis or black stool or condition should worsen anyway. Lab Data Attestation: I reviewed the patient's lab results. Labs: Laboratory Results - last 24 hr 01/11/24 01/11/24 17:09 18:10 WBC 5.1 RBC 4.33 Hgb 13.0 Hct 40.7 MCV 94.0 MCH 30.0 MCHC 31.9 L RDW Std Deviation 44.0 H RDW Coeff of Aditya 12.8 Plt Count 127 L MPV 11.5 Immature Gran % (Auto) 0.200 Neut % (Auto) 75.2 H Lymph % (Auto) 15.2 L [place] % (Auto) 8.6 Eos % (Auto) 0.4 Baso % (Auto) 0.4 Absolute Neuts (auto) 3.9 Absolute Lymphs (auto) 0.78 L Nucleated RBC % 0 Sodium 143 Potassium 3.9 Chloride 110 H Carbon Dioxide 28.0 Anion Gap 5 BUN 19 H Creatinine 1.05 H Estim Creat Clear Calc 78.28 Est GFR (MDRD) Af Amer 70 Est GFR (MDRD) Non-Af 58 L BUN/Creatinine Ratio 18.1 Glucose 96 Calcium 10.7 H Total Bilirubin 0.80 AST 12 L ALT 15 Alkaline Phosphatase 52 Troponin I High Sens 7 Total Protein 7.5 Albumin 4.1 Globulin 3.4 Albumin/Globulin Ratio 1.2 Lipase 51 Serum , Qual NEGATIVE Urine Color Yellow Urine Clarity Clear Urine pH 7.0 Ur Specific [place] 1.010 Urine Protein Negative Urine Glucose (UA) Normal Urine Ketones Negative Urine Occult Blood Negative Urine Nitrite Negative Urine Bilirubin Negative Urine Urobilinogen Normal Ur Leukocyte Esterase 25 H Urine RBC 0 SEEN Urine WBC 5-10 SEEN Ur Squamous Epith Cells 0 SEEN Urine Bacteria RARE Urine Mucus 0 SEEN Radiography Diagnostic Testing: Clinical Impression(s) from Imaging Studies Foot X-Ray 01/11/24 16:22 IMPRESSION: No acute bony injury. Electronically Signed: Miles Mtz MD at 17:54 EDT Reading Location ID and State: [facility] / [place] Tel , Service support , Abdomen/Pelvis CT 01/11/24 17:36 IMPRESSION: No acute findings in the abdomen or pelvis. Electronically Signed: Miles Mtz MD at 19:11 EDT , Discharge Plan Triage Chief Complaint: Nausea/Vomiting ED Provider: Pollo Morris Dx/Rx/DC Orders Clinical Impression: Nausea & vomiting Instructions: ED Vomiting (Adult) Prescriptions: New metoclopramide HCl [Reglan] 5 mg tablet 5 mg PO DAILY PRN (Reason: nausea and vomiting) Qty: 10 0RF No Action atorvastatin 10 mg tablet 10 mg PO DAILY Patient Comments: TAKE 1 TABLET BY MOUTH EVERY DAY azathioprine 75 mg tablet 75 mg PO DAILY cyanocobalamin (vitamin B-12) 2,500 mcg tablet, sublingual 2,500 mcg PO .2xweek Patient Comments: TAKE 1 TABLET BY MOUTH TWICE A WEEK gabapentin 100 mg capsule 300 mg PO .QID Patient Comments: TAKE 2 CAPSULES BY MOUTH TWICE A DAY carvedilol [Coreg] 12.5 mg tablet 12.5 mg PO BID Rx Instructions: must administer with a meal/food biotin 1 mg capsule 1 mg PO DAILY cyclobenzaprine 10 mg tablet 10 mg PO TID PRN (Reason: Muscle Spasm) Patient Comments: 1/2 TO 1 TABLET BY MOUTH THREE TIMES DAILY NEEDED FOR SPASMS. ascorbic acid (vitamin C) 500 mg tablet 500 mg PO DAILY fexofenadine [Laurie Allergy] 180 mg tablet 180 mg PO DAILY cholecalciferol (vitamin D3) 125 mcg (5,000 unit) capsule 125 mcg PO DAILY pantoprazole 40 mg tablet,delayed release (DR/EC) 40 mg PO QAM Rx Instructions: take twice a day for 2 months then resume once a day every morning tacrolimus 1 mg capsule 2 mg PO Q12H Mounjaro 5 mg/0.5 mL pen injector 5 mg subcut QWEEK Qty: 2 0RF levothyroxine 50 MCG tablet 50 mcg PO MOTUWETHFRSA aspirin 81 MG tablet,chewable 81 mg PO DAILY Patient Comments: LAST DOSE 11/21/21 FOR PROCEDURE duloxetine 60 MG capsule 60 mg PO DAILY 30 Days Qty: 30 1RF hydrocodone-acetaminophen [[place]] 10-325 mg Tablet 1 tab PO Q12H PRN PRN (Reason: Pain) ondansetron 4 mg tablet,disintegrating 4 mg PO Q8H PRN (Reason: nausea and vomiting) Qty: 10 0RF lorazepam [Ativan] 1 mg tablet 1 mg PO BID PRN (Reason: anxiety) Qty: 10 0RF buspirone 5 mg Tablet 5 mg PO BID ursodiol 250 mg tablet 250 mg PO BID 90 Days Qty: 180 3RF Primary Care Provider: Sharon Willis Referrals: Friend,DO Juan [Med Staff - Active Staff] - 5-7 Days Sharon Willis NP-C [Primary Care Provider] - Print Language: [place] Disposition Disposition: Home, Self Care Discharge Date/Time: 01/11/24 20:18
[2024-01-11 17:29] LABS: Internal QC Validated? YES +Cl - CLEAR BKGD; Pregnancy, Serum, hCG Quali. NEGATIVE Negative
[2024-01-11] MEDS: 0.9% Normal Saline (1000mL) 1,000 ML 1000 ML IV (17:31)
[2024-01-11] MEDS: Ondansetron 4 MG/2 ML Vial IV (17:32)
[2024-01-11 17:35] LABS: ALB/GLOB Ratio 1.2 RATIO (0.9-2.4); AST(SGOT) 12 U/L (15-37); Alanine Aminotransfer ALT/SGPT 15 U/L (13-56); Albumin, Serum 4.1 g/dL (3.2-5.0); Alkaline Phosphatase 52 U/L (45-117); Anion Gap 5 (5-15); BUN 19 mg/dL (7-18); BUN/Creat Ratio 18.1 RATIO (10-20); Calcium,Total 10.7 mg/dL (8.5-10.1); Chloride 110 mmol/L (98-107); Creatinine, Serum 1.05 mg/dL (0.55-1.02); EST Glomerular Filtration Rate 58 mL/min (>60); Est Glom Filt Rate - Afr Amer 70 mL/min (>60); Estimated Creatinine Clearance 78.28 ml/min; Globulin 3.4 g/dL (2.2-4.2); Glucose 96 mg/dL (74-106); Potassium 3.9 mmol/L (3.5-5.1); Protein, Total 7.5 g/dL (6.4-8.2); Sodium Level 143 mmol/L (136-145)
--- NOTE | 2024-01-11 17:36 | CT_ITS ---
INDICATION: vomiting and abdominal pain EXAMINATION: CT ABDOMEN AND PELVIS WITHOUT CONTRAST - CT Abdomen And Pelvis W/O Contrast Injection TECHNIQUE: Helically acquired images were obtained of the abdomen and pelvis without oral or IV contrast. A radiation dose optimization technique was used for this scan. IV Contrast dosage and agent: None. Oral contrast: None. COMPARISON: None. FINDINGS: LOWER CHEST: Lung bases are clear. Bilateral breast implants partially imaged. LIVER: Small cyst right lobe. No concerning focal mass. GALLBLADDER AND BILIARY TREE: Cholecystectomy. No intra- or extrahepatic biliary ductal dilation. PANCREAS: No focal cystic or solid mass. SPLEEN: Normal size without focal cystic or solid mass. ADRENAL GLANDS: No nodules. KIDNEYS AND URETERS: Bilateral [place] kidneys absent. Transplant kidney in the right hemipelvis without hydronephrosis. PERITONEUM: No ascites or free air. BOWEL: Normal appendix. No stomach or bowel distension. No focal inflammatory change. Changes from prior gastric surgery. LYMPH NODES: No enlarged mesenteric or retroperitoneal lymph nodes. VESSELS: Aorta is non-dilated. URINARY BLADDER: Unremarkable. REPRODUCTIVE ORGANS: No pelvic masses. ABDOMINAL WALL: No discrete abdominal or pelvic wall hernia. BONES: No acute or aggressive abnormality. CT/Abdomen/Pelvis without Cont IMPRESSION: No acute findings in the abdomen or pelvis. Electronically Signed: Miles Mtz MD at 19:11 EDT ,
[2024-01-11 17:59] LABS: Lipase 51 U/L (13-75); Troponin-I HS 7 pg/mL (3.0-54.0)
[2024-01-11 18:09] VITALS: BP 133/74; PULSE 81; RESP 18; O2SAT 98
[2024-01-11 18:14] LABS: Mucous, Urine 0 SEEN /hpf (<or=2+); Red Blood Cells-Urine 0 SEEN /hpf (0-5); Squamous Epithelial Cells - UA 0 SEEN /hpf (5-10)
[2024-01-11 18:21] LABS: Color, Urine Yellow (Yellow); Glucose, Dipstick Normal (Normal); Ketone-Dipstick Negative (Negative); Leukocyte Esterase-Dipstick 25 /ul (Negative); Nitrite-Dipstick Negative (Negative); Occult Blood-Urine Negative /ul (Negative); Protein-Dipstick Negative (Negative); Urine Bilirubin Dipstick Negative (Negative); Urine Clarity Clear (Clear); Urine Urobilinogen Normal (Normal)
[2024-01-11 18:34] LABS: Bacteria RARE /hpf (None Seen); White Blood Cells 5-10 SEEN /hpf (0-5)
[2024-01-11 19:53] VITALS: BP 137/53; PULSE 89; RESP 16; TEMP 36.9; O2SAT 99
[2024-01-11] MEDS: Metoclopramide 10 MG/2 ML Vial 5 MG IV (19:53)
== END 2024-01-11 20:18 | disposition home or self-care (01) ==
PROVIDERS: Emergency Provider Emergency Medicine; PCP Nurse Practitioner Family; Visit Provider Emergency Medicine
DX: R11.2 Nausea with vomiting, unspecified (principal); E78.00 Pure hypercholesterolemia, unspecified; I10 Essential (primary) hypertension; Z94.0 Kidney transplant status; Z79.82 Long term (current) use of aspirin; Z79.899 Other long term (current) drug therapy
CPT/HCPCS: 73630; 74176; 80053; 81001; 83690; 84484; 84703; 85025; 93005; 96361; 96374; 96375; 99282; J7030; A4216; J2405

== ENCOUNTER → 2024-04-27 | Outpatient (CLI) | payer MEDICARE, OTHER, MEDICAID, SELFPAY ==
--- NOTE | 2024-04-27 15:20 | RAD_ITS ---
STUDY: X-RAY - LUMBOSACRAL SPINE REASON FOR EXAM: Female, 53 years old. Radiating low back pain TECHNIQUE: 6 view(s) of the lumbosacral spine were obtained. COMPARISON: None FINDINGS: Normal lumbar lordosis. There is a minimal levoscoliosis of the lumbar spine. There is normal alignment of the vertebrae in the lateral view. Normal vertebral bodies and endplates. Mild disc space narrowing throughout the lumbar spine No demonstrated instability on the flexion or extension views Normal bilateral sacral ala, sacroiliac joints, and visualized sacrum. Normal visualized soft tissue structures. RAD/L/S Spine w Bend Min 6 Vw IMPRESSION: Mild age consistent degenerative changes, no acute findings, no instability Electronically Signed: Ethan Koenig MD at 11:54 EST ,
--- NOTE | 2024-04-27 15:20 | RAD_ITS ---
INDICATION: BILATERAL HIP PAIN VS RADICULAR SX EXAMINATION/TECHNIQUE: X-RAY - XR Hips Bilateral with Pelvis when performed; Min 5 Views COMPARISON: Prior study dated: CT from 01/11/2024 FINDINGS: PELVIC BONES: No displaced fracture, destructive or sclerotic lesions. Note that overlapping bowel shadows may however obscure fine detail. Sacroiliac joints are unremarkable. No widening of the pubic symphysis. HIPS: The articular structures are unremarkable. No displaced fracture seen in this frontal view. SOFT TISSUES: No soft tissue swelling or gas. RAD/Hips B/L min 2 views w/ Pelvis IMPRESSION: No evidence of displaced pelvic or hip fracture. Electronically Signed: Ethan Koenig MD at 11:52 EST ,
== END | disposition home or self-care (01) ==
LOC: RAD 14:56
PROVIDERS: PCP Nurse Practitioner Family; Referring Provider Clinical Nurse Specialist Adult Health; Visit Provider Clinical Nurse Specialist Adult Health
DX: M25.551 Pain in right hip (principal); M25.552 Pain in left hip; M51.369 Other intervertebral disc degeneration, lumbar region without mention of lumbar back pain or lower extremity pain
CPT/HCPCS: 72114; 73521

== ENCOUNTER → 2024-04-30 | Outpatient (CLI) | payer MEDICARE, OTHER, MEDICAID, SELFPAY ==
[2024-04-30 10:48] LABS: International Normalized Ratio 1.1
[2024-04-30 11:17] LABS: ALB/GLOB Ratio 1.3 RATIO (0.9-2.4); AST(SGOT) 9 U/L (15-37); Alanine Aminotransfer ALT/SGPT 11 U/L (13-56); Albumin, Serum 3.8 g/dL (3.2-5.0); Alkaline Phosphatase 50 U/L (45-117); Anion Gap 4 (5-15); BUN 22 mg/dL (7-18); BUN/Creat Ratio 20.8 RATIO (10-20); CRP 3.91 mg/L (0.0-3.0); Calcium,Total 10.1 mg/dL (8.5-10.1); Chloride 110 mmol/L (98-107); Cholesterol 117 mg/dL (200); Creatinine, Serum 1.06 mg/dL (0.55-1.02); EST Glomerular Filtration Rate 57 mL/min (>60); Est Glom Filt Rate - Afr Amer 69 mL/min (>60); Globulin 2.9 g/dL (2.2-4.2); Glucose 93 mg/dL (74-106); High Density Lipoprotein 46 mg/dL; Potassium 3.9 mmol/L (3.5-5.1); Protein, Total 6.7 g/dL (6.4-8.2); Sodium Level 142 mmol/L (136-145); Triglycerides 107 mg/dL; Very Low Density Lipoprotein 21 mg/dL (5-40)
[2024-04-30 11:20] LABS: Hemoglobin A1c 5.1 % (3.8-5.6)
[2024-05-01 06:37] LABS: AFP, Tumor Marker 2.3 ng/mL (0.0-9.2)
== END | disposition home or self-care (01) ==
PROVIDERS: PCP Nurse Practitioner Family; Referring Provider Internal Medicine; Visit Provider Internal Medicine
DX: K25.9 Gastric ulcer, unspecified as acute or chronic, without hemorrhage or perforation (principal); K76.0 Fatty (change of) liver, not elsewhere classified; E66.9 Obesity, unspecified; Z94.0 Kidney transplant status
CPT/HCPCS: 36415; 80053; 80061; 82105; 83036; 85610; 86140

== ENCOUNTER 2024-06-15 13:07 | Day surgery (SDC) | payer MEDICARE, OTHER, MEDICAID, SELFPAY ==
--- NOTE | 2024-06-10 21:45 | PAT.ANESEVAL ---
Pre-Assessment Diagnosis/Proposed Procedure Planned Operative Procedure(s): EGD Anesthesia History Anesthesia History - district adviser: Anesthesia History - district adviser Hx Hospitalization No 06/10/24 14:33 Any Problems With Anesthesia Yes: PONV 06/10/24 14:33 Cholinesterase deficiency No 06/10/24 14:33 You/Your Family Experience No 06/10/24 14:33 fever (hyperthermia) with Relationship Recent Exposure to Contagious No 11/11/23 12:50 Disease Does patient have nerve No 06/10/24 14:33 stimulator Patient instructed to have device shut off --Does patient have Pacemaker or ICD? When Was Last Pacemaker Check QUESTION #4 FULL TEXT: You/Your Family Experience fever (hyperthermia) with Anesthesia Last Oral Intake Last Oral intake: Last Oral Intake NPO since Meds taken in AM with sips of water? Meds patient instructed to take am of surgery PONV PONV - district adviser: PONV - district adviser Female Yes 06/10/24 14:33 HX of Motion Sickness Yes 06/10/24 14:33 HX of N/V After Surgery Yes 06/10/24 14:33 Non-Smoker Yes 06/10/24 14:33 Duration of Surgery greater No 06/10/24 14:33 than 60 minutes Number of Risk Factors 4 06/10/24 14:33 PONV Score Severe Risk 06/10/24 14:33 Height & Weight Height & Weight: Anesthesia: Height & Weight Height 5 ft 8 in 05/03/24 08:01 Respiratory Assessment Respiratory Assessment - district adviser: Respiratory Tract Infection Hx - district adviser Hx Respiratory Tract Infection No 06/10/24 14:33 STOP Sleep Apnea STOP Sleep Apnea - district adviser: STOP Sleep Apnea - district adviser Hx Hypertension Yes: CONTROLLED ON MEDS 06/10/24 14:33 Hx Sleep Apnea Yes 06/10/24 14:33 CPAP Yes 06/10/24 14:33 BIPAP No 06/10/24 14:33 Do you snore loudly (louder than talking or can be heard Do you often feel tired/ fatigued/ sleepy during daytime? Has anyone observed you stop breathing during sleep? STOP Results Positive 06/10/24 14:33 QUESTION #5 FULL TEXT : Do you snore loudly (louder than talking or can be heard through closed doors)? 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 Specify any problems Hx of Preganancy in last 3 No 06/10/24 14:33 Months Nurse Filling Out Transfusion MGCARROL 06/10/24 14:33 & Questions: Date: 06/10/24 06/10/24 14:33 Time: 14:35 06/10/24 14:33 Patient unable to answer at this time (ie. confused, unrespo /Reproduction History /Reproductive History - district adviser: /Reproductive Hx- district adviser Hx Now No 06/10/24 14:33 Gestational Age (in weeks): EDC: Hx Hx Para Hx Section SAB No 06/10/24 14:33 [facility] Medical History (Updated 06/10/24 @ 14:42 by Tereas Guadarrama) Wears glasses Post-menopausal PONV (postoperative nausea and vomiting) Leg cramps Heart murmur Osteoarthritis of right knee Right knee pain Gastritis, bile acid reflux History of ulceration History of Clostridium difficile infection History of steroid therapy Thyroid disease History of renal disease High cholesterol Injury of head and neck History of hiatal hernia Gastric reflux Non-smoker CPAP (continuous positive airway pressure) dependence Sleep apnea History of pain when walking History of edema History of Holter monitoring History of stress test History of echocardiogram Cardiology follow-up encounter Hypertension History of irregular heartbeat Hypercholesteremia Hypercalcemia Depression Anxiety Ventricular premature depolarization Reflux esophagitis History of diabetes mellitus MCL sprain of left knee Generalized anxiety disorder Major depressive disorder, recurrent, moderate Dyspnea Diabetes Hypothyroidism Obstructive sleep apnea GERD (gastroesophageal reflux disease) Essential (primary) hypertension Hyperlipidemia Cystocele Rectocele Rhinitis Sciatica Paresthesia of both feet Osteoporosis Polycystic kidney disease Impingement syndrome, shoulder, left Back pain Segmental and somatic dysfunction of cervical region Segmental and somatic dysfunction of pelvic region Lumbar radiculopathy, right Segmental and somatic dysfunction of lumbar region Segmental and somatic dysfunction of thoracic region History of Clostridium difficile colitis Hyperthyroidism History of goiter Arthritis Environmental allergies Problem with dialysis access (2017) Home Medications ?Medication ?Instructions ?Recorded ?Last Taken ?Type levothyroxine 50 mcg tablet 50 mcg PO MOTUWETHFRSA 07/12/13 04/24/22 08:00 History aspirin 81 mg chewable tablet 81 mg PO DAILY 10/25/13 11/21/21 History atorvastatin 10 mg tablet 10 mg PO DAILY 04/25/20 Unknown History azathioprine 75 mg tablet 75 mg PO DAILY 04/25/20 04/24/22 08:00 History ascorbic acid (vitamin C) 500 mg 500 mg PO DAILY 05/21/20 Unknown History tablet carvedilol 12.5 mg tablet (Coreg) 12.5 mg PO BID 05/21/20 04/24/22 08:00 History cyclobenzaprine 10 mg tablet 10 mg PO TID PRN Muscle Spasm 05/21/20 Unknown History cyanocobalamin (vitamin B-12) 2,500 mcg PO .2xweek 05/30/20 Unknown History 2,500 mcg sublingual tablet duloxetine 60 mg capsule,delayed 60 mg PO DAILY 30 days ##30 09/05/20 Unknown Rx release fexofenadine 180 mg tablet 180 mg PO DAILY 10/10/20 Unknown History (Laurie Allergy) cholecalciferol (vitamin D3) 125 125 mcg PO DAILY 08/20/21 Unknown History mcg (5,000 unit) capsule lorazepam 1 mg tablet (Ativan) 1 mg PO BID PRN anxiety #10 tabs 01/22/22 Unknown Rx ondansetron 4 mg disintegrating 4 mg PO Q8H PRN nausea and 01/22/22 Unknown Rx tablet vomiting #10 tabs buspirone 5 mg tablet 5 mg PO BID 04/23/22 04/24/22 08:00 History pantoprazole 40 mg tablet,delayed 40 mg PO BID 05/07/22 Unknown History release tacrolimus 1 mg capsule, 2 mg PO .QAM 05/13/23 Unknown History immediate-release gabapentin 100 mg capsule 100 mg PO BID 09/08/23 Unknown History tirzepatide 5 mg/0.5 mL 5 mg (0.5 mL) subcut QWEEK #2 mL 11/03/23 05/01/24 Rx subcutaneous pen injector (Mounjaro) metoclopramide HCl 5 mg tablet 5 mg PO DAILY PRN nausea and 01/11/24 Unknown Rx (Reglan) vomiting #10 tabs ascorbic acid (vitamin C) 500 mg 500 mg PO DAILY 06/10/24 Unknown History tablet (C-500) gabapentin 100 mg capsule 200 mg PO .NOON 06/10/24 Unknown History tacrolimus 1 mg capsule, 1 mg PO QHS 06/10/24 Unknown History immediate-release vitamin E 200 unit capsule 45 mg PO DAILY 06/10/24 Unknown History Allergy/AdvReac Type Severity Reaction Status Date / Time ciprofloxacin (From Cipro) Allergy Other Verified 06/10/24 14:24 ciprofloxacin HCl (From Allergy Other Verified 06/10/24 14:24 Cipro) levofloxacin Allergy Unknown Verified 06/10/24 14:24 ofloxacin (From Floxin) Allergy Unknown Verified 06/10/24 14:24 zolpidem tartrate (From Allergy Unknown Verified 06/10/24 14:24 Ambien) Family History Mother Kidney disease Liver failure Father Dementia Other Arthritis Bleeding disorder COPD (chronic obstructive pulmonary disease) Cancer Depression Hypertension Thyroid disorder Surgical History Hx of colonoscopy History of esophagogastroduodenoscopy (EGD) Hx of tubal ligation Hx of right knee surgery History of left ankle joint replacement History of left heart catheterization (04/07/17) History of nephrectomy Hx of LASIK History of arteriovenostomy for renal dialysis (2012) History of arthroscopy of left knee History of arthroscopy of right knee History of tonsillectomy and adenoidectomy History of gastric bypass (2012) History of uvulopalatopharyngoplasty History of cholecystectomy History of breast implant History of kidney transplant (05/2017) Social History Smoking Status: Never smoker alcohol intake: current alcohol intake frequency: holidays/special occasions only substance use type: does not use caffeine: Yes what type of physical activity do you participate in: none Audit: Pertinent Findings Pertinent Findings EKG Perinent findings: January 11, 2024. Normal sinus rhythm. Cannot rule out anterior infarct. Echo (EF%) pertinent findings: June 08, 2020. Ejection fraction is 55%. Pulmonary artery systolic pressure is 38 mmHg. There is no aortic valve stenosis noted. Heart catheterization pertinent findings: April 07, 2017. Mild multivessel coronary artery disease which was never greater than 30%. Consult pertinent findings: September 08, 2023. Yoanna FOREMAN. 1. Hypertension?controlled on her current medications of carvedilol. 2. Intermittent palpitations-these have improved with medications. Continue with current medications. Additional pertinent findings: Holter. April 27, 2020. Normal sinus rhythm with periods of sinus arrhythmia. Recommendation Anesthesia Recommendation Anesthesia recommendation: OPTIMIZED for anesthesia
[2024-06-15] VITALS (7 sets, daily range): BP systolic 119–168; BP diastolic 64–73; PULSE 53–56; RESP 16; TEMP 36.4–36.6; O2SAT 98–100; BMI 36.6
--- NOTE | 2024-06-15 13:33 | PCM.HP.STD ---
HPI - General General Date of Admission: 06/15/24 Date of Service: 06/15/24 Chief Complaint: Refractory GERD HPI Narrative 53 F who presents to the office today for endoscopic evaluation of refractory gastroesophageal reflux disease to medical therapy.. PMH obesity s/p gastric bypass [facility]; polycystic kidney disease (each kidney weighed 17lbs) s/p bilateral kidney transplant 06.15.17 with use of azathioprine for antirejection, DMII, PVC, neuropathy, anxiety/depression Prior workup: Upper GI series 04.26.20 GERD, small hiatal hernia. EGD and colonoscopy 05.16.20 Dr. Reyes EGD without visual abnormality. Pathology of gastritis. H.Pylori negative. Colonoscopy non-bleeding internal hemorrhoids. Remaining exam without abnormality. *BGI established 10.15.21 with reflux difficulty. Has been using Protonix 40mg QD since bypass surgery and feels this is overall helpful but has breakthrough symptoms r/t diet; sits upright one hour after taking nightly medication to prevent regurgitation. Previously diagnosed with fatty liver without prior treatment. Biochemical CBC, ESR, CMP, CRP, LDH, haptoglobin, ferritin, ceruloplasmin, ERLIN, AFP, ammonia, coagulation, copper, SOLA comp, AMA, ASM, ANCA without pertinent abnormality. A1c H6.2, CRP H4.04 US and elastography 11.06.21 hepatic measurement 13.2cm with fatty infiltration, stiffness 10.5kPa; s/p renal transplant CT abd/pel 11.06.21 9.3mm hepatic cyst; s/p cholecystectomy; renal transplant; s/p partial gastrectomy; colonic diverticulosis; moderate fecal material. EGD 11.28.21 non-obstructing mild Schatzki ring; irregular Zline 38cm, esophagitis; medium hiatal hernia; 6mm cratered gastric ulcer, gastritis; duodenitis. OV 7 increase PPI to BID, start lidocaine, sucralfate and Vitamin E with ursodiol. [facility] 8 with N/V possibly r/t multiple life stressors. Biochemical without acute concern. Treated with Zofran and Ativan with improvement. GI outpatient workup: EGD 04.24.22 irregular Zline, esophagitis; hiatal hernia; gastritis; 5mm cratered gastric ulcer, gastritis. OV 12 Start colestipol for bile binding causing gastritis and gastric ulcer. OV 2.23.23 continue PPI, vit E, ursodiol. Colestipol stopped. US abd/elastography 11.03.22- Liver measures 14cm 8.3kPa OV 12.03.22 Patient is stable since last visit. continues to take Ursodiol and Vit E for her liver. her GERD is under control with pantoprazole BID. no other concerns OV 05.13.23- Pt continues to do well since last visit. Continues medications as prescribed. Has no other complaints. US abd/ elastography 10.30.23- Liver measures 13.2cm Stiffness 8.2 kPa OV 11.03.23- Had labs done at 10.14.23. Had kidney labs from 10.28.23. Continues to take Ursodiol, and Vit E. No complaints at this time. OV 05.03.24- Pt has been well since last visit. Started Mounjaro in September. Has has increased reflux after eating. Denies abdominal pain or changes in bowels. No other concerns. She has increased gastric reflux and heartburn at least 3 times a week. She is on PPI. Completed Carafate. Lost 24 pounds since October 2023 [facility] Medical History Wears glasses Post-menopausal PONV (postoperative nausea and vomiting) Leg cramps Heart murmur Osteoarthritis of right knee Right knee pain Gastritis, bile acid reflux History of ulceration History of Clostridium difficile infection History of steroid therapy Thyroid disease History of renal disease High cholesterol Injury of head and neck History of hiatal hernia Gastric reflux Non-smoker CPAP (continuous positive airway pressure) dependence Sleep apnea History of pain when walking History of edema History of Holter monitoring History of stress test History of echocardiogram Cardiology follow-up encounter Hypertension History of irregular heartbeat Hypercholesteremia Hypercalcemia Depression Anxiety Ventricular premature depolarization Reflux esophagitis History of diabetes mellitus MCL sprain of left knee Generalized anxiety disorder Major depressive disorder, recurrent, moderate Dyspnea Diabetes Hypothyroidism Obstructive sleep apnea GERD (gastroesophageal reflux disease) Essential (primary) hypertension Hyperlipidemia Cystocele Rectocele Rhinitis Sciatica Paresthesia of both feet Osteoporosis Polycystic kidney disease Impingement syndrome, shoulder, left Back pain Segmental and somatic dysfunction of cervical region Segmental and somatic dysfunction of pelvic region Lumbar radiculopathy, right Segmental and somatic dysfunction of lumbar region Segmental and somatic dysfunction of thoracic region History of Clostridium difficile colitis Hyperthyroidism History of goiter Arthritis Environmental allergies Problem with dialysis access (2017) Home Medications ?Medication ?Instructions ?Recorded ?Last Taken ?Type levothyroxine 50 mcg tablet 50 mcg PO MOTUWETHFRSA 07/12/13 06/15/24 History aspirin 81 mg chewable tablet 81 mg PO DAILY 10/25/13 11/21/21 History atorvastatin 10 mg tablet 10 mg PO DAILY 04/25/20 Unknown History azathioprine 75 mg tablet 75 mg PO DAILY 04/25/20 06/15/24 History ascorbic acid (vitamin C) 500 mg 500 mg PO DAILY 05/21/20 Unknown History tablet carvedilol 12.5 mg tablet (Coreg) 12.5 mg PO BID 05/21/20 06/15/24 History cyclobenzaprine 10 mg tablet 10 mg PO TID PRN Muscle Spasm 05/21/20 Unknown History cyanocobalamin (vitamin B-12) 2,500 mcg PO .2xweek 05/30/20 Unknown History 2,500 mcg sublingual tablet duloxetine 60 mg capsule,delayed 60 mg PO DAILY 30 days ##30 09/05/20 Unknown Rx release fexofenadine 180 mg tablet 180 mg PO DAILY 10/10/20 Unknown History (Laurie Allergy) cholecalciferol (vitamin D3) 125 125 mcg PO DAILY 08/20/21 Unknown History mcg (5,000 unit) capsule lorazepam 1 mg tablet (Ativan) 1 mg PO BID PRN anxiety #10 tabs 01/22/22 Unknown Rx ondansetron 4 mg disintegrating 4 mg PO Q8H PRN nausea and 01/22/22 Unknown Rx tablet vomiting #10 tabs buspirone 5 mg tablet 5 mg PO BID 04/23/22 04/24/22 08:00 History pantoprazole 40 mg tablet,delayed 40 mg PO BID 05/07/22 Unknown History release tacrolimus 1 mg capsule, 2 mg PO .QAM 05/13/23 06/15/24 History immediate-release gabapentin 100 mg capsule 100 mg PO BID 09/08/23 Unknown History tirzepatide 5 mg/0.5 mL 5 mg (0.5 mL) subcut QWEEK #2 mL 11/03/23 05/01/24 Rx subcutaneous pen injector (Al) metoclopramide HCl 5 mg tablet 5 mg PO DAILY PRN nausea and 01/11/24 Unknown Rx (Reglan) vomiting #10 tabs ascorbic acid (vitamin C) 500 mg 500 mg PO DAILY 06/10/24 Unknown History tablet (C-500) gabapentin 100 mg capsule 200 mg PO .NOON 06/10/24 Unknown History tacrolimus 1 mg capsule, 1 mg PO QHS 06/10/24 Unknown History immediate-release vitamin E 200 unit capsule 45 mg PO DAILY 06/10/24 Unknown History Allergy/AdvReac Type Severity Reaction Status Date / Time ciprofloxacin (From Cipro) Allergy Other Verified 06/15/24 13:28 ciprofloxacin HCl (From Allergy Other Verified 06/15/24 13:28 Cipro) levofloxacin Allergy Unknown Verified 06/15/24 13:28 ofloxacin (From Floxin) Allergy Unknown Verified 06/15/24 13:28 zolpidem tartrate (From Allergy Unknown Verified 06/15/24 13:28 Ambien) Family History Mother Kidney disease Liver failure Father Dementia Other Arthritis Bleeding disorder COPD (chronic obstructive pulmonary disease) Cancer Depression Hypertension Thyroid disorder Surgical History Hx of colonoscopy History of esophagogastroduodenoscopy (EGD) Hx of tubal ligation Hx of right knee surgery History of left ankle joint replacement History of left heart catheterization (04/07/17) History of nephrectomy Hx of LASIK History of arteriovenostomy for renal dialysis (2012) History of arthroscopy of left knee History of arthroscopy of right knee History of tonsillectomy and adenoidectomy History of gastric bypass (2012) History of uvulopalatopharyngoplasty History of cholecystectomy History of breast implant History of kidney transplant (05/2017) Social History Smoking Status: Never smoker alcohol intake: current alcohol intake frequency: holidays/special occasions only substance use type: does not use caffeine: Yes what type of physical activity do you participate in: none ROS Constitutional Constitutional: Denies fatigue, fever(s), poor appetite, weight gain or weight loss Gastrointestinal Gastrointestinal: Denies belching, bloating, change in bowel habits, change in stool character, chewing difficulty, coffee ground emesis, constipation, cramping, diarrhea, dyspepsia, dysphagia, early satiety, excessive flatus, fecal incontinence, heartburn, hematemesis, hematochezia, hemorrhoids, loose stools, melena, nausea, odynophagia, rectal bleeding, tenesmus, vomiting or weight changes Physical Exam Const alert, oriented x3, no apparent distress and healthy appearing General Appearance: cooperative GI normal to inspection, nondistended, normoactive bowel sounds, soft to palpation, non-tender and non-distended Percussion: normal to percussion Rectal Exam: deferred Assessment & Plan Assessment/Plan (1) Metabolic dysfunction-associated steatotic liver disease (MASLD): (2) Gastric ulcer: (3) Neck pain: (4) GERD (gastroesophageal reflux disease): PLAN: Assessment and Plan Assessment and Plan (1) Metabolic dysfunction-associated steatotic liver disease (MASLD): Status: Chronic Plan: Patient's BMI is 33.3 kg/m?. 219 pounds. Lost 24 pounds. Labs from April reviewed. A1c 5.1%. Glucose 93. Lipid profile within normal limit. From last liver ultrasound with elastography also shows median liver stiffness decreased from 10.8-8.4 along with a decrease in liver size from 21 cm to 18 cm. Liver ultrasound from October 2023 reviewed, liver size 13.2 cm. Fatty infiltration. No mass. Median liver stiffness 8.2 kPa. Post cholecystectomy. CBD 6.6 mm. No pancreatic mass. Patient had kidney transplant for bilateral renal polycystic kidney disease and follows in kidney transplant center. Her electric distribution engineer is Dr. Hernandez. Her creatinine is 1.06. Currently on tacrolimus 2 mg in the morning and 1 mg in the evening. On azathioprine 75 mg daily. I discussed the risk factors, pathogenesis, natural history complications including cirrhosis and HCC of metabolic dysfunction associated steatotic liver disease, (MASLD) and patient affirmed understanding. There is There is recently 1 approved FDA medication for NAFLD, Resmitrom (Rezdiffra) but medications used for diabetes mellitus and weight loss mainly to metformin, pioglitazone, empagliflozin and GLP-1 agonist like semaglutide, dulaglutide/Trulicity have been found to decrease fatty content and improve fibrosis score found in the research literature. Indication, response rate, benefits, side effects/adverse effects and drug drug interaction of Resmitrom first FDA approved medication for F2 F3 liver fibrosis, MASLD was discussed with the patient with booklet. Questions encouraged and answered. On Al. For now continue Al. Will consider Rezdirachealra after EGD Follow-up in 6 months. (2) Morbid obesity: Status: Chronic (3) GERD (gastroesophageal reflux disease): Status: Chronic Plan: Continue PPI pantoprazole 40 mg daily before breakfast. Schedule EGD with Orders:
--- NOTE | 2024-06-15 13:58 | PCM.PRE.AN2 ---
ASA Classification* ASA Classification ASA Classification: 3 Assessment & Plan Anesthesia* Anesthesia Assessment Anesthesia Assessment: Discussed sedation and/or anesthesia options, risks, benefits, and alternatives with patient/parents/legal guardian/POA. Questions invited. The patient/parents/legal guardian/POA seems to understand and agrees to proceed with anesthesia plan. Reviewed the physical assessment, medical history, allergy history and patient home medications list prior to surgery/procedure/anesthetic and documented any changes. Performed airway and anesthesia risk assessments. Anesthesia Type Anesthesia Type: MAC History Source History Obtained from:: Patient and Chart Anesthesia Focused Assessment* Temperature: 97.9 F Pulse Rate: 55 Blood Pressure: 168/73 Respiratory Rate: 16 Pulse Ox: 100 Oxygen Delivery Method: Room Air Airway Assessment Mouth opens: >3 cm Mallampati Score: III Teeth Condition: Intact Focused Labs Anesthesia Preop lab: CBC WBC 5.1 K/mm3 (4.4-11.0) 01/11/24 17:09 RBC 4.33 M/mm3 (4.2-5.4) 01/11/24 17:09 Hgb 13.0 g/dL (12.0-15.0) 01/11/24 17:09 Hct 40.7 % (37-47) 01/11/24 17:09 Plt Count 127 K/mm3 (150-450) L 01/11/24 17:09 CHEMISTRY Potassium 3.9 mmol/L (3.5-5.1) 04/30/24 09:52 Sodium 142 mmol/L (136-145) 04/30/24 09:52 BUN 22 mg/dL (7-18) H 04/30/24 09:52 Creatinine 1.06 mg/dL (0.55-1.02) H 04/30/24 09:52 Glucose 93 mg/dL (74-106) 04/30/24 09:52 POC Glucose 107 mg/dL (74-106) H 04/24/22 09:10 TSH 0.78 uIU/mL (0.358-3.74) 05/30/20 12:12 COAG PT 14.0 SECONDS (11.7-14.9) 04/30/24 09:52 Pre-Assessment Diagnosis/Proposed Procedure Planned Operative Procedure(s): EGD Anesthesia History Anesthesia History - quality assurance coach: Anesthesia History - quality assurance coach Hx Hospitalization No 06/10/24 14:33 Any Problems With Anesthesia Yes: PONV 06/10/24 14:33 Cholinesterase deficiency No 06/10/24 14:33 You/Your Family Experience No 06/10/24 14:33 fever (hyperthermia) with Relationship Recent Exposure to Contagious No 06/15/24 13:29 Disease Does patient have nerve No 06/10/24 14:33 stimulator Patient instructed to have device shut off --Does patient have Pacemaker No 06/15/24 13:29 or ICD? When Was Last Pacemaker Check QUESTION #4 FULL TEXT: You/Your Family Experience fever (hyperthermia) with Anesthesia Last Oral Intake Last Oral intake: Last Oral Intake NPO since 09:00 06/15/24 13:29 Meds taken in AM with sips of water? Meds patient instructed to take am of surgery PONV PONV - quality assurance coach: PONV - quality assurance coach Female Yes 06/10/24 14:33 HX of Motion Sickness Yes 06/10/24 14:33 HX of N/V After Surgery Yes 06/10/24 14:33 Non-Smoker Yes 06/10/24 14:33 Duration of Surgery greater No 06/10/24 14:33 than 60 minutes Number of Risk Factors 4 06/10/24 14:33 PONV Score Severe Risk 06/10/24 14:33 Height & Weight Height & Weight: Anesthesia: Height & Weight Height 5 ft 7 in 06/15/24 13:29 Weight: 106 kg 06/15/24 13:29 Body Mass Index (BMI) 36.6 06/15/24 13:29 Respiratory Assessment Respiratory Assessment - quality assurance coach: Respiratory Tract Infection Hx - quality assurance coach Hx Respiratory Tract Infection No 06/10/24 14:33 STOP Sleep Apnea STOP Sleep Apnea - quality assurance coach: STOP Sleep Apnea - quality assurance coach Hx Hypertension Yes: CONTROLLED ON MEDS 06/10/24 14:33 Hx Sleep Apnea Yes 06/10/24 14:33 CPAP Yes 06/10/24 14:33 BIPAP No 06/10/24 14:33 Do you snore loudly (louder than talking or can be heard Do you often feel tired/ fatigued/ sleepy during daytime? Has anyone observed you stop breathing during sleep? STOP Results Positive 06/10/24 14:33 QUESTION #5 FULL TEXT : Do you snore loudly (louder than talking or can be heard through closed doors)? Tobacco Use History Tobacco Use History - quality assurance coach: Tobacco Use History - quality assurance coach Tobacco Use Smoking Status Never smoker 06/10/24 14:33 Hx Tobacco Use No 06/10/24 14:33 Years Smoking Packs Smoked per Day Smoking Cessation Date was within the last 15 years Hx Smoking Cessation Date Hx Smoking Cessation Counseling Hematologic Medial History Hematologic Hx - quality assurance coach: Hematologic Medical Hx - kaiako kohanga reo Hx of Blood Transfusion No 06/10/24 14:33 Hx of Transfusion in last 3 No 06/10/24 14:33 Months Date of Last Transfusion (if within last 3 months) Ever experience any problems No 06/10/24 14:33 with transfusion(s)? Specify any problems Hx of Preganancy in last 3 No 06/10/24 14:33 Months Nurse Filling Out Transfusion MGRIFFITH 06/10/24 14:33 & Questions: Date: 06/10/24 06/10/24 14:33 Time: 14:35 06/10/24 14:33 Patient unable to answer at this time (ie. confused, unrespo /Reproduction History /Reproductive History - quality assurance coach: /Reproductive Hx- quality assurance coach Hx Now No 06/10/24 14:33 Gestational Age (in weeks): EDC: Hx Hx Para Hx Section SAB No 06/10/24 14:33 [facility] Medical History Wears glasses Post-menopausal PONV (postoperative nausea and vomiting) Leg cramps Heart murmur Osteoarthritis of right knee Right knee pain Gastritis, bile acid reflux History of ulceration History of Clostridium difficile infection History of steroid therapy Thyroid disease History of renal disease High cholesterol Injury of head and neck History of hiatal hernia Gastric reflux Non-smoker CPAP (continuous positive airway pressure) dependence Sleep apnea History of pain when walking History of edema History of Holter monitoring History of stress test History of echocardiogram Cardiology follow-up encounter Hypertension History of irregular heartbeat Hypercholesteremia Hypercalcemia Depression Anxiety Ventricular premature depolarization Reflux esophagitis History of diabetes mellitus MCL sprain of left knee Generalized anxiety disorder Major depressive disorder, recurrent, moderate Dyspnea Diabetes Hypothyroidism Obstructive sleep apnea GERD (gastroesophageal reflux disease) Essential (primary) hypertension Hyperlipidemia Cystocele Rectocele Rhinitis Sciatica Paresthesia of both feet Osteoporosis Polycystic kidney disease Impingement syndrome, shoulder, left Back pain Segmental and somatic dysfunction of cervical region Segmental and somatic dysfunction of pelvic region Lumbar radiculopathy, right Segmental and somatic dysfunction of lumbar region Segmental and somatic dysfunction of thoracic region History of Clostridium difficile colitis Hyperthyroidism History of goiter Arthritis Environmental allergies Problem with dialysis access (2017) Home Medications ?Medication ?Instructions ?Recorded ?Last Taken ?Type levothyroxine 50 mcg tablet 50 mcg PO MOTUWETHFRSA 07/12/13 06/15/24 History aspirin 81 mg chewable tablet 81 mg PO DAILY 10/25/13 11/21/21 History atorvastatin 10 mg tablet 10 mg PO DAILY 04/25/20 Unknown History azathioprine 75 mg tablet 75 mg PO DAILY 04/25/20 06/15/24 History ascorbic acid (vitamin C) 500 mg 500 mg PO DAILY 05/21/20 Unknown History tablet carvedilol 12.5 mg tablet (Coreg) 12.5 mg PO BID 05/21/20 06/15/24 History cyclobenzaprine 10 mg tablet 10 mg PO TID PRN Muscle Spasm 05/21/20 Unknown History cyanocobalamin (vitamin B-12) 2,500 mcg PO .2xweek 05/30/20 Unknown History 2,500 mcg sublingual tablet duloxetine 60 mg capsule,delayed 60 mg PO DAILY 30 days ##30 09/05/20 Unknown Rx release fexofenadine 180 mg tablet 180 mg PO DAILY 10/10/20 Unknown History (Laurie Allergy) cholecalciferol (vitamin D3) 125 125 mcg PO DAILY 08/20/21 Unknown History mcg (5,000 unit) capsule lorazepam 1 mg tablet (Ativan) 1 mg PO BID PRN anxiety #10 tabs 01/22/22 Unknown Rx ondansetron 4 mg disintegrating 4 mg PO Q8H PRN nausea and 01/22/22 Unknown Rx tablet vomiting #10 tabs buspirone 5 mg tablet 5 mg PO BID 04/23/22 04/24/22 08:00 History pantoprazole 40 mg tablet,delayed 40 mg PO BID 05/07/22 Unknown History release tacrolimus 1 mg capsule, 2 mg PO .QAM 05/13/23 06/15/24 History immediate-release gabapentin 100 mg capsule 100 mg PO BID 09/08/23 Unknown History tirzepatide 5 mg/0.5 mL 5 mg (0.5 mL) subcut QWEEK #2 mL 11/03/23 05/01/24 Rx subcutaneous pen injector (Mounjaro) metoclopramide HCl 5 mg tablet 5 mg PO DAILY PRN nausea and 01/11/24 Unknown Rx (Reglan) vomiting #10 tabs ascorbic acid (vitamin C) 500 mg 500 mg PO DAILY 06/10/24 Unknown History tablet (C-500) gabapentin 100 mg capsule 200 mg PO .NOON 06/10/24 Unknown History tacrolimus 1 mg capsule, 1 mg PO QHS 06/10/24 Unknown History immediate-release vitamin E 200 unit capsule 45 mg PO DAILY 06/10/24 Unknown History Allergy/AdvReac Type Severity Reaction Status Date / Time ciprofloxacin (From Cipro) Allergy Other Verified 06/15/24 13:28 ciprofloxacin HCl (From Allergy Other Verified 06/15/24 13:28 Cipro) levofloxacin Allergy Unknown Verified 06/15/24 13:28 ofloxacin (From Floxin) Allergy Unknown Verified 06/15/24 13:28 zolpidem tartrate (From Allergy Unknown Verified 06/15/24 13:28 Ambien) Family History Mother Kidney disease Liver failure Father Dementia Other Arthritis Bleeding disorder COPD (chronic obstructive pulmonary disease) Cancer Depression Hypertension Thyroid disorder Surgical History Hx of colonoscopy History of esophagogastroduodenoscopy (EGD) Hx of tubal ligation Hx of right knee surgery History of left ankle joint replacement History of left heart catheterization (04/07/17) History of nephrectomy Hx of LASIK History of arteriovenostomy for renal dialysis (2012) History of arthroscopy of left knee History of arthroscopy of right knee History of tonsillectomy and adenoidectomy History of gastric bypass (2012) History of uvulopalatopharyngoplasty History of cholecystectomy History of breast implant History of kidney transplant (05/2017) Social History Smoking Status: Never smoker alcohol intake: current alcohol intake frequency: holidays/special occasions only substance use type: does not use caffeine: Yes what type of physical activity do you participate in: none Review of Systems (Anesthesia) ROS Narrative System reviewed and no additional complaints, except as documented.
[2024-06-15 14:03] LABS: Bedside Glucose 86 mg/dL (74-106)
--- NOTE | 2024-06-15 14:30 | IMM_PTH ---
PATIENT: AIDANAugust LOC: EN U#:[id number] AGE/SX: 53/F ROOM: RE06/15/[address]: Dr. Juan Jane DO : 1970 BED: DIS: 06/15/2024 SPEC #: [id number] RECD: 06/16/24 08:11 STATUS: BINTA MERARY #: [id number] NIR: 06/15/24 14:[address]: Juan Jane DEPT: IMMUNOHISTOCHEMISTRY RECD BY: Armando Kidd ENTERED: 06/16/24 08:11 SP TYPE: IMMUNO OTHR DR: Sharon Willis, VENDING SUPERVISOR-C Tissues: Gastric mucous membrane Procedures: H Pylori (initial) PHYSICIAN & INSTITUTION [place] [id number] SPECIMEN INFORMATION: Tissue Source: Gastric antrum biopsy Clinical Info: Metabolic dysfunction-associated steotactic liver disease, gastric ulcer, neck pain, GERD Specimen Number: [id number] CPT code: 77424 METHODOLOGY: Deparaffinized sections of prefer/formalin-fixed tissue or PAP/DQ stained slides are incubated with monoclonal/polyclonal antibodies/oligonucleotide probes. Localization is made via biotin free immunoperoxidase method. Appropriate controls are performed and reacted as expected. Results on target cell population are indicated in the following table: RESULTS: ANTIBODY / CLONE RESULT H Pylori (polyclonal) negative These tests were developed and their performance characteristics determined by [facility]. They may not have been cleared or approved by the U.S. Food and Drug Administration. The FDA has determined that such clearance or approval is not necessary. The above immunohistochemical/dualISH markers are ordered and reviewed by the Pathologist. INTERPRETATION: Gastric antrum, biopsy: Negative for Helicobacter pylori organisms. 06/17/2024
--- NOTE | 2024-06-15 14:30 | EGD_PTH ---
PATIENT: AIDANAugust LOC: EN U#:[id number] AGE/SX: 53/F ROOM: RE06/15/[address]: Dr. Juan Jane DO : 1970 BED: DIS: 06/15/2024 SPEC #: [id number] RECD: 06/16/24 12:59 STATUS: BINTA MERARY #: [id number] NIR: 06/15/24 14:[address]: Juan Jane DEPT: SURGICAL PATHOLOGY RECD BY: Armando Kidd ENTERED: 06/16/24 12:59 SP TYPE: EGD BIOPSY RUBINA DR: Sharon Willis, STOCK HANDLER FLOORPERSON-C Tissues: Gastric mucous membrane Procedures: Surgery Specimen Level IV HEADER OPERATION: EGD, polypectomy, hemostasis clip PRE-OP DIAGNOSIS: Metabolic dysfunction-associated steatotic liver disease, neck pain, GERD TISSUE SUBMITTED: Gastric antrum polyp MICROSCOPIC DIAGNOSIS Gastric antrum polyp, polypectomy: Inflammatory polyp. See comment. 06/17/2024 COMMENT The results of immunohistochemistry for Helicobacter pylori will be reported separately ([id number]). MICROSCOPIC DESCRIPTION Slides are reviewed. GROSS DESCRIPTION Received in fixative is one container labeled with the patient's name and designated Gastric antrum polyp. The specimen consists of one irregular fragment of light epstein soft tissue that measures 1 x 0.5 x 0.3 cm. The specimen is totally submitted in one cassette. 06/16/2024 TC:5 CPT:87559
--- NOTE | 2024-06-15 14:37 | OP.EGD_ITS ---
Patient Name: Kathia Barry Procedure Date: 06/15/2024 2:05 PM Date of : 1970 Age: 53 Procedure: Upper GI endoscopy Indications: Epigastric abdominal pain, Functional Dyspepsia, Indigestion, Failure to respond to medical treatment Providers: Juan Jane DO Referring MD: Erna Flower Medicines: Monitored Anesthesia Care Patient Profile: This is a 53 year old female. Refer to note in patient chart for documentation of history and physical. Patient has symptoms of acute abdominal distention, acute epigastric abdominal pain, acute dyspepsia and acute heartburn. Complications: No immediate complications. Procedure: Pre-Anesthesia Assessment: - Prior to the procedure, a History and Physical was performed, and patient medications and allergies were reviewed. The patient is competent. The risks and benefits of the procedure and the sedation options and risks were discussed with the patient. All questions were answered and informed consent was obtained. Patient identification and proposed procedure were verified by the physician in the pre-procedure area. Mental Status Examination: alert and oriented. Airway Examination: normal oropharyngeal airway and neck mobility. Respiratory Examination: clear to auscultation. CV Examination: normal. Prophylactic Antibiotics: The patient does not require prophylactic antibiotics. Prior Anticoagulants: The patient has taken no anticoagulant or antiplatelet agents. ASA Grade Assessment: II - A patient with mild systemic disease. After reviewing the risks and benefits, the patient was deemed in satisfactory condition to undergo the procedure. The anesthesia plan was to use monitored anesthesia care (MAC). Immediately prior to administration of medications, the patient was re-assessed for adequacy to receive sedatives. The heart rate, respiratory rate, oxygen saturations, blood pressure, adequacy of pulmonary ventilation, and response to care were monitored throughout the procedure. The physical status of the patient was re-assessed after the procedure. After obtaining informed consent, the endoscope was passed under direct vision. Throughout the procedure, the patient's blood pressure, pulse, and oxygen saturations were monitored continuously. The Endoscope was introduced through the mouth, and advanced to the second part of duodenum. The upper GI endoscopy was accomplished without difficulty. The patient tolerated the procedure well. Scope In: 2:13:40 PM Scope Out: 2:28:35 PM Total Procedure Duration Time 0 hours 14 minutes 55 seconds Findings: No gross lesions were noted in the entire esophagus. A medium-sized hiatal hernia was present. Normal-appearing surgical site from gastric sleeve A single 8 mm sessile polyp with no stigmata of recent bleeding was found in the gastric antrum. The polyp was removed with a hot snare. Resection and retrieval were complete. Verification of patient identification for the specimen was done. To prevent bleeding post-intervention, two hemostatic clips were successfully placed (MR conditional). Clip machine operator packaging: [employer]. There was no bleeding at the end of the procedure. No gross lesions were noted in the first portion of the duodenum. Impression: - No gross lesions in the entire esophagus. - Medium-sized hiatal hernia. I suspect gastroparesis. Normal-appearing surgical anatomy from previous gastric sleeve. - A single gastric polyp. Resected and retrieved. Clips (MR conditional) were placed. Clip machine operator packaging: [employer]. - No gross lesions in the first portion of the duodenum. Recommendation: - Discharge patient to home. - Resume previous diet. - Continue present medications. - Await pathology results. - Consider gastric emptying study Procedure Code(s): --- Professional --- 77624, Esophagogastroduodenoscopy, flexible, transoral; with removal of tumor(s), polyp(s), or other lesion(s) by snare technique CPT copyright 2021 [employer]. All rights reserved. The codes documented in this report are preliminary and upon shipping support review may be revised to meet current compliance requirements. Juan Jane DO 06/15/2024 2:36:36 PM This report has been signed electronically. Number of Addenda: 0 Note Initiated On: 06/15/2024 2:05 PM
--- NOTE | 2024-06-15 14:37 | OP.CCLET_ITS ---
06/15/2024 Erna Flower Re : Upper GI endoscopy procedure for August Jhonny Velarde Lazaro This procedure was performed on Saturday, June 15, 2024. My impressions and recommendations are as follows: Impressions : - No gross lesions in the entire esophagus. - Medium-sized hiatal hernia. I suspect gastroparesis. Normal-appearing surgical anatomy from previous gastric sleeve. - A single gastric polyp. Resected and retrieved. Clips (MR conditional) were placed. Clip adding machine servicer: [employer]. - No gross lesions in the first portion of the duodenum. Recommendations : - Discharge patient to home. - Resume previous diet. - Continue present medications. - Await pathology results. - Consider gastric emptying study My findings are described in the full procedure note, which is enclosed. If I can be of further assistance, please feel free to contact me at . Sincerely, Juan Friend, DO 06/15/2024 2:36:36 PM This report has been signed electronically.
--- NOTE | 2024-06-15 14:38 | PCM.POST.ANE ---
Anesthesia: Postop Eval I Current Vital Signs Temperature: 97.5 F Pulse Rate: 56 Blood Pressure: 119/64 Respiratory Rate: 16 Pulse Ox: 98 Oxygen Delivery Method: Room Air Assessment Airway patent: Yes Spontaneous unlabored respirations: Yes Mental status: Asleep nausea: No Vomiting: No Anesthesia Complication: No Fluid Hydration Crystalloid volume administer (ml): 30 Total IV fluid infused: 30 Progress Note Anesthesia document: Postop Eval 1 completed: Yes
--- NOTE | 2024-06-15 15:59 | PCM.POSTANE2 ---
Anesthesia Postop Eval I Sum Postop Eval Completion status Anesthesia document: Postop Eval 1 completed: Yes Anesthesia Postop Eval I Summary Anesthesia Postop Eval I Summary: Anesthesia Postop Eval I: Assessment Summary Airway patent Yes 06/15/24 14:40 [email or web address] Spontaneous unlabored Yes 06/15/24 14:40 [email or web address] respirations Mental status Asleep 06/15/24 14:40 [email or web address] nausea No 06/15/24 14:40 [email or web address] Vomiting No 06/15/24 14:40 [email or web address] Anesthesia Postop Eval I: Fluid Summary Crystalloid volume administer 30 06/15/24 14:40 [email or web address] (ml) Colloids volume administered ( ml) Blood Product volume administered (ml) Total IV fluid infused 30 06/15/24 14:40 [email or web address] Anesthesia Postop Eval I: Summary Notes Anesthesia Complication No 06/15/24 14:40 [email or web address] Anesthesia Complication Comment: Post-operative progress note Anesthesia: Postop Eval II Evaluation Mental status: Awake Pain Level: 0 nausea: No Vomiting: No Complications Anesthesia Complication: No
== END 2024-06-15 15:30 | disposition home or self-care (01) ==
LOC: EN 13:14 → AC 13:14
PROVIDERS: PCP Nurse Practitioner Family; Referring Provider Nurse Practitioner Family; Visit Provider Internal Medicine Gastroenterology
PROC: 0DJ08ZZ Inspection of Upper Intestinal Tract, Via Natural or Artificial Opening Endoscopic (ICD-10-PCS; CPT 43235; principal; 2024-06-15 14:25)
DX: K21.9 Gastro-esophageal reflux disease without esophagitis (principal); E66.01 Morbid (severe) obesity due to excess calories; E11.9 Type 2 diabetes mellitus without complications; K31.7 Polyp of stomach and duodenum; K44.9 Diaphragmatic hernia without obstruction or gangrene; K30 Functional dyspepsia; K76.0 Fatty (change of) liver, not elsewhere classified; Z94.0 Kidney transplant status; I10 Essential (primary) hypertension; E78.00 Pure hypercholesterolemia, unspecified; Z68.36 Body mass index [BMI] 36.0-36.9, adult; Z79.82 Long term (current) use of aspirin; Z79.85 Long-term (current) use of injectable non-insulin antidiabetic drugs; Z79.899 Other long term (current) drug therapy
CPT/HCPCS: 43251; 82962; 88305; 88342; A4216; J2405

== ENCOUNTER → 2024-09-14 | Outpatient (CLI) | payer MEDICARE, OTHER, MEDICAID, SELFPAY ==
--- NOTE | 2024-09-14 17:21 | STRESSREP ---
Stress Test Report Pharmacologic myocardial perfusion stress test. 53-year-old lady with a history of chest pain Resting EKG demonstrates sinus bradycardia with a rate of 56 bpm. Resting blood pressure is 130/72 mmHg. 0.4 mg of regadenoson was infused per usual protocol followed by rapid intravenous saline flush injection. Continuous EKG monitoring was performed. The maximum heart rate was 85 bpm which was 51% of max impacted heart rate the maximum workload was 1 metabolic equivalent. At rest there were no ST or T wave changes noted to suggest ischemia and at peak infusion nonspecific ST changes were noted which did not meet the criteria for ischemia. No clinical angina is noted. The final blood pressure was 122/70 mmHg. Myocardial perfusion protocol. 13.9 mCi of technetium 99m sestamibi was injected at rest. 0.4 mg of regadenoson was infused per usual protocol. At peak infusion 43.5 mCi of technetium 99m sestamibi was injected stress images were obtained stress and rest images were reconstructed and compared in the short axis vertical long and horizontal long axis. Gated images were also obtained. Perfusion SPECT analysis: Review of the stress images demonstrate normal uptake of tracer noted in all areas of the myocardium. The resting images similar demonstrated normal uptake of tracer noted in all areas of the myocardium. No areas of reversibility are noted to suggest ischemia and no previous infarct is noted. Gated SPECT analysis: The gated ejection fraction is 81%. Conclusion: Normal pharmacologic myocardial perfusion stress test. Preserved ejection fraction.
== END | disposition home or self-care (01) ==
LOC: CVS 06:34
PROVIDERS: PCP Nurse Practitioner Family; Referring Provider Physician Assistant Medical; Visit Provider Physician Assistant Medical
DX: R07.9 Chest pain, unspecified (principal); I10 Essential (primary) hypertension
CPT/HCPCS: 78452; 93017; A9500; A4216; J2785

== ENCOUNTER → 2024-10-04 | Outpatient (CLI) | payer MEDICARE, OTHER, MEDICAID, SELFPAY ==
--- NOTE | 2024-10-04 13:50 | RAD_ITS ---
PROCEDURE: CERV SPINE OBL/FLEX/EXT COMP 10/04/2024 REASON FOR EXAM: OTHER CERVICAL DISC DEGENERATION, UNSPECIFIED CERVICAL REGION TECHNIQUE: 7 views of the cervical spine. AP, lateral, flexion-extension, bilateral oblique and open-mouth odontoid COMPARISON: 04/07/2019 FINDINGS: Cervical spine is visualized on the lateral view from the skull base to the top of T1. No fracture or malalignment. No prevertebral soft tissue swelling. C4 through C7 mild appearing spondylosis/discogenic change and anterior corner spurring is not significantly changed in appearance. There is again suggestion of possible severe foraminal stenosis on the left at C6-7 not significantly changed. [id number] appearing degenerative changes occipital condyles and C1 again noted. Visualized apices appear clear. RAD/Cerv Spine Obl/Flex/Ext Comp IMPRESSION: Similar appearance of multilevel spondylosis/discogenic change as above appears greatest at the occipital condyles and C1. Reading Location: [id number]
== END | disposition home or self-care (01) ==
PROVIDERS: PCP Nurse Practitioner Family; Referring Provider Anesthesiology Pain Medicine; Visit Provider Anesthesiology Pain Medicine
DX: M50.30 Other cervical disc degeneration, unspecified cervical region (principal)
CPT/HCPCS: 72052